=== PATIENT | male | born 1960 | race Caucasian/White ===

== ENCOUNTER 2020-11-13 08:35 | Outpatient (REF) | payer BC, SELFPAY | END 2020-11-13 08:36 | disposition home or self-care (01) | LOC: HO.LAB 08:35 | PROVIDERS: PCP Nurse Practitioner Family; Visit Provider Internal Medicine | DX: Z20.822 Contact with and (suspected) exposure to COVID-19 (principal) | CPT/HCPCS: 36415; C9803; U0003 ==

== ENCOUNTER 2021-08-27 08:09 | Outpatient (REF) | payer BC, SELFPAY ==
--- NOTE | ~2021-08-27 | CT_ITS ---
EXAMINATION: CT ANGIOGRAM CHEST CLINICAL INFORMATION: Follow up thoracic aortic aneurysm. COMPARISON: CTA chest 09/07/2014. TECHNIQUE: Multiple axial images were obtained through the chest after the administration of 50 mL of Omnipaque 350 intravenous contrast. Extensive vascular post-processing including two-dimensional and three-dimensional reformatted images were created and reviewed on an independent workstation. This CT examination was performed using dose optimization techniques as appropriate, variously including the following: *Automated exposure control. *Adjustment of mA and/or kV according to patient size (this includes techniques or standardized protocols for targeted exams where dose is matched to indication/reason for exam; i.e. extremities or head). *Use of iterative reconstruction technique. DLP: 210 mGy-cm VASCULAR FINDINGS: There is mild aneurysmal dilatation of the ascending aorta with a maximal dimension on today's study of 4.4 x 4.3 cm (5:14). At the time of the 09/07/2014 study, maximal diameter was 4.3 x 4.1 cm (prior 4:25). Maximal dimension of the aorta for a patient of 60 years of age would be 4.1 cm. No aortic dissection is seen. A tricuspid aortic valve is present. A two-vessel branching pattern of the arch is seen with a common origin to the innominate and left carotid. The proximal great vessels are patent. Although not carried out for evaluation of the pulmonary arteries or pulmonary veins, no significant abnormality is seen. Coronary artery calcifications are seen. Calcifications are present in the aortic leaflets. The small visualized portion of the abdominal aorta shows some mild calcific plaque without aneurysm, dissection or stenosis. The celiac and SMA are patent. There are 2 renal arteries seen on the right that are patent and a single left-sided renal artery that is patent. NONVASCULAR FINDINGS: LUNGS: The lungs are clear with no evidence of worrisome inflammation or nodules. Some scarring is present in the lingula. MEDIASTINUM: The mediastinum is normal. PLEURA: There is no pleural effusion. No pleural mass or thickening. AXILLA: No lymphadenopathy. UPPER ABDOMEN: Unremarkable. OSSEOUS STRUCTURES: Degenerative changes are present in the spine without bony destructive lesions. CT/CT angio chest aorta IMPRESSION: There is mild aneurysmal dilatation of the ascending thoracic aorta. Maximal dimension of the ascending aorta has increased by 1 mm from 4.3 cm in 2013 to 4.4 cm on today's study. Maximal dimension of the thoracic aorta for a patient of 61 years of age should be 4.1 cm. Normal aortic diameters (in millimeters). Ascending aorta: 31+0.16 x age. Descending aorta: 21+0.16 x age. Reference: [employer] Cardiovascular J 2006 March; 40 (3): 175-178
[2021-08-27 08:55] LABS: Alanine Aminotransferase 33 U/L (0-40); Albumin Level 4.5 g/dL (3.5-5.0); Alkaline Phosphatase 67 U/L (39-117); Anion Gap 15 (12-20); Aspartate Amino Transferase 27 U/L (5-37); Bilirubin Total 0.9 mg/dL (0.0-1.0); Blood Urea Nitrogen 10 mg/dL (9-16); Calcium 9.3 mg/dL (8.4-10.2); Carbon Dioxide 24 mmol/L (22-29); Chloride 107 mmol/L (96-108); Cholesterol 184 mg/dL; Estimated Glomerular Filt Rate > 60; Glucose Fasting 114 mg/dL (60-99); HDL Cholesterol 78 mg/dL; LDL Cholesterol Calculated 97 mg/dl; Potassium 4.8 mmol/L (3.3-5.1); Sodium 141 mmol/L (135-145); Total Protein 7.6 g/dL (6.5-8.0); Triglycerides 49 mg/dL
[2021-08-27 09:08] LABS: TSH reflex Free T4 0.93 uIU/mL (0.32-4.0)
[2021-08-27] MEDS: iohexoL 350 MG/ML 100 ML INFUS..BTL IV (10:30)
[2021-08-27 10:42] LABS: Appearance Urine CLEAR; Color Urine YELLOW; Glucose Urine UA NEG (NEG); Leukocyte Esterase Urine NEG (NEG); Nitrite Urine NEG (NEG); Specific Gravity - Urine 1.015 (1.005-1.025); Urine Blood NEG (NEG); Urine Ketones NEG (NEG); Urine Protein NEG (NEG-TRACE)
[2021-08-28 08:26] LABS: Lyme Abs Screen <0.90 index
== END 2021-08-27 08:10 | disposition home or self-care (01) ==
LOC: HO.CT 08:09
PROVIDERS: PCP Nurse Practitioner Family; Visit Provider Nurse Practitioner Family
DX: I71.2 Thoracic aortic aneurysm, without rupture (principal); I10 Essential (primary) hypertension; T14.8XXA Other injury of unspecified body region, initial encounter; W57.XXXA Bitten or stung by nonvenomous insect and other nonvenomous arthropods, initial encounter
CPT/HCPCS: 36415; 71275; 80053; 80061; 81003; 84443; 86617; 86618; Q9967

== ENCOUNTER 2021-12-21 06:07 | Outpatient (REF) | payer BC, SELFPAY ==
[2021-12-21 11:37] LABS: Appearance Urine CLEAR; Color Urine YELLOW; Glucose Urine UA NEG (NEG); Leukocyte Esterase Urine NEG (NEG); Nitrite Urine NEG (NEG); PH 6.5 (5.0-8.0); Urine Blood NEG (NEG); Urine Ketones NEG (NEG); Urine Protein NEG (NEG-TRACE)
[2021-12-21 11:56] LABS: Alanine Aminotransferase 70 U/L (0-40); Albumin Level 4.4 g/dL (3.5-5.0); Alkaline Phosphatase 61 U/L (39-117); Anion Gap 13 (12-20); Aspartate Amino Transferase 44 U/L (5-37); Bilirubin Total 1.2 mg/dL (0.0-1.0); Blood Urea Nitrogen 12 mg/dL (9-16); Calcium 9.9 mg/dL (8.4-10.2); Carbon Dioxide 31 mmol/L (22-29); Chloride 96 mmol/L (96-108); Cholesterol 187 mg/dL; Estimated Glomerular Filt Rate > 60; Glucose Fasting 112 mg/dL (60-99); HDL Cholesterol 84 mg/dL; LDL Cholesterol Calculated 95 mg/dl; Potassium 4.6 mmol/L (3.3-5.1); Sodium 135 mmol/L (135-145); Total Protein 7.5 g/dL (6.5-8.0); Triglycerides 44 mg/dL
== END 2021-12-21 06:08 | disposition home or self-care (01) ==
LOC: HO.HMGCLDS 06:07
PROVIDERS: Visit Provider Nurse Practitioner Family
DX: Z00.00 Encounter for general adult medical examination without abnormal findings (principal); Z12.5 Encounter for screening for malignant neoplasm of prostate
CPT/HCPCS: 36415; 80053; 80061; 81003; 84153; 84443

== ENCOUNTER 2022-04-30 09:31 | Outpatient (REF) | payer OTHER, SELFPAY ==
--- NOTE | ~2022-04-30 | US_ITS ---
EXAMINATION: US ABDOMEN COMPLETE CLINICAL INFORMATION: Abnormal levels of other serum enzymes. COMPARISON: None TECHNIQUE: Real-time imaging of the abdominal viscera. FINDINGS: PANCREAS: The pancreas is homogeneous in density and normal size. ABDOMINAL AORTA: The proximal, mid, and distal segments are normal in caliber. INFERIOR VENA CAVA: Visualized portions are normal. LIVER: The liver is normal in size. The liver contour is normal. The liver is diffusely echogenic. No focal hepatic lesion. There is no intrahepatic biliary duct dilatation seen. Hepatopedal flow seen in the portal vein. GALLBLADDER: Gallbladder wall thickness is 0.26 cm. The gallbladder is physiologically distended without evidence of stones, sludge, polyps, wall thickening or pericholecystic fluid. COMMON BILE DUCT: Normal in caliber measuring 0.3 cm in diameter. RIGHT KIDNEY: There is an anechoic exophytic cyst in the lower pole measuring 2.2 x 1.6 x 2.0 cm. No hydronephrosis or renal calculi. The kidney measures 11.0 cm in maximum dimension. LEFT KIDNEY: Normal. No hydronephrosis. No renal calculi or focal parenchymal lesions. The kidney measures 10.7 cm in maximum dimension. SPLEEN: Normal. The spleen measures 13.2 cm in maximum dimension. FREE FLUID: None. US/US abdomen complete IMPRESSION: Anechoic exophytic cyst lower pole right kidney measuring 2.2 x 1.6 x 2.0 cm. Hepatic steatosis without focal lesion. The rest of the abdominal ultrasound is unremarkable.
== END 2022-04-30 09:32 | disposition home or self-care (01) ==
LOC: HO.US 09:31
PROVIDERS: Visit Provider Nurse Practitioner Family
DX: R74.8 Abnormal levels of other serum enzymes (principal)
CPT/HCPCS: 76700

== ENCOUNTER → 2022-06-17 08:09 | Outpatient (REF) | payer OTHER, SELFPAY ==
--- NOTE | 2022-06-17 08:11 | CA_ITS ---
Transthoracic Echocardiogram Patient (Last, First, Middle): Mannie Pleitez B Gender: Male Date of : 1960 Age: 62 Procedure Date: 06/17/2022 Procedure Type: Transthoracic Echocardiogram Location: OP Height: 182.88 cm Weight: 95.26 kg BSA: 2.18 m2 Heart Rate: bpm BP: 130 / 70 mmHg Air Hole Driller: KAMERON Referring MD: Daniel Azevedo [facility] Customer Relations Coordinator: Joshua Lorenzo MD Symptoms: R01.1 - Cardiac murmur, unspecified Study Quality: Adequate ECG Rhythm: Sinus Conclusions: - 1. Normal LV systolic function with moderate LVH with LVEF of 55-60% with impaired relaxation filling pattern 2. Normal cardiac valvular Dopplers 3. Mildly dilated ascending aorta at 4.3 cm 4. Normal RV systolic pressure 5. No gross pericardial effusion Findings Left Ventricle Normal left ventricular size and systolic function. There is moderately increased left ventricular wall thickness. The visually estimated ejection fraction is between 55-60%. Spectral Doppler is indicative of an impaired relaxation filling pattern. E/E prime ratio is between 8 and 15 consistent with indeterminate filling pressures. Right Ventricle Normal right ventricular cavity size and systolic function. Atria The left atrium is normal in size. Interatrial shunt cannot be excluded. The right atrium is normal in size. Aortic Valve There is mild calcification of the aortic valve. There is no aortic valve stenosis. There is no aortic valve regurgitation. Mitral Valve There is mild anterior and posterior mitral leaflet thickening. There is mild mitral annular calcification. There is trace mitral valve regurgitation. There is no mitral valve stenosis. Pulmonic Valve The pulmonic valve was not well visualized. There is trace pulmonic valve regurgitation. Tricuspid Valve Likely normal tricuspid valve structure and function. There is trace tricuspid valve regurgitation. The right ventricular systolic pressure is normal. The right ventricular systolic pressure is 20 mmHg. Normal right atrial pressure. There is no evidence of pulmonary hypertension. Great Vessels The pulmonary artery was not well visualized. There is mild dilatation of the ascending aorta measuring 4.30 cm. Venous The inferior vena cava is normal in size and collapses greater than 50% with inspiration. Pericardium/Pleural There is no evidence of pericardial effusion. Prior Study Comparison no previous study in the last 5 years for comparison Measurements 2D Linear Measurements IVSd: 1.52 0.6-0.9/0.6-1.0 cm LVIDd: 4.00 3.9-5.3/4.2-5.9 cm LVIDd Index: 1.83 2.4-3.2/2.2-3.1 cm/m2 LVIDs: 2.63 2.0-3.6 cm LVPWd: 1.60 0.7-1.1 cm LA Diam: 3.10 2.7-3.8/3.0-4.0 cm LAIDs Index: 1.42 1.5-2.3 cm/m2 LV Mass: 308.82 67-162/88-224 g LV Mass Index: 141.66 43-95/49-115 g/m2 LVOT Diam: 2.00 3.0+(-)1.3 cm 2D Systolic Function EF 4C: 54.40 >55% EF 2C: 63.30 >55% EF BiP: 58.60 >55% Mitral Valve MV Pk E: 0.92 MV PK A: 0.75 MV Decel Time: 262.00 E/A: 1.20 E'Lateral: 8.70 E'Medial: 7.07 E/E' Med: 13.00 E/E' Lat: 10.50 PHT: 77.00 MVA PHT: 2.86 Decel [place]: 3.50 Aortic Valve AoV Pk Deondre: 1.87 AoV Mn Deondre: 1.25 AoV VTI: 0.39 AoV Pk Grad: 14.00 Aov Mn Grad: 7.00 VERONICA Cont.VTI: 1.57 LVOT LVOT Pk Deondre: 0.84 LVOT Mn Deondre: 0.56 LVOT VTI: 0.19 LVOT Pk Grad: 3.00 LVOT Mn Grad: 1.00 LVOT Diam: 2.00 LVOT Area: 3.14 Diastolic Function MV Pk E: 0.92 MV Pk A: 0.75 E/A: 1.20 E'Medial: 7.07 E/E' Med: 13.00 E' Laterial: 8.70 E/E' Lat: 10.50 Right Ventricle TAPSE (mm): 22.60 TVS' Deondre: 12.10 Tricuspid Valve TR Pk Deondre: 2.06 TR Pk Grad: 17.00 RA Press: 3.00 RVSP: 20.00 Great Vessels Aorta Sinus of Valsalva: 3.89 2.0-3.[address] [place]: 2.75 1.7-3.4 cm Ao Asc: 4.30 2.1-3.4 cm Ao Arch: 3.90 Updated in Other Vendor System with Status of Final Joshua Lorenzo MD electronically signed on 06/17/2022 11:47:42 AM with status of Final
== END ==
LOC: HO.CARD 08:09
PROVIDERS: Visit Provider Nurse Practitioner Family
DX: R01.1 Cardiac murmur, unspecified (principal)
CPT/HCPCS: 93306

== ENCOUNTER → 2022-08-16 08:49 | Outpatient (BNVA) | payer OTHER, SELFPAY | PROVIDERS: PCP Nurse Practitioner Family; Visit Provider Urology | DX: N28.1 Cyst of kidney, acquired (principal) | CPT/HCPCS: 51798 ==

== ENCOUNTER 2022-12-06 08:16 | Outpatient (REF) | payer OTHER, SELFPAY ==
[2022-12-06 11:25] LABS: Appearance Urine Clear; Color Urine Yellow; Glucose Urine UA Negative (Negative); Leukocyte Esterase Urine Negative (Negative); Nitrite Urine Negative (Negative); PH 7.5 (5.0-9.0); Urine Blood Negative (Negative); Urine Ketones Negative (Negative); Urine Protein Negative (Neg-Trace)
[2022-12-06 11:43] LABS: MANUAL DIFF FLAG NO
[2022-12-06 12:01] LABS: Basophils Percent Auto 0.6 % (0-2); Eosinophils Absolute Auto 0.3 X10*3/uL (0.0-0.4); Eosinophils Percent Auto 3.5 % (0-4); Hematocrit 41.8 % (42.0-52.0); Hemoglobin 14.1 g/dl (14.0-18.0); Imm Gran Abs Auto 0.02 X10*3/uL (0.00-0.03); Imm Gran Pct Auto 0.3 % (0.0-0.4); Lymphocytes Absolute Auto 0.8 X10*3/uL (1.2-4.9); Lymphocytes Percent Auto 10.9 % (20-40); Mean Corpuscular HGB Conc 33.7 g/dl (31.0-36.0); Mean Corpuscular Hemoglobin 31.1 pg (27.0-33.0); Mean Corpuscular Volume 92.3 fL (80.0-98.0); Mean Platelet Volume 8.7 fL (9.4-12.4); Monocytes Absolute Auto 0.8 X10*3/uL (0.1-1.2); Monocytes Percent Auto 11.6 % (2-11); Neutrophils Absolute Auto 5.2 x10*3/uL (2.0-8.3); Neutrophils Percent Auto 73.1 % (45-73); Platelet Count 220 X10*3/uL (160-400); Red Blood Count 4.53 X10*6/uL (4.60-5.80); Red Cell Distribution Width 12.2 % (11.0-16.0); White Blood Count 7.1 X10*3/uL (4.8-10.8)
[2022-12-06 12:42] LABS: Alanine Aminotransferase 64 U/L (0-40); Albumin Level 4.3 g/dL (3.5-5.0); Alkaline Phosphatase 79 U/L (39-117); Anion Gap 15 (12-20); Aspartate Amino Transferase 47 U/L (5-37); Bilirubin Total 1.1 mg/dL (0.0-1.0); Blood Urea Nitrogen 10 mg/dL (9-16); Calcium 9.5 mg/dL (8.4-10.2); Carbon Dioxide 25 mmol/L (22-29); Chloride 101 mmol/L (96-108); Estimated Glomerular Filt Rate > 60; Glucose Random 110 mg/dL (60-115); Potassium 4.8 mmol/L (3.3-5.1); Sodium 136 mmol/L (135-145); TSH reflex Free T4 1.65 uIU/mL (0.32-4.0); Total Protein 7.5 g/dL (6.5-8.0)
== END 2022-12-06 08:17 | disposition home or self-care (01) ==
LOC: HO.HMGCLDS 08:16
PROVIDERS: PCP Nurse Practitioner Family; Visit Provider Nurse Practitioner Family
DX: F10.10 Alcohol abuse, uncomplicated (principal); R74.8 Abnormal levels of other serum enzymes; I10 Essential (primary) hypertension; I71.20 Thoracic aortic aneurysm, without rupture, unspecified
CPT/HCPCS: 36415; 80053; 81003; 84443; 85025

== ENCOUNTER 2023-01-31 08:26 | Outpatient (REF) | payer OTHER, SELFPAY ==
[2023-02-06 23:32] LABS: PSA, Ultra Sensitive 1.26 ng/mL
== END 2023-01-31 08:27 | disposition home or self-care (01) ==
LOC: HO.HMGCLDS 08:26
PROVIDERS: Urology; PCP Nurse Practitioner Family; Visit Provider Nurse Practitioner Family
DX: Z12.5 Encounter for screening for malignant neoplasm of prostate (principal)
CPT/HCPCS: 36415; 84153

== ENCOUNTER 2023-02-05 08:04 | Outpatient (REF) | payer OTHER, SELFPAY ==
--- NOTE | ~2023-02-05 | CT_ITS ---
EXAMINATION: CTA OF THE CHEST WITHOUT AND WITH CONTRAST CLINICAL INFORMATION: Thoracic aortic aneurysm without rupture. COMPARISON: 08/27/2021. TECHNIQUE: CT angiography of the chest was performed without and with contrast. 70 mL Omnipaque 350 administered intravenously without complication. 3D POSTPROCESSING: Multiple 3-D angiographic images were processed from the initial data set by the lab animal technologist at the modality workstation under concurrent physician supervision. DOSE LOWERING TECHNIQUES: This CT examination was performed using dose optimization techniques as appropriate, variously including the following: - Automated exposure control - Adjustment of mA and/or kV according to patient size (this includes techniques or standardized protocols for targeted exams where dose is matched to indication/reason for exam; i.e. extremities or head) - Use of iterative construction technique DOSE-LENGTH PRODUCT: 169 mGycm FINDINGS: CORONARY ARTERIES: LAD and LCx calcium. ASCENDING AORTA: Motion artifact limits evaluation. The tubular segment measures 4.4 x 4.4 cm which is stable compared to the prior study. AORTIC ARCH: The aortic arch is normal in caliber. Two-vessel branching pattern. The great vessels are patent. DESCENDING AORTA: The descending aorta is normal in caliber with minimal atherosclerotic disease. INCLUDED UPPER ABDOMINAL AORTA: The upper abdominal aorta is normal in caliber. Initial visualization of the celiac trunk is unremarkable. PULMONARY ARTERIES: The exam was performed in the systemic arterial phase and not timed to evaluate the pulmonary arteries. NONVASCULAR: Arterial phase imaging limits evaluation of nonvascular structures. No mediastinal adenopathy. No pericardial effusion. Calcified granuloma in the right upper lobe. Mild atelectasis or scarring in the lingula. Small calcified pleural plaques bilaterally may indicate prior asbestos exposure. No and evidence of interstitial lung disease. The upper abdomen is unremarkable. Degenerative changes in the spine. CT/CT angio chest aorta IMPRESSION: Stable ascending aortic aneurysm measuring 4.4 cm. Fleischner guidelines were followed.
[2023-02-05] MEDS: iohexoL 350 MG/ML 100 ML INFUS..BTL IV (09:07)
[2023-02-05 13:27] LABS: Creatinine POC 0.8 mg/dL (0.5-1.4); GFR POC > 60
== END 2023-02-05 08:05 | disposition home or self-care (01) ==
LOC: HO.CT 08:04
PROVIDERS: Visit Provider Nurse Practitioner Family
DX: I71.20 Thoracic aortic aneurysm, without rupture, unspecified (principal)
CPT/HCPCS: 71275; 82565; Q9967

== ENCOUNTER 2023-06-16 09:18 | Outpatient (AMB) | payer OTHER, SELFPAY ==
[2023-06-16 09:25] VITALS: BP 148/80; PULSE 83; TEMP 35.9; O2SAT 98; BMI 29.0
--- NOTE | 2023-06-16 09:25 | MHC.OFFWIV ---
Intake Vital Signs 06/16/23 09:25 Height 6 ft Weight 214 lb BMI 29.0 BP 148/80 H Blood Pressure Location Lt brachial Position Sitting Pulse 83 Pulse Source Pulse Oximeter Temp 96.6 F L Temp Source Temporal Artery Scan Pulse Oximetry (%) 98 Oxygen Delivery Method Room Air Intake Visit Reasons: EP, Right uppper shoulder pain Intake Note: Pt is here c/o right upper shoulder pain. Pt states he feels like he pulled a muscle on 06/13/23. Pt states he caught his brother from falling when he felt a pain in his shoulder. Patient Tobacco Use Status: Never used Tobacco Allergies BEES Allergy (Intermediate, Uncoded 06/16/23 09:48) anaphylaxis Medication List - Last Reconciled 06/16/23 by Miguel Dsouza MD albuterol sulfate 90 mcg/actuation 2 inhalations inhalation Q4-6H PRN atenolol 100 mg PO DAILY losartan 100 mg PO DAILY 90 days sildenafil 100 mg PO DAILY PRN 30 days triamcinolone acetonide 0.1% appl topical Do you need a note to return to daycare/school/sports/work: No HPI EP, Right uppper shoulder pain HPI Details 63-year-old male presents to the office for a sick visit. Patient was helping his brother with a garden tool when he fell and sprained his shoulder. Patient is having pain in the right shoulder which is worse when he turns on the shoulder at night. 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 Full range of motion including flexion, extension, internal and external rotation. Assessment & Plan Assessment & Plan (1) Sprain of right shoulder: Code(s): S43.401A - Unspecified sprain of right shoulder joint, initial encounter Plan X-ray images were personally reviewed by me.Bone alignment is intact. Meloxicam and cyclobenzaprine called in. If symptoms not better to follow-up here. Orders: Orders XR shoulder RT min 2V Today S43.401A - Unspecified sprain of right shoulder joint, initial encounter Coding Level of Care Code Est Pt Level 4 (23699) Diagnoses Sprain of right shoulder S43.401A
== END 2023-06-16 10:33 | disposition home or self-care (01) ==
PROVIDERS: PCP Nurse Practitioner Family; Visit Provider Internal Medicine
DX: S43.401A Unspecified sprain of right shoulder joint, initial encounter (principal)
CPT/HCPCS: 99214

== ENCOUNTER 2023-06-16 09:41 | Outpatient (REF) | payer OTHER, SELFPAY ==
--- NOTE | ~2023-06-16 | XR_ITS ---
EXAMINATION: XR SHOULDER, RIGHT CLINICAL INFORMATION: Right shoulder sprain COMPARISON: None available. TECHNIQUE: AP external rotation, Grashey, scapular Y of the right shoulder. FINDINGS: There are changes of osteoarthritis of the right glenohumeral joint and acromioclavicular joint. The glenohumeral joint is narrowed with minimal marginal spurring inferiorly medially. There is irregularity of the right glenohumeral joint. There is no evidence of fractures soft tissues are unremarkable. XR/XR shoulder RT min 2V IMPRESSION: Changes of osteoarthritis in the right glenohumeral joint and acromioclavicular joint
== END 2023-06-16 09:42 | disposition home or self-care (01) ==
LOC: HO.HMGCX 09:41
PROVIDERS: PCP Nurse Practitioner Family; Visit Provider Internal Medicine
DX: S43.401A Unspecified sprain of right shoulder joint, initial encounter (principal)
CPT/HCPCS: 73030

== ENCOUNTER 2023-08-19 09:08 | Outpatient (AMB) | payer OTHER, SELFPAY ==
--- NOTE | 2023-08-19 09:20 | MHC.PC.OV ---
Vital Signs 08/19/23 09:32 Height 6 ft Weight 212 lb BMI 28.7 BP 140/98 H Blood Pressure Location Lt brachial Position Sitting Pulse 73 Pulse Source Pulse Oximeter Pulse Oximetry (%) 96 Oxygen Delivery Method Room Air Intake Visit Reasons: F/u HTN Intake Note: Pt is here today for his f/u HTN Allergies BEES Allergy (Intermediate, Uncoded 08/19/23 09:33) anaphylaxis Medication List - Last Reconciled 08/19/23 [facility] albuterol sulfate 90 mcg/actuation 2 inhalations inhalation Q4-6H PRN atenolol 100 mg PO DAILY cyclobenzaprine 10 mg PO BEDTIME losartan-hydrochlorothiazide 100-12.5 mg 1 tab PO DAILY meloxicam 15 mg PO DAILY sildenafil 100 mg PO DAILY PRN 30 days triamcinolone acetonide 0.1% appl topical Tobacco use date assessed: 08/19/23 Dental Screening Dental Screen Date: 08/19/23 Did you have a dental visit in the last 12 months?: No Was dental information given to patient?: Patient has dentist HPI F/u HTN HPI Details HTN: Blood pressure is managed with atenolol 100mg and losartan 100mg. BP is elevated today. Will add hydrochlorothiazide 12.5mg (switching to combo med). Will have pt monitor his BP at home and record readings. Denies chest pain, shortness of breath, headache, dizziness, and blurred vision. 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 Bon Nelson, Zari Bojorquez, Timmy Duarte and colleagues, with an educational cary from [employer]. Review of Systems Const Reports as per HPI Physical exam (Primary Care) Vital Signs: Last Vital Signs Pulse 73 08/19/23 09:32 BP 140/98 H 08/19/23 09:32 Pulse Ox 96 08/19/23 09:32 Oxygen Delivery Method Room Air 08/19/23 09:32 BMI result Body Mass Index 28.7 Tobacco/Smoking Status: Tobacco use Status Tobacco use date assessed 08/19/23 08/19/23 09:36 Patient Tobacco Use Status Never used Tobacco 08/19/23 09:20 e-Cigarette/Vaping Use Never Used 08/19/23 09:20 Thrive Assessment: Date of Thrive Assessment Date Thrive assessed 01/15/23 08/19/23 09:20 Const General: cooperative Orientation/consciousness: patient oriented x3 Resp Effort & Inspection: normal respiratory effort Auscultation: clear to auscultation bilaterally Cardio Rate: regular rate Rhythm: regular rhythm Heart sounds: S1 normal heart sound present and S2 normal heart sound present Neuro General: patient oriented x3 Extrem Right lower extremity: no edema Left lower extremity: no edema Psych Appearance: grossly normal Mental Status: mental status grossly normal Speech and movement: Normal speech and movement present Affect: normal affect Attitude: cooperative Thought process: Normal thought process present Thought content: Normal thought content present Insight: Good insight present (Psych) Judgement: Good judgement present (Psych) Assessment and Plan Assessment & Plan (1) HTN (hypertension): Code(s): I10 - Essential (primary) hypertension Plan: Starting hctz, labs ordered, pt will monitor BP at home Plan The patient agreed to the use of a anesthesiology medical doctor for this encounter. Scribed for ANALIA Fan by Марина Solares anesthesiology medical doctor, on 08/19/2023 at 09:45 EST. Orders: Orders TSH reflex Free T4 Today I10 - Essential (primary) hypertension UA CC w/rflx Micro + Cult Today I10 - Essential (primary) hypertension Lipid Panel Today I10 - Essential (primary) hypertension Complete Blood Count Auto Diff Today I10 - Essential (primary) hypertension Comprehensive [place]. Panel Fast Today I10 - Essential (primary) hypertension Medications: New losartan-hydrochlorothiazide 100-12.5 mg 1 tab PO DAILY 90 tabs 0RF Discontinued losartan Discontinued Reason: Duplicate 100 mg PO DAILY 90 days 90 tabs 1RF Coding Level of Care Code Est Pt Level 3 (65956) Diagnoses HTN (hypertension) I10
[2023-08-19 09:32] VITALS: BP 140/98; PULSE 73; O2SAT 96; BMI 28.7
== END 2023-08-19 15:41 | disposition home or self-care (01) ==
PROVIDERS: PCP Nurse Practitioner Family; Visit Provider Nurse Practitioner Family
DX: I10 Essential (primary) hypertension (principal)
CPT/HCPCS: 99213

== ENCOUNTER 2023-10-10 08:34 | Outpatient (AMB) | payer OTHER, SELFPAY ==
--- NOTE | 2023-10-10 08:41 | MHC.OFFWIV ---
Intake Vital Signs 10/10/23 08:42 Height 6 ft Weight 212 lb BMI 28.7 BP 134/80 Blood Pressure Location Rt brachial Position Sitting Pulse 94 Pulse Source Pulse Oximeter Temp 98.1 F Temp Source Oral Pulse Oximetry (%) 96 Oxygen Delivery Method Room Air Intake Visit Reasons: EST/cough (lobby masked) Patient Tobacco Use Status: Never used Tobacco Allergies bee pollen [bee stings] Allergy (Severe, Verified 10/10/23 08:44) Anaphylaxis Do you need a note to return to daycare/school/sports/work: No HPI EST/cough (lobby masked) HPI Details This is a 63 year old male patient who presents to the [facility] clinic with persistent cough with yellow sputum for about 1 week. He states he develops coughing spells, particularly at night, which cause him to nearly vomit. He does have an inhaler however he is nearly out of it. Denies any fever/chills. History of developing bronchitis following URIs. 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 Review of Systems Const All systems reviewed & are unremarkable except as noted in HPI and below Physical Exam Const General: no acute distress HEENT Head: Yes normal to inspection and Yes normocephalic Ears: hearing grossly normal bilaterally Face and sinus: Yes normal facial exam Mouth: Normal oral and palatal mucosa present Throat: Yes posterior oropharynx normal Neck Neck: Yes no lymphadenopathy Resp Effort & Inspection: normal respiratory effort and Actively coughing Quality: actively coughing Auscultation: wheezes (otherwise clear) expiratory wheezes and upper bilaterally Cardio Jugular venous distension: no JVD Palpation: normal PMI Rate: regular rate Rhythm: regular rhythm Skin General skin exam: no rashes or lesions noted Extrem General: Yes capillary refill normal and Yes no clubbing, cyanosis or edema Psych Mental Status: mental status grossly normal Speech and movement: Normal speech and movement present Assessment & Plan Assessment & Plan (1) Upper respiratory infection: Code(s): J06.9 - Acute upper respiratory infection, unspecified Qualifiers: URI type: unspecified URI Qualified Code(s): J06.9 - Acute upper respiratory infection, unspecified Plan: Azitrhomycin and a short course of prednisone prescribed for patient. Albuterol inhaler refilled. Reviewed indications, use, possible s/e of these medications. Also reviewed conservative treatment with rest, hydration, otc tylenol as needed. Advised patient to return to the clinic if he does not improve with treatment, or if symptoms worsen/new symptoms develop. He verbalizes understanding and agrees to plan. Medications: New azithromycin For 250 mg dose pack: take 500 mg today (day 1), then 250 mg for 4 days (days 2-5) PO 6 tabs 0RF J06.9 - Acute upper respiratory infection, unspecified prednisone 20 mg PO BID 3 days 6 tabs 0RF J06.9 - Acute upper respiratory infection, unspecified Refilled albuterol sulfate 90 mcg/actuation 2 inhalations inhalation Q4-6H PRN 1 ea 0RF shortness of breath or wheezing J20.9 - Acute bronchitis, unspecified Coding Level of Care Code Est Pt Level 3 (91944) Diagnoses Upper respiratory tract infection, unspecified type J06.9 URI type: unspecified URI
[2023-10-10 08:42] VITALS: BP 134/80; PULSE 94; TEMP 36.7; O2SAT 96; BMI 28.7
== END 2023-10-10 08:57 | disposition home or self-care (01) ==
PROVIDERS: PCP Nurse Practitioner Family; Visit Provider Nurse Practitioner Family
DX: J06.9 Acute upper respiratory infection, unspecified (principal)
CPT/HCPCS: 99213

== ENCOUNTER 2024-02-19 11:33 | Outpatient (REF) | payer OTHER, SELFPAY ==
[2024-02-19 13:09] LABS: MANUAL DIFF FLAG NO
[2024-02-19 13:12] LABS: Appearance Urine Clear; Color Urine Yellow; Glucose Urine UA Negative (Negative); Leukocyte Esterase Urine Negative (Negative); Nitrite Urine Negative (Negative); PH 7.5 (5.0-9.0); Urine Blood Negative (Negative); Urine Ketones Negative (Negative); Urine Protein Trace mg/dL (Neg-Trace)
[2024-02-19 13:21] LABS: Basophils Percent Auto 0.5 % (0-2); Eosinophils Absolute Auto 0.2 X10*3/uL (0.0-0.4); Eosinophils Percent Auto 2.3 % (0-4); Hematocrit 40.9 % (42.0-52.0); Hemoglobin 14.2 g/dl (14.0-18.0); Imm Gran Abs Auto 0.03 X10*3/uL (0.00-0.03); Imm Gran Pct Auto 0.4 % (0.0-0.4); Lymphocytes Absolute Auto 0.9 X10*3/uL (1.2-4.9); Lymphocytes Percent Auto 11.7 % (20-40); Mean Corpuscular HGB Conc 34.7 g/dl (31.0-36.0); Mean Corpuscular Hemoglobin 32.4 pg (27.0-33.0); Mean Corpuscular Volume 93.4 fL (80.0-98.0); Mean Platelet Volume 8.7 fL (9.4-12.4); Monocytes Percent Auto 13.3 % (2-11); Neutrophils Absolute Auto 5.4 x10*3/uL (2.0-8.3); Neutrophils Percent Auto 71.8 % (45-73); Platelet Count 239 X10*3/uL (160-400); Red Blood Count 4.38 X10*6/uL (4.60-5.80); Red Cell Distribution Width 12.9 % (11.0-16.0); White Blood Count 7.5 X10*3/uL (4.8-10.8)
[2024-02-19 14:05] LABS: Alanine Aminotransferase 61 U/L (0-40); Albumin Level 4.4 g/dL (3.5-5.0); Alkaline Phosphatase 85 U/L (39-117); Anion Gap 15 (12-20); Aspartate Amino Transferase 43 U/L (5-37); Bilirubin Total 1.3 mg/dL (0.0-1.0); Blood Urea Nitrogen 13 mg/dL (9-16); Calcium 9.9 mg/dL (8.4-10.2); Carbon Dioxide 26 mmol/L (22-29); Chloride 97 mmol/L (96-108); Cholesterol 187 mg/dL (<200); Estimated Glomerular Filt Rate > 60; Glucose Fasting 107 mg/dL (60-99); HDL Cholesterol 73 mg/dL (>40); LDL Cholesterol Calculated 107 mg/dL (<100); Potassium 4.3 mmol/L (3.3-5.1); Sodium 134 mmol/L (135-145); Total Protein 7.9 g/dL (6.5-8.0); Triglycerides 39 mg/dL (<150)
[2024-02-19 14:10] LABS: TSH reflex Free T4 1.38 uIU/mL (0.32-4.0)
== END 2024-02-19 11:34 | disposition home or self-care (01) ==
LOC: HO.HMGCLDS 11:33
PROVIDERS: PCP Nurse Practitioner Family; Visit Provider Nurse Practitioner Family
DX: I10 Essential (primary) hypertension (principal)
CPT/HCPCS: 36415; 80053; 80061; 81003; 84443; 85025

== ENCOUNTER 2024-02-23 07:45 | Outpatient (AMB) | payer OTHER, SELFPAY ==
[2024-02-23 07:50] VITALS: BP 124/78; PULSE 75; O2SAT 97; BMI 28.6
--- NOTE | 2024-02-23 07:50 | A.OFFPC_ITS ---
Vital Signs 02/23/24 07:50 Height 6 ft Weight 211 lb BMI 28.6 BP 124/78 Blood Pressure Location Rt brachial Position Sitting Pulse 75 Pulse Source Pulse Oximeter Pulse Oximetry (%) 97 Oxygen Delivery Method Room Air Intake Visit Reasons: Annual PE - see comments Intake Note: Pt is here today for PE. Allergies bee pollen [bee stings] Allergy (Severe, Verified 02/23/24 07:52) Anaphylaxis Medication List - Last Reconciled 02/23/24 by ANALIA Acevedo albuterol sulfate 90 mcg/actuation 2 inhalations inhalation Q4-6H PRN atenolol 100 mg PO DAILY losartan-hydrochlorothiazide 100-12.5 mg 1 tab PO DAILY Tobacco use date assessed: 02/23/24 Dental Screening Dental Screen Date: 02/23/24 Did you have a dental visit in the last 12 months?: Yes Did you have a dental problem in the last 6 months where you did not have access to dental care?: No Was dental information given to patient?: Patient has dentist HPI Annual PE - see comments HPI Details * Pt is here for a PE. Labs were already performed. Due for PSA, will order. Denies dribbling with urination, weak stream, and frequent nocturia. Pt's CBC was abnormal. Will order immunofixation and electrophoresis. Pt's liver enzymes were elevated. Pt does drink alcohol. Hx of fatty liver on US. Pt c/o intermittent chest pain with activity. He reports that the pain radiates to his upper back. He does report some shortness of breath. Will do an EKG in office. Will also order echo and nuclear stress test. Pt knows to go to the ER with any worsening symptoms. Pt was supposed to have a CT for a thoracic aortic aneurysm but he was unable to be reached. Pt was given the number to schedule this, orders were switched to stat for this testing, and pt will call [facility] today. 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 1. Little interest or pleasure in doing things: not at all 2. Feeling down, depressed, or hopeless: not at all 3. Trouble falling or staying asleep, or sleeping too much: not at all 4. Feeling tired or having little energy: not at all 5. Poor appetite or overeating: not at all 6. Feeling bad about yourself - or that you are a failure or have let yourself or your family down: not at all 7. Trouble concentrating on things, such as reading the newspaper or watching television: not at all 8. Moving or speaking so slowly that other people could have noticed. Or the opposite - being so fidgety or restless that you have been moving around a lot more than usual: not at all 9. Thoughts that you would be better off or of hurting yourself in some way: not at all Total score: 0 Depression Screening Interpretation: Negative Depression Screening Done: Yes 48464 - PHQ-9 Billing: Yes Source: Developed by Drs. Bon Nelson, Zari Bojorquez, Timmy Duarte and colleagues, with an educational cary from [employer]. Thrive Questionnaire Date Thrive assessed: 02/23/24 I am a: Patient What is your living situation today?: I have a steady place to live Within the past 12 months, did the food you bought not last and you didn't have the money to get more?: Never true Within the past 12 months, did you worry whether your food would run out before you got money to buy more?: Never true Do you have trouble paying for medicines?: No Do you have trouble getting transportation to medical appointments?: No Do you have trouble paying your heating and electricity bill?: No Do you have trouble taking care of your child, family member or friend?: No Do you have trouble with day-to-day activities such as bathing, preparing meals, shopping, managing finances, etc.?: No Are you currently unemployed and looking for a job?: No Are you interested in more education?: No Please select the resources that you would like help with: None Currently or been in a relationship where the following occur: no concerns reported THRIVE Score: 0 AUDIT C Alcohol Use Questionnaire (AUDIT-C) 1. How often do you have a drink containing alcohol?: 4 or more times a week 2. How many drinks containing alcohol do you have on a typical day when you are drinking?: 1 or 2 3. How often do you have six or more drinks on one occasion?: Never Total Score: 4 Score Reviewed/Action Taken: Yes JOSEPH-7 AMB Questionnaire JOSEPH-7 Date JOSEPH - 7 assessed: 02/23/24 Feeling nervous, anxious, or on edge: 0 = Not at all Not being able to stop or control worryin = Not at all Worrying too much about different things: 0 = Not at all Trouble relaxin = Not at all Being so restless that it is hard to sit still: 0 = Not at all Becoming easily annoyed or irritable: 0 = Not at all Feeling afraid as if something awful might happen: 0 = Not at all Total JOSEPH-7 score (0-4 normal; 5-9 mild; 10-14 moderate; 15-21 severe): 0 Source: Developed by Drs. Bon Nelson, Zari Bojorquez, Timmy Duarte and colleagues, with an educational cary from [employer]. JOSEPH-7 Assessment Billing JOSEPH-7 Assessment Tool: JOSEPH-7 Assessment 18576 Review of Systems Const Denies chills and Denies fever(s) Eyes Denies blurry vision ENT Denies vertigo, Denies dizziness and Denies sore throat Card Reports chest pain, Denies diaphoresis and Reports dyspnea Resp Denies cough, Reports dyspnea and Denies wheezing GI Denies abdominal pain, Denies melena, Denies hematochezia, Denies constipation, Denies diarrhea and Denies loose stools Denies hematuria Musc Denies numbness and Denies tingling Skin/Breast Denies lesions Neuro Denies vertigo, Denies dizziness, Denies numbness and Denies tingling Psych Denies anxiety, Denies depression, Denies homicidal ideation, Denies suicidal ideation and Denies other (substance abuse) Aller/Immun Denies wheezing Physical exam (Primary Care) Vital Signs: Last Vital Signs Pulse 75 02/23/24 07:50 BP 124/78 02/23/24 07:50 Pulse Ox 97 02/23/24 07:50 Oxygen Delivery Method Room Air 02/23/24 07:50 BMI result Body Mass Index 28.6 Tobacco/Smoking Status: Tobacco use Status Tobacco use date assessed 02/23/24 02/23/24 07:56 Patient Tobacco Use Status Never used Tobacco 02/23/24 07:56 e-Cigarette/Vaping Use Never Used 02/23/24 07:56 PHQ-9: PHQ-9 Score PHQ-9: Total score 0 02/23/24 07:56 Depression Screening Interpretation: Negative Thrive Assessment: Date of Thrive Assessment Date Thrive assessed 02/23/24 02/23/24 07:56 Currently or been in a relationship where the following occur: no concerns repor socorro Const General: cooperative Nutritional Appearance: well nourished Orientation/consciousness: patient oriented x3 HENMT Head: Yes normal to inspection, Yes normocephalic and Yes atraumatic Ears: TM's normal bilaterally Eyes General: appearance normal, both eyes and all related structures Alignment and Position: alignment normal and position normal Neck Neck: Yes normal visual inspection and Yes no lymphadenopathy Thyroid: Thyroid normal Resp Effort & Inspection: normal respiratory effort Auscultation: clear to auscultation bilaterally Cardio Rate: regular rate Rhythm: regular rhythm Heart sounds: S1 normal heart sound present, S2 normal heart sound present and Murmur heart sound present systolic GI Palpation (GI): Soft to palpation and nontender Auscultation: normal bowel sounds Male General Exam: Yes normal external exam Penis: normal penis Scrotum: scrotum normal, testes descended bilaterally and no inguinal hernias Testes: no testicular mass Skin Rashes: no rashes Neuro General: patient oriented x3, moves all extremities, no focal motor deficits and deep tendon reflexes 2+ bilaterally Romberg Test: Negative Psych Appearance: grossly normal Mental Status: mental status grossly normal Speech and movement: Normal speech and movement present Affect: normal affect Attitude: cooperative Thought process: Normal thought process present Thought content: Normal thought content present Insight: Good insight present (Psych) Judgement: Good judgement present (Psych) Assessment and Plan Assessment & Plan (1) Abnormal CBC: Code(s): R79.89 - Other specified abnormal findings of blood chemistry Plan: Labs ordered (2) Physical exam: Code(s): Z00.00 - Encounter for general adult medical examination without abnormal findings Plan: Labs already performed (3) Thoracic aortic aneurysm: Code(s): I71.2 - Thoracic aortic aneurysm, without rupture Plan: Pt given number to schedule CT, order switched to stat (4) Elevated liver enzymes: Code(s): R74.8 - Abnormal levels of other serum enzymes Plan: Educated pt on the importance of abstaining from alcohol (5) Chest pain: Code(s): R07.9 - Chest pain, unspecified Plan: EKG done in office, echo and stress test ordered stat , CTA ordered stat , pt to call them today as well (was unable to be reached previously) Plan The patient agreed to the use of a medical technologist chemistry for this encounter. Scribed for ANALIA Fan by Марина Solares medical technologist chemistry, on 02/23/2024 at 08:05 EST. Orders: Orders CA echo transthoracic complete Today R07.9 - Chest pain, unspecified AMB EKG-In Office Today R07.9 - Chest pain, unspecified Protein Electrophoresis, Serum Today R79.89 - Other specified abnormal findings of blood chemistry Immunofixation Pnl, Serum Today R79.89 - Other specified abnormal findings of blood chemistry Prostate Specific Antigen Scr Today Z12.5 - Encounter for screening for malignant neoplasm of prostate CA stress test Today R07.9 - Chest pain, unspecified NM cardiolite stress test Today R07.9 - Chest pain, unspecified Comprehensive Met. Panel Today R07.9 - Chest pain, unspecified, R79.89 - Other specified abnormal findings of blood chemistry Complete Blood Count Auto Diff Today R07.9 - Chest pain, unspecified, R79.89 - Other specified abnormal findings of blood chemistry Coding Level of Care Code Est Pt Prev Care 40-64y(32606) Diagnoses Abnormal CBC R79.89 Physical exam Z00.00 Thoracic aortic aneurysm I71.2 Elevated liver enzymes R74.8 Chest pain R07.9 Additional Codes JOSEPH-7 Assessment Billing - JOSEPH-7 Assessment Tool: JOSEPH-7 Assessment [id number] ([id number])
== END 2024-02-23 08:38 | disposition home or self-care (01) ==
PROVIDERS: Visit Provider Nurse Practitioner Family
DX: R79.89 Other specified abnormal findings of blood chemistry (principal); Z00.00 Encounter for general adult medical examination without abnormal findings; I71.20 Thoracic aortic aneurysm, without rupture, unspecified; R74.8 Abnormal levels of other serum enzymes; R07.9 Chest pain, unspecified
CPT/HCPCS: 99396

== ENCOUNTER → 2024-02-25 08:14 | Outpatient (REF) | payer OTHER, SELFPAY ==
--- NOTE | ~2024-02-25 | NM_ITS ---
EXERCISE MYOCARDIAL PERFUSION STUDY INDICATION: Chest pain, assess for coronary disease and ischemia TECHNIQUE: The patient was brought in for an exercise perfusion study on 02/25/2024. Patient performed exercise as per Gerson protocol and was injected 35 mCi of sestamibi once target heart rate was achieved. Images were obtained using the SPECT gamma camera interlaced with the gating device. Images were obtained in supine position. Resting perfusion study was performed on 03/02/2024. Patient was administered 35 mCi of sestamibi intravenously at rest. Images were then obtained in supine position. Images were processed with the software and compared side to side in short axis, horizontal long axis and vertical long axis views. Total DLP 59mGy-cm. FINDINGS: Raw images were reviewed. The stress perfusion study showed no significant perfusion of normality. Both uncorrected as well as CT attenuation corrected images were reviewed. The gated study shows normal LV systolic function with calculated LVEF of 69%. LV cavity is normal in size. The gated study shows normal wall thickening and contraction of segments. Resting study shows no significant perfusion abnormality. Gating at rest reveals normal wall motion with ejection fraction at 65%. The findings are consistent with no clear reversible or fixed perfusion abnormality. NM/NM cardiolite stress test IMPRESSION: 1. Myocardial perfusion imaging study shows normal myocardial perfusion. 2. Gated LVEF is 69% during stress and 65% during rest. 3. Transient ischemic dilatation not present. EKG component of the test reported separately.
--- NOTE | 2024-02-25 08:18 | CA_ITS ---
Acquisition Time: 2024-02-25 08:29:16 Total Exercise Time: 00:06:51 Test Indications: chest pain Medications: Protocol: ROMEO Max HR: 144 BPM 91% of Pred: 158 BPM Max BP: 160/078 mmHG Max Work Load: 7.6 METS Exercise stress test exercise 6 min 51 sec of Romeo protocol achieving 91% MPHR, without chest pains, with mild SOB, with isolated PACs, atrial tach, and isolated PVC, with normotensive response to exercise, with horizonal depressions in leads 2, 3, aVF, V4-V6. Nuclear images pending. Test reviewed with Dr. York. Referred By: Daniel Azevedo Overread By: Susi Auguste
== END ==
LOC: HO.CARD 08:14
PROVIDERS: PCP Nurse Practitioner Family; Visit Provider Nurse Practitioner Family
DX: R07.9 Chest pain, unspecified (principal)
CPT/HCPCS: 78452; 93017; A9500

== ENCOUNTER → 2024-02-25 08:18 | Outpatient (BNV) | payer OTHER, SELFPAY | PROVIDERS: PCP Nurse Practitioner Family; Visit Provider Nurse Practitioner | DX: R07.9 Chest pain, unspecified (principal) | CPT/HCPCS: 78452; 93016; 93018 ==

== ENCOUNTER → 2024-03-03 08:46 | Outpatient (REF) | payer OTHER, SELFPAY ==
--- NOTE | 2024-03-03 08:48 | CA_ITS ---
Transthoracic Echocardiogram Patient (Last, First, Middle): Mannie Pleitez B Gender: Male Date of : 1960 Age: 63 Procedure Date: 03/03/2024 Procedure Type: Transthoracic Echocardiogram Location: OP Height: 182.88 cm Weight: 98.88 kg BSA: 2.21 m2 Heart Rate: 74 bpm BP: 132 / 70 mmHg Supervisor Partial Denture Department: [facility] Referring MD: Daniel Azevedo [facility] [place] Therapist: Joshua Lorenzo MD Symptoms: R07.9 - Chest pain, unspecified Study Quality: Fair ECG Rhythm: Sinus Conclusions: - 1. Normal LV ejection fraction 55-60% with grade 1 diastolic dysfunction 2. Mild aortic stenosis noted 3. Xauq-tn-joodrylb enlargement of ascending aorta at 4.4 cm 4. Normal RV systolic pressure 5. No gross pericardial effusion Findings Procedure Information The quality of the study was technically difficult. The study quality is limited by patients body habitus. Left Ventricle Normal left ventricular size, thickness, and systolic function. The visually estimated ejection fraction is between 55-60%. Spectral Doppler is indicative of an impaired relaxation filling pattern. E/E prime ratio is <8, consistent with normal filling pressures. Evidence suggests grade I (mild) diastolic dysfunction. Right Ventricle Normal right ventricular cavity size and systolic function. Atria The left atrium is normal in size. There is no evidence of interatrial shunt. The right atrium was not well visualized. Aortic Valve There is mild calcification of the aortic valve. There is mild thickening of the aortic valve. There is mild aortic valve stenosis. The peak aortic velocity is 2.04 m/s with a calculated peak gradient of 17 mmHg. The mean gradient is 10 mmHg. The aortic valve area is 1.98 cm2. There is no aortic valve regurgitation. the leaflets are not well-visualized and unclear if this is a bicuspid valve Mitral Valve Normal mitral valve structure and function. There is trace mitral valve regurgitation. There is no mitral valve stenosis. Pulmonic Valve The pulmonic valve is likely normal. Tricuspid Valve Likely normal tricuspid valve structure and function. Tricuspid regurgitation envelope is inadequate for calculation of right ventricular systolic pressure. Normal right atrial pressure. Great Vessels The pulmonary artery was not well visualized. There is mild dilatation of the ascending aorta measuring 4.40 cm. There is no evidence of plaque in the aorta. Venous The inferior vena cava is normal in size and collapses greater than 50% with inspiration. Pericardium/Pleural There is no evidence of pericardial effusion. Prior Study Comparison Changes noted compared to prior study dated: 06/17/2022. Mild aortic stenosis is present Measurements 2D Linear Measurements IVSd: 1.03 0.6-0.9/0.6-1.0 cm LVIDd: 5.40 3.9-5.3/4.2-5.9 cm LVIDd Index: 2.44 2.4-3.2/2.2-3.1 cm/m2 LVIDs: 3.16 2.0-3.6 cm LVPWd: 1.09 0.7-1.1 cm LA Diam: 3.30 2.7-3.8/3.0-4.0 cm LAIDs Index: 1.49 1.5-2.3 cm/m2 LV Mass: 278.51 67-162/88-224 g LV Mass Index: 126.02 43-95/49-115 g/m2 LVOT Diam: 2.40 3.0+(-)1.3 cm 2D Systolic Function EF 4C: 60.40 >55% EF 2C: 53.10 >55% EF BiP: 57.80 >55% Mitral Valve MV Pk E: 0.71 MV PK A: 0.75 MV Decel Time: 172.00 E/A: 0.90 E'Lateral: 5.77 E'Medial: 6.64 E/E' Med: 10.70 E/E' Lat: 12.30 PHT: 50.00 MVA PHT: 4.40 Decel [place]: 4.13 Aortic Valve AoV Pk Deondre: 2.04 AoV Mn Deondre: 1.42 AoV VTI: 0.43 AoV Pk Grad: 17.00 Aov Mn Grad: 10.00 VERONICA Cont.VTI: 1.98 LVOT LVOT Pk Deondre: 0.86 LVOT Mn Deondre: 0.56 LVOT VTI: 0.19 LVOT Pk Grad: 3.00 LVOT Mn Grad: 2.00 LVOT Diam: 2.40 LVOT Area: 4.52 Diastolic Function MV Pk E: 0.71 MV Pk A: 0.75 E/A: 0.90 E'Medial: 6.64 E/E' Med: 10.70 E' Laterial: 5.77 E/E' Lat: 12.30 Right Ventricle TAPSE (mm): 30.00 TVS' Deondre: 14.60 Tricuspid Valve RA Press: 3.00 Great Vessels Aorta Sinus of Valsalva: 3.70 2.0-3.5 cm Ao Asc: 4.40 2.1-3.4 cm Ao Arch: 2.60 Ao Desc: 2.60 Pulmonary Veins Pulm Vein S/D 1.30 Pulmonary Valve PV Pk Deondre: 0.86 Peak PV Grad: 3.00 Updated in Other Vendor System with Status of Final Joshua Lorenzo MD electronically signed on 03/03/2024 2:16:11 PM with status of Final
== END ==
LOC: HO.CARD 08:46
PROVIDERS: PCP Nurse Practitioner Family; Visit Provider Nurse Practitioner Family
DX: R07.9 Chest pain, unspecified (principal)
CPT/HCPCS: 93306

== ENCOUNTER → 2024-03-03 08:48 | Outpatient (BNV) | payer OTHER, SELFPAY | PROVIDERS: PCP Nurse Practitioner Family; Visit Provider Internal Medicine Cardiovascular Disease | DX: I35.0 Nonrheumatic aortic (valve) stenosis (principal) | CPT/HCPCS: 93306 ==

== ENCOUNTER 2024-05-10 08:03 | Outpatient (AMB) | payer OTHER, SELFPAY ==
[2024-05-10 08:11] VITALS: BP 142/80; PULSE 78; TEMP 37; O2SAT 97; BMI 29.2
--- NOTE | 2024-05-10 08:11 | MHC.OFFWIV ---
Intake Vital Signs 05/10/24 08:11 Height 6 ft Weight 215 lb BMI 29.2 BP 142/80 H Blood Pressure Location Lt brachial Position Sitting Pulse 78 Pulse Source Pulse Oximeter Temp 98.6 F Temp Source Oral Pulse Oximetry (%) 97 Oxygen Delivery Method Room Air Intake Visit Reasons: EP SOB for few weeks Intake Note: pt is here for SOB with exertion for the last few weeks Patient Tobacco Use Status: Never used Tobacco Allergies bee pollen [bee stings] Allergy (Severe, Verified 05/10/24 08:11) Anaphylaxis Do you need a note to return to daycare/school/sports/work: No HPI HPI Comments History of Present Illness Details Patient is a 63-year-old male complaining of increasing shortness a breath over the last few weeks. He states he randomly will have coughing fits and every now and then will spit up something but he just can not stop with the coughing. 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 He denies any fevers, chest congestion, head congestion, sinus pain or ear pain. 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 Review of Systems Const All systems reviewed & are unremarkable except as noted in HPI and below Physical Exam Vital Signs: Last Vital Signs Temp 98.6 F 05/10/24 08:11 Pulse 78 05/10/24 08:11 BP 142/80 H 05/10/24 08:11 Pulse Ox 97 05/10/24 08:11 Oxygen Delivery Method Room Air 05/10/24 08:11 BMI result Body Mass Index 29.2 Const General: cooperative, healthy appearing, comfortable and no acute distress Orientation/consciousness: patient oriented x3 Limitations: no limitations HEENT Head: Yes normal to inspection Ears: hearing grossly normal bilaterally, external ears normal and TM's normal bilaterally General nose exam: Normal external nose present, Normal nares present and No nasal discharge present Face and sinus: Yes normal facial exam and Yes sinuses nontender Mouth: Normal oral and palatal mucosa present and moist mucous membranes Throat: Yes tonsils normal, Yes uvula midline and Yes posterior oropharynx abnormal (Erythema) Eyes General: appearance normal, both eyes and all related structures Neck Neck: Yes normal visual inspection Resp Effort & Inspection: normal respiratory effort, able to speak in complete sentences, no respiratory distress, not tachypneic, no tripod positioning and no use of accessory muscles Auscultation: clear to auscultation bilaterally Cardio Rate: regular rate Rhythm: regular rhythm Heart sounds: normal S1 and S2 Skin General skin exam: no rashes or lesions noted Neuro General: patient oriented x3 Extrem General: Yes normal to inspection and Yes no clubbing, cyanosis or edema Assessment & Plan Assessment & Plan (1) Atypical pneumonia: Code(s): J18.9 - Pneumonia, unspecified organism Plan: Send prescription to pharmacy, did recommend adding an allergy pill daily if that does not get rid of his cough completely. If no improvement, please follow-up your with your PCP for further testing. Plan See above Medications: New azithromycin For 250 mg dose pack: take 500 mg today (day 1), then 250 mg for 4 days (days 2-5) PO 6 tabs 0RF Coding Level of Care Code Est Pt Level 3 (91225) Diagnoses Atypical pneumonia J18.9
== END 2024-05-10 08:34 | disposition home or self-care (01) ==
PROVIDERS: PCP Nurse Practitioner Family; Visit Provider Physician Assistant
DX: J18.9 Pneumonia, unspecified organism (principal)
CPT/HCPCS: 99213

== ENCOUNTER 2024-05-26 08:35 | Outpatient (REF) | payer OTHER, SELFPAY ==
--- NOTE | ~2024-05-26 | XR_ITS ---
EXAMINATION: XR CHEST CLINICAL INFORMATION: Pneumonia COMPARISON: No recent chest radiographs available for comparison. TECHNIQUE: 2 views of the chest FINDINGS: The lungs are adequately expanded. Streaky opacities in the medial left lower lung/lingula. The right lung appears clear. No pleural effusions or pneumothorax. The cardiomediastinal silhouette is within normal limits. Degenerative changes of thoracic spine. No acute osseous abnormality. XR/XR chest 2V IMPRESSION: Streaky opacities in the medial left lower lung/lingula may represent atelectasis or infiltrate. Electronically signed by: Toni Light MD 06/10/2024 11:38 AM EDT
== END 2024-05-26 08:36 | disposition home or self-care (01) ==
LOC: HO.HMGCX 08:35
PROVIDERS: PCP Nurse Practitioner Family; Visit Provider Nurse Practitioner Family
DX: J18.9 Pneumonia, unspecified organism (principal)
CPT/HCPCS: 71046

== ENCOUNTER 2024-06-07 08:49 | Outpatient (AMB) | payer OTHER, SELFPAY ==
[2024-06-07 08:56] VITALS: BP 140/80; PULSE 77; BMI 28.2
--- NOTE | 2024-06-07 08:56 | A.OFFVIS_ITS ---
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 After talking to him Mannie denies any history of chest pain. He says that he has never had chest pain but had a chronic cough and eventually was given antibiotics and was treated for atypical pneumonia. He said continues to have intermittent cough productive of phlegm. 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 Patient's brother had valve surgery in [place] and had to have redo valve surgery in 7 years after that. He does not know any details. He denies any exertional symptoms of chest pain. Echocardiogram shows [id number] ascending aortic enlargement at 4.4 cm. There is calcification of aortic valve with mild aortic stenosis with valve area of 1.98 cm2 with possible bicuspid aortic valve this is unclear. He had a CTA of chest which showed ascending aortic aneurysm at 4.4 cm but also showed calcific disease in the LAD and circumflex consistent with underlying coronary artery disease. He had a stress test which was positive by EKG but negative by myocardial perfusion imaging suggestive of nonobstructive CAD. He denies any exertional chest pain. Does get exertional shortness of breath. He has never had a workup for COPD. Denies any lightheadedness, syncope. Denies any orthopnea, PND, leg edema. No prolonged palpitation irregular heartbeat. No claudication symptoms. 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 Review of Systems Const Denies chills, Denies fatigue, Denies fever(s), Denies frequent falls, Denies we akness, Denies weight gain and Denies weight loss ENT Denies dizziness Card Denies chest pain, Denies leg edema, Denies lightheadedness, Denies palpit ations, Denies dyspnea and Denies dyspnea on exertion Resp Denies cough, Denies dyspnea and Denies dyspnea on exertion GI Denies hematochezia Musc Denies abnormal gait, Denies muscle weakness, Denies numbness, Denies radiating pain into limb and Denies tingling Neuro Denies abnormal gait, Denies dizziness, Denies frequent falls, Denies numbness, Denies tingling and Denies weakness Endo Denies fatigue and Denies palpitations Physical Exam Vital Signs: Last Vital Signs Pulse 77 06/07/24 08:56 BP 140/80 H 06/07/24 08:56 BMI result Body Mass Index 28.2 Const General: cooperative, comfortable, no acute distress, alert and awake Nutritional Appearance: thin Orientation/consciousness: patient oriented x3 Limitations: no limitations HEENT Head: Yes normocephalic and Yes atraumatic Neck Neck: Yes trachea midline, Yes supple and Yes no JVD Resp Effort & Inspection: normal respiratory effort Auscultation: clear to auscultation bilaterally, no crackles and no wheezes Cardio Jugular venous distension: no JVD Palpation: normal PMI Rate: regular rate Rhythm: regular rhythm Heart sounds: S1 normal heart sound present, S2 normal heart sound present, no click, no gallops and Murmur heart sound present systolic early, decrescendo and crescendo Peripheral pulses: Peripheral pulses 2+ throughout GI Auscultation: normal bowel sounds Skin General skin exam: no rashes or lesions noted Neuro General: patient oriented x3 and no focal motor deficits Extrem General: Yes no clubbing, cyanosis or edema Psych Appearance: grossly normal Assessment & Plan Assessment & Plan (1) Ascending aorta dilatation: Code(s): I77.810 - Thoracic aortic ectasia Category: Medical Plan: Ascending aortic aneurysm at 4.4 cm. This is [id number] enlargement. Possible bicuspid valve and with family history of brother having valve surgery likely that he has bicuspid aortic valve. Advised to get more history from his brothers perspective. If he does have bicuspid aortic valve requiring repair, his target for repair would be at 5 cm. This was discussed with him. Management of ascending aortic aneurysm was discussed. Suggest aggressive blood pressure control which is currently well optimized. Continue current therapy advised to maintain blood pressure log at home intermittently. Target goal blood pressure less than 130/84. Advised sudden strenuous isometric exercise. Consider statin therapy. Will repeat echocardiogram annually, next echocardiogram February of 2025 and follow-up after that. Management of ascending aortic aneurysm was discussed. Symptoms associated with acute aortic syndrome were discussed advised to seek emergency care if he develops sudden symptoms. (2) Aortic stenosis: Code(s): I35.0 - Nonrheumatic aortic (valve) stenosis Category: Medical Plan: Aortic stenosis which is mild echocardiographic criteria. Discussed with him about the reason for the murmur. Advise low-dose aspirin therapy. Advise statin therapy. Follow-up echocardiogram as above. No interventions required per se for aortic stenosis. (3) CAD (coronary artery disease): Code(s): I25.10 - Atherosclerotic heart disease of [place] coronary artery without angina pectoris Category: Medical Plan: CAD based on coronary calcium score in the LAD and circumflex artery. Advise aspirin therapy as above. Strongly recommend statin therapy to target goal LDL less than 70 mg/dL. Advise atorvastatin 20 mg daily. Follow-up lipid panel in 3 months time. His recent myocardial perfusion imaging is within normal limits suggestive of nonobstructive disease. Advise to report any new exertional symptoms. Will follow up in the clinic in 9 months time, sooner p.r.n.. Thank you for allowing me to partake in his care Orders: Orders CA echo transthoracic complete 9 Months I77.810 - Thoracic aortic ectasia Medications: New aspirin (Ecotrin Low Strength) 81 mg PO DAILY 30 tabs 5RF atorvastatin 20 mg PO DAILY 30 tabs 5RF Coding Level of Care Code New Pt Level 4 (03379) Diagnoses Ascending aorta dilatation I77.810 Aortic stenosis I35.0 CAD (coronary artery disease) I25.10
== END 2024-06-07 09:29 | disposition home or self-care (01) ==
PROVIDERS: PCP Nurse Practitioner Family; Visit Provider Internal Medicine Cardiovascular Disease
DX: I77.810 Thoracic aortic ectasia (principal); I35.0 Nonrheumatic aortic (valve) stenosis; I25.10 Atherosclerotic heart disease of native coronary artery without angina pectoris
CPT/HCPCS: 99204

== ENCOUNTER → 2024-06-07 08:49 | Outpatient (BNVA) | payer OTHER, SELFPAY | PROVIDERS: PCP Nurse Practitioner Family; Visit Provider Internal Medicine Cardiovascular Disease ==

== ENCOUNTER 2024-06-15 08:56 | Outpatient (AMB) | payer OTHER, SELFPAY ==
--- NOTE | 2024-06-15 08:58 | MHC.OFFVIS ---
Vital Signs 06/15/24 09:00 Height 6 ft Weight 209 lb 6 oz BMI 28.4 BP 142/80 H Blood Pressure Location Rt brachial Position Sitting Pulse 74 Pulse Source Pulse Oximeter Pulse Oximetry (%) 96 Oxygen Delivery Method Room Air Intake Visit Reasons: Cough/Shortness of Breath Allergies bee pollen [bee stings] Allergy (Severe, Verified 06/15/24 09:02) Anaphylaxis HPI HPI Cough/Shortness of Breath: Details: Mannie is a pleasnt 64 year old male, never smoker, with underlying HTN, ascending aortic aneurysm, and mild aortic stenosis. He was referred by PCP for pulmonary evaluation. He reported ongoing dyspnea and productive cough seen at urgent care on 05/10 treated with a Z-Brenden with minimal improvement of symptoms. He was then treated with Augmentin on 05/28 and reports significant improvement in cough however continues with dyspnea on exertion. Denies any prior history of asthma. He reports working in [employer] and has had difficulties completing tasks due to dyspnea. He reports seasonal allergies, however mild. He reports mother, smoker, with COPD otherwise no pertinent family history. He is under the care of cardiology for ascending aortic aneurysm, measuring 4.4 cm, as well as mild aortic stenosis. 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 Review of Systems Const Denies chills, Denies excessive sweating, Denies fever(s), Denies headache(s) and Denies night sweats Eyes Denies dry eyes, Denies irritation and Denies itchy eyes ENT Reports Normal hearing present, Denies headache(s), Denies nasal congestion, Denies nasal discharge, Denies post nasal drip and Denies sore throat Card Denies chest pain, Denies chest pain at rest, Denies chest pain with activity, Denies claudication, Denies leg edema, Denies orthopnea and Denies paroxysmal nocturnal dyspnea Resp Denies chest congestion, Denies excessive phlegm production, Denies pain on inspiration, Denies pain with cough, Denies stridor and Denies wheezing Musc Denies myalgias Neuro Reports Normal hearing present and Denies headache(s) Endo Denies excessive sweating Kapil/Lymph Denies lymphadenopathy Aller/Immun Denies itchy eyes, Denies seasonal rhinorrhea and Denies wheezing Physical Exam Vital Signs: Last Vital Signs Pulse 74 06/15/24 09:00 BP 142/80 H 06/15/24 09:00 Pulse Ox 96 06/15/24 09:00 Oxygen Delivery Method Room Air 06/15/24 09:00 BMI result Body Mass Index 28.4 Const General: cooperative, healthy appearing, comfortable, no acute distress, well developed and alert Nutritional Appearance: obese Orientation/consciousness: patient oriented x3 Limitations: no limitations HEENT Head: Yes normal to inspection, Yes normocephalic and Yes atraumatic Ears: hearing grossly normal bilaterally and external ears normal Eyes General: appearance normal, both eyes and all related structures Eyelids: Yes eyelids normal Sclerae: sclerae normal EOM: EOMs intact bilaterally Neck Neck: Yes normal visual inspection and Yes no lymphadenopathy Lymphatic: no lymphadenopathy noted Chest Chest palpation & inspection: normal inspection of the chest Resp Effort & Inspection: normal respiratory effort, able to speak in complete sentences, no audible wheezes, no cough, no stridor, not tachypneic, no tripod positioning and no use of accessory muscles Auscultation: clear to auscultation bilaterally Cardio Jugular venous distension: no JVD Rate: regular rate Rhythm: regular rhythm Skin Other: warm, dry General skin exam: no rashes or lesions noted Neuro General: patient oriented x3 Cranial nerves: Yes Normal hearing present Cognition (Neuro): normal cognition Gait exam (Neuro): Normal gait present Extrem General: Yes normal to inspection, Yes capillary refill normal, Yes no clubbing, cyanosis or edema and Yes no pedal edema Psych Appearance: grossly normal and well kempt Speech and movement: Normal speech and movement present and Clear speech present Affect: normal affect Attitude: cooperative Thought process: Normal thought process present Thought content: Normal thought content present Insight: Good insight present (Psych) Judgement: Good judgement present (Psych) Results Reviewed Results Reviewed: [facility] [address] [place] [address] XRay Report Signed Patient: Mannie Pleitez MR#: [id number] : 1960 Acct:[id number] Age/Sex: 63 / M ADM Date: 05/26/24 Loc: .[facility] Attending Dr: Daniel HELMS Ordering Physician: Daniel Azevedo Date of Service: 05/26/24 Procedure(s): XR chest 2V Accession Number(s): [id number] cc: Daniel Azevedo~ EXAMINATION: XR CHEST CLINICAL INFORMATION: Pneumonia COMPARISON: No recent chest radiographs available for comparison. TECHNIQUE: 2 views of the chest FINDINGS: The lungs are adequately expanded. Streaky opacities in the medial left lower lung/lingula. The right lung appears clear. No pleural effusions or pneumothorax. The cardiomediastinal silhouette is within normal limits. Degenerative changes of thoracic spine. No acute osseous abnormality. XR/XR chest 2V IMPRESSION: Streaky opacities in the medial left lower lung/lingula may represent atelectasis or infiltrate. Electronically signed by: Toni Light MD 06/10/2024 11:38 AM EDT Dictated By: Toni Light Signed By: <Electronically signed by Toni Light in OV> 06/10/24 1138 DD/ 0839 TD/TT: 05/26/24 0845 Inorganic Chemistry Professor: Assessment & Plan Assessment & Plan (1) Cough: Code(s): R05.9 - Cough, unspecified Category: Medical (2) Dyspnea on exertion: Code(s): R06.09 - Other forms of dyspnea Category: Medical Plan Mannie presents for pulmonary evaluation for dyspnea on exertion and cough. He was treated with Augmentin on 06/10 with significant improvement in cough however dyspnea continues. Will send for PFT to evaluate for any obstructive defect contributing to symptoms. Prior chest x-ray revealed streaky opacities in the medial left lower lung/lingula may represent atelectasis or infiltrate. Will send for repeat chest x-ray to assess for resolution of atelectasis. Will consider chest CT in the future. All questions were answered and patient is in agreement of plan. Will follow-up to review results or sooner if needed. Orders: Orders XR chest 2V 4 Weeks R05.9 - Cough, unspecified PFT pulmonary function test Today R06.09 - Other forms of dyspnea Coding Level of Care Code New Pt Level 3 (35174) Diagnoses Cough R05.9 Dyspnea on exertion R06.09
[2024-06-15 09:00] VITALS: BP 142/80; PULSE 74; O2SAT 96; BMI 28.4
== END 2024-06-15 09:48 | disposition home or self-care (01) ==
PROVIDERS: PCP Nurse Practitioner Family; Referring Provider Nurse Practitioner Family; Visit Provider Nurse Practitioner Family
DX: R05.9 Cough, unspecified (principal); R06.09 Other forms of dyspnea
CPT/HCPCS: 99203

== ENCOUNTER → 2024-06-15 08:56 | Outpatient (BNVA) | payer OTHER, SELFPAY | PROVIDERS: PCP Nurse Practitioner Family; Referring Provider Nurse Practitioner Family; Visit Provider Nurse Practitioner Family ==

== ENCOUNTER 2024-06-24 08:08 | Outpatient (AMB) | payer OTHER, SELFPAY ==
[2024-06-24 08:11] VITALS: BP 138/80; PULSE 72; O2SAT 97; BMI 28.9
--- NOTE | 2024-06-24 08:11 | MHC.PC.OV ---
Vital Signs 06/24/24 08:11 Height 6 ft Weight 213 lb BMI 28.9 BP 138/80 Blood Pressure Location Rt brachial Position Sitting Pulse 72 Pulse Source Pulse Oximeter Pulse Oximetry (%) 97 Intake Visit Reasons: 4 month follow up Intake Note: pt is here for 4 month follow up Allergies bee pollen [bee stings] Allergy (Severe, Verified 06/24/24 08:27) Anaphylaxis Medication List - Last Reconciled 06/24/24 by ANALIA Acevedo albuterol sulfate 90 mcg/actuation 2 inhalations inhalation Q4-6H PRN aspirin (Ecotrin Low Strength) 81 mg PO DAILY atenolol 100 mg PO DAILY atorvastatin 20 mg PO DAILY losartan-hydrochlorothiazide 100-12.5 mg 1 tab PO DAILY montelukast 10 mg PO BEDTIME 30 days Tobacco use date assessed: 02/23/24 Dental Screening Dental Screen Date: 02/23/24 HPI 4 month follow up HPI Details Pt had a chronic cough. He had a recent chest XR which showed streaky opacities in the medial left lower lung/lingula may represent atelectasis or infiltrate. Pt is following up with pulmonology for this. PFT testing and repeat chest XR were ordered. Pt reports that his cough has improved and his breathing is better. Denies fever, chills, chest pain, and shortness of breath. Pt was also seen by cardiology recently, started on statin and ASA. 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 1. Little interest or pleasure in doing things: not at all 2. Feeling down, depressed, or hopeless: not at all 3. Trouble falling or staying asleep, or sleeping too much: not at all 4. Feeling tired or having little energy: not at all 5. Poor appetite or overeating: not at all 6. Feeling bad about yourself - or that you are a failure or have let yourself or your family down: not at all 7. Trouble concentrating on things, such as reading the newspaper or watching television: not at all 8. Moving or speaking so slowly that other people could have noticed. Or the opposite - being so fidgety or restless that you have been moving around a lot more than usual: not at all 9. Thoughts that you would be better off or of hurting yourself in some way: not at all Total score: 0 Depression Screening Interpretation: Negative Depression Screening Done: Yes 94222 - PHQ-9 Billing: Yes Source: Developed by Drs. Bon Nelson, Zari Bojorquez, Timmy Duarte and colleagues, with an educational cary from [employer]. Thrive Questionnaire Date Thrive assessed: 06/24/24 I am a: Patient What is your living situation today?: I have a steady place to live Within the past 12 months, did the food you bought not last and you didn't have the money to get more?: Never true Within the past 12 months, did you worry whether your food would run out before you got money to buy more?: Never true Do you have trouble paying for medicines?: No Do you have trouble getting transportation to medical appointments?: No Do you have trouble paying your heating and electricity bill?: No Do you have trouble taking care of your child, family member or friend?: No Do you have trouble with day-to-day activities such as bathing, preparing meals, shopping, managing finances, etc.?: No Are you currently unemployed and looking for a job?: No Are you interested in more education?: No Please select the resources that you would like help with: None Currently or been in a relationship where the following occur: No concerns reported THRIVE Score: 0 AUDIT C Alcohol Use Questionnaire (AUDIT-C) 1. How often do you have a drink containing alcohol?: 4 or more times a week 2. How many drinks containing alcohol do you have on a typical day when you are drinking?: 5 or 6 3. How often do you have six or more drinks on one occasion?: Monthly Total Score: 8 Score Reviewed/Action Taken: Yes JOSEPH-7 AMB Questionnaire JOSEPH-7 Date JOSEPH - 7 assessed: 06/24/24 Feeling nervous, anxious, or on edge: 0 = Not at all Not being able to stop or control worryin = Not at all Worrying too much about different things: 0 = Not at all Trouble relaxin = Not at all Being so restless that it is hard to sit still: 0 = Not at all Becoming easily annoyed or irritable: 0 = Not at all Feeling afraid as if something awful might happen: 0 = Not at all Total JOSEPH-7 score (0-4 normal; 5-9 mild; 10-14 moderate; 15-21 severe): 0 Source: Developed by Drs. Bon Nelson, Zari Bojorquez, Timmy Duarte and colleagues, with an educational cary from [employer]. JOSEPH-7 Assessment Billing JOSEPH-7 Assessment Tool: JOSEPH-7 Assessment 69397 Review of Systems Const Reports as per HPI Physical exam (Primary Care) Vital Signs: Last Vital Signs Pulse 72 06/24/24 08:11 BP 138/80 06/24/24 08:11 Pulse Ox 97 06/24/24 08:11 BMI result Body Mass Index 28.9 Tobacco/Smoking Status: Tobacco use Status Tobacco use date assessed 02/23/24 06/24/24 08:11 Patient Tobacco Use Status Never used Tobacco 06/24/24 08:11 e-Cigarette/Vaping Use Never Used 06/24/24 08:11 PHQ-9: PHQ-9 Score PHQ-9: Total score 0 06/24/24 08:20 Depression Screening Interpretation: Negative Thrive Assessment: Date of Thrive Assessment Date Thrive assessed 06/24/24 06/24/24 08:12 Currently or been in a relationship where the following occur: No concerns reported Const General: cooperative Orientation/consciousness: patient oriented x3 Resp Other: lungs fairly clear Effort & Inspection: normal respiratory effort Cardio Rate: regular rate Rhythm: regular rhythm Heart sounds: S1 normal heart sound present, S2 normal heart sound present and Murmur heart sound present systolic Neuro General: patient oriented x3 Psych Appearance: grossly normal Mental Status: mental status grossly normal Speech and movement: Normal speech and movement present Affect: normal affect Attitude: cooperative Thought process: Normal thought process present Thought content: Normal thought content present Insight: Good insight present (Psych) Judgement: Good judgement present (Psych) Assessment and Plan Assessment & Plan (1) Screening PSA (prostate specific antigen): Code(s): Z12.5 - Encounter for screening for malignant neoplasm of prostate (2) Cough: Code(s): R05.9 - Cough, unspecified Plan: cough is better, according to pt, following up with cardiology (3) Dyspnea on exertion: Code(s): R06.09 - Other forms of dyspnea Plan: cough better, seeing pulmonary Plan The patient agreed to the use of a biomedical field service engineer for this encounter. Scribed for ANALIA Fan by Марина Solares biomedical field service engineer, on 06/24/2024 at 08:20 EST. Orders: Orders Prostate Specific Antigen Scr Today Z12.5 - Encounter for screening for malignant neoplasm of prostate Coding Level of Care Code Est Pt Level 3 (89709) Diagnoses Screening PSA (prostate specific antigen) Z12.5 Cough R05.9 Dyspnea on exertion R06.09 Additional Codes JOSEPH-7 Assessment Billing - JOSEPH-7 Assessment Tool: JOSEPH-7 Assessment [id number] ([id number])
== END 2024-06-24 08:35 | disposition home or self-care (01) ==
PROVIDERS: PCP Nurse Practitioner Family; Visit Provider Nurse Practitioner Family
DX: R05.9 Cough, unspecified (principal); R06.09 Other forms of dyspnea; Z12.5 Encounter for screening for malignant neoplasm of prostate
CPT/HCPCS: 99213

== ENCOUNTER 2024-06-24 08:35 | Outpatient (REF) | payer OTHER, SELFPAY ==
[2024-06-24 11:03] LABS: Prostate Specific Antigen Scr 1.03 ng/mL (<0.05-4.0)
== END 2024-06-24 08:36 | disposition home or self-care (01) ==
LOC: HO.HMGCLDS 08:35
PROVIDERS: PCP Nurse Practitioner Family; Visit Provider Nurse Practitioner Family
DX: Z12.5 Encounter for screening for malignant neoplasm of prostate (principal)
CPT/HCPCS: 36415; 84153

== ENCOUNTER 2024-07-16 09:04 | Outpatient (REF) | payer OTHER, SELFPAY ==
--- NOTE | ~2024-07-16 | XR_ITS ---
EXAMINATION: XR CHEST CLINICAL INFORMATION: Cough COMPARISON: Chest x-ray on 05/26/2024 TECHNIQUE: 2 views of the chest were obtained. FINDINGS: HEART & VASCULARITY: There are normal cardiac size and pulmonary vascularity. LUNGS: Unchanged mild asymmetric medial left lower lobe bronchovascular streaky densities are seen. No pneumothorax is seen. BONES: Bony skeleton is intact. XR/XR chest 2V IMPRESSION: Unchanged mild asymmetric medial left lower lobe bronchovascular streaky densities are seen, compatible with persistent subsegmental atelectasis or peribronchial infiltrates due to bronchitis or pneumonia. Electronically signed by: Chantal Anguiano MD 07/19/2024 09:52 AM EDT
== END 2024-07-16 09:05 | disposition home or self-care (01) ==
LOC: HO.HMGCX 09:04
PROVIDERS: PCP Nurse Practitioner Family; Visit Provider Nurse Practitioner Family
DX: R05.9 Cough, unspecified (principal)
CPT/HCPCS: 71046

== ENCOUNTER 2024-07-20 09:05 | Outpatient (AMB) | payer OTHER, SELFPAY ==
[2024-07-20 09:13] VITALS: BP 150/86; PULSE 85; O2SAT 94; BMI 28.8
--- NOTE | 2024-07-20 09:13 | A.OFFVIS_ITS ---
Vital Signs 07/20/24 09:13 Height 6 ft Weight 212 lb 2 oz BMI 28.8 BP 150/86 H Blood Pressure Location Rt brachial Position Sitting Pulse 85 Pulse Source Pulse Oximeter Pulse Oximetry (%) 94 Oxygen Delivery Method Room Air Intake Visit Reasons: Cough/Shortness of Breath Allergies bee pollen [bee stings] Allergy (Severe, Verified 07/20/24 09:19) Anaphylaxis HPI HPI Cough/Shortness of Breath: Details: Mannie is a pleasant 64 year old male, never smoker, with underlying HTN, ascending aortic aneurysm, and mild aortic stenosis. Previously he was treated with Azithromycin then Augmentin for ongoing dyspnea and productive cough seen with near resolution of symptoms. Today he presents to review repeat CXR as prior revealed mild asymmetric medial left lower lobe bronchovascular streaky densities are seen, compatible with persistent subsegmental atelectasis or peribronchial infiltrates due to bronchitis or pneumonia. He continues to report intermittent productive cough.He currently denies dyspnea, wheezing, or chest tightness. Of note, cardiology recommended against albuterol due to AAA. 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 Review of Systems Const Denies chills, Denies excessive sweating, Denies fever(s), Denies headache(s) and Denies night sweats Eyes Denies dry eyes, Denies irritation and Denies itchy eyes ENT Reports Normal hearing present and Denies headache(s) Card Denies chest pain, Denies chest pain at rest, Denies chest pain with activity, Denies claudication, Denies leg edema, Denies dyspnea, Denies dyspnea on exertion, Denies orthopnea and Denies paroxysmal nocturnal dyspnea Resp Denies chest congestion, Denies cough, Denies excessive phlegm production, Denies pain on inspiration, Denies pain with cough, Denies dyspnea, Denies dyspnea on exertion, Denies stridor and Denies wheezing Musc Denies myalgias Neuro Reports Normal hearing present and Denies headache(s) Endo Denies excessive sweating Kapil/Lymph Denies lymphadenopathy Aller/Immun Denies itchy eyes, Denies seasonal rhinorrhea and Denies wheezing Physical Exam Vital Signs: Last Vital Signs Pulse 85 07/20/24 09:13 BP 150/86 H 07/20/24 09:13 Pulse Ox 94 07/20/24 09:13 Oxygen Delivery Method Room Air 07/20/24 09:13 BMI result Body Mass Index 28.8 Const General: cooperative, healthy appearing, comfortable, no acute distress, well developed and alert Nutritional Appearance: obese Orientation/consciousness: patient oriented x3 Limitations: no limitations HEENT Head: Yes normal to inspection, Yes normocephalic and Yes atraumatic Ears: hearing grossly normal bilaterally and external ears normal Eyes General: appearance normal, both eyes and all related structures Eyelids: Yes eyelids normal Sclerae: sclerae normal EOM: EOMs intact bilaterally Neck Neck: Yes normal visual inspection and Yes no lymphadenopathy Lymphatic: no lymphadenopathy noted Chest Chest palpation & inspection: normal inspection of the chest Resp Other: bibasilar inspiratory crackles Effort & Inspection: normal respiratory effort, able to speak in complete sentences, no audible wheezes, no cough, no stridor, not tachypneic, no tripod positioning and no use of accessory muscles Cardio Jugular venous distension: no JVD Rate: regular rate Rhythm: regular rhythm Skin Other: warm, dry General skin exam: no rashes or lesions noted Neuro General: patient oriented x3 Cranial nerves: Yes Normal hearing present Cognition (Neuro): normal cognition Gait exam (Neuro): Normal gait present Extrem General: Yes normal to inspection, Yes capillary refill normal, Yes no clubbing, cyanosis or edema and Yes no pedal edema Psych Appearance: grossly normal and well kempt Speech and movement: Normal speech and movement present and Clear speech present Affect: normal affect Attitude: cooperative Thought process: Normal thought process present Thought content: Normal thought content present Insight: Good insight present (Psych) Judgement: Good judgement present (Psych) Results Reviewed Results Reviewed: Ordering Physician: Oralia Lam NP Date of Service: 07/16/24 Procedure(s): XR chest 2V Accession Number(s): [id number] cc: Daniel Azevedo SENIOR JAVA PROGRAMMER ANALYST-; Oralia Lam BONDING EQUIPMENT OPERATOR~ EXAMINATION: XR CHEST CLINICAL INFORMATION: Cough COMPARISON: Chest x-ray on 05/26/2024 TECHNIQUE: 2 views of the chest were obtained. FINDINGS: HEART & VASCULARITY: There are normal cardiac size and pulmonary vascularity. LUNGS: Unchanged mild asymmetric medial left lower lobe bronchovascular streaky densities are seen. No pneumothorax is seen. BONES: Bony skeleton is intact. XR/XR chest 2V IMPRESSION: Unchanged mild asymmetric medial left lower lobe bronchovascular streaky densities are seen, compatible with persistent subsegmental atelectasis or peribronchial infiltrates due to bronchitis or pneumonia. Electronically signed by: Chantal Anguiano MD 07/19/2024 09:52 AM EDT RP Assessment & Plan Assessment & Plan (1) Cough: Code(s): R05.9 - Cough, unspecified Category: Medical (2) Dyspnea on exertion: Code(s): R06.09 - Other forms of dyspnea Category: Medical Plan Mannie reports respiratory symptoms are significantly improved however continues with intermittent productive cough. Will send for sputum culture as he has recently been treated with zpak and augmentin. On exam patient with inspiratory bibasilar crackles, which was not present on prior examinations. Will send for CXR. Discussed importance of obtaining chest CT given prior abnormal CXR. He was reluctant at first due to cost however agreeable. Will enter this. All questions were answered and patient is in agreement of plan. Will follow-up to review results or sooner if needed. Orders: Orders Sputum Cult + Gram stain 07/20/24 R05.9 - Cough, unspecified CT chest wo IV con Today R05.9 - Cough, unspecified Coding Level of Care Code Est Pt Level 4 (45658) Diagnoses Cough R05.9 Dyspnea on exertion R06.09
== END 2024-07-20 09:56 | disposition home or self-care (01) ==
PROVIDERS: PCP Nurse Practitioner Family; Visit Provider Nurse Practitioner Family
DX: R05.9 Cough, unspecified (principal); R06.09 Other forms of dyspnea
CPT/HCPCS: 99214

== ENCOUNTER → 2024-07-20 09:05 | Outpatient (BNVA) | payer OTHER, SELFPAY | PROVIDERS: PCP Nurse Practitioner Family; Visit Provider Nurse Practitioner Family | DX: R05.9 Cough, unspecified (principal) ==

== ENCOUNTER 2024-07-22 07:30 | Outpatient (REF) | payer OTHER, SELFPAY ==
--- NOTE | 2024-07-22 08:49 | PFT_ITS ---
Flows: FEV1: 67 % of predicted at 2.48 L FVC: 75 % of predicted at 3.61 L FEV1/FVC: 69 % Bronchodilator response: Patient declined bronchodilator testing Volumes: Total lung capacity: 68 % of predicted at 5.26 L Residual volume: 67 % of predicted at 1.65 L Slow vital capacity: 68 % of predicted at 3.61 L Expiratory reserve volume: 42 % of predicted at 0.61 L Diffusion capacity: Mildly decreased corrects to normal after adjustment for alveolar ventilation. Impression: Combined moderate obstructive and restrictive ventilatory defect. Patient declined bronchodilator testing. Decreased expiratory reserve volume suggests extrathoracic restriction likely secondary to abdominal obesity. Decreased diffusion capacity suggests emphysema. MTDD
[2024-07-22 11:20] VITALS: PULSE 81; RESP 16; O2SAT 96
== END 2024-07-22 07:31 | disposition home or self-care (01) ==
LOC: HO.RESP 07:30
PROVIDERS: PCP Nurse Practitioner Family; Visit Provider Nurse Practitioner Family
DX: R06.09 Other forms of dyspnea (principal)
CPT/HCPCS: 94010; 94640; 94727; 94729

== ENCOUNTER → 2024-07-22 08:49 | Outpatient (BNV) | payer OTHER, SELFPAY | PROVIDERS: PCP Nurse Practitioner Family; Visit Provider Internal Medicine Pulmonary Disease | DX: R06.09 Other forms of dyspnea (principal) | CPT/HCPCS: 94060; 94727; 94729 ==

== ENCOUNTER 2024-08-10 07:28 | Outpatient (REF) | payer OTHER, SELFPAY ==
--- NOTE | ~2024-08-10 | CT_ITS ---
EXAMINATION: CT CHEST WITHOUT CONTRAST CLINICAL INFORMATION: Cough. COMPARISON: Chest CTs dating between February 05, 2023 and September 07, 2014. TECHNIQUE: Multidetector volumetric CT imaging of the chest was done. Axial MIP volume rendering provided. Sagittal and coronal reformatted images were obtained. This CT examination was performed using dose optimization techniques as appropriate, variously including the following: *Automated exposure control *Adjustment of mA and/or kV according to patient size (this includes techniques or standardized protocols for targeted exams where dose is matched to indication/reason for exam; i.e. extremities or head) *Use of iterative reconstruction technique DLP: 253 mGy-cm FINDINGS: LUNGS: The lungs appear clear. No evidence of inflammation or nodules. MEDIASTINUM: Mild fusiform aneurysmal dilation of the ascending thoracic aorta measuring up to approximately 4.4 cm in diameter (image 37, series 3), not significant changed dating back to most from a prior study from September 07, 2014, by my measurements. CORONARY ARTERY CALCIFICATION: Moderate to severe. PLEURA: There is no pleural effusion. Small calcified right pleural plaques.. AXILLA: No lymphadenopathy by size criteria. UPPER ABDOMEN: Fatty infiltration of the liver. Approximately 1.5 cm diverticulum involving the second portion of duodenum, without evidence of associated inflammation. OSSEOUS STRUCTURES: Unremarkable. CT/CT chest wo IV con IMPRESSION: No acute finding. Electronically signed by: Haider Bautista MD 08/11/2024 03:57 PM EDT
== END 2024-08-10 07:29 | disposition home or self-care (01) ==
LOC: HO.CT 07:28
PROVIDERS: PCP Nurse Practitioner Family; Visit Provider Nurse Practitioner Family
DX: R05.9 Cough, unspecified (principal)
CPT/HCPCS: 71250

== ENCOUNTER 2024-08-13 10:43 | Outpatient (AMB) | payer OTHER, SELFPAY ==
--- NOTE | 2024-08-13 10:47 | AM.OFFWIN_ITS ---
Intake Vital Signs 08/13/24 10:48 Weight 227 lb BP 150/100 H Blood Pressure Location Lt brachial Position Sitting Pulse 83 Pulse Source Pulse Oximeter Pulse Oximetry (%) 94 Oxygen Delivery Method Room Air Intake Visit Reasons: EP-rt ear block Intake Note: Patient here for right ear pain/blocked which has been bothersome for about 5 days. Patient Tobacco Use Status: Never used Tobacco Allergies bee pollen [bee stings] Allergy (Severe, Verified 08/13/24 10:48) Anaphylaxis Do you need a note to return to daycare/school/sports/work: No HPI HPI Comments History of Present Illness Details This is a 64-year-old male presented to the walk-in clinic complaining of right ear blockage 5 days. He denies any right-sided ear pain. He denies any fever/chills. Patient does report some muffled/decreased hearing. 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 Review of Systems Const All systems reviewed & are unremarkable except as noted in HPI and below Reports no additional complaints Eyes Reports no additional complaints ENT Reports no additional complaints Card Reports no additional complaints Resp Reports no additional complaints GI Reports no additional complaints Reports no additional complaints Musc Reports no additional complaints Skin/Breast Reports system reviewed and no additional complaints, except as documented Neuro Reports no additional complaints Psych Reports no additional complaints Endo Reports no additional complaints Kapil/Lymph Reports no additional complaints Aller/Immun Reports no additional complaints Physical Exam Vital Signs: Last Vital Signs Pulse 83 08/13/24 10:48 BP 150/100 H 08/13/24 10:48 Pulse Ox 94 08/13/24 10:48 Oxygen Delivery Method Room Air 08/13/24 10:48 Const Other: Vital signs reviewed. Constitutional: Non-toxic appearing. No acute distress. Well-developed and well-nourished. HEENT: Normocephalic and atraumatic. There appears to be cerumen impaction of the right ear and his tympanic membrane is unable to be visualized. Skin: Warm and dry. No rashes or lesions noted. Cardio: Regular rate. Pulmonary: No respiratory distress. No accessory muscle usage. Musculoskeletal: Normal range of motion in joints throughout the body. No deformity or other signs of injury. Neuro: Alert and oriented x4. Cranial nerves 2-12 grossly intact. No focal deficits appreciated. Psych: Normal mood and affect. Assessment & Plan Assessment & Plan (1) Impacted cerumen of right ear: Code(s): H61.21 - Impacted cerumen, right ear Plan: This is a 64-year-old male who presented to the walk-in clinic complaining of right ear blockage with decreased/muffled hearing. On physical examination, he appears to have impacted cerumen of the right ear and his tympanic membrane is unable to be visualized. Patient underwent cerumen removal with improvement in his symptoms and improvement in the cerumen impaction; however, upon re- evaluation, there is still a significant amount of cerumen in his external aud itory canal. Recommended using [id number] ear wax removal drops over the weekend and returning to the clinic on Friday to re-attempt cerumen removal. Patient verbalizes understanding and he is in agreement with the plan. Coding Level of Care Code Est Pt Level 3 (29603) Diagnoses Impacted cerumen of right ear H61.21
[2024-08-13 10:48] VITALS: BP 150/100; PULSE 83; O2SAT 94
== END 2024-08-13 11:45 | disposition home or self-care (01) ==
PROVIDERS: PCP Nurse Practitioner Family; Visit Provider Physician Assistant Medical
DX: H61.21 Impacted cerumen, right ear (principal)

== ENCOUNTER → 2024-08-13 10:43 | Outpatient (BNVA) | payer OTHER, SELFPAY | PROVIDERS: PCP Nurse Practitioner Family; Visit Provider Physician Assistant Medical ==

== ENCOUNTER 2024-08-27 10:07 | Outpatient (AMB) | payer OTHER, SELFPAY ==
[2024-08-27 10:20] VITALS: BP 142/86; PULSE 76; O2SAT 97; BMI 29.3
--- NOTE | 2024-08-27 10:20 | MHC.OFFVIS ---
Vital Signs 08/27/24 10:20 Height 6 ft Weight 216 lb 6 oz BMI 29.3 BP 142/86 H Blood Pressure Location Rt brachial Position Sitting Pulse 76 Pulse Source Pulse Oximeter Pulse Oximetry (%) 97 Oxygen Delivery Method Room Air Intake Visit Reasons: Cough/Shortness of Breath Allergies bee pollen [bee stings] Allergy (Severe, Verified 08/27/24 10:22) Anaphylaxis HPI HPI Cough/Shortness of Breath: Details: Mannie is a pleasant 64 year old male, never smoker, with underlying HTN, ascending aortic aneurysm, and mild aortic stenosis. Previously he was treated with Azithromycin then Augmentin for ongoing dyspnea and productive cough seen with near resolution of symptoms. After treatment patient had persistent mild asymmetric medial left lower lobe and was sent for Chest CT and PFT. Today he presents to review results. He reports cough has resolved however continues with dyspnea. We had previously discussed trialing an inhaler however due to AAA cardiology recommended against albuterol. 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 Review of Systems Const Denies chills, Denies excessive sweating, Denies fever(s), Denies headache(s) and Denies night sweats Eyes Denies dry eyes, Denies irritation and Denies itchy eyes ENT Reports Normal hearing present and Denies headache(s) Card Denies chest pain, Denies chest pain at rest, Denies chest pain with activity, Denies claudication, Denies leg edema, Denies dyspnea, Denies orthopnea and Denies paroxysmal nocturnal dyspnea Resp Denies chest congestion, Denies cough, Denies excessive phlegm production, Denies pain on inspiration, Denies pain with cough, Denies dyspnea, Denies stridor and Denies wheezing Musc Denies myalgias Neuro Reports Normal hearing present and Denies headache(s) Endo Denies excessive sweating Kapil/Lymph Denies lymphadenopathy Aller/Immun Denies itchy eyes, Denies seasonal rhinorrhea and Denies wheezing Physical Exam Vital Signs: Last Vital Signs Pulse 76 08/27/24 10:20 BP 142/86 H 08/27/24 10:20 Pulse Ox 97 08/27/24 10:20 Oxygen Delivery Method Room Air 08/27/24 10:20 BMI result Body Mass Index 29.3 Const General: cooperative, healthy appearing, comfortable, no acute distress, well developed and alert Nutritional Appearance: obese Orientation/consciousness: patient oriented x3 Limitations: no limitations HEENT Head: Yes normal to inspection, Yes normocephalic and Yes atraumatic Ears: hearing grossly normal bilaterally and external ears normal Eyes General: appearance normal, both eyes and all related structures Eyelids: Yes eyelids normal Sclerae: sclerae normal EOM: EOMs intact bilaterally Neck Neck: Yes normal visual inspection and Yes no lymphadenopathy Lymphatic: no lymphadenopathy noted Chest Chest palpation & inspection: normal inspection of the chest Resp Effort & Inspection: normal respiratory effort, able to speak in complete sentences, no audible wheezes, no cough, no stridor, not tachypneic, no tripod positioning and no use of accessory muscles Auscultation: diminished lung sounds Cardio Jugular venous distension: no JVD Rate: regular rate Rhythm: regular rhythm Skin Other: warm, dry General skin exam: no rashes or lesions noted Neuro General: patient oriented x3 Cranial nerves: Yes Normal hearing present Cognition (Neuro): normal cognition Gait exam (Neuro): Normal gait present Extrem General: Yes normal to inspection, Yes capillary refill normal, Yes no clubbing, cyanosis or edema and Yes no pedal edema Psych Appearance: grossly normal and well kempt Speech and movement: Normal speech and movement present and Clear speech present Affect: normal affect Attitude: cooperative Thought process: Normal thought process present Thought content: Normal thought content present Insight: Good insight present (Psych) Judgement: Good judgement present (Psych) Results Reviewed Results Reviewed: [address] [address] [address] Scan Report Signed Patient: Mannie Pleitez MR#: [id number] : 1960 Acct:[id number] Age/Sex: 64 / M ADM Date: 08/10/24 Loc: HO.CT Attending Dr: Oralia Lam NP Ordering Physician: Oralia Lam NP Date of Service: 08/10/24 Procedure(s): CT chest wo IV con Accession Number(s): [id number] cc: MarianasanazDionicio [facility]-; Oralia Lam NP~ EXAMINATION: CT CHEST WITHOUT CONTRAST CLINICAL INFORMATION: Cough. COMPARISON: Chest CTs dating between February 05, 2023 and September 07, 2014. TECHNIQUE: Multidetector volumetric CT imaging of the chest was done. Axial MIP volume rendering provided. Sagittal and coronal reformatted images were obtained. This CT examination was performed using dose optimization techniques as appropriate, variously including the following: *Automated exposure control *Adjustment of mA and/or kV according to patient size (this includes techniques or standardized protocols for targeted exams where dose is matched to indication/reason for exam; i.e. extremities or head) *Use of iterative reconstruction technique DLP: 253 mGy-cm FINDINGS: LUNGS: The lungs appear clear. No evidence of inflammation or nodules. MEDIASTINUM: Mild fusiform aneurysmal dilation of the ascending thoracic aorta measuring up to approximately 4.4 cm in diameter (image 37, series 3), not significant changed dating back to most from a prior study from September 07, 2014, by my measurements. CORONARY ARTERY CALCIFICATION: Moderate to severe. PLEURA: There is no pleural effusion. Small calcified right pleural plaques.. AXILLA: No lymphadenopathy by size criteria. UPPER ABDOMEN: Fatty infiltration of the liver. Approximately 1.5 cm diverticulum involving the second portion of duodenum, without evidence of associated inflammation. OSSEOUS STRUCTURES: Unremarkable. CT/CT chest wo IV con IMPRESSION: No acute finding. Electronically signed by: Haider Bautista MD 08/11/2024 03:57 PM EDT Dictated By: Haider Bautista Signed By: <Electronically signed by Haider Bautista in OV> Assessment & Plan Assessment & Plan (1) Cough: Code(s): R05.9 - Cough, unspecified Category: Medical (2) Dyspnea on exertion: Code(s): R06.09 - Other forms of dyspnea Category: Medical Plan Mannie reports respiratory symptoms are significantly improved since the last visit, with resolved cough however continues with dyspnea. Reviewed PFT which revealed combined moderate obstructive and restrictive ventilatory defect. Patient declined bronchodilator testing. Decreased expiratory reserve volume suggests extrathoracic restriction likely secondary to abdominal obesity. Decreased diffusion capacity suggests emphysema however chest CT did not reveal this. CT chest unremarkable for ILD or emphysema. We discussed initiating an ICS however he would like to discuss with cardiology. Will reach out to PCP to see if CTA is still required as chest CT revealed stable AAA. Patient also notes persistent daytime fatigue, discussed sending for home sleep study but he would like to defer at this time. All questions were answered and patient is in agreement of plan. Will follow-up in 6-8 weeks or sooner if needed. Coding Level of Care Code Est Pt Level 4 (23174) Diagnoses Cough R05.9 Dyspnea on exertion R06.09
== END 2024-08-27 10:58 | disposition home or self-care (01) ==
PROVIDERS: PCP Nurse Practitioner Family; Visit Provider Nurse Practitioner Family
DX: R05.9 Cough, unspecified (principal); R06.09 Other forms of dyspnea
CPT/HCPCS: 99214

== ENCOUNTER → 2024-08-27 10:07 | Outpatient (BNVA) | payer OTHER, SELFPAY | PROVIDERS: PCP Nurse Practitioner Family; Visit Provider Nurse Practitioner Family ==

== ENCOUNTER 2024-08-30 06:52 | Outpatient (REF) | payer OTHER, SELFPAY ==
[2024-08-30 10:11] LABS: MANUAL DIFF FLAG NO
[2024-08-30 10:21] LABS: Basophils Percent Auto 0.4 % (0-2); Eosinophils Absolute Auto 0.1 X10*3/uL (0.0-0.4); Eosinophils Percent Auto 1.9 % (0-4); Hematocrit 40.3 % (42.0-52.0); Hemoglobin 14.4 g/dl (14.0-18.0); Imm Gran Abs Auto 0.02 X10*3/uL (0.00-0.03); Imm Gran Pct Auto 0.3 % (0.0-0.4); Lymphocytes Absolute Auto 0.5 X10*3/uL (1.2-4.9); Lymphocytes Percent Auto 6.4 % (20-40); Mean Corpuscular HGB Conc 35.7 g/dl (31.0-36.0); Mean Corpuscular Hemoglobin 32.4 pg (27.0-33.0); Mean Corpuscular Volume 90.8 fL (80.0-98.0); Mean Platelet Volume 8.5 fL (9.4-12.4); Monocytes Absolute Auto 0.8 X10*3/uL (0.1-1.2); Monocytes Percent Auto 11.4 % (2-11); Neutrophils Absolute Auto 5.7 x10*3/uL (2.0-8.3); Neutrophils Percent Auto 79.6 % (45-73); Platelet Count 195 X10*3/uL (160-400); Red Blood Count 4.44 X10*6/uL (4.60-5.80); White Blood Count 7.2 X10*3/uL (4.8-10.8)
[2024-08-30 10:46] LABS: Alanine Aminotransferase 54 U/L (0-40); Albumin Level 4.4 g/dL (3.5-5.0); Alkaline Phosphatase 91 U/L (39-117); Anion Gap 13 (12-20); Aspartate Amino Transferase 46 U/L (5-37); Bilirubin Total 1.1 mg/dL (0.0-1.0); Blood Urea Nitrogen 11 mg/dL (9-16); Calcium 9.6 mg/dL (8.4-10.2); Carbon Dioxide 25 mmol/L (22-29); Chloride 97 mmol/L (96-108); Cholesterol 201 mg/dL (<200); Estimated Glomerular Filt Rate > 60; Glucose Random 109 mg/dL (60-115); HDL Cholesterol 84 mg/dL (>40); LDL Cholesterol Calculated 105 mg/dL (<100); Potassium 4.6 mmol/L (3.3-5.1); Sodium 130 mmol/L (135-145); Total Protein 7.6 g/dL (6.5-8.0); Triglycerides 62 mg/dL (<150)
[2024-08-30 10:57] LABS: Prostate Specific Antigen Scr 0.95 ng/mL (<0.05-4.0)
[2024-08-31 21:58] LABS: IgA 315 mg/dL (70-320); IgG 1310 mg/dL (600-1540); IgM 85 mg/dL (50-300)
[2024-09-01 14:44] LABS: Prot Elec - Albumin 4.5 g/dL (3.8-4.8); Prot Elec - Alpha1 0.3 g/dL (0.2-0.3); Prot Elec - Alpha2 0.6 g/dL (0.5-0.9); Prot Elec - Beta 1 0.5 g/dL (0.4-0.6); Prot Elec - Beta 2 0.3 g/dL (0.2-0.5); Prot Elec - Gamma 1.3 g/dL (0.8-1.7); Prot Elec - Total Protein 7.4 g/dL (6.1-8.1)
== END 2024-08-30 06:53 | disposition home or self-care (01) ==
LOC: HO.HMGCLDS 06:52
PROVIDERS: PCP Nurse Practitioner Family; Referring Provider Internal Medicine Cardiovascular Disease; Visit Provider Nurse Practitioner Family
DX: R79.89 Other specified abnormal findings of blood chemistry (principal); Z12.5 Encounter for screening for malignant neoplasm of prostate; R07.9 Chest pain, unspecified; I25.10 Atherosclerotic heart disease of native coronary artery without angina pectoris
CPT/HCPCS: 36415; 80053; 80061; 82784; 84153; 84165; 85025; 86334

== ENCOUNTER 2024-10-15 09:17 | Outpatient (AMB) | payer OTHER, SELFPAY ==
--- OUTSIDE RECORDS SUMMARY | 2024-10-15 09:21 | XMS_ITS ---
Author Organization [facility] Address [address] [place] [address] Care Team Providers Care Outplacement Consultant Name Role Phone ADELA BORJAS Primary Care Provider Matt Maria Jr, Daniel Aguirre [phone] REASON FOR VISIT cancel colonoscopy Encounters Encounter Location Date Provider Diagnosis [facility] [address] [place] [address] 09/01/2023 Daniel Maria Jr PLAN OF TREATMENT Next Appt Details Provider Name:Daniel quevedo Jr, 01/31/2025 09:00:00 AM, [address], [address], [place], [address],
--- OUTSIDE RECORDS SUMMARY | 2024-10-15 09:21 | XMS_ITS ---
Author Organization [facility] Address [address] [place] [address] Care Team Providers Care Montessori Program Director Name Role Phone ADELA BORJAS Primary Care Provider Matt Maria Jr, Daniel Aguirre REASON FOR VISIT Patient presents today for a colon screening Encounters Encounter Location Date Provider Diagnosis [facility] [address] [place] [id number] 08/18/2023 Daniel Maria Jr PLAN OF TREATMENT Next Appt Details Provider Name:Daniel quevedo Jr, 01/31/2025 09:00:00 AM, [address] [place] [address], [address], [place], [address],
--- OUTSIDE RECORDS SUMMARY | 2024-10-15 09:21 | XMS_ITS ---
Author Organization [facility] Address [address] [place] [address] Care Team Providers Care Package Sealer Machine Name Role Phone ADELA BORJAS Primary Care Provider Daniel Gottlieb Jr [phone] REASON FOR VISIT screening Encounters Encounter Location Date Provider Diagnosis [facility] [address] [place], [place] [id number] 09/02/2023 Daniel Maria Jr PLAN OF TREATMENT Next Appt Details Provider Name:Daniel quevedo Jr, 01/31/2025 09:00:00 AM, [address], [address], [place], [address],
--- OUTSIDE RECORDS SUMMARY | 2024-10-15 09:22 | XMS_ITS | Patient Health Record ---
Author Organization [facility] Address [address] [place] [address] Care Team Providers Care Center Customer Service Associate Name Role Phone ADELA BORJAS Primary Care Provider Daniel Gottlieb Jr ALLERGIES No Known Allergies REASON FOR REFERRAL No Information MEDICATIONS Medication SIG (Take, Route, Frequency, Duration) Notes Start Date End Date Status Atenolol 50 MG TAKE 1 TABLET ORALLY DAILY Oral for 90 Active MiraLax (colon prep) 17 GM/SCOOP mixed with Gatorade or Crystal Light Orally begin at 5:00 p.m. the day before the procedure for 1 day 07/09/2023 Active Losartan Potassium 100 MG TAKE 1 TABLET BY MOUTH DAILY Oral for 90 Active IMMUNIZATIONS Vaccine Route Administration Date Status Comme nts Influenza Unknown 07/09/2023 Refused SOCIAL HISTORY Tobacco Use: Social History Observation Description Date Details (start date - stop date) Never Smoker NA - NA Sex Assigned At : Social History Observation Description Sex Assigned At Unknown Tobacco Use/Smoking Question Answer Notes Patient is a nonsmoker Alcohol Screen Question Answer Notes Did you have a drink contain ing alcohol in the past year? Yes How often did you have a dri nk containing alcohol in the past year? 4 or more times a week (4 points) How many drinks did you have on a typical day when you were drinking in the past year? 7 to 9 drinks (3 points) How often did you have 6 or more drinks on one occasion in the past year? Daily or almost daily (4 points) Points 11 Interpretation Positive PROBLEMS Problem Type ICD Code Onset Dates Problem Status W/U Status Risk SNOMED Code Notes Problem Colon cancer screening (Z12.11) Active confirmed 868407697 Problem Encounter for other preprocedural examination (Z01.818) Active confirmed 878599652 PLAN OF TREATMENT Future Test Test Name Order Date COLONOSCOPY 07/09/2023 Next Appt Details Provider Name:Daniel Dinah quevedo Jr, 01/31/2025 09:00:00 AM, [address], [address], [place], [address], Insurance Providers Payer Name Payer Address Payer Phone Subscriber Number Group Number Insured Name Patient Relationship to Insured Coverage Start Date Coverage End Date [facility] [address] [place] [phone] [id number] FITO ROSA Self - patient is the insured MEDICAL (GENERAL) HISTORY Medical History History ICD Code Hypertension Fatty liver Thoracic aortic aneurysm, 4.4 cm 02/09 Left ventricular hypertrophy, ejection f raction 55-60% on echo 06/10 Surgical History Surgery Date(Month/Year) Left inguinal hernia repair 2012
--- NOTE | 2024-10-15 09:23 | A.OFFVIS_ITS ---
Vital Signs 10/15/24 09:24 Height 6 ft Weight 216 lb 2 oz BMI 29.3 BP 130/68 Blood Pressure Location Rt brachial Position Sitting Pulse 75 Pulse Source Pulse Oximeter Pulse Oximetry (%) 97 Oxygen Delivery Method Room Air Intake Visit Reasons: Cough/Shortness of Breath Allergies bee pollen [bee stings] Allergy (Severe, Verified 10/15/24 09:26) Anaphylaxis HPI HPI Cough/Shortness of Breath: Details: Mannie is a pleasant 64 year old male, never smoker, with underlying asthma COPD overlap, HTN, ascending aortic aneurysm, and mild aortic stenosis. At the last visit he continued to report dyspnea on exertion, and was started on Arnuity. Unfortunately, he was unable to obtain as insurance reportedly required a PA and office was not notified. He is interested in trialing another inhaler. He denies cough, wheezing or chest tightness. He does note weather changes have triggered respiratory symptoms. He denies any visits to urgent care or hospitalizations since the last visit. 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 Review of Systems Const Denies chills, Denies excessive sweating, Denies fever(s), Denies headache(s) and Denies night sweats Eyes Denies dry eyes, Denies irritation and Denies itchy eyes ENT Reports Normal hearing present and Denies headache(s) Card Denies chest pain, Denies chest pain at rest, Denies chest pain with activity, Denies claudication, Denies leg edema, Denies dyspnea, Denies orthopnea and Denies paroxysmal nocturnal dyspnea Resp Denies chest congestion, Denies cough, Denies excessive phlegm production, Denies pain on inspiration, Denies pain with cough, Denies dyspnea, Denies stridor and Denies wheezing Musc Denies myalgias Neuro Reports Normal hearing present and Denies headache(s) Endo Denies excessive sweating Kapil/Lymph Denies lymphadenopathy Aller/Immun Denies itchy eyes, Denies seasonal rhinorrhea and Denies wheezing Physical Exam Vital Signs: Last Vital Signs Pulse 75 10/15/24 09:24 BP 130/68 10/15/24 09:24 Pulse Ox 97 10/15/24 09:24 Oxygen Delivery Method Room Air 10/15/24 09:24 BMI result Body Mass Index 29.3 Const General: cooperative, healthy appearing, comfortable, no acute distress, well developed and alert Nutritional Appearance: obese Orientation/consciousness: patient oriented x3 Limitations: no limitations HEENT Head: Yes normal to inspection, Yes normocephalic and Yes atraumatic Ears: hearing grossly normal bilaterally and external ears normal Eyes General: appearance normal, both eyes and all related structures Eyelids: Yes eyelids normal Sclerae: sclerae normal EOM: EOMs intact bilaterally Neck Neck: Yes normal visual inspection and Yes no lymphadenopathy Lymphatic: no lymphadenopathy noted Chest Chest palpation & inspection: normal inspection of the chest Resp Effort & Inspection: normal respiratory effort, able to speak in complete sentences, no audible wheezes, no cough, no stridor, not tachypneic, no tripod positioning and no use of accessory muscles Auscultation: diminished lung sounds Cardio Jugular venous distension: no JVD Rate: regular rate Rhythm: regular rhythm Skin Other: warm, dry General skin exam: no rashes or lesions noted Neuro General: patient oriented x3 Cranial nerves: Yes Normal hearing present Cognition (Neuro): normal cognition Gait exam (Neuro): Normal gait present Extrem General: Yes normal to inspection, Yes capillary refill normal, Yes no clubbing, cyanosis or edema and Yes no pedal edema Psych Appearance: grossly normal and well kempt Speech and movement: Normal speech and movement present and Clear speech present Affect: normal affect Attitude: cooperative Thought process: Normal thought process present Thought content: Normal thought content present Insight: Good insight present (Psych) Judgement: Good judgement present (Psych) Assessment & Plan Assessment & Plan (1) Asthma-COPD overlap syndrome: Code(s): J44.89 - Other specified chronic obstructive pulmonary disease Category: Medical (2) Dyspnea on exertion: Code(s): R06.09 - Other forms of dyspnea Category: Medical Plan Arnuity not covered by insurance, will trial Flovent. Advised patient to call if unable to obtain. All questions were answered and patient is in agreement of plan. Will follow-up in 6-8 weeks or sooner if needed. Medications: New fluticasone propionate 110 mcg/actuation administer with spacer 2 puffs inhalation BID 12 grams 3RF Coding Level of Care Code Est Pt Level 3 (49309) Diagnoses 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 Dyspnea on exertion R06.09
[2024-10-15 09:24] VITALS: BP 130/68; PULSE 75; O2SAT 97; BMI 29.3
== END 2024-10-15 09:38 | disposition home or self-care (01) ==
PROVIDERS: PCP Nurse Practitioner Family; Visit Provider Nurse Practitioner Family
DX: J44.89 Other specified chronic obstructive pulmonary disease (principal); R06.09 Other forms of dyspnea
CPT/HCPCS: 99213

== ENCOUNTER → 2024-11-02 | Outpatient (BNV) | payer OTHER, SELFPAY | PROVIDERS: Emergency Provider Emergency Medicine; PCP Nurse Practitioner Family; Visit Provider Internal Medicine | DX: I49.1 Atrial premature depolarization (principal) | CPT/HCPCS: 93010 ==

== ENCOUNTER 2024-11-11 07:52 | Outpatient (AMB) | payer OTHER, SELFPAY ==
[2024-11-11 08:09] VITALS: BP 138/82; PULSE 78; RESP 16; TEMP 37.1; O2SAT 97; BMI 29.7
--- NOTE | 2024-11-11 08:09 | A.OFFPC_ITS ---
Vital Signs 11/11/24 08:09 Height 6 ft Weight 219 lb BMI 29.7 BP 138/82 Blood Pressure Location Lt brachial Position Sitting Respiration 16 Pulse 78 Pulse Source Pulse Oximeter Temp 98.8 F Temp Source Oral Pulse Oximetry (%) 97 Oxygen Delivery Method Room Air Intake Visit Reasons: 4 month follow up Intake Note: pt s here for 4 mon f/up [place] Farmer Required: No Accompanied by: Self / Same As Patient Allergies bee pollen [bee stings] Allergy (Severe, Verified 11/11/24 09:05) Anaphylaxis Medication List - Last Reconciled 11/11/24 by JULIUS Acevedo- aspirin (Ecotrin Low Strength) 81 mg PO DAILY atenolol 100 mg PO DAILY atorvastatin 40 mg PO BEDTIME losartan-hydrochlorothiazide 100-12.5 mg 1 tab PO DAILY montelukast 10 mg PO BEDTIME Tobacco use date assessed: 11/11/24 Dental Screening Dental Screen Date: 11/11/24 Did you have a dental visit in the last 12 months?: Yes Did you have a dental problem in the last 6 months where you did not have access to dental care?: No Was dental information given to patient?: Patient has dentist HPI 4 month follow up HPI Details Chief Complaint Follow-up for high blood pressure management. History of Present Illness The patient is a 64-year-old male presenting with follow-up for essential hypertension. He reports being stable with no current monitoring of his blood pressure at home. There have been no recent episodes of chest pain, shortness of breath, headache, dizziness, or blurred vision. The patient has a history of aortic stenosis and maintains regular cardiology and pulmonary follow-ups. He denies any acute symptoms but has been managing chronic hypertension over time. The management of his condition has focused on routine monitoring and adjustments in lifestyle as necessary. Social History - Reports consuming up to 7 beers daily on average. Health Maintenance - Encouraged reduction in alcohol consum ption to improve blood pressure management and overall health. Review of Systems - Cardiovascular: Denies chest pain or o ther cardiovascular symptoms. - Respiratory: Denies shortness of breat h. - Neurological: Denies headache, dizzine ss, or blurred vision. Physical Exam General: Cooperative, healthy appearing, comfortable, no acute distress and well developed, obese Orientation: Patient oriented x3 Limitations: No limitations Head: Normal to inspection Ears: Hearing grossly normal bilaterally Nose: Normal external nose present Face and sinus: Normal facial exam Eyes: Appearance normal, both eyes and all related structures Neck: Normal visual inspection and Yes full ROM Respiratory: Fairly clear, able to speak in complete sentences. Clear to auscultation bilaterally Cardiovascular: Regular rate and rhythm. Normal S1 and S2, systolic murmur noted GI: Normal to inspection. Soft to palpation and nontender Skin: No rashes or lesions noted Neuro: Patient oriented x3 Extremities: Normal to inspection, no edema noted Results Plan - Discussed the importance of monitoring blood pressure at home to better manage hypertension. - Strongly advised reducing alcohol cons umption to improve blood pressure control. - Continue regular follow-ups with cardi ology to manage aortic stenosis effectively. - Continued encouragement in weight anel gement strategies. Patient was informed and verbally consented to the use of an ambient scribe for clinic note documentation during this visit. Discussion Notes I discussed with the patient that his essential hypertension seems stable, and emphasized the significance of self-monitoring his blood pressure to detect any fluctuations. The relationship between alcohol intake and its impact on blood pressure was thoroughly reviewed, and I advised him to significantly reduce his intake for better health outcomes. We also covered the necessity of regular cardiology appointments to monitor his aortic stenosis and overall cardiac health. I reiterated the potential health risks associated with his current lifestyle and advised on weight management to alleviate strain on his cardiovascular system. 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 1. Little interest or pleasure in doing things: not at all 2. Feeling down, depressed, or hopeless: not at all 3. Trouble falling or staying asleep, or sleeping too much: not at all 4. Feeling tired or having little energy: not at all 5. Poor appetite or overeating: not at all 6. Feeling bad about yourself - or that you are a failure or have let yourself or your family down: not at all 7. Trouble concentrating on things, such as reading the newspaper or watching television: not at all 8. Moving or speaking so slowly that other people could have noticed. Or the opposite - being so fidgety or restless that you have been moving around a lot more than usual: not at all 9. Thoughts that you would be better off or of hurting yourself in some way: not at all Total score: 0 Depression Screening Interpretation: Negative Depression Screening Done: Yes 81621 - PHQ-9 Billing: Yes Source: Developed by Drs. Bon Nelson, Zari Bojorquez, Timmy Duarte and colleagues, with an educational cary from [employer]. Thrive Questionnaire Date Thrive assessed: 11/11/24 I am a: Patient What is your living situation today?: I have a steady place to live Within the past 12 months, did the food you bought not last and you didn't have the money to get more?: Never true Within the past 12 months, did you worry whether your food would run out before you got money to buy more?: Never true Do you have trouble paying for medicines?: No Do you have trouble getting transportation to medical appointments?: No Do you have trouble paying your heating and electricity bill?: No Do you have trouble taking care of your child, family member or friend?: No Do you have trouble with day-to-day activities such as bathing, preparing meals, shopping, managing finances, etc.?: No Are you currently unemployed and looking for a job?: No Are you interested in more education?: No Please select the resources that you would like help with: None Currently or been in a relationship where the following occur: No concerns reported THRIVE Score: 0 AUDIT C Alcohol Use Questionnaire (AUDIT-C) 1. How often do you have a drink containing alcohol?: 4 or more times a week 2. How many drinks containing alcohol do you have on a typical day when you are drinking?: 7 to 9 3. How often do you have six or more drinks on one occasion?: Daily or almost daily Total Score: 11 Score Reviewed/Action Taken: Yes JOSEPH-7 AMB Questionnaire JOSEPH-7 Date JOSEPH - 7 assessed: 11/11/24 Feeling nervous, anxious, or on edge: 0 = Not at all Not being able to stop or control worryin = Not at all Worrying too much about different things: 0 = Not at all Trouble relaxin = Not at all Being so restless that it is hard to sit still: 0 = Not at all Becoming easily annoyed or irritable: 0 = Not at all Feeling afraid as if something awful might happen: 0 = Not at all Total JOSEPH-7 score (0-4 normal; 5-9 mild; 10-14 moderate; 15-21 severe): 0 Source: Developed by Drs. Bon Nelson, Zari Bojorquez, Timmy Duarte and colleagues, with an educational cary from [employer]. JOSEPH-7 Assessment Billing JOSEPH-7 Assessment Tool: JOSEPH-7 Assessment 62852 Physical exam (Primary Care) Vital Signs: Last Vital Signs Temp 98.8 F 11/11/24 08:09 Pulse 78 11/11/24 08:09 Resp 16 11/11/24 08:09 BP 138/82 11/11/24 08:09 Pulse Ox 97 11/11/24 08:09 Oxygen Delivery Method Room Air 11/11/24 08:09 BMI result Body Mass Index 29.7 Tobacco/Smoking Status: Tobacco use Status Tobacco use date assessed 11/11/24 11/11/24 08:09 Patient Tobacco Use Status Never used Tobacco 11/11/24 08:09 e-Cigarette/Vaping Use Never Used 11/11/24 08:09 PHQ-9: PHQ-9 Score PHQ-9: Total score 0 11/11/24 08:11 Depression Screening Interpretation: Negative Thrive Assessment: Date of Thrive Assessment Date Thrive assessed 11/11/24 11/11/24 08:11 Currently or been in a relationship where the following occur: No concerns reported Coding Level of Care Code Est Pt Level 3 (13037) Diagnoses 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 HTN (hypertension) I10 ETOH abuse F10.10 Additional Codes JOSEPH-7 Assessment Billing - JOSEPH-7 Assessment Tool: JOSEPH-7 Assessment 98610 ([id number]) PHQ-9 - 54618 - PHQ-9 Billing: Yes ([id number]) Assessment & Plan Assessment & Plan (1) Asthma-COPD overlap syndrome: Code(s): J44.89 - Other specified chronic obstructive pulmonary disease Category: Medical (2) HTN (hypertension): Code(s): I10 - Essential (primary) hypertension Category: Medical (3) ETOH abuse: Code(s): F10.10 - Alcohol abuse, uncomplicated Category: Social Hx Plan . Orders: Orders Comprehensive Met. Panel Today F10.10 - Alcohol abuse, uncomplicated, I10 - Essential (primary) hypertension, J44.89 - Other specified chronic obstructive pulmonary disease Complete Blood Count Auto Diff Today F10.10 - Alcohol abuse, uncomplicated, I10 - Essential (primary) hypertension, J44.89 - Other specified chronic obstructive pulmonary disease TSH reflex Free T4 Today F10.10 - Alcohol abuse, uncomplicated, I10 - Essential (primary) hypertension, J44.89 - Other specified chronic obstructive pulmonary disease UA CC w/rflx Micro + Cult Today F10.10 - Alcohol abuse, uncomplicated, I10 - Essential (primary) hypertension, J44.89 - Other specified chronic obstructive pulmonary disease
== END 2024-11-11 09:50 | disposition home or self-care (01) ==
PROVIDERS: PCP Nurse Practitioner Family; Visit Provider Nurse Practitioner Family
DX: J44.89 Other specified chronic obstructive pulmonary disease (principal); I10 Essential (primary) hypertension; F10.10 Alcohol abuse, uncomplicated

== ENCOUNTER → 2024-11-11 07:52 | Outpatient (BNVA) | payer OTHER, SELFPAY | PROVIDERS: PCP Nurse Practitioner Family; Visit Provider Nurse Practitioner Family | DX: J44.89 Other specified chronic obstructive pulmonary disease (principal); I10 Essential (primary) hypertension; F10.10 Alcohol abuse, uncomplicated | CPT/HCPCS: 96127 ==

== ENCOUNTER 2024-11-22 03:13 | Inpatient (IN) | payer OTHER, SELFPAY ==
[2024-11-22] VITALS (38 sets, daily range): BP systolic 91–218; BP diastolic 50–100; PULSE 76–123; RESP 11–32; TEMP 34.6–37.7; O2SAT 62–100; BMI 32.3
--- NOTE | ~2024-11-22 | CT_ITS ---
CLINICAL HISTORY: Fall, unresponsive, rule out trauma CT chest without contrast Comparison: CT/PA/SR - CT CHEST WO IV CON - 08/10/24 08:09 EDT Findings: Mild motion artifact present. Normal heart,size. No significant pericardial effusion. Coronary artery calcifications and/or coronary artery stents are visualized. No thoracic aorta aneurysm. The main pulmonary artery appears dilated up to 3.6 cm in diameter, suggesting pulmonary arterial hypertension. Mild dependent opacities are identified within the right lung with minimal to mild dependent left lower lobe opacities. No pneumothorax or pleural effusion. Calcified pleural plaques are visualized on the right. Endotracheal tube in place above the wojciech. Enteric tube partially visualized coursing below the diaphragm. No acute fractures. Multilevel degenerative endplate changes are present at the thoracic spine. Impression: 1. No acute traumatic injury of the chest identified. 2. Mild dependent right lung opacities present with minimal to mild dependent left lower lobe opacities, possibly consistent with bilateral infectious/inflammatory infiltrates. Aspiration is not excluded given the dependent location of these findings. 3. Dilation of the main pulmonary artery up to 3.6 cm in diameter, suggesting pulmonary arterial hypertension. This document has been electronically signed by: Amrik Gaona MD on 11/22/2024 05:12:33
--- NOTE | ~2024-11-22 | CT_ITS ---
CLINICAL HISTORY: Fall, unresponsive, rule out fracture, but CT head without contrast Comparison: None Findings: No intracranial mass, midline shift, hydrocephalus, or acute hemorrhage. Moderate mucosal thickening identified within the ethmoid air cells with small volume fluid at the bilateral maxillary sinuses. Minimal mucosal thickening present at the right sphenoid sinus. The bilateral mastoid air cells appear clear. No acute skull fracture. Probable mild right posterior parietal scalp swelling versus hematoma. Impression: 1. No acute intracranial abnormality. No acute intracranial hemorrhage. This document has been electronically signed by: Amrik Gaona MD on 11/22/2024 05:00:51
--- NOTE | ~2024-11-22 | CT_ITS ---
CLINICAL HISTORY: Fall, unresponsive, rule out fracture CT cervical spine without contrast Comparison: None Findings: Dense calcifications are identified at the bilateral common carotid artery bifurcations. Endotracheal and enteric tubes are partially visualized. There is straightening of the normal cervical lordosis. Minimal grade 1 retrolisthesis of C5 on C6 present. Moderate to severe degenerative endplate changes are present at C5-C6 and C6-C7. No acute fractures or dislocations. No significant degenerative endplate changes at the cervical spine. Impression: 1. Straightening of the normal cervical lordosis. This finding is nonspecific and may be positional and/or related to muscle spasm. No acute fracture or dislocation injury identified at the cervical spine. This document has been electronically signed by: Amrik Gaona MD on 11/22/2024 04:56:20
--- NOTE | ~2024-11-22 | CT_ITS ---
CLINICAL HISTORY: Fall, unresponsive, rule out trauma CT abdomen and pelvis without contrast Comparison: None Findings: The liver appears normal in size and contour. There is mildly decreased hepatic attenuation. The gallbladder and solid organs are within normal limits. No renal stones. No bowel obstruction, pneumoperitoneum, or pneumatosis. Enteric tube in place with the distal tip of the level of the proximal duodenum. Scattered colonic diverticulosis present. No CT evidence for acute diverticulitis. A Oliveira catheter is in place within the bladder lumen and the bladder is collapsed, limiting its evaluation. Scattered calcifications are present within the prostate gland. Normal appendix. No acute fracture or dislocation injury identified. Multilevel degenerative disc disease/vacuum disc phenomenon present at the lumbar spine. IMPRESSION: 1. No acute traumatic injury of the abdomen or pelvis identified. 2. Mild fatty infiltration of the liver. 3. Scattered colonic diverticulosis. No CT evidence for acute diverticulitis. This document has been electronically signed by: Amrik Gaona MD on 11/22/2024 05:06:06
--- NOTE | 2024-11-22 03:22 | ECG_ITS ---
Test Reason : UNRESPONSIVE Blood Pressure : */* mmHG Vent. Rate : 120 BPM Atrial Rate : 120 BPM P-R Int : 138 ms QRS Dur : 80 ms QT Int : 340 ms P-R-T Axes : 105 160 113 degrees QTcB Int : 480 ms Suspect limb lead reversal, interpretation assumes no reversal Sinus tachycardia Right axis deviation Pulmonary disease pattern Junctional ST depression, probably normal Abnormal ECG No previous ECGs available Referred By: Miguel Angel Perez Electronically Signed By:
[2024-11-22 03:29] LABS: Venous Blood Gas Refer to POC result
[2024-11-22] MEDS: Ketamine HCl/NS 50 MG/5 ML SYRINGE 100 MG IVPUSH (03:30)
[2024-11-22] MEDS: Rocuronium Bromide 50 MG/5 ML VIAL 60 MG IVPUSH (03:30)
[2024-11-22 03:31] LABS: MANUAL DIFF FLAG NO
[2024-11-22 03:33] LABS: Basophils Percent Auto 0.3 % (0-2); Eosinophils Absolute Auto 0.2 X10*3/uL (0.0-0.4); Eosinophils Percent Auto 1.9 % (0-4); Hematocrit 37.1 % (42.0-52.0); Imm Gran Abs Auto 0.07 X10*3/uL (0.00-0.03); Imm Gran Pct Auto 0.6 % (0.0-0.4); Lymphocytes Absolute Auto 0.3 X10*3/uL (1.2-4.9); Lymphocytes Percent Auto 2.1 % (20-40); Mean Corpuscular Volume 83.6 fL (80.0-98.0); Mean Platelet Volume 8.3 fL (9.4-12.4); Monocytes Absolute Auto 0.8 X10*3/uL (0.1-1.2); Monocytes Percent Auto 6.7 % (2-11); Neutrophils Absolute Auto 10.5 x10*3/uL (2.0-8.3); Neutrophils Percent Auto 88.4 % (45-73); Platelet Count 123 X10*3/uL (160-400); Red Blood Count 4.44 X10*6/uL (4.60-5.80); Red Cell Distribution Width 11.7 % (11.0-16.0); SCAN SMEAR FLAG 1; White Blood Count 11.8 X10*3/uL (4.8-10.8)
[2024-11-22 03:34] LABS: VBG HCO3 23 mmol/L (22-26); VBG pCO2 50 mmHg; VBG pH 7.27 (7.32-7.43); VBG pO2 33 mmHg
[2024-11-22] MEDS: Rocuronium Bromide 50 MG/5 ML VIAL 40 MG IVPUSH (03:35)
[2024-11-22 03:36] LABS: INTERNATIONAL NORM RATIO 1.1 (0.9-1.1); Prothrombin Time 12.9 SEC (10.9-12.4)
[2024-11-22] MEDS: propofoL 1,000 MG/100 ML VIAL 18.38 MG IVCONT (03:36)
[2024-11-22] MEDS: 0.9 % Sodium Chloride 1,000 ML 999 ML IV (03:37)
[2024-11-22 03:38] LABS: Partial Thromboplastin Time 29.4 SEC (26.0-36.8)
[2024-11-22 03:45] LABS: Appearance Urine Cloudy; Color Urine Yellow; Glucose Urine UA 100 mg/dL (Negative); Leukocyte Esterase Urine Negative (Negative); Nitrite Urine Negative (Negative); Specific Gravity - Urine 1.025 (1.005-1.025); UMIC TRIGGER UACC YES; Urine Blood Moderate (2+) (Negative); Urine Ketones 15 mg/dL (Negative); Urine Protein 100 (2+) mg/dL (Neg-Trace)
--- NOTE | 2024-11-22 03:48 | PC.NURSE ---
Pt arrived to ED O2 noted to be 63% on RA, during attempt to obtain CT. Pt brought back to room per Skyla Perez. RT at bedside manually ventilating. Plan to intubate. 0030: 20G IV to L AC. Intubated by provider Skyla Perez with 100 mg of Ketamine, 60 mg Rocuronium. Size 8, 25 at the lip. 0032: OG tube placed by provider 0035: 40 mg of Rocuronium given IV. 0036: Prop started @ 30mcg/kg/min
[2024-11-22 03:52] LABS: B Type Natriuretic Peptide 492 pg/mL (<100)
[2024-11-22 03:53] LABS: Hemoglobin 12.5 g/dl (14.0-18.0); Mean Corpuscular HGB Conc 33.7 g/dl (31.0-36.0); Mean Corpuscular Hemoglobin 28.2 pg (27.0-33.0)
[2024-11-22 03:54] LABS: Bacteria Urine None Seen (None Seen); Granular Casts Urine Present; Hyaline Casts Urine >20 /LPF (0-2); Other Crystals Urine Present; RBC Urine 0-2 /HPF (0-2); WBC Urine 0-5 /HPF (0-5)
[2024-11-22 03:55] LABS: Troponin-I High Sensitivity 5.1 ng/L (<3.5-35.0)
[2024-11-22 03:56] LABS: Amphetamine Screen Urine Not Detected (Not Detect); Barbiturates, Urine Not Detected (Not Detect); Benzodiazepines Screen Urine Not Detected (Not Detect); Buprenorphine Scr Not Detected (Not Detect); Cannabinoid Screen Urine Not Detected (Not Detect); Cocaine Screen Urine Not Detected (Not Detect); Fentanyl, urine Not Detected (Not Detect); Methadone Screen, Urine Not Detected (Not Detect); Opiate Screen Urine Not Detected (Not Detect); Oxycodone Screen Urine Not Detected (Not Detect); Phencyclidine Screen Urine Not Detected (Not Detect)
[2024-11-22 03:58] LABS: Alanine Aminotransferase 118 U/L (0-40); Albumin Level 4.4 g/dL (3.5-5.0); Alkaline Phosphatase 91 U/L (39-117); Anion Gap 21 (12-20); Aspartate Amino Transferase 155 U/L (5-37); Bilirubin Total 1.8 mg/dL (0.0-1.0); Blood Urea Nitrogen 12 mg/dL (9-16); Carbon Dioxide 19 mmol/L (22-29); Chloride 73 mmol/L (96-108); Creatinine Clr Calc Pharmacy 139.2; Estimated Glomerular Filt Rate > 60; Ethanol 12 mg/dL; Glucose Random 95 mg/dL (60-115); Lipase 13 U/L (8-78); Potassium 4.1 mmol/L (3.3-5.1); Sodium 109 mmol/L (135-145); Total Protein 7.8 g/dL (6.5-8.0)
--- NOTE | 2024-11-22 04:14 | ED.AMS ---
HPI - Altered Mental Status General Stated Complaint: Fall, LOC, GI Bleed?, Stroke? unknwn downtime Time Seen by Provider: 11/22/24 03:20 Source: family (Brother, Abran) and other (Jenae Shahid) Mode of arrival: EMS Limitations: no limitations History of Present Illness ED Provider: Dr. Miguel Angel Perez HPI narrative: 64-year-old male with a history of aortic stenosis, alcohol use disorder, hypertension, thoracic aortic aneurysm, coronary artery disease, hypertension, who presents emergency department for evaluation of altered mental status. According to the patient's elisaBerhanea, the patient was sick with a flu-like illness over the past 3 days. The patient had a nonproductive cough, shaking chills, fatigue. Patient usually drinks 20 beers per day but due to his illness he was not able to drink as much as usual. This morning, his fiancee found him lying on his back in the kitchen and the patient was unresponsive. Paramedics report that the patient had coffee-ground emesis on his face and was minimally responding to painful stimuli. When the patient arrived in the emergency department, he was unresponsive to painful stimuli, his face was covered with dark emesis. Initially patient was sent directly to CT scan however his O2 saturation was 60-70% so he was brought into a resuscitation room. The patient was given RSI with ketamine and rocuronium. He was then intubated and placed on a propofol drip. The patient did take 1 dose of amoxicillin left over from a previous prescription for pneumonia and according to his fiancee he developed a rash. Related Data Previous Rx's ?Medication ?Instructions ?Recorded atenolol 100 mg tablet 100 mg PO DAILY #60 tabs 03/05/24 aspirin 81 mg tablet,delayed 81 mg PO DAILY #30 tabs 06/07/24 release (Ecotrin Low Strength) montelukast 10 mg tablet 10 mg PO BEDTIME #90 tabs 07/16/24 losartan 100 1 tab PO DAILY #90 tabs 09/03/24 mg-hydrochlorothiazide 12.5 mg tablet atorvastatin 40 mg tablet 40 mg PO BEDTIME #90 tabs 09/07/24 Allergies Allergy/AdvReac Type Severity Reaction Status Date / Time bee pollen [bee stings] Allergy Severe Anaphylaxis Verified 11/22/24 04:31 Review of Systems Review of Systems: Yes unobtainable due to endotracheal tube [facility] Past Medical History [facility] Narrative: Social history: He lives with his fiancee. He does smoke cigarettes. He drinks 20 beers per day. 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 Physical Exam ED Vital Signs: BMI result Body Mass Index 32.3 Initial vital signs: BP 113/70, respiratory rate 12, O2 saturation 62% on room air Exam: General: Unresponsive to verbal or painful stimuli, cool, cyanotic mild skin, dark dried emesis on his face Head: Normocephalic, atraumatic EENT: Pupils 4 mm and reactive, Lids normal, sclera normal, conjunctiva normal Neck: Supple, no adenopathy Lung: breath sounds symmetric, no wheezing, rales or rhonchi Chest: symmetric movement, nontender Heart: regular rate and rhythm, normal S1, S2 no murmurs or rubs Abdomen: Appears distended, diminished bowel sounds Extremities: No obvious deformities Skin: Diffuse erythematous rash which blanches with pressure Medications Administered Generic Name Dose Route Start Last Admin Trade Name Freq PRN Reason Stop Dose Admin Sodium Chloride 1,000 mls @ 999 mls/hr 11/22/24 03:22 11/22/24 03:37 Ns IV 11/22/24 04:22 999 mls/hr .Q1H1M STA Administration Medical Decision Making Medical Decision Making [facility] Narrative: 64-year-old male with a history of aortic stenosis, alcohol use disorder, hypertension, thoracic aortic aneurysm, coronary artery disease, hypertension, who presents emergency department for evaluation of altered mental status. Patient had a flu-like illness for several days which included subjective fever, chills, cough with decreased appetite. Patient does drink 20 beers per day and according to his fiancee he was not able to drink as much as usual due to his illness. The patient's fiancee found the patient lying flat on his back in the kitchen and he was unresponsive. On presentation to the emergency department the patient was cool, cyanotic, unresponsive to voice or painful stimuli with an O2 saturation of 62% on room air. 05:13 Differential diagnosis: ?Includes but is not limited to alcohol withdrawal seizure, aspiration pneumonitis, upper GI bleed, electrolyte abnormalities, anemia, alcohol intoxication, drug intoxication Course: 05:13 My interpretation patient's laboratory evaluation as follows: WBC was elevated 11,800. Mild anemia with an H&H of 12 and 37 this is compared to an H&H from 08/30/2024 of 14 and 40.3. Low sodium 107. Low chloride 73. Low bicarb 19. BUN and creatinine were normal 12 and 0.65. AST and ALT were elevated 155 and 118-most likely secondary to alcohol use disorder. Bilirubin was also elevated at 1.8 secondary to alcohol use disorder. VBG revealed a low pH of 7.27 with an elevated CO2 of 50-this is most likely metabolic acidemia. CK was elevated 1007. BNP elevated 428. Ethanol level was low at 12 considering the patient drinks 20 beers per day. Urine drug screen was negative. This patient has a low sodium of 109 and can not get a fluid bolus and the sodium needs to be replaced slowly at 50 cc/hour. The patient was not hypotensive. At this time I am concerned that the patient may have had either an alcohol withdrawal seizure or a seizure secondary to his hyponatremia causing him to be unresponsive. My preliminary reading of the CT of the chest is concerning for right lower lobe infiltrate. I did discuss the patient's presentation with the covering engine lathe set up operator tool, Dr. Canchola. I am concerned that the patient may have a penicillin allergy since he has a rash that is consistent with a drug rash and he has been taking amoxicillin. Therefore the patient's aspiration pneumonia will be treated with cefepime 2 g IV and vancomycin 2 g IV. The patient will be admitted to the ICU for further management. Admission/Observation Consideration of admission/observation: Escalation of care including admission/observation considered (Yes) Consult Healthcare Provider Management of the patient was discussed with: Vascular Manager Car Wash Attendant Automatic, Dr. Canchola Lab Data MDM Lab Attestation statement: I reviewed the patient's lab results. 11/22/24 03:20 11/22/24 03:20 Labs: Lab Results 11/22/24 11/22/24 11/22/24 Range/Units 03:20 03:27 03:36 WBC 11.8 H (4.8-10.8) X10*3/uL RBC 4.44 L (4.60-5.80) X10*6/uL Hgb 12.5 L (14.0-18.0) g/dl Hct 37.1 L (42.0-52.0) % MCV 83.6 (80.0-98.0) fL MCH 28.2 (27.0-33.0) pg MCHC 33.7 (31.0-36.0) g/dl RDW 11.7 (11.0-16.0) % Plt Count 123 L D (160-400) X10*3/uL MPV 8.3 L (9.4-12.4) fL Immature Gran % (Auto) 0.6 H (0.0-0.4) % Neut % (Auto) 88.4 H (45-73) % Lymph % (Auto) 2.1 L (20-40) % Snyder % (Auto) 6.7 (2-11) % Eos % (Auto) 1.9 (0-4) % Baso % (Auto) 0.3 (0-2) % Lymph # (Auto) 0.3 L (1.2-4.9) X10*3/uL Snyder # (Auto) 0.8 (0.1-1.2) X10*3/uL Eos # (Auto) 0.2 (0.0-0.4) X10*3/uL Baso # (Auto) 0.0 (0.0-0.2) X10*3/uL Abs Immat Gran (auto) 0.07 H (0.00-0.03) X10*3/uL Absolute Neuts (auto) 10.5 H (2.0-8.3) x10*3/uL Absolute Nucleated RBC 0.000 (0.0-0.012) X10*3/uL Nucleated RBC % (auto) 0.0 (0.0-0.2) /100WBC PT 12.9 H (10.9-12.4) SEC INR 1.1 (0.9-1.1) APTT 29.4 (26.0-36.8) SEC VBG pH 7.27 L (7.32-7.43) VBG pCO2 50 mmHg VBG pO2 33 mmHg VBG HCO3 23 (22-26) mmol/L VBG O2 Saturation 38.0 % VBG Base Excess -4.0 mmol/L Sodium 109 L* (135-145) mmol/L Potassium 4.1 (3.3-5.1) mmol/L Chloride 73 L D (96-108) mmol/L Carbon Dioxide 19 L (22-29) mmol/L Anion Gap 21 H (12-20) BUN 12 (9-16) mg/dL Creatinine 0.65 (0.5-1.4) mg/dL Estim Creat Clear Calc 139.2 Estimated GFR > 60 Random Glucose 95 (60-115) mg/dL Calcium 8.0 L D (8.4-10.2) mg/dL Total Bilirubin 1.8 H (0.0-1.0) mg/dL AST 155 H (5-37) U/L ALT 118 H (0-40) U/L Alkaline Phosphatase 91 (39-117) U/L Total Creatine Kinase 1007 H (38-174) U/L Troponin I High Sens 5.1 (<3.5-35.0) ng/L B-Natriuretic Peptide 492 H (<100) pg/mL Total Protein 7.8 (6.5-8.0) g/dL Albumin 4.4 (3.5-5.0) g/dL Lipase 13 (8-78) U/L Urine Color Yellow Urine Appearance Cloudy Urine pH 5.0 (5.0-9.0) Ur Specific [place] 1.025 (1.005-1.025) Urine Protein 100 (2+) H (Neg-Trace) mg/dL Urine Glucose (UA) 100 H (Negative) mg/dL Urine Ketones 15 (Negative) mg/dL Urine Blood Moderate (2+) H (Negative) Urine Nitrite Negative (Negative) Ur Leukocyte Esterase Negative (Negative) Urine RBC 0-2 (0-2) /HPF Urine WBC 0-5 (0-5) /HPF Ur Squamous Epith Cells 6-10 (0-2) /HPF Other Crystals Present Urine Bacteria None Seen (None Seen) Hyaline Casts >20 (0-2) /LPF Granular Casts Present Urine Opiates Screen Not Detected (Not Detect) Ur Buprenorphine Scrn Not Detected (Not Detect) ng/mL Ur Oxycodone Screen Not Detected (Not Detect) ng/mL Urine Methadone Screen Not Detected (Not Detect) ng/mL Urine Fentanyl Screen Not Detected (Not Detect) Ur Barbiturates Screen Not Detected (Not Detect) Ur Phencyclidine Scrn Not Detected (Not Detect) Ur Amphetamines Screen Not Detected (Not Detect) U Benzodiazepines Scrn Not Detected (Not Detect) Urine Cocaine Screen Not Detected (Not Detect) U Marijuana (THC) Screen Not Detected (Not Detect) Ethyl Alcohol 12 mg/dL Independent Interpretation I performed an independent interpretation of an: EKG and CT Scan Interpretation: My interpretation patient's 12 EKG done at 03:40 hours is as follows: Sinus tachycardia with a rate of 119, normal DE interval, QRS duration, prolonged QTC interval of 486 milliseconds, no ST segment elevation, no ST segment depression, no significant T-wave abnormalities, no PACs, no PVCs. My interpretation of the patient's CT scan of the head is as follows: No acute fracture or bleed My interpretation patient's CT chest is as follows: Right lower lobe infiltrate Radiology Impression Discussion of test interpretation with radiology: I have reviewed the radiologist's reading. Radiologist Impression: CT head without contrast Comparison: None Findings: No intracranial mass, midline shift, hydrocephalus, or acute hemorrhage. Moderate mucosal thickening identified within the ethmoid air cells with small volume fluid at the bilateral maxillary sinuses. Minimal mucosal thickening present at the right sphenoid sinus. The bilateral mastoid air cells appear clear. No acute skull fracture. Probable mild right posterior parietal scalp swelling versus hematoma. Impression: 1. No acute intracranial abnormality. No acute intracranial hemorrhage. This document has been electronically signed by: Amrik Gaona MD on 11/22/2024 05:00:51 CT cervical spine without contrast Comparison: None Findings: Dense calcifications are identified at the bilateral common carotid artery bifurcations. Endotracheal and enteric tubes are partially visualized. There is straightening of the normal cervical lordosis. Minimal grade 1 retrolisthesis of C5 on C6 present. Moderate to severe degenerative endplate changes are present at C5-C6 and C6-C7. No acute fractures or dislocations. No significant degenerative endplate changes at the cervical spine. Impression: 1. Straightening of the normal cervical lordosis. This finding is nonspecific and may be positional and/or related to muscle spasm. No acute fracture or dislocation injury identified at the cervical spine. This document has been electronically signed by: Amrik Gaona MD on 11/22/2024 04:56:20 CT chest without contrast Comparison: CT/DE/SR - CT CHEST WO IV CON - 08/10/24 08:09 EDT Findings: Mild motion artifact present. Normal heart,size. No significant pericardial effusion. Coronary artery calcifications and/or coronary artery stents are visualized. No thoracic aorta aneurysm. The main pulmonary artery appears dilated up to 3.6 cm in diameter, suggesting pulmonary arterial hypertension. Mild dependent opacities are identified within the right lung with minimal to mild dependent left lower lobe opacities. No pneumothorax or pleural effusion. Calcified pleural plaques are visualized on the right. Endotracheal tube in place above the wojciech. Enteric tube partially visualized coursing below the diaphragm. No acute fractures. Multilevel degenerative endplate changes are present at the thoracic spine. Impression: 1. No acute traumatic injury of the chest identified. 2. Mild dependent right lung opacities present with minimal to mild dependent left lower lobe opacities, possibly consistent with bilateral infectious/inflammatory infiltrates. Aspiration is not excluded given the dependent location of these findings. 3. Dilation of the main pulmonary artery up to 3.6 cm in diameter, suggesting pulmonary arterial hypertension. This document has been electronically signed by: Amrik Gaona MD on 11/22/2024 05:12:33 CT abdomen and pelvis without contrast Comparison: None Findings: The liver appears normal in size and contour. There is mildly decreased hepatic attenuation. The gallbladder and solid organs are within normal limits. No renal stones. No bowel obstruction, pneumoperitoneum, or pneumatosis. Enteric tube in place with the distal tip of the level of the proximal duodenum. Scattered colonic diverticulosis present. No CT evidence for acute diverticulitis. A Oliveira catheter is in place within the bladder lumen and the bladder is collapsed, limiting its evaluation. Scattered calcifications are present within the prostate gland. Normal appendix. No acute fracture or dislocation injury identified. Multilevel degenerative disc disease/vacuum disc phenomenon present at the lumbar spine. IMPRESSION: 1. No acute traumatic injury of the abdomen or pelvis identified. 2. Mild fatty infiltration of the liver. 3. Scattered colonic diverticulosis. No CT evidence for acute diverticulitis. This document has been electronically signed by: Amrik Gaona MD on 11/22/2024 05:06:06 Independent Historian Clinical information obtained from an independent historian. History obtained from or confirmed by: Other (Fiancee and brother) Procedures Intubation Intubation Type:: Endotracheal Tube Insertion Intubation Date:: 11/22/24 Time out performed: No sedative: Ketamine Mg Given: 100 paralytic: Rocuronium Mg Given: 60 Assist Device Used: fiber optic device ET Tube Size: 8 ET Tube Uncuffed: No Tube Secured Depth (cm): 26 Tube Secured Location: lips Tube Placement Confirmation: visualized tube passing through cords, equal breath sounds bilaterally and confirmation by capnometry Patient Tolerated Procedure: well Intubation Complications: none Critical Care Time Critical Care Time Critical Care Time: Yes Total Critical Care Time: 80 Attestation: Critical Care: The patient was critically ill with a high probability of imminent or life threatening deterioration. I spent greater than 30 minutes of discontinuous time evaluating the patient,delivering critical care at the bedside, discussing and evaluating pertinent data with consultants. Critical care time does not include time spent performing separately billable procedures or teaching. Total time spent performing critical care was 80 minutes. Discharge Plan Discharge Clinical Impression: Altered mental status, Acute hyponatremia, Aspiration pneumonia Patient Disposition: Admitted As Inpatient Prescriptions: No Action atenolol 100 mg tablet 100 mg PO DAILY Qty: 60 5RF montelukast 10 mg tablet 10 mg PO BEDTIME Qty: 90 1RF losartan-hydrochlorothiazide 100-12.5 mg tablet 1 tab PO DAILY Qty: 90 1RF atorvastatin 40 mg tablet 40 mg PO BEDTIME Qty: 90 3RF aspirin [Ecotrin Low Strength] 81 mg tablet,delayed release (DR/EC) 81 mg PO DAILY Qty: 30 5RF Print Language: Chinese
[2024-11-22] MEDS: cefEPime HCl/D5W 2 GM/50 ML PIGGYBACK IV (05:11)
[2024-11-22] MEDS: vancomycin/NS 2,000 MG/500 ML PLAST..BAG 250 MG IV (05:11)
[2024-11-22 05:14] LABS: Venous Blood Gas Refer to POC result
[2024-11-22 05:19] LABS: VBG Base Excess -1.8 mmol/L; VBG HCO3 26 mmol/L (22-26); VBG pCO2 56 mmHg; VBG pH 7.27 (7.32-7.43); VBG pO2 48 mmHg
[2024-11-22 05:31] LABS: Osmolality, Serum 237 mosm/kg (281-305)
[2024-11-22 05:34] LABS: GASOB Int Neg Ctl Valid YES; GASOB Int Pos Ctl Valid YES; GASOB Lot 20632 10; Occult Blood Gastric POSITIVE (NEG)
--- NOTE | 2024-11-22 05:39 | PC.NURSE ---
Family at bedside updated on plan of care. Jenae reports pt drinks approximately 20 cans of beer per day. ETOH level on arrival 12. ?if pt had a withdrawal seizure. Pt also recently started on antibiotics for PNA and may be having an allergic reaction as there are red, raised, wheals through out the skin, primary on upper extremities, torso, and groin area. ICU provider at bedside, Akil, verbal order to titrate propofol to 50mcg as pt was moving upper extremities. Soft restraints applied to upper extremities . 16fr temp sensing chavis placed with 250cc of clear yellow urine. Pt continues to be intubated on ventilator, 18/5 and 50% o2. VSS. Dark brown coffee content from g-tube sent to the lab.
[2024-11-22 05:49] LABS: Osmolality Urine 673 mosm/kg (373-1093)
[2024-11-22] MEDS: levETIRAcetam in NaCl (iso-os) 1,000 MG/100 ML PIGGYBACK 400 MG IV ×2 (05:53→17:15)
[2024-11-22 05:57] LABS: Influenza A PCR POSITIVE (Negative); Influenza B PCR NEGATIVE (Negative); Resp Syncy Virus RNA Qual PCR NEGATIVE (Negative); SARS COV2 PCR INHOUSE NEGATIVE (Negative)
--- NOTE | 2024-11-22 06:04 | PM.CCHP ---
History of Present Illness Date of Service: 11/22/24 Attending physician on admission: Shilpa Canchola Chief Complaint: AMS ?The patient is a? 64-year-old male with a past medical history of? alcohol abuse, COPD asthma overlap syndrome, hypertension, ? coronary artery disease, thoracic aortic aneurysm and aortic stenosis who presented to the emergency department via EMS with altered mental status.? According to the patient's fianceeJenae, the patient was sick with a flu-like illness over the past 3 days.? The patient had a nonproductive cough, shaking chills, fatigue. The patient did take 1 dose of amoxicillin left over from a previous prescription for pneumonia and according to his fiancee he developed a rash.? She also reports patient usually drinks 20 beers per day but due to his illness he was not able to drink as much as usual.? Overnight,? patient?s elisa found him laying on his back,? unresponsive.? Paramedics reported he patient had coffee-ground emesis on his face and was minimally responding to painful stimuli.?? ?On arrival to the emergency department, he was unresponsive to painful stimuli, his face was covered with dark emesis.? Initially patient was sent directly to CT scan however his O2 saturation was 60-70%, ? and required emergent intubation.? ?Laboratory data was significant for? WBC 11.8, serum sodium 109, chloride 73, serum bicarb 19, anion gap 21, calcium 8, total bilirubin 1.8, AST 155, ALT 118, CK 1007, BNP 492, ?Venous gas post intubation:? 7.27/50/33/23 ?IMAGING: ?Chest CT: ? consistent with were low aspiration ?Head CT:? no acute findings ?Abdominal CT:? no acute findings ?ED course:? ?Patient received? 1 L bolus of normal saline, and started on vancomycin and cefepime due to possible amoxicillin allergy. Review of Systems Review of Systems: Yes unobtainable due to endotracheal tube PMFSH Past Medical History Medical History Aortic stenosis Alcohol dependence HTN (hypertension) Thoracic aortic aneurysm Surgical History Surgical History Hx of left inguinal hernia repair Social History Social History Household Members: Unknown / Unable to assess Housing: Unknown / Unable to assess Patient Tobacco Use Status: Tobacco use Unknown e-Cigarette/Vaping Use: Never Used Second Hand Smoke Exposure: No Use of substances other than those prescribed or required for medical reasons: Unable to respond Spiritual Healthcare Practices: unable to assess Sikh Healthcare Practices: unable to assess Cultural Healthcare Practices: unable to assess Advance Directives: No Advance Directives Information Provided: No Advance Directives on File: No Do you have a plan to hurt others: No Plan Nutrition Risks: No Nutritional Risk service: No Current occupational status: employed 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 Meds Allergies Allergy/AdvReac Type Severity Reaction Status Date / Time bee pollen [bee stings] Allergy Severe Anaphylaxis Verified 11/22/24 04:31 Active Medications: Current Medications Enoxaparin Sodium (Enoxaparin Sodium 40 Mg/0.4 Ml Syringe) 40 mg SUBCUT DAILY BRANDO Propofol (Diprivan) 1,000 mg in 100 mls @ 0 mls/hr IVCONT .Q0M BRANDO; Protocol Last Titration: 11/22/24 05:13 Dose: 50 mcg/kg/min, 30.63 mls/hr Vancomycin HCl (Vancomycin/Ns) 2,000 mg in 500 mls @ 250 mls/hr IV ONCE ONE Stop: 11/22/24 06:57 Last Admin: 11/22/24 05:11 Dose: 250 mls/hr Sodium Chloride (Ns) 1,000 mls @ 50 mls/hr IVCONT .Q20H BRANDO Calcium Gluconate (Calcium Gluconate) 1 gm in 50 mls @ 50 mls/hr IV ONCE ONE Stop: 11/22/24 06:38 Pharmacy Consult (Consult Rx Vancomycin Dosing) 1 each MISCELLANE DAILY PRN PRN Reason: Consult order Physical Exam Vital Signs: Vital Signs: Last Vital Signs Pulse 121 H 11/22/24 04:24 BP 113/70 11/22/24 04:24 Pulse Ox 62 L 11/22/24 04:24 O2 Del Method Room Air 11/22/24 04:24 FiO2 100 11/22/24 04:11 BMI result Body Mass Index 32.3 ?General:? Patient intubated ?HEENT:? Head is normocephalic, atraumatic, pupils equal round reactive to light accommodation bilaterally.? Buccal mucosa is moist, Neck is supple ?Cardiac: Sinus tach,? Clear S1-S2, no murmurs rubs or gallops. ?Pulmonary: Rhonchorous at bases, no wheezes ?Abdomen:? ?Abdomen distended, semi firm, hypotensive bowel sounds. About 500 mL of output from OG tube. ?Musculoskeletal:? Moving all 4 extremities randomly. Gait not assessed at this point. ?Neurologic:? cranial nerves 2-12 are grossly intact.? No focal deficits noted.Motor strength as above.?? ?Skin:? Rash throughout the body more pronounced in extremities. Vascular:? 2+ pulses upper and lower extremities distally.? Results Labs 11/22/24 06:06 11/22/24 06:06 Labs: Laboratory Results - last 24 hr 11/22/24 11/22/24 11/22/24 03:20 03:27 03:36 MCV 83.6 MCH 28.2 MCHC 33.7 RDW 11.7 Plt Count 123 L D MPV 8.3 L Immature Gran % (Auto) 0.6 H Neut % (Auto) 88.4 H Lymph % (Auto) 2.1 L Johnson % (Auto) 6.7 Eos % (Auto) 1.9 Baso % (Auto) 0.3 Lymph # (Auto) 0.3 L Johnson # (Auto) 0.8 Eos # (Auto) 0.2 Baso # (Auto) 0.0 Abs Immat Gran (auto) 0.07 H Absolute Neuts (auto) 10.5 H Absolute Nucleated RBC 0.000 Nucleated RBC % (auto) 0.0 PT 12.9 H INR 1.1 APTT 29.4 VBG pH 7.27 L VBG pCO2 50 VBG pO2 33 VBG HCO3 23 VBG O2 Saturation 38.0 VBG Base Excess -4.0 Anion Gap 21 H Estim Creat Clear Calc 139.2 Estimated GFR > 60 Random Glucose 95 Osmolality Lactic Acid Calcium 8.0 L D Total Bilirubin 1.8 H AST 155 H ALT 118 H Alkaline Phosphatase 91 Total Creatine Kinase 1007 H Troponin I High Sens 5.1 B-Natriuretic Peptide 492 H Total Protein 7.8 Albumin 4.4 Lipase 13 Urine Color Yellow Urine Appearance Cloudy Urine pH 5.0 Ur Specific [place] 1.025 Urine Protein 100 (2+) H Urine Glucose (UA) 100 H Urine Ketones 15 Urine Blood Moderate (2+) H Urine Nitrite Negative Ur Leukocyte Esterase Negative Urine RBC 0-2 Urine WBC 0-5 Ur Squamous Epith Cells 6-10 Other Crystals Present Urine Bacteria None Seen Hyaline Casts >20 Granular Casts Present Urine Osmolality Gastric Occult Blood Urine Opiates Screen Not Detected Ur Buprenorphine Scrn Not Detected Ur Oxycodone Screen Not Detected Urine Methadone Screen Not Detected Urine Fentanyl Screen Not Detected Ur Barbiturates Screen Not Detected Ur Phencyclidine Scrn Not Detected Ur Amphetamines Screen Not Detected U Benzodiazepines Scrn Not Detected Urine Cocaine Screen Not Detected U Marijuana (THC) Screen Not Detected Ethyl Alcohol 12 Influenza Type A (PCR) Influenza Type B (PCR) RSV RNA Qual (PCR) SARS-CoV-2 RNA (RT-PCR) Blood Type Antibody Screen 11/22/24 11/22/24 11/22/24 04:26 05:09 05:10 MCV MCH MCHC RDW Plt Count MPV Immature Gran % (Auto) Neut % (Auto) Lymph % (Auto) Johnson % (Auto) Eos % (Auto) Baso % (Auto) Lymph # (Auto) Johnson # (Auto) Eos # (Auto) Baso # (Auto) Abs Immat Gran (auto) Absolute Neuts (auto) Absolute Nucleated RBC Nucleated RBC % (auto) PT INR APTT VBG pH VBG pCO2 VBG pO2 VBG HCO3 VBG O2 Saturation VBG Base Excess Anion Gap Estim Creat Clear Calc Estimated GFR Random Glucose Osmolality 237 L Lactic Acid Cancelled Calcium Total Bilirubin AST ALT Alkaline Phosphatase Total Creatine Kinase Troponin I High Sens B-Natriuretic Peptide Total Protein Albumin Lipase Urine Color Urine Appearance Urine pH Ur Specific [place] Urine Protein Urine Glucose (UA) Urine Ketones Urine Blood Urine Nitrite Ur Leukocyte Esterase Urine RBC Urine WBC Ur Squamous Epith Cells Other Crystals Urine Bacteria Hyaline Casts Granular Casts Urine Osmolality Gastric Occult Blood Urine Opiates Screen Ur Buprenorphine Scrn Ur Oxycodone Screen Urine Methadone Screen Urine Fentanyl Screen Ur Barbiturates Screen Ur Phencyclidine Scrn Ur Amphetamines Screen U Benzodiazepines Scrn Urine Cocaine Screen U Marijuana (THC) Screen Ethyl Alcohol Influenza Type A (PCR) POSITIVE A Influenza Type B (PCR) NEGATIVE RSV RNA Qual (PCR) NEGATIVE SARS-CoV-2 RNA (RT-PCR) NEGATIVE Blood Type Cancelled O Positive Antibody Screen Cancelled NEGATIVE 11/22/24 11/22/24 05:12 05:28 MCV MCH MCHC RDW Plt Count MPV Immature Gran % (Auto) Neut % (Auto) Lymph % (Auto) Johnson % (Auto) Eos % (Auto) Baso % (Auto) Lymph # (Auto) Johnson # (Auto) Eos # (Auto) Baso # (Auto) Abs Immat Gran (auto) Absolute Neuts (auto) Absolute Nucleated RBC Nucleated RBC % (auto) PT INR APTT VBG pH 7.27 L VBG pCO2 56 VBG pO2 48 VBG HCO3 26 VBG O2 Saturation 71.0 VBG Base Excess -1.8 Anion Gap Estim Creat Clear Calc Estimated GFR Random Glucose Osmolality Lactic Acid Calcium Total Bilirubin AST ALT Alkaline Phosphatase Total Creatine Kinase Troponin I High Sens B-Natriuretic Peptide Total Protein Albumin Lipase Urine Color Urine Appearance Urine pH Ur Specific [place] Urine Protein Urine Glucose (UA) Urine Ketones Urine Blood Urine Nitrite Ur Leukocyte Esterase Urine RBC Urine WBC Ur Squamous Epith Cells Other Crystals Urine Bacteria Hyaline Casts Granular Casts Urine Osmolality 673 Gastric Occult Blood POSITIVE Urine Opiates Screen Ur Buprenorphine Scrn Ur Oxycodone Screen Urine Methadone Screen Urine Fentanyl Screen Ur Barbiturates Screen Ur Phencyclidine Scrn Ur Amphetamines Screen U Benzodiazepines Scrn Urine Cocaine Screen U Marijuana (THC) Screen Ethyl Alcohol Influenza Type A (PCR) Influenza Type B (PCR) RSV RNA Qual (PCR) SARS-CoV-2 RNA (RT-PCR) Blood Type Antibody Screen Assessment and Plan (1) Acute hypoxic respiratory failure: Status: Acute (2) Seizure: Status: Acute (3) Aspiration pneumonia: Status: Acute (4) Acute hyponatremia: Status: Acute (5) Altered mental status: Status: Acute (6) GI bleed: Status: Acute (7) Transaminitis: Status: Acute (8) Aspiration into airway: Status: Acute Plan ?64-year-old male with a past medical history of? alcohol abuse, COPD asthma overlap syndrome, hypertension, ? coronary artery disease, thoracic aortic aneurysm and aortic stenosis ? Admitted to ICU for acute hypoxic respiratory failure Plan: Neuro:? ?Seizures:? patient does not have history of seizures,? but from presentation, ck elevated, this is likely the cause of acute decompensation.? Patient has multiple reasons to have seizures,? as he has decreased significantly the amount of alcohol he consumes daily? and as well has low serum sodium to 109. ? We will give? dose of Keppra.? We will initiate seizure precautions.? Frequent neuro checks Cardiac:?? ?No acute issues Pulmonary:?? Acute hypoxic respiratory failure- patient recently dealing with viral illness,? positive for? influenza A,? requiring intubation due to? aspiration event likely from seizure. CT scan consistent with aspiration event.? Being covered with cefepime and vancomycin. Will tamiflu. Continue antibiotics.? Wean off of? ventilatory support as tolerated Renal:? ?Acute hyponatremia:? likely from alcohol abuse, urine studies pending.? Received 1 L bolus of normal saline in the emergency department,? we will avoid? further fluid resuscitation. Frequent neuro checks. Serial serum sodium Endo:? No acute issues.?? GI:?? ?GIB:? when patient was found by EMS, ? he has a significant amount of coffee-ground emesis obstructive airway,? when patient was intubated about 500 mL of dark color? fluid from OG tube was drained,? which was positive for gastric occult blood.? No significant drop in the hemoglobin. Will initiate Protonix.? GI consult if patient becomes more unstable.? ?Transaminitis:? from alcohol abuse. Cont to trend Heme/Onc:? No acute issues. ID: ? aspiration into airway:? ? chest CT consistent with aspiration event to right lower lobe.? Due to possible allergy to amoxicillin being treated with cefepime,? also received empiric dose of vancomycin. Will continue.? Blood cultures pending.? No evidence of severe septic sepsis lactic 1.7.?? Psych:? No acute issues. Miscellaneous:? No acute issues. Prophylaxis: Lovenox CODE: ? FULL CODE?
[2024-11-22 06:30] LABS: Lactic Acid 1.7 mmol/L (0.5-2.0)
[2024-11-22 06:45] LABS: Basophils Percent Auto 0.3 % (0-2); Hematocrit 33.8 % (42.0-52.0); Imm Gran Abs Auto 0.05 X10*3/uL (0.00-0.03); Imm Gran Pct Auto 0.5 % (0.0-0.4); Lymphocytes Absolute Auto 0.2 X10*3/uL (1.2-4.9); Lymphocytes Percent Auto 1.5 % (20-40); Mean Corpuscular Volume 84.1 fL (80.0-98.0); Mean Platelet Volume 8.4 fL (9.4-12.4); Monocytes Absolute Auto 0.7 X10*3/uL (0.1-1.2); Monocytes Percent Auto 7.2 % (2-11); Neutrophils Absolute Auto 9.2 x10*3/uL (2.0-8.3); Neutrophils Percent Auto 90.5 % (45-73); Platelet Count 107 X10*3/uL (160-400); Red Blood Count 4.02 X10*6/uL (4.60-5.80); Red Cell Distribution Width 11.6 % (11.0-16.0); White Blood Count 10.1 X10*3/uL (4.8-10.8)
[2024-11-22 06:47] LABS: Hemoglobin 11.3 g/dl (14.0-18.0); Mean Corpuscular HGB Conc 33.4 g/dl (31.0-36.0); Mean Corpuscular Hemoglobin 28.1 pg (27.0-33.0)
--- NOTE | 2024-11-22 06:50 | PC.NURSE ---
Family at bedside took pts belongings home.
[2024-11-22] MEDS: 0.9 % Sodium Chloride 1,000 ML 50 ML IVCONT (06:52)
[2024-11-22] MEDS: propofoL 1,000 MG/100 ML VIAL 30.63 MG IVCONT ×5 (07:11→18:46)
[2024-11-22] MEDS: Pantoprazole Sodium 40 MG/10 ML VIAL IVPUSH ×2 (07:12→15:45)
[2024-11-22] MEDS: Calcium Gluconate/NaCl,Iso-Osm 1 GM/50 ML PLAST..BAG IV (07:12)
[2024-11-22 07:16] LABS: Albumin Level 3.7 g/dL (3.5-5.0); Anion Gap 16 (12-20); Blood Urea Nitrogen 13 mg/dL (9-16); Calcium 7.6 mg/dL (8.4-10.2); Carbon Dioxide 22 mmol/L (22-29); Chloride 75 mmol/L (96-108); Creatinine Clr Calc Pharmacy 145.9; Estimated Glomerular Filt Rate > 60; Glucose Random 95 mg/dL (60-115); Magnesium 1.8 mg/dL (1.6-2.6); Phosphorus 3.7 mg/dL (2.7-4.5); Potassium 3.9 mmol/L (3.3-5.1); Sodium 109 mmol/L (135-145)
--- NOTE | 2024-11-22 07:28 | PHA.PROG ---
Admission Date/Time: November 22, 2024 05:28 Indication: RESPIRATORY Weight in k.1 kg Serum Creatinine - Last 168 Hours 11/22/24 11/22/24 03:20 06:06 Creatinine 0.65 0.62 Estimated CrCl and GFR - Last 168 Hours 11/22/24 11/22/24 03:20 06:06 Estim Creat Clear Calc 139.2 145.9 Estimated GFR > 60 > 60 Vancomycin Loading Dose: 2000 Current Vancomycin Dosing Regimen: 1500 q12H Vancomycin Monitoring using AUC goal of 400 - 600 range with trough as surrogate marker: 552 Date and Time for next Vancomycin Level to be drawn: 11/23 @1500 Pharmacist Comments on Vancomycin Plan: Vancomycin dosing will take advantage of [employer] as a clinical decision support tool that uses Bayesian modeling to calculate individual patient's pharmacokinetic parameters and forecast the patient's drug concentration time course with the target goal AUC 24 range of 400 - 600 mg/L/hr.
[2024-11-22] MEDS: Enoxaparin Sodium 40 MG/0.4 ML SYRINGE SUBCUT (08:40)
[2024-11-22] MEDS: Chlorhexidine Gluc Oral Rinse 15 ML MOUTHWASH BUCCAL ×3 (08:40→20:58)
[2024-11-22 09:07] LABS: Anion Gap 19 (12-20); Blood Urea Nitrogen 11 mg/dL (9-16); Calcium 7.8 mg/dL (8.4-10.2); Carbon Dioxide 17 mmol/L (22-29); Chloride 78 mmol/L (96-108); Creatinine Clr Calc Pharmacy 158.8; Estimated Glomerular Filt Rate > 60; Glucose Random 82 mg/dL (60-115); Phosphorus 3.6 mg/dL (2.7-4.5); Potassium 4.2 mmol/L (3.3-5.1); Sodium 109 mmol/L (135-145)
[2024-11-22 09:14] LABS: Adenovirus PCR Not Detected (Not Detect.); Bordetella parapertussis PCR Not Detected (Not Detect.); Bordetella pertussis PCR Not Detected (Not Detect.); Chlamydia pneumoniae PCR Not Detected (Not Detect.); Coronavirus 229E PCR Not Detected (Not Detect.); Coronavirus HKU1 PCR Not Detected (Not Detect.); Coronavirus NL63 PCR Not Detected (Not Detect.); Coronavirus OC43 PCR Not Detected (Not Detect.); Human metapneumovirus PCR Not Detected (Not Detect.); Influenza B PCR Not Detected (Not Detect.); Mycoplasma pneumoniae PCR Not Detected (Not Detect.); Parainfluenza 1 PCR Not Detected (Not Detect.); Parainfluenza 2 PCR Not Detected (Not Detect.); Parainfluenza 3 PCR Not Detected (Not Detect.); Parainfluenza 4 PCR Not Detected (Not Detect.); RSV PCR Not Detected (Not Detect.); Rhino/Enterovirus PCR Not Detected (Not Detect.)
[2024-11-22 09:39] LABS: SARS-CoV-2 PCR Not Detected (Not Detect.)
[2024-11-22 09:40] LABS: Influenza A PCR Detected (Not Detect.)
--- NOTE | 2024-11-22 09:57 | PHA.MEDREC ---
Pharmacy Consult ? Medication Reconciliation Pharmacy has completed the medication reconciliation. Spoke to Jenae who knew medications
--- NOTE | 2024-11-22 10:07 | MHC.CLN ---
PT IS INTUBATED AND SEDATED DISCUSSED AT ROUNDS WITH MD CURRENTLY NPO IF TF NEEDED; RECOMMEND PROMOTE AT MAX GOAL RATE 50ML/HR TO PROVIDE 1200KCALS (2008KCALS WITH SEDATION; 23KCALS/KG), 75G PROTEIN, 1007ML FREE WATER FROM FORMULA MONITOR TOLERANCE AND LYTES SEE ALSO FULL CLINICAL NUTRITION ASSESSMENT
[2024-11-22 13:59] LABS: Anion Gap 13 (12-20); Blood Urea Nitrogen 12 mg/dL (9-16); Calcium 7.5 mg/dL (8.4-10.2); Carbon Dioxide 24 mmol/L (22-29); Chloride 77 mmol/L (96-108); Creatinine Clr Calc Pharmacy 158.8; Estimated Glomerular Filt Rate > 60; Glucose Random 92 mg/dL (60-115); Potassium 4.1 mmol/L (3.3-5.1); Sodium 110 mmol/L (135-145)
--- NOTE | 2024-11-22 14:00 | MHC.CM.PN ---
Pt intubated in ICU and unable to participate in CM assessment: Information obtained from EMR and pt's fiancee: pt independent w/care needs: no services or DME. Pt expected to recovery - placement unlikely. CM to follow for any home services needed: Fiancee to transport. HCP to be addressed once pt is participatory in conversation. CM to follow
[2024-11-22 18:29] LABS: Anion Gap 12 (12-20); Blood Urea Nitrogen 12 mg/dL (9-16); Calcium 7.6 mg/dL (8.4-10.2); Carbon Dioxide 25 mmol/L (22-29); Chloride 77 mmol/L (96-108); Creatinine Clr Calc Pharmacy 153.4; Estimated Glomerular Filt Rate > 60; Glucose Random 101 mg/dL (60-115); Potassium 3.8 mmol/L (3.3-5.1); Sodium 110 mmol/L (135-145)
[2024-11-22] MEDS: Sodium Chloride 3 % 100 ML 50 ML IV (19:54)
[2024-11-22] MEDS: propofoL 1,000 MG/100 ML VIAL 24.5 MG IVCONT (21:56)
[2024-11-22 22:37] LABS: Anion Gap 11 (12-20); Blood Urea Nitrogen 14 mg/dL (9-16); Calcium 7.4 mg/dL (8.4-10.2); Carbon Dioxide 24 mmol/L (22-29); Chloride 79 mmol/L (96-108); Estimated Glomerular Filt Rate > 60; Glucose Random 124 mg/dL (60-115); Potassium 3.9 mmol/L (3.3-5.1); Sodium 110 mmol/L (135-145)
[2024-11-22 22:56] LABS: Albumin Level 3.6 g/dL (3.5-5.0)
[2024-11-22] MEDS: Sodium Chloride 3 % 100 ML IV (23:25)
[2024-11-23] VITALS (29 sets, daily range): BP systolic 91–158; BP diastolic 52–88; PULSE 21–116; RESP 15–31; TEMP 34.8–38.3; O2SAT 91–100; BMI 31.6
[2024-11-23 00:19] LABS: Albumin Level 3.3 g/dL (3.5-5.0)
[2024-11-23] MEDS: propofoL 1,000 MG/100 ML VIAL 30.63 MG IVCONT ×3 (00:55→06:13)
[2024-11-23] MEDS: Calcium Gluconate/NaCl,Iso-Osm 1 GM/50 ML PLAST..BAG IV (01:19)
[2024-11-23 05:04] LABS: VBG Base Excess 7.4 mmol/L; VBG HCO3 28 mmol/L (22-26); VBG pCO2 29 mmHg; VBG pH 7.59 (7.32-7.43); VBG pO2 60 mmHg
[2024-11-23] MEDS: Pantoprazole Sodium 40 MG/10 ML VIAL IVPUSH (05:18)
[2024-11-23] MEDS: levETIRAcetam in NaCl (iso-os) 1,000 MG/100 ML PIGGYBACK 400 MG IV (05:18)
[2024-11-23 05:21] LABS: Venous Blood Gas Refer to POC result
[2024-11-23 05:35] LABS: Basophils Percent Auto 0.3 % (0-2); Eosinophils Percent Auto 0.2 % (0-4); Hematocrit 31.5 % (42.0-52.0); Imm Gran Abs Auto 0.03 X10*3/uL (0.00-0.03); Imm Gran Pct Auto 0.5 % (0.0-0.4); Lymphocytes Absolute Auto 0.3 X10*3/uL (1.2-4.9); Lymphocytes Percent Auto 4.1 % (20-40); Mean Corpuscular Volume 84.2 fL (80.0-98.0); Mean Platelet Volume 9.2 fL (9.4-12.4); Monocytes Absolute Auto 0.6 X10*3/uL (0.1-1.2); Monocytes Percent Auto 9.1 % (2-11); Neutrophils Absolute Auto 5.4 x10*3/uL (2.0-8.3); Neutrophils Percent Auto 85.8 % (45-73); Platelet Count 107 X10*3/uL (160-400); Red Blood Count 3.74 X10*6/uL (4.60-5.80); Red Cell Distribution Width 11.8 % (11.0-16.0); SCAN SMEAR FLAG 1; White Blood Count 6.3 X10*3/uL (4.8-10.8)
[2024-11-23 05:38] LABS: Hemoglobin 10.6 g/dl (14.0-18.0); MANUAL DIFF FLAG NO; Mean Corpuscular HGB Conc 33.6 g/dl (31.0-36.0); Mean Corpuscular Hemoglobin 28.3 pg (27.0-33.0)
[2024-11-23 05:57] LABS: Alanine Aminotransferase 67 U/L (0-40); Albumin Level 3.1 g/dL (3.5-5.0); Alkaline Phosphatase 59 U/L (39-117); Anion Gap 14 (12-20); Aspartate Amino Transferase 92 U/L (5-37); Bilirubin Total 1.3 mg/dL (0.0-1.0); Blood Urea Nitrogen 13 mg/dL (9-16); Calcium 7.9 mg/dL (8.4-10.2); Carbon Dioxide 23 mmol/L (22-29); Chloride 80 mmol/L (96-108); Creatinine Clr Calc Pharmacy 137.7; Estimated Glomerular Filt Rate > 60; Glucose Random 125 mg/dL (60-115); Magnesium 2.1 mg/dL (1.6-2.6); Phosphorus 2.3 mg/dL (2.7-4.5); Potassium 4.1 mmol/L (3.3-5.1); Sodium 113 mmol/L (135-145); Total Protein 6.3 g/dL (6.5-8.0)
[2024-11-23] MEDS: 0.9 % Sodium Chloride Flush 3 ML SYRINGE IVFLUSH ×2 (07:38→16:00)
[2024-11-23] MEDS: Chlorhexidine Gluc Oral Rinse 15 ML MOUTHWASH BUCCAL (08:00)
[2024-11-23] MEDS: Enoxaparin Sodium 40 MG/0.4 ML SYRINGE SUBCUT (08:00)
[2024-11-23] MEDS: Sodium Chloride Tab 1 GM TABLET 2 GM PO (08:15)
--- NOTE | 2024-11-23 09:43 | MHC.CLN ---
F/U PT REMAINS INTUBATED AND SEDATED DISCUSSED AT ROUNDS WITH PT RECEIVING PROMOTE AT MAX GOAL RATE 60ML/HR PROVIDES 1440KCALS (2248KCALS WITH SEDATION; 26KCALS/KG), 90G PROTEIN (1.05G/KG), 1208ML FREE WATER FROM FORMULA MONITOR TOLERANCE AND LYTES
--- NOTE | 2024-11-23 10:22 | PM.CCPN ---
Subjective Subjective Date of Service: 11/23/24 Interval History: 64-year-old gentleman with underlying alcohol abuse, asthma, CAD, mild aortic stenosis admitted on 11/22/2024 with encephalopathy and hypoxia after patient was found unresponsive by his significant other. On ER evaluation patient profoundly hypoxic requiring emergent intubation. Further laboratory workup significant for influenza a and sodium level of 109. Patient admitted to the intensive care unit and started on hypertonic saline with slow improvement of his sodium to 113 this a.m. This a.m. patient doing well on pressor support trial and extubated uneventfully. No events overnight. Critical Care Time (minutes): 60 Physical Exam Vital Signs: Vital Signs: Last Vital Signs Temp 99.7 F 11/23/24 10:00 Pulse 98 11/23/24 10:00 Resp 18 11/23/24 10:00 BP 131/79 11/23/24 10:00 Pulse Ox 93 11/23/24 10:00 O2 Del Method Mechanical Ventil ation 11/23/24 09:00 FiO2 25 11/23/24 09:26 BMI result Body Mass Index 31.6 Const: General: no acute distress, alert and awake Eyes: Sclerae: sclerae normal EOM: EOMs intact bilaterally Neck: Neck: Yes no lymphadenopathy, Yes trachea midline and Yes supple Resp: Effort & Inspection: normal respiratory effort and no respiratory distress Auscultation: clear to auscultation bilaterally Cardio: Rate: regular rate Rhythm: regular rhythm Heart sounds: no gallops, no murmurs and no rubs GI: Palpation (GI): Soft to palpation and Other GI palpation findings present ( Nontender) Auscultation: normal bowel sounds Extrem: General: Yes no pedal edema, No clubbing and No cyanosis Objective Data Labs 11/23/24 04:54 11/23/24 04:54 Labs: Laboratory Results - last 24 hr 11/22/24 11/22/24 11/22/24 08:28 13:29 17:59 WBC RBC Hgb Hct MCV MCH MCHC RDW Plt Count MPV Immature Gran % (Auto) Neut % (Auto) Lymph % (Auto) [place] % (Auto) Eos % (Auto) Baso % (Auto) Lymph # (Auto) [place] # (Auto) Eos # (Auto) Baso # (Auto) Abs Immat Gran (auto) Absolute Neuts (auto) Absolute Nucleated RBC Nucleated RBC % (auto) VBG pH VBG pCO2 VBG pO2 VBG HCO3 VBG O2 Saturation VBG Base Excess Sodium 110 L* 110 L* Potassium 4.1 3.8 Chloride 77 L 77 L Carbon Dioxide 24 25 Anion Gap 13 12 BUN 12 12 Creatinine 0.57 0.59 Estim Creat Clear Calc 158.8 153.4 Estimated GFR > 60 > 60 Random Glucose 92 101 Calcium 7.5 L 7.6 L Phosphorus Magnesium Total Bilirubin AST ALT Alkaline Phosphatase Total Protein Albumin 3.6 11/22/24 11/23/24 11/23/24 22:11 04:53 04:54 WBC 6.3 RBC 3.74 L Hgb 10.6 L Hct 31.5 L MCV 84.2 MCH 28.3 MCHC 33.6 RDW 11.8 Plt Count 107 L MPV 9.2 L Immature Gran % (Auto) 0.5 H Neut % (Auto) 85.8 H Lymph % (Auto) 4.1 L [place] % (Auto) 9.1 Eos % (Auto) 0.2 Baso % (Auto) 0.3 Lymph # (Auto) 0.3 L [place] # (Auto) 0.6 Eos # (Auto) 0.0 Baso # (Auto) 0.0 Abs Immat Gran (auto) 0.03 Absolute Neuts (auto) 5.4 Absolute Nucleated RBC 0.000 Nucleated RBC % (auto) 0.0 VBG pH 7.59 H VBG pCO2 29 VBG pO2 60 VBG HCO3 28 H VBG O2 Saturation 94.0 VBG Base Excess 7.4 Sodium 110 L* 113 L* Potassium 3.9 4.1 Chloride 79 L 80 L Carbon Dioxide 24 23 Anion Gap 11 L 14 BUN 14 13 Creatinine 0.58 0.65 Estim Creat Clear Calc 156.0 137.7 Estimated GFR > 60 > 60 Random Glucose 124 H 125 H Calcium 7.4 L 7.9 L D Phosphorus 2.3 L Magnesium 2.1 Total Bilirubin 1.3 H AST 92 H ALT 67 H Alkaline Phosphatase 59 Total Protein 6.3 L Albumin 3.3 L 3.1 L Microbiology Microbiology Results: Microbiology 11/22/24 05:06 Blood - Venous Blood Culture - Preliminary No growth after 24 hours. 11/22/24 05:06 Blood - Venous Blood Culture - Preliminary No growth after 24 hours. Progress Note: A&P Assessment and plan (1) ETOH abuse: Status: Acute (2) Elevated liver enzymes: Status: Acute (3) Aortic stenosis: Status: Acute (4) Influenza: Status: Acute (5) Asthma-COPD overlap syndrome: Status: Acute (6) Acute hypoxic respiratory failure: Status: Acute (7) Acute hyponatremia: Status: Acute Plan Assessment: 64-year-old gentleman admitted with encephalopathy and acute hypoxic respiratory failure on a background of alcohol abuse and influenza a, initially requiring ventilatory support, now extubated. Plan: Neuro: Acute encephalopathy, likely secondary to hyponatremia, resolved. Cardiac: No acute issues. Underlying history of aortic stenosis. Pulmonary: Acute hypoxic respiratory failure secondary to influenza pneumonia with possible aspiration component, initially requiring ventilatory support, now extubated uneventfully this a.m.. Continue to titrate off supplemental oxygen as tolerated. Renal: Acute to subacute hyponatremia likely secondary to poor solute intake. Improving. Continue sodium tabs. Continue to monitor electrolyte levels. Endo: No acute issues. GI: No acute issues. ID: No acute issues Heme/Onc: No acute issues. Psych: No acute issues. Miscellaneous: No acute issues. Prophylaxis: Lovenox Diet: NPO Critical care time spent: 60 minutes Quality Stroke Does the patient have a stroke diagnosis?: No VTE Prior VTE?: No VTE Risk Level:: Medical - moderate - high VTE Device Contraindication: N/A - Device Ordered VTE Drug Contraindication: N/A - Med Ordered
--- NOTE | 2024-11-23 11:38 | P.CDIM_ITS ---
PROVIDER RESPONSE TEXT: To clarify, the appropriate diagnosis supported by the clinical indicators: Metabolic QUERY TEXT: PHYSICIAN'S DOCUMENTATION REQUEST Date of Query: 11/23/2024 11:27 AM EST Patient Name: Mannie Pleitez Admit Date: 11/22/2024 Dear Satinder Maynard MD, A review of the medical record indicates additional documentation may be needed. Please review below and update the documentation accordingly. Clinical Indicators: ICU progress note dated 11/23 - Acute encephalopathy, likely secondary to hyponatremia, resolved. Continue to monitor electrolyte levels. Alcohol abuse, altered mental status. Based on the above, please further specify, in the Progress Notes, the known or suspected type of the documented encephalopathy: Metabolic Toxic Toxic metabolic Other specific to the noted encephalopathy Other (explain) Clinically unable to determine (explain) Thank you, Tisha Hawkins, CCS, CDIS Use of terms such as suspected, likely, concern for, or probable (associated with a specific diagnosi s that is being evaluated, monitored, or treated as if it exists) are acceptable and can be coded in the inpatient se tting, when documented at the time of discharge. Please use your independent medical judgment in providing your response. THIS QUERY IS PART OF THE PERMANENT MEDICAL RECORD
--- NOTE | 2024-11-23 12:25 | MHC.CM.PN ---
Pt vented: will continue care in ICU: Na+ remains critically low: 3% NS infused: now on Na+ tabs: CM to follow for finalization of d/c needs: was independent w/ADL's at baseline
[2024-11-23 13:07] LABS: Blood Urea Nitrogen 11 mg/dL (9-16); Calcium 8.2 mg/dL (8.4-10.2); Creatinine Clr Calc Pharmacy 139.8; Estimated Glomerular Filt Rate > 60; Glucose Random 111 mg/dL (60-115)
[2024-11-23 13:18] LABS: Anion Gap 14 (12-20); Carbon Dioxide 24 mmol/L (22-29); Chloride 85 mmol/L (96-108); Potassium 3.7 mmol/L (3.3-5.1); Sodium 119 mmol/L (135-145)
[2024-11-23 19:34] LABS: Anion Gap 17 (12-20); Blood Urea Nitrogen 9 mg/dL (9-16); Calcium 7.9 mg/dL (8.4-10.2); Carbon Dioxide 26 mmol/L (22-29); Chloride 87 mmol/L (96-108); Creatinine Clr Calc Pharmacy 139.8; Estimated Glomerular Filt Rate > 60; Glucose Random 104 mg/dL (60-115); Potassium 3.7 mmol/L (3.3-5.1); Sodium 126 mmol/L (135-145)
[2024-11-23] MEDS: Dextrose 5 % 1,000 ML 250 ML IVCONT (20:23)
[2024-11-24] VITALS (20 sets, daily range): BP systolic 131–191; BP diastolic 73–111; PULSE 82–115; RESP 10–30; TEMP 36.7–38.2; O2SAT 91–98; BMI 30.7
[2024-11-24] MEDS: 0.9 % Sodium Chloride Flush 3 ML SYRINGE IVFLUSH ×4 (00:14→20:42)
[2024-11-24] MEDS: Dextrose 5 % 1,000 ML 250 ML IVCONT (00:15)
[2024-11-24] MEDS: Albuterol/Iprat 2.5/0.5MG 3 ML AMPUL.NEB INHALE (00:17)
[2024-11-24 02:04] LABS: Anion Gap 12 (12-20); Blood Urea Nitrogen 8 mg/dL (9-16); Carbon Dioxide 27 mmol/L (22-29); Chloride 85 mmol/L (96-108); Creatinine Clr Calc Pharmacy 146.7; Estimated Glomerular Filt Rate > 60; Glucose Random 150 mg/dL (60-115); Potassium 3.2 mmol/L (3.3-5.1); Sodium 121 mmol/L (135-145)
[2024-11-24] MEDS: Potassium Chloride/H20 10 MEQ/100 ML PIGGYBACK 100 MEQ IV ×4 (03:08→06:26)
[2024-11-24 05:32] LABS: MANUAL DIFF FLAG NO
[2024-11-24 05:35] LABS: Basophils Percent Auto 0.5 % (0-2); Hematocrit 32.3 % (42.0-52.0); Hemoglobin 12.1 g/dl (14.0-18.0); Imm Gran Abs Auto 0.02 X10*3/uL (0.00-0.03); Imm Gran Pct Auto 0.5 % (0.0-0.4); Lymphocytes Absolute Auto 0.1 X10*3/uL (1.2-4.9); Lymphocytes Percent Auto 3.7 % (20-40); Mean Corpuscular HGB Conc 37.5 g/dl (31.0-36.0); Mean Corpuscular Hemoglobin 32.4 pg (27.0-33.0); Mean Corpuscular Volume 86.6 fL (80.0-98.0); Monocytes Absolute Auto 0.6 X10*3/uL (0.1-1.2); Neutrophils Absolute Auto 3.1 x10*3/uL (2.0-8.3); Neutrophils Percent Auto 80.3 % (45-73); Platelet Count 106 X10*3/uL (160-400); Red Blood Count 3.73 X10*6/uL (4.60-5.80); Red Cell Distribution Width 11.9 % (11.0-16.0); White Blood Count 3.8 X10*3/uL (4.8-10.8)
[2024-11-24 06:01] LABS: Albumin Level 3.4 g/dL (3.5-5.0); Anion Gap 12 (12-20); Blood Urea Nitrogen 7 mg/dL (9-16); Calcium 8.1 mg/dL (8.4-10.2); Carbon Dioxide 26 mmol/L (22-29); Chloride 86 mmol/L (96-108); Creatinine Clr Calc Pharmacy 149.2; Estimated Glomerular Filt Rate > 60; Glucose Random 107 mg/dL (60-115); Magnesium 2.1 mg/dL (1.6-2.6); Phosphorus 2.4 mg/dL (2.7-4.5); Potassium 3.8 mmol/L (3.3-5.1); Sodium 120 mmol/L (135-145)
[2024-11-24] MEDS: Losartan Potassium 50 MG TABLET 100 MG PO (08:31)
[2024-11-24] MEDS: Enoxaparin Sodium 40 MG/0.4 ML SYRINGE SUBCUT (08:32)
--- NOTE | 2024-11-24 09:44 | MHC.CLN ---
F/U PT EXTUBATED YESTERDAY DIET ADVANCED TO REGULAR NA SLOWLY IMPROVING MONITOR PO INTAKE RD TO FOLLOW WEEKLY
[2024-11-24] MEDS: atenoloL 100 MG TABLET PO (09:50)
[2024-11-24] MEDS: Sodium Chloride Tab 1 GM TABLET 2 GM PO (09:50)
--- NOTE | 2024-11-24 10:19 | P.PNCC_ITS ---
Subjective Subjective Date of Service: 11/24/24 Interval History: 64-year-old gentleman with underlying alcohol abuse, asthma, CAD, mild aortic stenosis admitted on 11/22/2024 with encephalopathy and hypoxia after patient was found unresponsive by his significant other. On ER evaluation patient profoundly hypoxic requiring emergent intubation. Further laboratory workup significant for influenza a and sodium level of 109. Patient admitted to the intensive care unit and started on hypertonic saline initially with slow improvement in his sodium level, though, with resolution of encephalopathy. However, after the 1st 36 hours with development of over-correction requiring D5 and DDAVP, now stabilized. No events overnight. Critical Care Time (minutes): 0 Physical Exam 2 Vital Signs: Vital Signs: Last Vital Signs Temp 99.3 F 11/24/24 08:00 Pulse 111 H 11/24/24 09:00 Resp 20 11/24/24 09:00 BP 184/82 H 11/24/24 09:00 Pulse Ox 93 11/24/24 09:00 O2 Del Method Room Air 11/24/24 09:00 O2 Flow Rate 7 11/24/24 07:00 FiO2 28 11/24/24 07:00 BMI result Body Mass Index 31.6 Const: General: no acute distress, alert and awake Eyes: Sclerae: sclerae normal EOM: EOMs intact bilaterally Neck: Neck: Yes no lymphadenopathy, Yes trachea midline and Yes supple Resp: Effort & Inspection: normal respiratory effort and no respiratory distress Auscultation: clear to auscultation bilaterally Cardio: Rate: tachycardic Rhythm: regular rhythm Heart sounds: no gallops, no murmurs and no rubs GI: Palpation (GI): Soft to palpation and Other GI palpation findings present ( Nontender) Auscultation: normal bowel sounds Extrem: General: Yes no pedal edema, No clubbing and No cyanosis Objective Data Labs 11/24/24 05:14 11/24/24 05:14 Labs: Laboratory Results - last 24 hr 11/23/24 11/23/24 11/24/24 12:09 19:02 01:41 WBC RBC Hgb Hct MCV MCH MCHC RDW Plt Count MPV Immature Gran % (Auto) Neut % (Auto) Lymph % (Auto) [place] % (Auto) Eos % (Auto) Baso % (Auto) Lymph # (Auto) [place] # (Auto) Eos # (Auto) Baso # (Auto) Abs Immat Gran (auto) Absolute Neuts (auto) Absolute Nucleated RBC Nucleated RBC % (auto) Sodium 119 L* 126 L 121 L Potassium 3.7 3.7 3.2 L Chloride 85 L 87 L 85 L Carbon Dioxide 24 26 27 Anion Gap 14 17 12 BUN 11 9 8 L Creatinine 0.64 0.64 0.61 Estim Creat Clear Calc 139.8 139.8 146.7 Estimated GFR > 60 > 60 > 60 Random Glucose 111 104 150 H Calcium 8.2 L 7.9 L 8.0 L Phosphorus Magnesium Albumin 11/24/24 05:14 WBC 3.8 L RBC 3.73 L Hgb 12.1 L Hct 32.3 L MCV 86.6 MCH 32.4 MCHC 37.5 H RDW 11.9 Plt Count 106 L MPV 9.0 L Immature Gran % (Auto) 0.5 H Neut % (Auto) 80.3 H Lymph % (Auto) 3.7 L [place] % (Auto) 15.0 H Eos % (Auto) 0.0 Baso % (Auto) 0.5 Lymph # (Auto) 0.1 L [place] # (Auto) 0.6 Eos # (Auto) 0.0 Baso # (Auto) 0.0 Abs Immat Gran (auto) 0.02 Absolute Neuts (auto) 3.1 Absolute Nucleated RBC 0.000 Nucleated RBC % (auto) 0.0 Sodium 120 L* Potassium 3.8 Chloride 86 L Carbon Dioxide 26 Anion Gap 12 BUN 7 L Creatinine 0.60 Estim Creat Clear Calc 149.2 Estimated GFR > 60 Random Glucose 107 Calcium 8.1 L Phosphorus 2.4 L Magnesium 2.1 Albumin 3.4 L Microbiology Microbiology Results: Microbiology 11/23/24 10:10 Sputum - Suctioned Gram Stain - Final 11/23/24 10:10 Sputum - Suctioned Sputum Culture - Preliminary Culture in progress. 11/22/24 05:06 Blood - Venous Blood Culture - Preliminary No growth after 48 hours. 11/22/24 05:06 Blood - Venous Blood Culture - Preliminary No growth after 48 hours. Progress Note: A&P Assessment and plan (1) Asthma-COPD overlap syndrome: Status: Acute (2) Influenza: Status: Acute (3) Altered mental status: Status: Acute (4) CAD (coronary artery disease): Status: Acute (5) ETOH abuse: Status: Acute Plan Assessment: 64-year-old gentleman admitted with encephalopathy and acute hypoxic respiratory failure on a background of alcohol abuse and influenza a, initially requiring ventilatory support, now extubated. Plan: Neuro: Acute encephalopathy, likely secondary to hyponatremia, resolved. Cardiac: No acute issues. Underlying history of aortic stenosis. Pulmonary: Acute hypoxic respiratory failure secondary to influenza pneumonia with possible aspiration component, initially requiring ventilatory support, Extubated 11/23/2024. Continue to titrate off supplemental oxygen as tolerated. Renal: Acute to subacute hyponatremia likely secondary to poor solute intake. Improving. Continue to monitor electrolyte levels. Endo: No acute issues. GI: No acute issues. ID: No acute issues Heme/Onc: No acute issues. Psych: No acute issues. Miscellaneous: No acute issues. Prophylaxis: Lovenox Diet: regular Quality Stroke Does the patient have a stroke diagnosis?: No VTE Prior VTE?: No VTE Risk Level:: Medical - moderate - high VTE Device Contraindication: N/A - Device Ordered VTE Drug Contraindication: N/A - Med Ordered
[2024-11-24 12:35] LABS: Anion Gap 11 (12-20); Blood Urea Nitrogen 7 mg/dL (9-16); Carbon Dioxide 26 mmol/L (22-29); Chloride 88 mmol/L (96-108); Creatinine Clr Calc Pharmacy 154.3; Estimated Glomerular Filt Rate > 60; Glucose Random 113 mg/dL (60-115); Potassium 3.7 mmol/L (3.3-5.1); Sodium 121 mmol/L (135-145)
[2024-11-24] MEDS: Sodium Chloride Tab 1 GM TABLET PO ×2 (14:54→20:42)
[2024-11-24] MEDS: hydrALAZINE HCl 20 MG/ML VIAL 10 MG IVPUSH (14:54)
--- NOTE | 2024-11-24 15:46 | MHC.CM.PN ---
Pt extubated and making clinical gains. Sodium normalizing: if 12pm repeat is normal, pt will transfer to the medical floor. Pt from home w/partner: expected to return without services. CM to follow
[2024-11-24 19:45] LABS: Anion Gap 12 (12-20); Blood Urea Nitrogen 10 mg/dL (9-16); Calcium 7.6 mg/dL (8.4-10.2); Carbon Dioxide 26 mmol/L (22-29); Chloride 89 mmol/L (96-108); Creatinine Clr Calc Pharmacy 147.2; Estimated Glomerular Filt Rate > 60; Glucose Random 106 mg/dL (60-115); Potassium 3.6 mmol/L (3.3-5.1); Sodium 123 mmol/L (135-145)
[2024-11-24] MEDS: Atorvastatin Calcium 40 MG TABLET PO (20:42)
[2024-11-25] VITALS (8 sets, daily range): BP systolic 137–178; BP diastolic 80–94; PULSE 84–96; RESP 16–20; TEMP 36.8–37.3; O2SAT 92–98; BMI 30.6
[2024-11-25] MEDS: atenoloL 100 MG TABLET PO (08:06)
[2024-11-25] MEDS: Losartan Potassium 50 MG TABLET 100 MG PO (08:07)
[2024-11-25] MEDS: 0.9 % Sodium Chloride Flush 3 ML SYRINGE IVFLUSH ×3 (08:07→20:09)
[2024-11-25] MEDS: Sodium Chloride Tab 1 GM TABLET PO ×3 (08:07→20:09)
[2024-11-25] MEDS: Oseltamivir Phosphate 75 MG CAPSULE PO ×2 (08:07→20:09)
[2024-11-25] MEDS: Enoxaparin Sodium 40 MG/0.4 ML SYRINGE SUBCUT (08:08)
[2024-11-25 09:28] LABS: MANUAL DIFF FLAG NO
[2024-11-25 09:32] LABS: Basophils Percent Auto 0.4 % (0-2); Hematocrit 36.2 % (42.0-52.0); Hemoglobin 13.2 g/dl (14.0-18.0); Imm Gran Abs Auto 0.01 X10*3/uL (0.00-0.03); Imm Gran Pct Auto 0.4 % (0.0-0.4); Lymphocytes Absolute Auto 0.3 X10*3/uL (1.2-4.9); Lymphocytes Percent Auto 9.6 % (20-40); Mean Corpuscular HGB Conc 36.5 g/dl (31.0-36.0); Mean Corpuscular Hemoglobin 32.1 pg (27.0-33.0); Mean Corpuscular Volume 88.1 fL (80.0-98.0); Mean Platelet Volume 8.4 fL (9.4-12.4); Monocytes Absolute Auto 0.5 X10*3/uL (0.1-1.2); Monocytes Percent Auto 19.2 % (2-11); Neutrophils Absolute Auto 1.8 x10*3/uL (2.0-8.3); Neutrophils Percent Auto 70.4 % (45-73); Platelet Count 114 X10*3/uL (160-400); Red Blood Count 4.11 X10*6/uL (4.60-5.80); Red Cell Distribution Width 11.9 % (11.0-16.0); White Blood Count 2.6 X10*3/uL (4.8-10.8)
[2024-11-25 09:47] LABS: Albumin Level 3.7 g/dL (3.5-5.0); Anion Gap 13 (12-20); Blood Urea Nitrogen 13 mg/dL (9-16); Calcium 8.2 mg/dL (8.4-10.2); Carbon Dioxide 24 mmol/L (22-29); Chloride 91 mmol/L (96-108); Estimated Glomerular Filt Rate > 60; Glucose Random 113 mg/dL (60-115); Magnesium 2.4 mg/dL (1.6-2.6); Phosphorus 3.3 mg/dL (2.7-4.5); Potassium 3.5 mmol/L (3.3-5.1); Sodium 124 mmol/L (135-145)
--- NOTE | 2024-11-25 11:51 | P.PNIM_ITS ---
Subjective Subjective Date of Service: 11/25/24 Interval History: very weak short of breath, wheezing Review of Systems Review of Systems: Yes all other systems are reviewed and are negative Physical Exam 2 Vital Signs: Vital Signs: Last Vital Signs Temp 98.5 F 11/25/24 07:22 Pulse 96 11/25/24 09:13 Resp 20 11/25/24 07:22 BP 178/94 H 11/25/24 07:22 Pulse Ox 95 11/25/24 09:13 O2 Del Method Nasal Cannula 11/25/24 07:22 O2 Flow Rate 2 11/25/24 07:22 FiO2 28 11/24/24 07:00 BMI result Body Mass Index 30.6 Gen: in no acute distress HEENT: sclera anicteric, moist mucus membranes Neck: supple Lungs: wheezing Heart: regular, tachycardic, no murmurs Abd: protruberant, non-tender Ext: no edema Skin: warm/well-perfused Neuro: alert and oriented x3, no focal findings Psych: appropriate affect Objective Data Active Medications Atenolol (Atenolol 100 Mg Tablet) 100 mg PO DAILY [facility]; Protocol Last Admin: 11/25/24 08:06 Dose: 100 mg Documented By: JUANITA Atorvastatin Calcium (Atorvastatin Calcium 40 Mg Tablet) 40 mg PO BEDTIME [facility] Last Admin: 11/24/24 20:42 Dose: 40 mg Documented By: JAMILA Enoxaparin Sodium (Enoxaparin Sodium 40 Mg/0.4 Ml Syringe) 40 mg SUBCUT DAILY [facility] Last Admin: 11/25/24 08:08 Dose: 40 mg Documented By: JUANITA Folic Acid (Folic Acid 1 Mg Tablet) 1 mg PO DAILY [facility] Thiamine HCl 100 mg/ Sodium (Chloride) 101 mls @ 202 mls/hr IV DAILY [facility] Losartan Potassium (Losartan Potassium 50 Mg Tablet) 100 mg PO DAILY [facility] Last Admin: 11/25/24 08:07 Dose: 100 mg Documented By: JUANITA Multivitamins/Vitamin C (Multivitamin Tablet) 1 tab PO DAILY [facility] Oseltamivir Phosphate (Oseltamivir Phosphate 75 Mg Capsule) 75 mg PO Q12H [facility] Stop: 11/29/24 20:01 Last Admin: 11/25/24 08:07 Dose: 75 mg Documented By: JUANITA Pharmacy Consult (Consult Rx Etoh Phenob Po Only) 1 each MISCELLANE ONCE PRN; Protocol PRN Reason: Consult order Phenobarbital (Phenobarbital 15 Mg Tablet) 45 mg PO BID [facility] Stop: 11/27/24 09:01 Phenobarbital (Phenobarbital 30 Mg Tablet) 30 mg PO BID [facility] Stop: 11/29/24 09:01 Phenobarbital (Phenobarbital 30 Mg Tablet) 30 mg PO BEDTIME [facility] Stop: 11/30/24 21:01 Phenobarbital Sodium (Phenobarbital Sodium 130 Mg/Ml Vial Im Q3hx2) 175 mg IM Q3H [facility] Stop: 11/25/24 17:31 Prednisone (Prednisone 20 Mg Tablet) 40 mg PO DAILY [facility] Sodium Chloride (0.9 % Sodium Chloride Flush 3 Ml Syringe) 3 ml IVFLUSH QSHIFT [facility] Last Admin: 11/25/24 08:07 Dose: 3 ml Documented By: JUANITA Sodium Chloride (Sodium Chloride Tab 1 Gm Tablet) 1 gm PO TID [facility] Last Admin: 11/25/24 08:07 Dose: 1 gm Documented By: JUANITA Labs 11/25/24 09:24 11/25/24 09:24 Labs: Laboratory Results - last 24 hr 11/24/24 11/24/24 11/25/24 12:13 19:15 09:24 MCV 88.1 MCH 32.1 MCHC 36.5 H RDW 11.9 Plt Count 114 L MPV 8.4 L Immature Gran % (Auto) 0.4 Neut % (Auto) 70.4 Lymph % (Auto) 9.6 L [place] % (Auto) 19.2 H Eos % (Auto) 0.0 Baso % (Auto) 0.4 Lymph # (Auto) 0.3 L [place] # (Auto) 0.5 Eos # (Auto) 0.0 Baso # (Auto) 0.0 Abs Immat Gran (auto) 0.01 Absolute Neuts (auto) 1.8 L Absolute Nucleated RBC 0.000 Nucleated RBC % (auto) 0.0 Hold Purple Top SEE NOTE Anion Gap 11 L 12 13 Estim Creat Clear Calc 154.3 147.2 147.0 Estimated GFR > 60 > 60 > 60 Random Glucose 113 106 113 Calcium 8.0 L 7.6 L 8.2 L D Phosphorus 3.3 Magnesium 2.4 Albumin 3.7 Microbiology Microbiology Results: Microbiology 11/23/24 10:10 Gram Stain - Final Sputum - Suctioned Sputum Culture - Preliminary Culture in progress. 11/22/24 05:06 Blood Culture - Preliminary Blood - Venous No growth after 48 hours. 11/22/24 05:06 Blood Culture - Preliminary Blood - Venous No growth after 48 hours. Assessment and Plan (1) Hyponatremia: Status: Acute Plan d4 for 64yo M with AUD [20-25 beers/d], asthma, CAD, mild aortic stenosis admitted 11/22/24 with encephalopathy and hypoxia after found unresponsive by his fiancee. Emergently intubated, found to have influenza A and Na of 109. Admitted to ICU and started on 3% NaCl but then required D5 + dDAVP due to rapid over-correction. Extubated 11/23/24. Stepped down to medical-surgical unit 11/24/24. acute hypoxic respiratory failure due to influenza PNA with asthma exacerbation - extubated and now on nasal cannula - oseltamivir 11/25-11/30 - prednisone 11/25- acute metabolic encephalopathy - resolved, was due to hypoNa severe hypoNa due to beer potomania - giving PO NaCl, also fluid-restrict; recheck BMP in AM AUD - thiamine, folate, multivitamin, Addiction Medicine - phenobarbital taper to prevent withdrawal HTN - atenolol, losartan CAD - atorvastatin, ASA VTE ppx - enoxaparin dispo - will need STR In my clinical judgment, the patient requires continued inpatient hospitalization for the following reasons: hypoNa, hypoxia Total time managing care of this patient today: 55 minutes. Quality Stroke Does the patient have a stroke diagnosis?: No VTE Prior VTE?: No VTE Risk Level:: Medical - moderate - high VTE Device Contraindication: N/A - Device Ordered VTE Drug Contraindication: N/A - Med Ordered
[2024-11-25] MEDS: predniSONE 20 MG TABLET 40 MG PO (11:54)
[2024-11-25] MEDS: Thiamine HCL 100 MG in 0.9 % Sodium Chloride 100 ML 202 MG IV (11:54)
[2024-11-25] MEDS: Multivitamin TABLET 1 TAB PO (11:54)
[2024-11-25] MEDS: PHENobarbitaL sodium 130 MG/ML IM ONCE 233 MG IM (11:54)
[2024-11-25] MEDS: Folic Acid 1 MG TABLET PO (11:54)
--- NOTE | 2024-11-25 13:39 | HO.ADDICT_ITS ---
History of Present Illness Date of Service: 11/25/2024 Chief Complaint: Respiratory arrest Reason for Consult: AUD Sources of Information: patient interviewed and chart reviewed HPI Narrative: Patient is a 64 year old male medically admitted after being found unresponsive at home covered in emesis In ED became hypoxic requiring emergent intubation. ICU admission for 2 days now transferred to med/surg During admission found to be Flu A+, with sodium of 109. Concern that patient may have experienced seizure at home due to report from elisa that patient usually consumes apprx 20 beers daily, but due to recentl illness had not been drinking as much. Patient seen in room 384. He awake, and alert, but quite ill appearing and weak. Also, very SOB when speaking He appeared comfortable overall, no tremor, diaphoresis, or restlessness noted. He reports that he has not had any alcohol in weeks, passed out a home and woke up here Denies any history of alcohol withdrawal or treatment Labs reviewed, LFTs and bili elevated, sodium 124 today UDS - PCP notes reviewed, shows that decrease in alcohol intake was being addressed during visits, most recently in October Review of Systems Constitutional: Reports as per HPI Diagnostics Vital Signs (24Hr): Vital Signs - 24 hr 11/24/24 14:00 11/24/24 14:54 11/24/24 17:06 Temperature 98.1 F Pulse Rate 86 82 Respiratory Rate 25 H 24 H Blood Pressure 171/88 H 190/111 H 191/98 H Pulse Oximetry 92 93 Oxygen Delivery Method Room Air Room Air Oxygen Flow Rate 11/24/24 19:18 11/24/24 23:39 11/25/24 04:00 Temperature 98.5 F 98.4 F 99.0 F Pulse Rate 88 91 90 Respiratory Rate 24 H 18 18 Blood Pressure 164/90 H 167/98 H 168/89 H Pulse Oximetry 92 94 93 Oxygen Delivery Method Room Air Nasal Cannula Room Air Oxygen Flow Rate 2 11/25/24 07:22 11/25/24 09:13 11/25/24 12:00 Temperature 98.5 F 99.2 F Pulse Rate 96 96 84 Respiratory Rate 20 20 Blood Pressure 178/94 H 177/93 H Pulse Oximetry 95 95 98 Oxygen Delivery Method Nasal Cannula Nasal Cannula Oxygen Flow Rate 2 2 BMI result Body Mass Index 30.6 Labs 11/25/24 09:24 11/25/24 09:24 Labs: Laboratory Results - last 48 hr 11/23/24 11/24/24 11/24/24 19:02 01:41 05:14 WBC 3.8 L RBC 3.73 L Hgb 12.1 L Hct 32.3 L MCV 86.6 MCH 32.4 MCHC 37.5 H RDW 11.9 Plt Count 106 L MPV 9.0 L Immature Gran % (Auto) 0.5 H Neut % (Auto) 80.3 H Lymph % (Auto) 3.7 L [place] % (Auto) 15.0 H Eos % (Auto) 0.0 Baso % (Auto) 0.5 Lymph # (Auto) 0.1 L [place] # (Auto) 0.6 Eos # (Auto) 0.0 Baso # (Auto) 0.0 Abs Immat Gran (auto) 0.02 Absolute Neuts (auto) 3.1 Absolute Nucleated RBC 0.000 Nucleated RBC % (auto) 0.0 Hold Purple Top Sodium 126 L 121 L 120 L* Potassium 3.7 3.2 L 3.8 Chloride 87 L 85 L 86 L Carbon Dioxide 26 27 26 Anion Gap 17 12 12 BUN 9 8 L 7 L Creatinine 0.64 0.61 0.60 Estim Creat Clear Calc 139.8 146.7 149.2 Estimated GFR > 60 > 60 > 60 Random Glucose 104 150 H 107 Calcium 7.9 L 8.0 L 8.1 L Phosphorus 2.4 L Magnesium 2.1 Albumin 3.4 L 11/24/24 11/24/24 11/25/24 12:13 19:15 09:24 WBC 2.6 L RBC 4.11 L Hgb 13.2 L Hct 36.2 L MCV 88.1 MCH 32.1 MCHC 36.5 H RDW 11.9 Plt Count 114 L MPV 8.4 L Immature Gran % (Auto) 0.4 Neut % (Auto) 70.4 Lymph % (Auto) 9.6 L [place] % (Auto) 19.2 H Eos % (Auto) 0.0 Baso % (Auto) 0.4 Lymph # (Auto) 0.3 L [place] # (Auto) 0.5 Eos # (Auto) 0.0 Baso # (Auto) 0.0 Abs Immat Gran (auto) 0.01 Absolute Neuts (auto) 1.8 L Absolute Nucleated RBC 0.000 Nucleated RBC % (auto) 0.0 Hold Purple Top SEE NOTE Sodium 121 L 123 L 124 L Potassium 3.7 3.6 3.5 Chloride 88 L 89 L 91 L Carbon Dioxide 26 26 24 Anion Gap 11 L 12 13 BUN 7 L 10 13 Creatinine 0.58 0.60 0.60 Estim Creat Clear Calc 154.3 147.2 147.0 Estimated GFR > 60 > 60 > 60 Random Glucose 113 106 113 Calcium 8.0 L 7.6 L 8.2 L D Phosphorus 3.3 Magnesium 2.4 Albumin 3.7 Mental Status Exam Mental Status Exam Patient Appearance: Appropriate Level of Consciousness: Awake and Lethargic Patient Behavior: Appropriate Affect Description: Blunted Speech Pattern: Long Pauses Judgement: Fair Medications Medications Current Medications Atenolol (Atenolol 100 Mg Tablet) 100 mg PO DAILY [facility]; Protocol Last Admin: 11/25/24 08:06 Dose: 100 mg Atorvastatin Calcium (Atorvastatin Calcium 40 Mg Tablet) 40 mg PO BEDTIME COUNT [facility] Last Admin: 11/24/24 20:42 Dose: 40 mg Enoxaparin Sodium (Enoxaparin Sodium 40 Mg/0.4 Ml Syringe) 40 mg SUBCUT DAILY [facility] Last Admin: 11/25/24 08:08 Dose: 40 mg Folic Acid (Folic Acid 1 Mg Tablet) 1 mg PO DAILY [facility] Last Admin: 11/25/24 11:54 Dose: 1 mg Thiamine HCl 100 mg/ Sodium (Chloride) 101 mls @ 202 mls/hr IV DAILY COUNT [facility] Last Infusion: 11/25/24 13:01 Dose: Infused Losartan Potassium (Losartan Potassium 50 Mg Tablet) 100 mg PO DAILY COUNT [facility] Last Admin: 11/25/24 08:07 Dose: 100 mg Multivitamins/Vitamin C (Multivitamin Tablet) 1 tab PO DAILY [facility] Last Admin: 11/25/24 11:54 Dose: 1 tab Oseltamivir Phosphate (Oseltamivir Phosphate 75 Mg Capsule) 75 mg PO Q12H COUNT [facility] Stop: 11/29/24 20:01 Last Admin: 11/25/24 08:07 Dose: 75 mg Pharmacy Consult (Consult Rx Etoh Phenob Po Only) 1 each MISCELLANE ONCE PRN; Protocol PRN Reason: Consult order Phenobarbital (Phenobarbital 15 Mg Tablet) 45 mg PO BID [facility] Stop: 11/27/24 09:01 Phenobarbital (Phenobarbital 30 Mg Tablet) 30 mg PO BID COUNT [facility] Stop: 11/29/24 09:01 Phenobarbital (Phenobarbital 30 Mg Tablet) 30 mg PO BEDTIME COUNT [facility] Stop: 11/30/24 21:01 Phenobarbital Sodium (Phenobarbital Sodium 130 Mg/Ml Vial Im Q3hx2) 175 mg IM Q3H COUNT [facility]CLUD[facility] Stop: 11/25/24 17:31 Prednisone (Prednisone 20 Mg Tablet) 40 mg PO DAILY COUNT [facility] Last Admin: 11/25/24 11:54 Dose: 40 mg Sodium Chloride (0.9 % Sodium Chloride Flush 3 Ml Syringe) 3 ml IVFLUSH QSHIFT COUNT [facility]CLUD[facility] Last Admin: 11/25/24 08:07 Dose: 3 ml Sodium Chloride (Sodium Chloride Tab 1 Gm Tablet) 1 gm PO TID COUNT [facility] Last Admin: 11/25/24 08:07 Dose: 1 gm Allergies Allergies Allergy/AdvReac Type Severity Reaction Status Date / Time bee pollen [bee stings] Allergy Severe Anaphylaxis Verified 11/22/24 04:31 Assessment & Plan Assessment & Plan (1) Alcohol use disorder, severe, dependence: Status: Acute Code(s): F10.20 - Alcohol dependence, uncomplicated Assessment and Plan: * patient with SOB while speaking, remainder of interview will be deferred until patient is able to participate * no concern for acute alcohol withdrawal sx at time of interview * phenobarbital taper, thiamine and folic acid orders in place * test desk trouble locator to follow up and further discuss AUD and treatment options if interested Total time managing care of this patient today __20__ minutes. [facility] Past Medical History Medical History Aortic stenosis Alcohol dependence HTN (hypertension) Thoracic aortic aneurysm Surgical History Surgical History Hx of left inguinal hernia repair Social History Social History Household Members: Unknown / Unable to assess Housing: Unknown / Unable to assess Patient Tobacco Use Status: Tobacco use Unknown e-Cigarette/Vaping Use: Never Used Second Hand Smoke Exposure: No Use of substances other than those prescribed or required for medical reasons: Unable to respond Currently Displaying Signs/Symptoms of Drug Intoxication Withdrawal: No Spiritual Healthcare Practices: unable to assess Gnosticist Healthcare Practices: unable to assess Cultural Healthcare Practices: unable to assess Advance Directives: No Advance Directives Information Provided: No Advance Directives on File: No Do you have a plan to hurt others: No Plan Nutrition Risks: No Nutritional Risk service: No Current occupational status: employed 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
--- NOTE | 2024-11-25 14:51 | MHC.CM.PN ---
Addendum entered by Brielle Howell RN 11/25/24 14:55: No HCP on file. Patient declines to complete at this time. Is aware he will need HCP for STR. Original Note: PT recommending STR. CM discussed w/ patient who would like time to discuss w/ family specifically his brother. Agreeable to STR referrals. No facility preferences. May decide to go home w/ services, no agency preferences. Referrals sent to STRs and VNAs via [facility]. Per MD rounds patient will likely stay 2-3 days. CM will continue to follow.
[2024-11-25] MEDS: PHENobarbitaL sodium 130 MG/ML VIAL IM Q3Hx2 175 MG IM ×2 (14:52→17:25)
[2024-11-25] MEDS: PHENobarbitaL 15 MG TABLET 45 MG PO (20:09)
[2024-11-25] MEDS: Atorvastatin Calcium 40 MG TABLET PO (20:09)
[2024-11-25] MEDS: Albuterol/Iprat 2.5/0.5MG 3 ML AMPUL.NEB INHALE (20:52)
[2024-11-26] VITALS (9 sets, daily range): BP systolic 120–166; BP diastolic 66–88; PULSE 77–90; RESP 16–20; TEMP 36.1–37.2; O2SAT 87–97; BMI 31.0
[2024-11-26 06:12] LABS: Anion Gap 12 (12-20); Blood Urea Nitrogen 16 mg/dL (9-16); Calcium 8.2 mg/dL (8.4-10.2); Carbon Dioxide 29 mmol/L (22-29); Chloride 89 mmol/L (96-108); Creatinine Clr Calc Pharmacy 127.8; Estimated Glomerular Filt Rate > 60; Glucose Random 110 mg/dL (60-115); Potassium 3.3 mmol/L (3.3-5.1); Sodium 127 mmol/L (135-145)
[2024-11-26] MEDS: Thiamine HCL 100 MG in 0.9 % Sodium Chloride 100 ML 202 MG IV (08:13)
[2024-11-26] MEDS: Losartan Potassium 50 MG TABLET 100 MG PO (08:14)
[2024-11-26] MEDS: Multivitamin TABLET 1 TAB PO (08:14)
[2024-11-26] MEDS: atenoloL 100 MG TABLET PO (08:14)
[2024-11-26] MEDS: Oseltamivir Phosphate 75 MG CAPSULE PO ×2 (08:15→20:11)
[2024-11-26] MEDS: Folic Acid 1 MG TABLET PO (08:15)
[2024-11-26] MEDS: 0.9 % Sodium Chloride Flush 3 ML SYRINGE IVFLUSH ×2 (08:15→23:32)
[2024-11-26] MEDS: Enoxaparin Sodium 40 MG/0.4 ML SYRINGE SUBCUT (08:15)
[2024-11-26] MEDS: Sodium Chloride Tab 1 GM TABLET PO ×3 (08:15→20:11)
[2024-11-26] MEDS: PHENobarbitaL 15 MG TABLET 45 MG PO ×2 (08:15→20:12)
[2024-11-26] MEDS: predniSONE 20 MG TABLET 40 MG PO (08:15)
--- NOTE | 2024-11-26 10:47 | HO.PM.IMPN ---
Subjective Subjective Date of Service: 11/26/24 Interval History: feels better; weaned off O2; less short of breath not eating much at all Review of Systems Review of Systems: Yes all other systems are reviewed and are negative Physical Exam Vital Signs: Vital Signs: Last Vital Signs Temp 98.3 F 11/26/24 07:40 Pulse 90 11/26/24 09:03 Resp 18 11/26/24 07:40 BP 156/80 H 11/26/24 09:03 Pulse Ox 95 11/26/24 09:03 O2 Del Method Nasal Cannula 11/26/24 07:40 O2 Flow Rate 2 11/26/24 07:40 FiO2 28 11/24/24 07:00 BMI result Body Mass Index 31.0 Gen: in no acute distress HEENT: sclera anicteric, moist mucus membranes Neck: supple Lungs: clear to auscultation bilaterally Heart: regular rate and rhythm, no murmurs Abd: protuberant, nontender Ext: no edema Skin: warm/well-perfused Neuro: alert and oriented x3, no focal findings Psych: appropriate affect Objective Data Active Medications Albuterol Sulfate (Albuterol Sulfate (0.083%) 2.5 Mg/3 Ml Vial.Neb) 2.5 mg INHALE Q2H PRN PRN Reason: Shortness of Breath/Wheezing Albuterol/Ipratropium (Albuterol/Iprat 2.5/0.5mg 3 Ml Ampul.Neb) 3 ml INHALE RQ4H WHILE AWAKE [facility] Last Admin: 11/26/24 08:17 Dose: Not Given Documented By: BIENVENIDO Non-Admin Reason: Patient Refused Atenolol (Atenolol 100 Mg Tablet) 100 mg PO DAILY [facility]; Protocol Last Admin: 11/26/24 08:14 Dose: 100 mg Documented By: JUANITA Atorvastatin Calcium (Atorvastatin Calcium 40 Mg Tablet) 40 mg PO BEDTIME [facility] Last Admin: 11/25/24 20:09 Dose: 40 mg Documented By: JAMILA Enoxaparin Sodium (Enoxaparin Sodium 40 Mg/0.4 Ml Syringe) 40 mg SUBCUT DAILY [facility] Last Admin: 11/26/24 08:15 Dose: 40 mg Documented By: JUANITA Folic Acid (Folic Acid 1 Mg Tablet) 1 mg PO DAILY [facility] Last Admin: 11/26/24 08:15 Dose: 1 mg Documented By: JUANITA Thiamine HCl 100 mg/ Sodium (Chloride) 101 mls @ 202 mls/hr IV DAILY [facility] Last Infusion: 11/26/24 09:02 Dose: Infused Documented By: JUANITA Losartan Potassium (Losartan Potassium 50 Mg Tablet) 100 mg PO DAILY [facility] Last Admin: 11/26/24 08:14 Dose: 100 mg Documented By: JUANITA Multivitamins/Vitamin C (Multivitamin Tablet) 1 tab PO DAILY [facility] Last Admin: 11/26/24 08:14 Dose: 1 tab Documented By: JUANITA Oseltamivir Phosphate (Oseltamivir Phosphate 75 Mg Capsule) 75 mg PO Q12H [facility] Stop: 11/29/24 20:01 Last Admin: 11/26/24 08:15 Dose: 75 mg Documented By: JUANITA Pharmacy Consult (Consult Rx Etoh Phenob Po Only) 1 each MISCELLANE ONCE PRN; Protocol PRN Reason: Consult order Phenobarbital (Phenobarbital 15 Mg Tablet) 45 mg PO BID [facility] Stop: 11/27/24 09:01 Last Admin: 11/26/24 08:15 Dose: 45 mg Documented By: JUANITA Phenobarbital (Phenobarbital 30 Mg Tablet) 30 mg PO BID [facility] Stop: 11/29/24 09:01 Phenobarbital (Phenobarbital 30 Mg Tablet) 30 mg PO BEDTIME [facility] Stop: 11/30/24 21:01 Prednisone (Prednisone 20 Mg Tablet) 40 mg PO DAILY [facility] Last Admin: 11/26/24 08:15 Dose: 40 mg Documented By: JUANITA Sodium Chloride (0.9 % Sodium Chloride Flush 3 Ml Syringe) 3 ml IVFLUSH QSHIFT [facility] Last Admin: 11/26/24 08:15 Dose: 3 ml Documented By: JUANITA Sodium Chloride (Sodium Chloride Tab 1 Gm Tablet) 1 gm PO TID [facility] Last Admin: 11/26/24 08:15 Dose: 1 gm Documented By: JUANITA Labs 11/25/24 09:24 11/26/24 05:34 Labs: Laboratory Results - last 24 hr 11/26/24 05:34 Anion Gap 12 Estim Creat Clear Calc 127.8 Estimated GFR > 60 Random Glucose 110 Calcium 8.2 L Microbiology Microbiology Results: Microbiology 11/23/24 10:10 Gram Stain - Final Sputum - Suctioned Sputum Culture - Final Assessment and Plan (1) Hyponatremia: Status: Acute Plan d5 for 64yo M with AUD [20-25 beers/d], asthma, CAD, mild aortic stenosis admitted 11/22/24 with encephalopathy and hypoxia after found unresponsive by his fiancee. Emergently intubated, found to have influenza A and Na of 109. Admitted to ICU and started on 3% NaCl but then required D5 + dDAVP due to rapid over-correction. Extubated 11/23/24. Stepped down to medical-surgical unit 11/24/24. acute hypoxic respiratory failure due to influenza PNA with asthma exacerbation - extubated, weaned off O2 - oseltamivir 11/25-11/30 - prednisone 11/25-11/30, nebs acute metabolic encephalopathy - resolved, was due to hypoNa severe hypoNa due to beer potomania - giving PO NaCl, also fluid-restrict; improving; recheck BMP in AM AUD - thiamine, folate, multivitamin, Addiction Medicine - started phenobarbital taper to prevent withdrawal 11/25- HTN - atenolol, losartan CAD - atorvastatin, ASA VTE ppx - enoxaparin dispo - will need STR In my clinical judgment, the patient requires continued inpatient hospitalization for the following reasons: hypoNa Total time managing care of this patient today: 40 minutes. Quality Stroke Does the patient have a stroke diagnosis?: No VTE Prior VTE?: No VTE Risk Level:: Medical - moderate - high VTE Device Contraindication: N/A - Device Ordered VTE Drug Contraindication: N/A - Med Ordered
[2024-11-26] MEDS: Sennosides/Docusate Sodium TABLET 2 TAB PO ×2 (14:58→20:11)
[2024-11-26] MEDS: polyethylene glycoL 3350 17 GM POWD.PACK PO (14:59)
[2024-11-26] MEDS: Atorvastatin Calcium 40 MG TABLET PO (20:11)
[2024-11-26] MEDS: Albuterol/Iprat 2.5/0.5MG 3 ML AMPUL.NEB INHALE (20:34)
[2024-11-27] VITALS (9 sets, daily range): BP systolic 109–145; BP diastolic 68–80; PULSE 78–88; RESP 12–20; TEMP 36.1–36.3; O2SAT 93–97; BMI 29.6
[2024-11-27 07:40] LABS: Hematocrit 37.5 % (42.0-52.0); Mean Corpuscular HGB Conc 34.7 g/dl (31.0-36.0); Mean Corpuscular Hemoglobin 31.9 pg (27.0-33.0); Mean Corpuscular Volume 92.1 fL (80.0-98.0); Mean Platelet Volume 8.8 fL (9.4-12.4); Platelet Count 141 X10*3/uL (160-400); Red Blood Count 4.07 X10*6/uL (4.60-5.80); Red Cell Distribution Width 12.4 % (11.0-16.0); White Blood Count 5.9 X10*3/uL (4.8-10.8)
[2024-11-27 08:06] LABS: Anion Gap 13 (12-20); Blood Urea Nitrogen 22 mg/dL (9-16); Calcium 8.2 mg/dL (8.4-10.2); Carbon Dioxide 29 mmol/L (22-29); Chloride 95 mmol/L (96-108); Creatinine Clr Calc Pharmacy 131.5; Estimated Glomerular Filt Rate > 60; Glucose Random 102 mg/dL (60-115); Potassium 3.3 mmol/L (3.3-5.1); Sodium 134 mmol/L (135-145)
[2024-11-27] MEDS: Albuterol/Iprat 2.5/0.5MG 3 ML AMPUL.NEB INHALE ×3 (08:21→21:11)
[2024-11-27] MEDS: atenoloL 100 MG TABLET PO (09:01)
[2024-11-27] MEDS: PHENobarbitaL 15 MG TABLET 45 MG PO (09:01)
[2024-11-27] MEDS: Folic Acid 1 MG TABLET PO (09:01)
[2024-11-27] MEDS: Multivitamin TABLET 1 TAB PO (09:02)
[2024-11-27] MEDS: predniSONE 20 MG TABLET 40 MG PO (09:02)
[2024-11-27] MEDS: Sennosides/Docusate Sodium TABLET 2 TAB PO (09:02)
[2024-11-27] MEDS: Thiamine HCL 100 MG in 0.9 % Sodium Chloride 100 ML 202 MG IV (09:02)
[2024-11-27] MEDS: Sodium Chloride Tab 1 GM TABLET PO (09:02)
[2024-11-27] MEDS: Oseltamivir Phosphate 75 MG CAPSULE PO ×2 (09:02→21:09)
[2024-11-27] MEDS: Losartan Potassium 50 MG TABLET 100 MG PO (09:02)
[2024-11-27] MEDS: Enoxaparin Sodium 40 MG/0.4 ML SYRINGE SUBCUT (09:03)
[2024-11-27] MEDS: 0.9 % Sodium Chloride Flush 3 ML SYRINGE IVFLUSH ×2 (09:04→21:06)
--- NOTE | 2024-11-27 11:54 | HO.PM.IMPN ---
Subjective Subjective Date of Service: 11/27/24 Interval History: no tremor dyspnea improved though back on O2 weak Na improved Review of Systems Review of Systems: Yes all other systems are reviewed and are negative Physical Exam Vital Signs: Vital Signs: Last Vital Signs Temp 96.9 F 11/27/24 08:09 Pulse 85 11/27/24 11:50 Resp 15 11/27/24 11:50 BP 145/80 H 11/27/24 08:09 Pulse Ox 96 11/27/24 08:09 O2 Del Method Nasal Cannula 11/27/24 08:09 O2 Flow Rate 2 11/27/24 08:09 FiO2 28 11/24/24 07:00 BMI result Body Mass Index 29.6 Gen: in no acute distress HEENT: sclera anicteric, moist mucus membranes Neck: supple Lungs: clear to auscultation bilaterally Heart: regular rate and rhythm, no murmurs Abd: protuberant, nontender Ext: no edema Skin: warm/well-perfused Neuro: alert and oriented x3, no focal findings Psych: appropriate affect Objective Data Active Medications Albuterol Sulfate (Albuterol Sulfate (0.083%) 2.5 Mg/3 Ml Vial.Neb) 2.5 mg INHALE Q2H PRN PRN Reason: Shortness of Breath/Wheezing Albuterol/Ipratropium (Albuterol/Iprat 2.5/0.5mg 3 Ml Ampul.Neb) 3 ml INHALE RQ4H WHILE AWAKE ON LICENSE OF [facility] Last Admin: 11/27/24 11:48 Dose: 3 ml Documented By: SADAF Atenolol (Atenolol 100 Mg Tablet) 100 mg PO DAILY [facility]; Protocol Last Admin: 11/27/24 09:01 Dose: 100 mg Documented By: JAYRO Atorvastatin Calcium (Atorvastatin Calcium 40 Mg Tablet) 40 mg PO BEDTIME [facility] OF [facility] Last Admin: 11/26/24 20:11 Dose: 40 mg Documented By: CHIDI Enoxaparin Sodium (Enoxaparin Sodium 40 Mg/0.4 Ml Syringe) 40 mg SUBCUT DAILY [facility] Last Admin: 11/27/24 09:03 Dose: 40 mg Documented By: JAYRO Folic Acid (Folic Acid 1 Mg Tablet) 1 mg PO DAILY [facility] Last Admin: 11/27/24 09:01 Dose: 1 mg Documented By: JAYRO Losartan Potassium (Losartan Potassium 50 Mg Tablet) 100 mg PO DAILY [facility] Last Admin: 11/27/24 09:02 Dose: 100 mg Documented By: JAYRO Multivitamins/Vitamin C (Multivitamin Tablet) 1 tab PO DAILY [facility] Last Admin: 11/27/24 09:02 Dose: 1 tab Documented By: JAYRO Oseltamivir Phosphate (Oseltamivir Phosphate 75 Mg Capsule) 75 mg PO Q12H [facility] Stop: 11/29/24 20:01 Last Admin: 11/27/24 09:02 Dose: 75 mg Documented By: JAYRO Pharmacy Consult (Consult Rx Etoh Phenob Po Only) 1 each MISCELLANE ONCE PRN; Protocol PRN Reason: Consult order Phenobarbital (Phenobarbital 30 Mg Tablet) 30 mg PO BID [facility] Stop: 11/29/24 09:01 Phenobarbital (Phenobarbital 30 Mg Tablet) 30 mg PO BEDTIME [facility] Stop: 11/30/24 21:01 Polyethylene Glycol (Polyethylene Glycol 3350 17 Gm Powd.Pack) 17 gm PO DAILY [facility] Last Admin: 11/27/24 09:04 Dose: Not Given Documented By: JAYRO Non-Admin Reason: Patient Refused Prednisone (Prednisone 20 Mg Tablet) 40 mg PO DAILY [facility] Last Admin: 11/27/24 09:02 Dose: 40 mg Documented By: JAYRO Senna/Docusate Sodium (Sennosides/Docusate Sodium Tablet) 2 tab PO BID [facility] Last Admin: 11/27/24 09:02 Dose: 2 tab Documented By: JAYRO Sodium Chloride (0.9 % Sodium Chloride Flush 3 Ml Syringe) 3 ml IVFLUSH QSHIFT ON [facility] Last Admin: 11/27/24 09:04 Dose: 3 ml Documented By: JAYRO Thiamine HCl (Thiamine Hcl 100 Mg Tablet) 100 mg PO DAILY [facility] Labs 11/27/24 06:19 11/27/24 06:19 Labs: Laboratory Results - last 24 hr 11/27/24 06:19 MCV 92.1 MCH 31.9 MCHC 34.7 RDW 12.4 Plt Count 141 L MPV 8.8 L Absolute Nucleated RBC 0.000 Nucleated RBC % (auto) 0.0 Anion Gap 13 Estim Creat Clear Calc 131.5 Estimated GFR > 60 Random Glucose 102 Calcium 8.2 L Total Creatine Kinase 136 Microbiology Microbiology Results: Microbiology 11/22/24 05:06 Blood Culture - Final Blood - Venous No growth after 5 days. 11/22/24 05:06 Blood Culture - Final Blood - Venous No growth after 5 days. Assessment and Plan (1) Hyponatremia: Status: Acute Plan d6 for 64yo M with AUD [20-25 beers/d], asthma, CAD, mild aortic stenosis admitted 11/22/24 with encephalopathy and hypoxia after found unresponsive by his fiancee. Emergently intubated, found to have influenza A and Na of 109. Admitted to ICU and started on 3% NaCl but then required D5 + dDAVP due to rapid over-correction. Extubated 11/23/24. Stepped down to medical-surgical unit 11/24/24. acute hypoxic respiratory failure due to influenza PNA with asthma exacerbation - extubated, wean off O2 as tolerated - oseltamivir 11/25-11/30 - prednisone 11/25-11/30, nebs acute metabolic encephalopathy - resolved, was due to hypoNa severe hypoNa due to beer potomania - resolved; d/c NaCl + fluid restriction; recheck BMP in AM AUD - thiamine, folate, multivitamin, Addiction Medicine - started phenobarbital taper to prevent withdrawal 11/25- HTN - atenolol, losartan CAD - atorvastatin, ASA VTE ppx - enoxaparin dispo - will need STR In my clinical judgment, the patient requires continued inpatient hospitalization for the following reasons: placement Total time managing care of this patient today: 40 minutes. Quality Stroke Does the patient have a stroke diagnosis?: No VTE Prior VTE?: No VTE Risk Level:: Medical - moderate - high VTE Device Contraindication: N/A - Device Ordered VTE Drug Contraindication: N/A - Med Ordered
[2024-11-27] MEDS: Atorvastatin Calcium 40 MG TABLET PO (21:06)
[2024-11-27] MEDS: PHENobarbitaL 30 MG TABLET PO (21:06)
[2024-11-28] VITALS (8 sets, daily range): BP systolic 96–151; BP diastolic 64–87; PULSE 74–88; RESP 12–20; TEMP 36.4–37; O2SAT 88–96; BMI 29.5
[2024-11-28 07:01] LABS: Hematocrit 36.8 % (42.0-52.0); Mean Corpuscular HGB Conc 35.3 g/dl (31.0-36.0); Mean Corpuscular Hemoglobin 32.3 pg (27.0-33.0); Mean Corpuscular Volume 91.5 fL (80.0-98.0); Mean Platelet Volume 8.8 fL (9.4-12.4); Platelet Count 172 X10*3/uL (160-400); Red Blood Count 4.02 X10*6/uL (4.60-5.80); Red Cell Distribution Width 12.3 % (11.0-16.0); White Blood Count 5.6 X10*3/uL (4.8-10.8)
[2024-11-28 07:18] LABS: Anion Gap 11 (12-20); Blood Urea Nitrogen 21 mg/dL (9-16); Calcium 8.1 mg/dL (8.4-10.2); Carbon Dioxide 31 mmol/L (22-29); Chloride 94 mmol/L (96-108); Creatinine Clr Calc Pharmacy 135.4; Estimated Glomerular Filt Rate > 60; Glucose Random 120 mg/dL (60-115); Potassium 3.1 mmol/L (3.3-5.1); Sodium 133 mmol/L (135-145)
[2024-11-28 08:41] LABS: Magnesium 2.3 mg/dL (1.6-2.6)
[2024-11-28] MEDS: Thiamine HCL 100 MG TABLET PO (09:33)
[2024-11-28] MEDS: Multivitamin TABLET 1 TAB PO (09:33)
[2024-11-28] MEDS: Oseltamivir Phosphate 75 MG CAPSULE PO ×2 (09:33→21:07)
[2024-11-28] MEDS: Losartan Potassium 50 MG TABLET 100 MG PO (09:34)
[2024-11-28] MEDS: predniSONE 20 MG TABLET 40 MG PO (09:34)
[2024-11-28] MEDS: PHENobarbitaL 30 MG TABLET PO ×2 (09:34→21:04)
[2024-11-28] MEDS: atenoloL 100 MG TABLET PO (09:34)
[2024-11-28] MEDS: Folic Acid 1 MG TABLET PO (09:34)
[2024-11-28] MEDS: 0.9 % Sodium Chloride Flush 3 ML SYRINGE IVFLUSH ×3 (09:35→23:15)
[2024-11-28] MEDS: Potassium Chloride ER 20 MEQ TAB.ER.PRT 40 MEQ PO (09:35)
[2024-11-28] MEDS: Enoxaparin Sodium 40 MG/0.4 ML SYRINGE SUBCUT (09:41)
[2024-11-28] MEDS: 0.9 % Sodium Chloride 1,000 ML 100 ML IVCONT (09:41)
--- NOTE | 2024-11-28 14:24 | P.PNIM_ITS ---
Subjective Subjective Date of Service: 11/28/24 Interval History: no tremor minimal cough weak poor appetite Review of Systems Review of Systems: Yes all other systems are reviewed and are negative Physical Exam 2 Vital Signs: Vital Signs: Last Vital Signs Temp 98.6 F 11/28/24 12:10 Pulse 74 11/28/24 12:10 Resp 18 11/28/24 12:10 BP 96/64 11/28/24 12:10 Pulse Ox 96 11/28/24 12:10 O2 Del Method Nasal Cannula 11/28/24 12:10 O2 Flow Rate 2 11/28/24 12:10 FiO2 28 11/24/24 07:00 BMI result Body Mass Index 29.5 Gen: in no acute distress HEENT: sclera anicteric, moist mucus membranes Neck: supple Lungs: clear to auscultation bilaterally Heart: regular rate and rhythm, no murmurs Abd: protuberant, nontender Ext: no edema Skin: warm/well-perfused Neuro: alert and oriented x3, no focal findings Psych: appropriate affect Objective Data Active Medications Albuterol Sulfate (Albuterol Sulfate (0.083%) 2.5 Mg/3 Ml Vial.Neb) 2.5 mg INHALE Q2H PRN PRN Reason: Shortness of Breath/Wheezing Albuterol/Ipratropium (Albuterol/Iprat 2.5/0.5mg 3 Ml Ampul.Neb) 3 ml INHALE RQ4H WHILE AWAKE [facility] Last Admin: 11/28/24 12:00 Dose: Not Given Documented By: BIENVENIDO Non-Admin Reason: Patient Refused Atenolol (Atenolol 100 Mg Tablet) 100 mg PO DAILY [facility]; Protocol Last Admin: 11/28/24 09:34 Dose: 100 mg Documented By: JUAN Atorvastatin Calcium (Atorvastatin Calcium 40 Mg Tablet) 40 mg PO BEDTIME [facility] Last Admin: 11/27/24 21:06 Dose: 40 mg Documented By: YUNIEL Enoxaparin Sodium (Enoxaparin Sodium 40 Mg/0.4 Ml Syringe) 40 mg SUBCUT DAILY [facility] Last Admin: 11/28/24 09:41 Dose: 40 mg Documented By: JUAN Folic Acid (Folic Acid 1 Mg Tablet) 1 mg PO DAILY [facility] Last Admin: 11/28/24 09:34 Dose: 1 mg Documented By: JUAN Sodium Chloride (Ns) 1,000 mls @ 100 mls/hr IVCONT .Q10H [facility] Stop: 11/28/24 18:29 Last Admin: 11/28/24 09:41 Dose: 100 mls/hr Documented By: JUAN Losartan Potassium (Losartan Potassium 50 Mg Tablet) 100 mg PO DAILY [facility] Last Admin: 11/28/24 09:34 Dose: 100 mg Documented By: JUAN Multivitamins/Vitamin C (Multivitamin Tablet) 1 tab PO DAILY [facility] Last Admin: 11/28/24 09:33 Dose: 1 tab Documented By: JUAN Oseltamivir Phosphate (Oseltamivir Phosphate 75 Mg Capsule) 75 mg PO Q12H [facility] Stop: 11/29/24 20:01 Last Admin: 11/28/24 09:33 Dose: 75 mg Documented By: JUAN Pharmacy Consult (Consult Rx Etoh Phenob Po Only) 1 each MISCELLANE ONCE PRN; Protocol PRN Reason: Consult order Phenobarbital (Phenobarbital 30 Mg Tablet) 30 mg PO BID [facility] Stop: 11/29/24 09:01 Last Admin: 11/28/24 09:34 Dose: 30 mg Documented By: JUAN Phenobarbital (Phenobarbital 30 Mg Tablet) 30 mg PO BEDTIME [facility] Stop: 11/30/24 21:01 Polyethylene Glycol (Polyethylene Glycol 3350 17 Gm Powd.Pack) 17 gm PO DAILY [facility] Last Admin: 11/28/24 09:48 Dose: Not Given Documented By: JUAN Non-Admin Reason: diarrhea Prednisone (Prednisone 20 Mg Tablet) 40 mg PO DAILY [facility] Last Admin: 11/28/24 09:34 Dose: 40 mg Documented By: JUAN Senna/Docusate Sodium (Sennosides/Docusate Sodium Tablet) 2 tab PO BID [facility] Last Admin: 11/28/24 09:48 Dose: Not Given Documented By: JUAN Non-Admin Reason: diarrhea Sodium Chloride (0.9 % Sodium Chloride Flush 3 Ml Syringe) 3 ml IVFLUSH QSHIFT [facility] Last Admin: 11/28/24 09:35 Dose: 3 ml Documented By: JUAN Thiamine HCl (Thiamine Hcl 100 Mg Tablet) 100 mg PO DAILY [facility] Last Admin: 11/28/24 09:33 Dose: 100 mg Documented By: JUAN Labs 11/28/24 05:48 11/28/24 05:48 Labs: Laboratory Results - last 24 hr 11/28/24 05:48 MCV 91.5 MCH 32.3 MCHC 35.3 RDW 12.3 Plt Count 172 MPV 8.8 L Absolute Nucleated RBC 0.000 Nucleated RBC % (auto) 0.0 Anion Gap 11 L Estim Creat Clear Calc 135.4 Estimated GFR > 60 Random Glucose 120 H Calcium 8.1 L Magnesium 2.3 Assessment and Plan (1) Hyponatremia: Status: Acute Plan d7 for 64yo M with AUD [20-25 beers/d], asthma, CAD, mild aortic stenosis admitted 11/22/24 with encephalopathy and hypoxia after found unresponsive by his fiancee. Emergently intubated, found to have influenza A and Na of 109. Admitted to ICU and started on 3% NaCl but then required D5 + dDAVP due to rapid over-correction. Extubated 11/23/24. Stepped down to medical-surgical unit 11/24/24. acute hypoxic respiratory failure due to influenza PNA with asthma exacerbation - extubated, wean off O2 as tolerated - oseltamivir 11/25-11/30 - prednisone 11/25-11/30, nebs acute metabolic encephalopathy - resolved, was due to hypoNa severe hypoNa due to beer potomania - resolved; d/c'ed PO NaCl and d/c'ed fluid restriction hypoK - replete PO; recheck level in AM contraction alkalosis - will give 1L NS and recheck BMP in AM AUD - thiamine, folate, multivitamin, Addiction Medicine - started phenobarbital taper to prevent withdrawal 11/25- HTN - atenolol, losartan CAD - atorvastatin, ASA VTE ppx - enoxaparin dispo - will need STR In my clinical judgment, the patient requires continued inpatient hospitalization for the following reasons: placement Total time managing care of this patient today: 35 minutes. Quality Stroke Does the patient have a stroke diagnosis?: No VTE Prior VTE?: No VTE Risk Level:: Medical - moderate - high VTE Device Contraindication: N/A - Device Ordered VTE Drug Contraindication: N/A - Med Ordered
--- NOTE | 2024-11-28 14:26 | PM.DS ---
DS: Providers Provider Date of Service: 11/28/24 <Alba Lilly MD - Last Filed: 12/02/24 16:33> 11/29/24 <Comfort Walden MD - Last Filed: 11/29/24 16:54> Date of admission: 11/22/24 05:28 <Alba Lilly MD - Last Filed: 12/02/24 16:33> Date of discharge: 11/28/24 <Alba Lilly MD - Last Filed: 12/02/24 16:33> 11/29/24 <Comfort Walden MD - Last Filed: 11/29/24 16:54> Primary care physician: Caterina Ga MD <Alba Lilly MD - Last Filed: 12/02/24 16:33> Consults: 11/25/24 07:37 Addiction Medicine Routine Consulting Provider: Addiction Covering Reason for consultation: AUD <Alba Lilly MD - Last Filed: 12/02/24 16:33> DS: Diagnosis Discharge Diagnosis (1) Hyponatremia: Status: Acute <Alba Lilly MD - Last Filed: 12/02/24 16:33> (2) Alcohol use disorder, severe, dependence: Status: Acute <Alba Lilly MD - Last Filed: 12/02/24 16:33> (3) Alcohol withdrawal: Status: Acute <Alba Lilly MD - Last Filed: 12/02/24 16:33> (4) Influenza A: Status: Acute <Alba Lilly MD - Last Filed: 12/02/24 16:33> (5) Mild intermittent asthma with (acute) exacerbation: Status: Acute <Alba Lilly MD - Last Filed: 12/02/24 16:33> (6) Acute metabolic encephalopathy: Status: Acute <Alba Lilly MD - Last Filed: 12/02/24 16:33> (7) Acute hypoxic respiratory failure: Status: Acute <Alba Lilly MD - Last Filed: 12/02/24 16:33> DS: Summary Hospital Course Hospital Course: From the history and physical by the admitting partnership development manager, Akil Mueller NP, 11/22/24: The patient is a? 64-year-old male with a past medical history of? alcohol abuse, COPD asthma overlap syndrome, hypertension, ? coronary artery disease, thoracic aortic aneurysm and aortic stenosis who presented to the emergency department via EMS with altered mental status.? According to the patient's fianceeJenae, the patient was sick with a flu-like illness over the past 3 days.? The patient had a nonproductive cough, shaking chills, fatigue. The patient did take 1 dose of amoxicillin left over from a previous prescription for pneumonia and according to his fiancee he developed a rash.? She also reports patient usually drinks 20 beers per day but due to his illness he was not able to drink as much as usual.? Overnight,? patient?s lizbethe found him laying on his back,? unresponsive.? Paramedics reported he patient had coffee-ground emesis on his face and was minimally responding to painful stimuli.?? ?On arrival to the emergency department, he was unresponsive to painful stimuli, his face was covered with dark emesis.? Initially patient was sent directly to CT scan however his O2 saturation was 60-70%, ? and required emergent intubation.? ?Laboratory data was significant for? WBC 11.8, serum sodium 109, chloride 73, serum bicarb 19, anion gap 21, calcium 8, total bilirubin 1.8, AST 155, ALT 118, CK 1007, BNP 492, ?Venous gas post intubation:? 7.27/50/33/23 ?IMAGING: ?Chest CT: ? consistent with were low aspiration ?Head CT:? no acute findings ?Abdominal CT:? no acute findings ?ED course:? ?Patient received? 1 L bolus of normal saline, and started on vancomycin and cefepime due to possible amoxicillin allergy. 64yo M with AUD [20-25 beers/d], asthma, CAD, mild aortic stenosis admitted 11/22/24 with encephalopathy and hypoxia after found unresponsive by his fiancee, possibly from a seizure though not witnessed. He was emergently intubated and sent to the ICU. He was found to have influenza A and Na of 109. He was started on 3% NaCl but then required D5 + dDAVP due to rapid over-correction. He was extubated 11/23/24. He was stepped down to medical-surgical unit 11/24/24. Hospital course by problem: acute hypoxic respiratory failure due to influenza PNA with asthma exacerbation - extubated to nasal cannula; wean off O2 as tolerated - treated with oseltamivir 11/25-11/29, last dose scheduled for tonight, continue updraft treatment and gradually wean off, no further steroids upon discharge. acute metabolic encephalopathy - resolved, was due to hyponatremia severe hypoNa due to beer potomania - resolved after repletion IV +PO; d/c'ed NaCl + fluid restriction, hydrochlorothiazide discontinued due to side effect of hyponatremia AUD - treated with thiamine, folate, multivitamin; Addiction Medicine consulted - started phenobarbital taper to prevent withdrawal 11/25-strongly recommend to abstain from alcohol, take Prilosec x4 weeks for possible gastritis and coffee-ground emesis Coronary artery disease/mild aortic stenosis continue home medications follow blood pressure closely continue atenolol , aspirin losartan and Lipitor. He was discharged to short-term rehabilitation. <Alba Lilly MD - Last Filed: 12/02/24 16:33> Time Attestation Discharge Coordination Time (in mins): 40 <Comfort Walden MD - Last Filed: 11/29/24 16:54> Quality: Safe Use of Opioids Does Pt have an Active Cancer Diagnosis on the Problem List?: No <Comfort Walden MD - Last Filed: 11/29/24 16:54> Quality: Stroke Does the patient have a stroke diagnosis?: No <Comfort Walden MD - Last Filed: 11/29/24 16:54> Physical Exam Vital Signs: Vital Signs: Last Vital Signs Temp 98.6 F 11/28/24 12:10 Pulse 74 11/28/24 12:10 Resp 18 11/28/24 12:10 BP 96/64 11/28/24 12:10 Pulse Ox 96 11/28/24 12:10 O2 Del Method Nasal Cannula 11/28/24 12:10 O2 Flow Rate 2 11/28/24 12:10 FiO2 28 11/24/24 07:00 BMI result Body Mass Index 29.5 <Alba Lilly MD - Last Filed: 12/02/24 16:33> Const: Other: Gen: Awake alert, in no acute distress HEENT: sclera anicteric, moist mucus membranes Neck: supple Lungs: clear to auscultation bilaterally Heart: regular rate and rhythm, no murmurs Abd: protuberant, non tender, bowel sounds audible Ext: no edema Skin: warm/well-perfused Neuro: alert and oriented x3, no focal findings Psych: appropriate affect <Comfort Walden MD - Last Filed: 11/29/24 16:54> DS: Data Data Completed and Pending Labs on day of discharge: Laboratory Results - last 24 hr 11/28/24 05:48 WBC 5.6 RBC 4.02 L Hgb 13.0 L Hct 36.8 L MCV 91.5 MCH 32.3 MCHC 35.3 RDW 12.3 Plt Count 172 MPV 8.8 L Absolute Nucleated RBC 0.000 Nucleated RBC % (auto) 0.0 Sodium 133 L Potassium 3.1 L Chloride 94 L Carbon Dioxide 31 H Anion Gap 11 L BUN 21 H Creatinine 0.64 Estim Creat Clear Calc 135.4 Estimated GFR > 60 Random Glucose 120 H Calcium 8.1 L Magnesium 2.3 <Alba Lilly MD - Last Filed: 12/02/24 16:33> Discharge Plan Discharge Anticipated Discharge Date/Time: 11/29/24 16:46 <Alba Lilly MD - Last Filed: 12/02/24 16:33> Patient Disposition: Xfer SNF <Alba Lilly MD - Last Filed: 12/02/24 16:33> Discharge Diagnosis: Acute hypoxic respiratory failure due to influenza A Acute metabolic encephalopathy Severe hyponatremia due to beer potomania Contraction alkalosis Alcohol use disorder. <Alba Lilly MD - Last Filed: 12/02/24 16:33> Acute hypoxic respiratory failure due to influenza A Acute metabolic encephalopathy Severe hyponatremia due to beer potomania Contraction alkalosis Alcohol use disorder. <Comfort Walden MD - Last Filed: 11/29/24 16:54> Referrals: Caterina Ga MD [Primary Care Provider] - 1 Week <Alba Lilly MD - Last Filed: 12/02/24 16:33> Discharge Medications: New losartan 50 mg Tablet 100 mg PO DAILY Qty: 30 0RF folic acid 1 mg Tablet 1 mg PO DAILY Qty: 30 0RF thiamine mononitrate (vit B1) 100 mg Tablet 100 mg PO DAILY Qty: 30 0RF omeprazole 20 mg capsule,delayed release(DR/EC) 20 mg PO DAILY Qty: 30 0RF ipratropium-albuterol 0.5 mg-3 mg(2.5 mg base)/3 mL Solution For Nebulization 3 ml inhalation RQ4H WHILE AWAKE Qty: 90 0RF polyethylene glycol 3350 17 gram Powder In Packet 17 g PO DAILY Qty: 30 0RF albuterol sulfate 2.5 mg /3 mL (0.083 %) Solution For Nebulization 2.5 mg inhalation Q2H PRN (Reason: Shortness Of Breath/Wheezing) Qty: 90 0RF sennosides-docusate sodium [Senna Plus] 8.6-50 mg Tablet 2 tab PO BID Qty: 120 0RF oseltamivir [Tamiflu] 75 mg Capsule 75 mg PO Q12H Qty: 1 0RF Continued atenolol 100 mg tablet 100 mg PO DAILY Qty: 60 5RF atorvastatin 40 mg tablet 40 mg PO BEDTIME Qty: 90 3RF Discontinued losartan-hydrochlorothiazide 100-12.5 mg tablet 1 tab PO DAILY Qty: 90 1RF No Action aspirin 81 mg tablet,delayed release (DR/EC) 81 mg PO DAILY Qty: 90 3RF montelukast 10 mg tablet 10 mg PO BEDTIME Qty: 90 1RF <Alba Lilly MD - Last Filed: 12/02/24 16:33> Discharge Orders: Discharge Order (Routine); Ordered 11/29/24 Ordered By: Comfort Walden <Alba Lilly MD - Last Filed: 12/02/24 16:33> Diet: Advance to usual diet <Alba Lilly MD - Last Filed: 12/02/24 16:33> Advance to usual diet <Comfort Walden MD - Last Filed: 11/29/24 16:54> Activity on Discharge: As tolerated <Alba Lilly MD - Last Filed: 12/02/24 16:33> As tolerated <Comfort Walden MD - Last Filed: 11/29/24 16:54> Stand Alone Forms: Patient Portal Discharge page <Alba Lilly MD - Last Filed: 12/02/24 16:33> Print Language: Turkish <Alba Lilly MD - Last Filed: 12/02/24 16:33> Care Plan Goals: Physical therapy for generalized weakness Take Tamiflu for 1 more dose tonight Gradually wean DuoNeb from q.4 hours while awake to q.6 hours and then as needed Wean oxygen as tolerated Follow blood pressure closely <Alba Lilly MD - Last Filed: 12/02/24 16:33> Health Concerns: Strongly recommend to abstain from alcohol <Alba Lilly MD - Last Filed: 12/02/24 16:33> Plan of Treatment: Outpatient follow-up with primary care physician call for appointment <Alba Lilly MD - Last Filed: 12/02/24 16:33> Assessment: As above <Abla Lilly MD - Last Filed: 12/02/24 16:33> Patient Instructions: Influenza (DC), Alcohol Withdrawal (DC), Encephalopathy (DC) <Alba Lilly MD - Last Filed: 12/02/24 16:33> Discharge Date/Time: 11/29/24 19:10 <Alba Lilly MD - Last Filed: 12/02/24 16:33>
[2024-11-28] MEDS: Albuterol/Iprat 2.5/0.5MG 3 ML AMPUL.NEB INHALE (16:05)
[2024-11-28] MEDS: Sennosides/Docusate Sodium TABLET 2 TAB PO (21:03)
[2024-11-28] MEDS: Atorvastatin Calcium 40 MG TABLET PO (21:04)
[2024-11-29 03:24] VITALS: BP 188/97; PULSE 82; RESP 19; TEMP 36.3; O2SAT 95
[2024-11-29 04:41] VITALS: BP 140/74; PULSE 83; RESP 18
[2024-11-29 06:06] LABS: Anion Gap 10 (12-20); Blood Urea Nitrogen 19 mg/dL (9-16); Calcium 8.2 mg/dL (8.4-10.2); Carbon Dioxide 30 mmol/L (22-29); Chloride 100 mmol/L (96-108); Creatinine Clr Calc Pharmacy 129.4; Estimated Glomerular Filt Rate > 60; Glucose Random 103 mg/dL (60-115); Potassium 3.4 mmol/L (3.3-5.1); Sodium 137 mmol/L (135-145)
[2024-11-29 07:56] VITALS: BP 136/83; PULSE 88; RESP 18; TEMP 37; O2SAT 95
[2024-11-29] MEDS: polyethylene glycoL 3350 17 GM POWD.PACK PO (08:26)
[2024-11-29] MEDS: Thiamine HCL 100 MG TABLET PO (08:27)
[2024-11-29] MEDS: Sennosides/Docusate Sodium TABLET 2 TAB PO (08:27)
[2024-11-29] MEDS: atenoloL 100 MG TABLET PO (08:27)
[2024-11-29] MEDS: Enoxaparin Sodium 40 MG/0.4 ML SYRINGE SUBCUT (08:27)
[2024-11-29] MEDS: PHENobarbitaL 30 MG TABLET PO (08:27)
[2024-11-29] MEDS: predniSONE 20 MG TABLET 40 MG PO (08:27)
[2024-11-29] MEDS: Multivitamin TABLET 1 TAB PO (08:27)
[2024-11-29] MEDS: Losartan Potassium 50 MG TABLET 100 MG PO (08:27)
[2024-11-29] MEDS: Folic Acid 1 MG TABLET PO (08:27)
[2024-11-29] MEDS: 0.9 % Sodium Chloride Flush 3 ML SYRINGE IVFLUSH (08:30)
[2024-11-29] MEDS: Albuterol/Iprat 2.5/0.5MG 3 ML AMPUL.NEB INHALE (08:39)
[2024-11-29 08:40] VITALS: PULSE 89; RESP 18; O2SAT 98
[2024-11-29] MEDS: Oseltamivir Phosphate 75 MG CAPSULE PO (10:19)
--- NOTE | 2024-11-29 10:55 | MHC.RECOVRN ---
Met with pt to check in and provide support. Pt reports he is feeling better and plans to go to [facility] for 1 day. 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 In regard to recovery resources and supports, pt denies questions or concerns. Discussed with CM.
[2024-11-29 12:01] VITALS: BP 155/84; PULSE 79; RESP 18; TEMP 36.4; O2SAT 93
--- NOTE | 2024-11-29 14:31 | MHC.CM.PN ---
EMR REVIEWED AND PER MD ROUNDS, PT WILL BE MEDICALLY CLEARED FOR DC TO [facility] ONCE INSURANCE AUTH IS OBTAINED BY [address] [place] [address]. CM AWAITS AUTH FOR ADMISSION. PT/ IN AGREEMENT WITH PLAN.
[2024-11-29 15:25] VITALS: BP 150/85; PULSE 90; RESP 12; TEMP 36.7; O2SAT 92
--- NOTE | 2024-11-29 16:21 | MHC.CM.PN ---
DP: PT HAS BEEN APPROVED BY [facility] TO DC TO [address] [facility]. BLS TRANSPORT BOOKED FOR 5:30 PM [facility]IA [facility]NA[facility] TO TRANSPORT. RUN# [id number]. RN/ AWARE. PT WILL NOTIFY .
--- NOTE | 2024-12-01 04:13 | PC.NURSE ---
Late entry: Unable to correct RASS score entered for Propofol administration on 11/22/2024 at 0513 by this proposal manager writer. RASS score entered incorrectly as -5. Rass score should reflect -4 as pt was arousable to physical touch by moving upper extremities.
== END 2024-11-29 19:10 | disposition skilled nursing facility (03) | DRG 113 ==
LOC: HO.ED 05:27 → HO.EDOVER 05:33 → HO.ICU 05:52 → HO.S3 11-24 14:01
PROVIDERS: Family Medicine; Internal Medicine Critical Care Medicine; Internal Medicine Pulmonary Disease; Nurse Practitioner Family; Admitting Provider Registered Nurse Community Health; Emergency Provider Emergency Medicine Emergency Medical Services; PCP Internal Medicine; Visit Provider Hospitalist
DX: J10.01 Influenza due to other identified influenza virus with the same other identified influenza virus pneumonia (principal); J96.01 Acute respiratory failure with hypoxia; G93.41 Metabolic encephalopathy; E87.1 Hypo-osmolality and hyponatremia; E87.3 Alkalosis; K29.71 Gastritis, unspecified, with bleeding; R56.9 Unspecified convulsions; J45.21 Mild intermittent asthma with (acute) exacerbation; J69.0 Pneumonitis due to inhalation of food and vomit; E87.6 Hypokalemia; I10 Essential (primary) hypertension; F10.20 Alcohol dependence, uncomplicated; I35.0 Nonrheumatic aortic (valve) stenosis; I25.10 Atherosclerotic heart disease of native coronary artery without angina pectoris; Z79.899 Other long term (current) drug therapy
CPT/HCPCS: 0241U; 36415; 70450; 71250; 72125; 74176; 80048; 80053; 80307; 81001; 82040; 82271; 82550; 82803; 83605; 83690; 83735; 83880; 83930; 83935; 84100; 84443; 84484; 85025; 85027; 85610; 85730; 86850; 86900; 86901; 87040; 87070; 87205; 87633; 93005; 94002; 94003; 94640; 97116; 97162; 97530; 99285; C1758; J0360; J0613; J0692; J1650; J1953; J2470; J2560; J2597; J2704; J3370; J3411; J3480; J7131; S9485

== ENCOUNTER → 2024-11-22 03:20 | Outpatient (BNV) | payer OTHER, SELFPAY | PROVIDERS: Emergency Provider Emergency Medicine Emergency Medical Services; Visit Provider Radiology Diagnostic Radiology | DX: R40.20 Unspecified coma (principal); S09.90XA Unspecified injury of head, initial encounter | CPT/HCPCS: 70450; 71250; 72125; 74176 ==

== ENCOUNTER → 2024-11-22 05:28 | Outpatient (BNV) | CPT/HCPCS: 99221 ==

== ENCOUNTER → 2024-11-22 05:28 | Outpatient (BNV) | payer OTHER, SELFPAY | PROVIDERS: Admitting Provider Registered Nurse Community Health; Emergency Provider Emergency Medicine Emergency Medical Services; PCP Internal Medicine; Visit Provider Family Medicine | DX: G93.40 Encephalopathy, unspecified (principal); J96.01 Acute respiratory failure with hypoxia; E87.1 Hypo-osmolality and hyponatremia; I10 Essential (primary) hypertension | CPT/HCPCS: 99232; 99233 ==

== ENCOUNTER → 2024-12-03 08:00 | Outpatient (BNV) | payer OTHER, SELFPAY | PROVIDERS: Emergency Provider Emergency Medicine; PCP Nurse Practitioner Family; Visit Provider Internal Medicine | DX: I49.1 Atrial premature depolarization (principal); Z95.0 Presence of cardiac pacemaker | CPT/HCPCS: 93010 ==

== ENCOUNTER 2024-12-03 15:50 | Outpatient (AMB) | payer OTHER, SELFPAY ==
--- OUTSIDE RECORDS SUMMARY | 2024-12-03 15:51 | XMS_ITS ---
Author Organization [facility] Address [address] [place] [address] Care Team Providers Care Facilities Technician Name Role Phone ADELA BORJAS Primary Care Provider Matt Maria Jr, Daniel Aguirre REASON FOR VISIT Patient presents today for a colon screening Encounters Encounter Location Date Provider Diagnosis [facility] [address] [place] [id number] 08/18/2023 Daniel Maria Jr PLAN OF TREATMENT Next Appt Details Provider Name:Daniel quevedo Jr, 01/31/2025 09:00:00 AM, [address] [place] [address], [address], [place], [address],
--- OUTSIDE RECORDS SUMMARY | 2024-12-03 15:51 | XMS_ITS ---
Author Organization [facility] Address [address] [place] [address] Care Team Providers Care Culled Fruit Packer Name Role Phone ADELA BORJAS Primary Care Provider Matt Maria Jr, Daniel Aguirre [phone] REASON FOR VISIT cancel colonoscopy Encounters Encounter Location Date Provider Diagnosis [facility] [address] [place] [address] 09/01/2023 Daniel Maria Jr PLAN OF TREATMENT Next Appt Details Provider Name:Daniel quevedo Jr, 01/31/2025 09:00:00 AM, [address], [address], [place], [address],
--- OUTSIDE RECORDS SUMMARY | 2024-12-03 15:51 | XMS_ITS | Patient Health Record ---
Author Organization [facility] Address [address] [place] [address] Care Team Providers Care Contact Center Agent Name Role Phone ADELA BORJAS Primary Care Provider Daniel Gottlieb Jr [phone] ALLERGIES No Known Allergies REASON FOR REFERRAL [...] Problem Colon cancer screening (Z12.11) Active confirmed [id number] Problem Encounter for other preprocedural examination (Z01.818) Active confirmed [id number] PLAN OF TREATMENT Future Test Test Name Order Date COLONOSCOPY 07/09/2023 Next Appt Details Provider Name:Daniel Dinah quevedo Jr, 01/31/2025 09:00:00 AM, [address], [address], [place], [address], Insurance Providers Payer Name Payer Address Payer Phone Subscriber Number Group Number Insured Name Patient Relationship to Insured Coverage Start Date Coverage End Date [facility] [address] [place] [phone] [id number] FITO ROSA Self - patient is the insured MEDICAL (GENERAL) HISTORY Medical History History ICD Code Hypertension Fatty liver Thoracic aortic aneurysm, 4.4 cm 02/09 Left ventricular hypertrophy, ejection f raction 55-60% on echo 06/10 Surgical History Surgery Date(Month/Year) Left inguinal hernia repair 2012
--- OUTSIDE RECORDS SUMMARY | 2024-12-03 15:52 | XMS_ITS ---
Author Organization [facility] Address [address] [place] [address] Care Team Providers Care High School Director Name Role Phone ADELA BORJAS Primary Care Provider Daniel Gottlieb Jr REASON FOR VISIT screening Encounters Encounter Location Date Provider Diagnosis [facility] [address] [place] [phone] 09/02/2023 Daniel Maria Jr PLAN OF TREATMENT Next Appt Details Provider Name:Daniel quevedo Jr, 01/31/2025 09:00:00 AM, [address], [address], [place], [address],
--- NOTE | 2024-12-03 15:56 | MHC.OFFWIV ---
Intake Vital Signs 12/03/24 16:03 BP 124/82 Blood Pressure Location Lt brachial Position Sitting Pulse 83 Pulse Source Pulse Oximeter Pulse Oximetry (%) 86 L Oxygen Delivery Method Room Air Intake Visit Reasons: EP O2/breathing issues (traiged) Patient Tobacco Use Status: Tobacco use Unknown Allergies bee pollen [bee stings] Allergy (Severe, Verified 11/22/24 04:31) Anaphylaxis HPI HPI Comments History of Present Illness Details History - The patient is a 64-year-old male past medical history of? alcohol abuse, COPD asthma overlap syndrome, hypertension, ? coronary artery disease, thoracic aortic aneurysm and aortic stenosis presenting with shortness of breath and hypoxemia on home device. - He was recently (11/22) hospitalized in the ICU with Flu for respiratory support, including intubation and mechanical ventilation. - Discharged against medical advice from rehabilitation center on 11/29/24. - Current complaint involves significant hypoxemia with an oxygen saturation dropping to low 80% at home, though difficult to obtain. - A dry cough persists, with no associated productive cough, chest pain, dizziness, or syncope. - The patient?s past medical history includes influenza infection complicated by aspiration pneumonia and hyponatremia, as well as a seizure and altered mental status. - He has been advised by his [employer], Dr Lorenzo, against using medications containing albuterol Physical Exam General: Cooperative, healthy appearing, comfortable and no acute distress Orientation/consciousness: Patient oriented x3 Limitations: No limitations Head: Normal to inspection Ears: Hearing grossly normal bilaterally, external ears normal Nose: Normal external nose present, Normal nares present and No nasal discharge present Face and sinus: Normal facial exam Eyes: Appearance normal, both eyes and all related structures Neck: Normal visual inspection Respiratory: Clear but dim to auscultation bilaterally. Normal respiratory effort, able to speak in complete sentences, Actively coughing, no respiratory distress, not tachypneic, no tripod positioning and no use of accessory muscles Cardiovascular: Regular rate and rhythm. Normal S1 and S2. 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 Called 911 for transport to ED. Called [facility] with expect. The patient requires immediate reevaluation at the emergency department due to his ongoing respiratory distress and significant hypoxemia. Given his oxygen saturation is at a dangerous low, possible imaging tests like a CT scan are necessary to rule out pneumonia or any new pulmonary issues. Avoidance of albuterol is critical due to contraindications; alternative therapies need to be considered for his pulmonary care. Patient was informed and verbally consented to the use of an ambient scribe for clinic note documentation during this visit Coding Level of Care Code Est Pt Level 5 (72677) Diagnoses COPD with hypoxia J44.9
[2024-12-03 16:03] VITALS: BP 124/82; PULSE 83; O2SAT 86
== END 2024-12-03 16:09 | disposition home or self-care (01) ==
PROVIDERS: PCP Nurse Practitioner Family; Visit Provider Physician Assistant
DX: J44.9 Chronic obstructive pulmonary disease, unspecified (principal)

== ENCOUNTER 2024-12-03 16:30 | Emergency (ER) | payer OTHER, SELFPAY ==
--- NOTE | 2024-11-02 | ECG_ITS ---
Test Reason : RODRISA Blood Pressure : */* mmHG Vent. Rate : 78 BPM Atrial Rate : * BPM P-R Int : * ms QRS Dur : 78 ms QT Int : 394 ms P-R-T Axes : * 1 102 degrees QTcB Int : 449 ms Artifact in tracing Normal sinus rhythm Premature atrial complexes Nonspecific ST and T wave abnormality Abnormal ECG When compared with ECG of 22-Nov-2024 03:40, Premature atrial complexes noted Vent. rate has decreased by 41 bpm Referred By: Liset Vaughn Electronically Signed By: RAMÓN JUSTICE
--- NOTE | ~2024-12-03 | XR_ITS ---
CLINICAL HISTORY: sob 1 view chest x-ray Comparison: CR/SR - XR CHEST 2V - 07/16/24 09:22 EDT Findings: Ovoid calcified nodule in the mid right lung consistent with calcified granuloma. No effusion or pneumothorax. No focal infiltrate. Moderate cardiomegaly. No acute fracture. IMPRESSION: 1. No acute findings. This document has been electronically signed by: Elliott Carnes MD on 12/03/2024 18:21:59
[2024-12-03 16:41] VITALS: BP 115/76; BP 148/90; PULSE 74; PULSE 87; RESP 16; TEMP 36.4; O2SAT 96; BMI 29.8
[2024-12-03 16:52] LABS: MANUAL DIFF FLAG NO
[2024-12-03 16:53] LABS: Basophils Percent Auto 0.3 % (0-2); Eosinophils Absolute Auto 0.1 X10*3/uL (0.0-0.4); Eosinophils Percent Auto 1.3 % (0-4); Hemoglobin 12.5 g/dl (14.0-18.0); Imm Gran Abs Auto 0.03 X10*3/uL (0.00-0.03); Imm Gran Pct Auto 0.4 % (0.0-0.4); Lymphocytes Absolute Auto 1.2 X10*3/uL (1.2-4.9); Lymphocytes Percent Auto 15.7 % (20-40); Mean Corpuscular HGB Conc 35.7 g/dl (31.0-36.0); Mean Corpuscular Hemoglobin 31.9 pg (27.0-33.0); Mean Corpuscular Volume 89.3 fL (80.0-98.0); Mean Platelet Volume 8.7 fL (9.4-12.4); Monocytes Percent Auto 13.2 % (2-11); Neutrophils Absolute Auto 5.2 x10*3/uL (2.0-8.3); Neutrophils Percent Auto 69.1 % (45-73); Platelet Count 376 X10*3/uL (160-400); Red Blood Count 3.92 X10*6/uL (4.60-5.80); Red Cell Distribution Width 12.3 % (11.0-16.0); White Blood Count 7.5 X10*3/uL (4.8-10.8)
[2024-12-03 17:15] LABS: Ethanol < 10 mg/dL
[2024-12-03 17:33] LABS: Influenza A PCR POSITIVE (Negative); Influenza B PCR NEGATIVE (Negative); Resp Syncy Virus RNA Qual PCR NEGATIVE (Negative); SARS COV2 PCR INHOUSE NEGATIVE (Negative)
--- NOTE | 2024-12-03 17:38 | ED_ITS ---
HPI - General Adult General Chief complaint: Dyspnea Stated complaint: HAS WEEZES AND RHONCHI PER EMS Source: patient Limitations: no limitations History of Present Illness ED Provider: Giovana Oliveira PA-C HPI narrative: 64-year-old male with a history of alcohol abuse, COPD asthma overlap syndrome, hypertension, ? coronary artery disease, thoracic aortic aneurysm and aortic stenosis, with a recent ICU admission for COPD exacerbation and hyponatremia, just discharged on November 28, presents with concern for hypoxia. Patient states he has VNA services to the home, they checked his oxygen and told him it was 88%. Patient was told to come into the emergency department for assessment. The patient denies chest pain, shortness of breath, new cough or cold symptoms, fever. Related Data Previous Rx's ?Medication ?Instructions ?Recorded atenolol 100 mg tablet 100 mg PO DAILY #60 tabs 03/05/24 atorvastatin 40 mg tablet 40 mg PO BEDTIME #90 tabs 09/07/24 albuterol sulfate 2.5 mg/3 mL 2.5 mg (3 mL) inhalation Q2H PRN 11/29/24 (0.083 %) solution for nebulization Shortness Of Breath/Wheezing #90 mL folic acid 1 mg tablet 1 mg PO DAILY #30 tabs 11/29/24 ipratropium 0.5 mg-albuterol 3 mg 3 ml inhalation RQ4H WHILE AWAKE 11/29/24 (2.5 mg base)/3 mL nebulization #90 mL soln losartan 50 mg tablet 100 mg (2 x 50 mg) PO DAILY #30 11/29/24 tabs omeprazole 20 mg capsule,delayed 20 mg PO DAILY #30 caps 11/29/24 release oseltamivir 75 mg capsule (Tamiflu) 75 mg PO Q12H #1 cap 11/29/24 polyethylene glycol 3350 17 gram 17 g PO DAILY #30 ea 11/29/24 oral powder packet sennosides 8.6 mg-docusate sodium 2 tab PO BID #120 tabs 11/29/24 50 mg tablet (Senna Plus) thiamine mononitrate (vit B1) 100 100 mg PO DAILY #30 tabs 11/29/24 mg tablet aspirin 81 mg tablet,delayed 81 mg PO DAILY #90 tabs 12/01/24 release montelukast 10 mg tablet 10 mg PO BEDTIME #90 tabs 12/02/24 Allergies Allergy/AdvReac Type Severity Reaction Status Date / Time bee pollen [bee stings] Allergy Severe Anaphylaxis Verified 12/03/24 16:45 Review of Systems 2 Review of Systems: Yes all other systems are reviewed and are negative Constitutional: Constitutional: Denies fatigue and Denies fever(s) Cardiovascular: Cardiovascular: Denies chest pain and Denies dyspnea Respiratory: Respiratory: Denies chest congestion, Denies cough, Denies dyspnea and Denies wheezing Gastrointestinal: Gastrointestinal: Denies abdominal pain, Denies diarrhea, Denies nausea and Denies vomiting Endocrine: Endocrine: Denies fatigue Allergic/Immunologic: Allergic/Immunologic: Denies wheezing PMFSH Past Medical History Attestation statement: The following information was validated with the patient. 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 Physical Exam ED Vital Signs: Vital Signs - 24 hr 12/03/24 16:41 12/03/24 18:00 Temperature 97.5 F 97.8 F Pulse Rate 87 65 Respiratory Rate 16 18 Blood Pressure 115/76 102/57 L Pulse Oximetry 96 95 Oxygen Delivery Method Room Air Room Air BMI result Body Mass Index 29.8 Const Other: Alert Orientation/consciousness: patient oriented x3 Resp Other: Nonlabored respirations, faint basilar crackles, no wheezing Cardio Other: Normal peripheral perfusion Skin Other: Warm dry no rash Neuro General: patient oriented x3, gait normal, no focal motor deficits and CN's II- XI intact bilaterally Psych Other: Cooperative Medications Administered Discontinued Medications Generic Name Dose Route Start Last Admin Trade Name Dionne PRN Reason Stop Dose Admin Potassium Chloride 40 meq 12/03/24 17:39 12/03/24 17:43 Potassium Chloride Packet 20 Meq Packet PO 12/03/24 17:40 40 meq ONCE ONE Administration Medical Decision Making Medical Decision Making [facility] Narrative: 64-year-old male with a history of alcohol abuse, COPD asthma overlap syndrome, hypertension, ? coronary artery disease, thoracic aortic aneurysm and aortic stenosis, with a recent ICU admission for COPD exacerbation and hyponatremia, just discharged on November 28, presents with concern for hypoxia. Patient states he has VNA services to the home, they checked his oxygen and told him it was 88%. Patient was told to come into the emergency department for assessment. The patient denies chest pain, shortness of breath, new cough or cold symptoms, fever. Problem: Alcohol abuse, COPD/asthma overlap, vascular disease History: Per patient I have considered the following differential diagnoses: Asthma/COPD exacerbation, viral syndrome, pneumonia, bronchitis Plan: It appears the patient had inaccurate vitals taken in his home. He is 96% on room air here in the ER. He is asymptomatic, with an overall unremarkable exam. We will err on the side of caution and screen basic labs, viral panel, chest x-ray and EKG. I have independently reviewed the following tests: Labs: No leukocytosis, not anemic, potassium subtly low at 2.9, we will give 40 mEq of oral potassium, no additional electrolyte abnormality, Flu A positive, this is old EKG: A flutter, nonspecific T-wave abnormalities noted, rate of 78, QTC 449, Chest x-ray:Findings: Ovoid calcified nodule in the mid right lung consistent with calcified granuloma. No effusion or pneumothorax. No focal infiltrate. Moderate cardiomegaly. No acute fracture. IMPRESSION: 1. No acute findings. This document has been electronically signed by: Elliott Carnes MD on 12/03/2024 18:21:59 Lab Data 12/03/24 16:48 12/03/24 16:48 Labs: Lab Results 12/03/24 12/03/24 Range/Units 16:48 16:49 WBC 7.5 (4.8-10.8) X10*3/uL RBC 3.92 L (4.60-5.80) X10*6/uL Hgb 12.5 L (14.0-18.0) g/dl Hct 35.0 L (42.0-52.0) % MCV 89.3 (80.0-98.0) fL MCH 31.9 (27.0-33.0) pg MCHC 35.7 (31.0-36.0) g/dl RDW 12.3 (11.0-16.0) % Plt Count 376 D (160-400) X10*3/uL MPV 8.7 L (9.4-12.4) fL Immature Gran % (Auto) 0.4 (0.0-0.4) % Neut % (Auto) 69.1 (45-73) % Lymph % (Auto) 15.7 L (20-40) % Josephine % (Auto) 13.2 H (2-11) % Eos % (Auto) 1.3 (0-4) % Baso % (Auto) 0.3 (0-2) % Lymph # (Auto) 1.2 (1.2-4.9) X10*3/uL Josephine # (Auto) 1.0 (0.1-1.2) X10*3/uL Eos # (Auto) 0.1 (0.0-0.4) X10*3/uL Baso # (Auto) 0.0 (0.0-0.2) X10*3/uL Abs Immat Gran (auto) 0.03 (0.00-0.03) X10*3/uL Absolute Neuts (auto) 5.2 (2.0-8.3) x10*3/uL Absolute Nucleated RBC 0.000 (0.0-0.012) X10*3/uL Nucleated RBC % (auto) 0.0 (0.0-0.2) /100WBC Sodium 136 (135-145) mmol/L Potassium 2.9 L* (3.3-5.1) mmol/L Chloride 97 (96-108) mmol/L Carbon Dioxide 30 H (22-29) mmol/L Anion Gap 12 (12-20) BUN 18 H (9-16) mg/dL Creatinine 1.02 (0.5-1.4) mg/dL Estim Creat Clear Calc 90.6 Estimated GFR > 60 Random Glucose 100 (60-115) mg/dL Calcium 9.0 D (8.4-10.2) mg/dL Magnesium 2.2 (1.6-2.6) mg/dL Ethyl Alcohol < 10 mg/dL Influenza Type A (PCR) POSITIVE A (Negative) Influenza Type B (PCR) NEGATIVE (Negative) RSV RNA Qual (PCR) NEGATIVE (Negative) SARS-CoV-2 RNA (RT-PCR) NEGATIVE (Negative) Discharge Plan Discharge Clinical Impression: Acute hypokalemia Patient Disposition: Home, Self-Care Instructions: Hypokalemia (ED), Potassium Content of Foods List (ED) Additional Instructions: Overall all of your labs were normal, you were noted to have low potassium. See home care instructions. I have provided you with a list of foods to consume to make sure you maintain appropriate potassium levels. The chest x-ray is clear, you were still testing positive for influenza A. Follow up with your primary care provider next week. Prescriptions: No Action atenolol 100 mg tablet 100 mg PO DAILY Qty: 60 5RF atorvastatin 40 mg tablet 40 mg PO BEDTIME Qty: 90 3RF aspirin 81 mg tablet,delayed release (DR/EC) 81 mg PO DAILY Qty: 90 3RF montelukast 10 mg tablet 10 mg PO BEDTIME Qty: 90 1RF losartan 50 mg Tablet 100 mg PO DAILY Qty: 30 0RF folic acid 1 mg Tablet 1 mg PO DAILY Qty: 30 0RF thiamine mononitrate (vit B1) 100 mg Tablet 100 mg PO DAILY Qty: 30 0RF omeprazole 20 mg capsule,delayed release(DR/EC) 20 mg PO DAILY Qty: 30 0RF ipratropium-albuterol 0.5 mg-3 mg(2.5 mg base)/3 mL Solution For Nebulization 3 ml inhalation RQ4H WHILE AWAKE Qty: 90 0RF polyethylene glycol 3350 17 gram Powder In Packet 17 g PO DAILY Qty: 30 0RF albuterol sulfate 2.5 mg /3 mL (0.083 %) Solution For Nebulization 2.5 mg inhalation Q2H PRN (Reason: Shortness Of Breath/Wheezing) Qty: 90 0RF sennosides-docusate sodium [Senna Plus] 8.6-50 mg Tablet 2 tab PO BID Qty: 120 0RF oseltamivir [Tamiflu] 75 mg Capsule 75 mg PO Q12H Qty: 1 0RF Print Language: Upper Sorbian
[2024-12-03 17:39] LABS: Anion Gap 12 (12-20); Blood Urea Nitrogen 18 mg/dL (9-16); Carbon Dioxide 30 mmol/L (22-29); Chloride 97 mmol/L (96-108); Creatinine Clr Calc Pharmacy 90.6; Estimated Glomerular Filt Rate > 60; Glucose Random 100 mg/dL (60-115); Magnesium 2.2 mg/dL (1.6-2.6); Potassium 2.9 mmol/L (3.3-5.1); Sodium 136 mmol/L (135-145)
[2024-12-03] MEDS: Potassium Chloride Packet 20 MEQ PACKET 40 MEQ PO (17:43)
[2024-12-03 18:00] VITALS: BP 102/57; PULSE 65; RESP 18; TEMP 36.6; O2SAT 95
[2024-12-03 18:54] VITALS: PULSE 70; RESP 18; TEMP 36.8; O2SAT 96
[2024-12-03 18:55] VITALS: BP 102/57; PULSE 70; RESP 18; TEMP 36.8; O2SAT 96
== END 2024-12-03 18:56 | disposition home or self-care (01) ==
PROVIDERS: Physician Assistant Medical; Emergency Provider Emergency Medicine; PCP Nurse Practitioner Family
DX: E87.6 Hypokalemia (principal); J44.9 Chronic obstructive pulmonary disease, unspecified; R06.02 Shortness of breath; R94.31 Abnormal electrocardiogram [ECG] [EKG]; I10 Essential (primary) hypertension; I25.10 Atherosclerotic heart disease of native coronary artery without angina pectoris; Z51.81 Encounter for therapeutic drug level monitoring; Z03.818 Encounter for observation for suspected exposure to other biological agents ruled out
CPT/HCPCS: 0241U; 36415; 71045; 80048; 80307; 83735; 85025; 93005; 99283; 99284

== ENCOUNTER → 2024-12-03 16:37 | Outpatient (BNV) | payer OTHER, SELFPAY | PROVIDERS: Emergency Provider Emergency Medicine; PCP Nurse Practitioner Family; Visit Provider Radiology Diagnostic Radiology | DX: R06.02 Shortness of breath (principal) | CPT/HCPCS: 71045 ==

== ENCOUNTER 2024-12-07 09:13 | Outpatient (REF) | payer OTHER, SELFPAY ==
--- OUTSIDE RECORDS SUMMARY | 2024-12-07 09:52 | XMS_ITS | Patient Health Record ---
Author Organization [facility] Address [address] [place] [address] Care Team Providers Care Staff Research Associate Name Role Phone ADELA BORJAS Primary Care Provider Daniel Gottileb Jr [phone] ALLERGIES No Known Allergies REASON FOR REFERRAL [...] Problem Colon cancer screening (Z12.11) Active confirmed 132062577 Problem Encounter for other preprocedural examination (Z01.818) Active confirmed [id number] PLAN OF TREATMENT Future Test Test Name Order Date COLONOSCOPY 07/09/2023 Next Appt Details Provider Name:Daniel Dinah quevedo Jr, 01/31/2025 09:00:00 AM, [address], [address], [place], [address], Insurance Providers Payer Name Payer Address Payer Phone Subscriber Number Group Number Insured Name Patient Relationship to Insured Coverage Start Date Coverage End Date [employer] [address] [place] [phone] [id number] FITO ROSA Self - patient is the insured MEDICAL (GENERAL) HISTORY Medical History History ICD Code Hypertension Fatty liver Thoracic aortic aneurysm, 4.4 cm 02/09 Left ventricular hypertrophy, ejection f raction 55-60% on echo 06/10 Surgical History Surgery Date(Month/Year) Left inguinal hernia repair 2012
--- OUTSIDE RECORDS SUMMARY | 2024-12-07 09:52 | XMS_ITS ---
Author Organization [facility] Address [address] [place] [address] Care Team Providers Care Music Agent Name Role Phone ADELA BORJAS Primary Care Provider Matt Maria Jr, Daniel Aguirre REASON FOR VISIT cancel colonoscopy Encounters Encounter Location Date Provider Diagnosis [facility] [address] [place] [address] 09/01/2023 Daniel Maria Jr PLAN OF TREATMENT Next Appt Details Provider Name:Daniel quevedo Jr, 01/31/2025 09:00:00 AM, [address], [address], [place], [address],
--- OUTSIDE RECORDS SUMMARY | 2024-12-07 09:52 | XMS_ITS ---
Author Organization [facility] Address [address] [place] [address] Care Team Providers Care Subscription Clerk Name Role Phone ADELA BORJAS Primary Care Provider Matt Maria Jr, Daniel Aguirre REASON FOR VISIT Patient presents today for a colon screening Encounters Encounter Location Date Provider Diagnosis [facility] [address] [place] [phone] 08/18/2023 Daniel Maria Jr PLAN OF TREATMENT Next Appt Details Provider Name:Daniel quevedo Jr, 01/31/2025 09:00:00 AM, [address] [place] [address], [address], [place], [address],
--- OUTSIDE RECORDS SUMMARY | 2024-12-07 09:53 | XMS_ITS ---
Author Organization [facility] Address [address] [place] [address] Care Team Providers Care Wood Pattern Maker Name Role Phone ADELA BORJAS Primary Care Provider Daniel Gottlieb Jr REASON FOR VISIT screening Encounters Encounter Location Date Provider Diagnosis [facility] [address] [place], [place] [phone] 09/02/2023 Daniel Maria Jr PLAN OF TREATMENT Next Appt Details Provider Name:Daniel quevedo Jr, 01/31/2025 09:00:00 AM, [address], [address], [place], [address],
[2024-12-07 09:54] LABS: MANUAL DIFF FLAG NO
[2024-12-07 09:58] LABS: Basophils Percent Auto 0.7 % (0-2); Eosinophils Absolute Auto 0.1 X10*3/uL (0.0-0.4); Hematocrit 33.8 % (42.0-52.0); Hemoglobin 11.7 g/dl (14.0-18.0); Imm Gran Abs Auto 0.01 X10*3/uL (0.00-0.03); Imm Gran Pct Auto 0.2 % (0.0-0.4); Lymphocytes Absolute Auto 0.9 X10*3/uL (1.2-4.9); Mean Corpuscular HGB Conc 34.6 g/dl (31.0-36.0); Mean Corpuscular Hemoglobin 31.9 pg (27.0-33.0); Mean Corpuscular Volume 92.1 fL (80.0-98.0); Mean Platelet Volume 8.9 fL (9.4-12.4); Monocytes Absolute Auto 1.1 X10*3/uL (0.1-1.2); Monocytes Percent Auto 18.3 % (2-11); Neutrophils Absolute Auto 3.9 x10*3/uL (2.0-8.3); Neutrophils Percent Auto 64.8 % (45-73); Platelet Count 343 X10*3/uL (160-400); Red Blood Count 3.67 X10*6/uL (4.60-5.80); Red Cell Distribution Width 12.4 % (11.0-16.0)
[2024-12-07 10:52] LABS: Alanine Aminotransferase 56 U/L (0-40); Albumin Level 3.9 g/dL (3.5-5.0); Alkaline Phosphatase 91 U/L (39-117); Anion Gap 14 (12-20); Aspartate Amino Transferase 57 U/L (5-37); Bilirubin Total 1.5 mg/dL (0.0-1.0); Blood Urea Nitrogen 8 mg/dL (9-16); Calcium 9.1 mg/dL (8.4-10.2); Carbon Dioxide 26 mmol/L (22-29); Chloride 96 mmol/L (96-108); Estimated Glomerular Filt Rate > 60; Glucose Random 89 mg/dL (60-115); Potassium 3.1 mmol/L (3.3-5.1); Sodium 133 mmol/L (135-145); Total Protein 7.4 g/dL (6.5-8.0)
[2024-12-07 10:56] LABS: TSH reflex Free T4 1.14 uIU/mL (0.32-4.0)
== END 2024-12-07 09:14 | disposition home or self-care (01) ==
LOC: HO.HMGCLDS 09:13
PROVIDERS: PCP Nurse Practitioner Family; Visit Provider Nurse Practitioner Family
DX: J44.89 Other specified chronic obstructive pulmonary disease (principal); F10.10 Alcohol abuse, uncomplicated; I10 Essential (primary) hypertension
CPT/HCPCS: 36415; 80053; 84443; 85025

== ENCOUNTER 2024-12-09 07:10 | Outpatient (REF) | payer OTHER, SELFPAY ==
--- OUTSIDE RECORDS SUMMARY | 2024-12-09 07:12 | XMS_ITS ---
Author Organization [facility] Address [address] [place] [address] Care Team Providers Care Social Media Marketing Manager Name Role Phone ADELA BORJAS Primary Care Provider Matt Maria Jr, Daniel Aguirre REASON FOR VISIT Patient presents today for a colon screening Encounters Encounter Location Date Provider Diagnosis [facility] [address] [place] [address] 08/18/2023 Daniel Maria Jr PLAN OF TREATMENT Next Appt Details Provider Name:Daniel quevedo Jr, 01/31/2025 09:00:00 AM, [address] [place] [address], [address], [place], [address],
--- OUTSIDE RECORDS SUMMARY | 2024-12-09 07:12 | XMS_ITS | Patient Health Record ---
Author Organization [facility] Address [address] [place] [address] Care Team Providers Care Bag Printer Name Role Phone ADELA BORJAS Primary Care [...] Problem Colon cancer screening (Z12.11) Active confirmed [id number] Problem Encounter for other preprocedural examination (Z01.818) Active confirmed [id number] PLAN OF TREATMENT Future Test Test Name Order Date COLONOSCOPY 07/09/2023 Next Appt Details Provider Name:Daniel Dinah quevedo Jr, 01/31/2025 09:00:00 AM, [address], [address], [place], [address], Insurance Providers Payer Name Payer Address Payer Phone Subscriber Number Group Number Insured Name Patient Relationship to Insured Coverage Start Date Coverage End Date [facility] [address] [place] [phone] [id number] FITO ROSA Self - patient is the insured MEDICAL (GENERAL) HISTORY Medical History History ICD Code Hypertension Fatty liver Thoracic aortic aneurysm, 4.4 cm 02/09 Left ventricular hypertrophy, ejection f raction 55-60% on echo 06/10 Surgical History Surgery Date(Month/Year) Left inguinal hernia repair 2012
--- OUTSIDE RECORDS SUMMARY | 2024-12-09 07:12 | XMS_ITS ---
Author Organization [facility] Address [address] [place] [address] Care Team Providers Care Stock Supervisor Name Role Phone ADELA BORJAS Primary Care Provider Matt Maria Jr, Daniel Aguirre REASON FOR VISIT cancel colonoscopy Encounters Encounter Location Date Provider Diagnosis [facility] [address] [place] [address] 09/01/2023 Daniel Maria Jr PLAN OF TREATMENT Next Appt Details Provider Name:Daniel quevedo Jr, 01/31/2025 09:00:00 AM, [address], [address], [place], [address],
--- OUTSIDE RECORDS SUMMARY | 2024-12-09 07:13 | XMS_ITS ---
Author Organization [facility] Address [address] [place] [address] Care Team Providers Care Packing Machine Pilot Can Router Name Role Phone ADELA BORJAS Primary Care Provider Daniel Gottlieb Jr [phone] REASON FOR VISIT screening Encounters Encounter Location Date Provider Diagnosis [facility] Outpatient [address] [place], [place] [phone] 09/02/2023 Daniel Maria Jr PLAN OF TREATMENT Next Appt Details Provider Name:Daniel quevedo Jr, 01/31/2025 09:00:00 AM, [address], [address], [place], [address],
[2024-12-09 10:05] LABS: MANUAL DIFF FLAG NO
[2024-12-09 10:17] LABS: Appearance Urine Clear; Color Urine Dark Yellow; Glucose Urine UA Negative (Negative); Leukocyte Esterase Urine Negative (Negative); Nitrite Urine Negative (Negative); Urine Blood Negative (Negative); Urine Ketones Negative (Negative); Urine Protein Negative (Neg-Trace)
[2024-12-09 10:17] LABS: Basophils Percent Auto 0.8 % (0-2); Eosinophils Absolute Auto 0.1 X10*3/uL (0.0-0.4); Eosinophils Percent Auto 1.8 % (0-4); Hematocrit 32.3 % (42.0-52.0); Hemoglobin 11.1 g/dl (14.0-18.0); Imm Gran Abs Auto 0.01 X10*3/uL (0.00-0.03); Imm Gran Pct Auto 0.2 % (0.0-0.4); Lymphocytes Absolute Auto 0.9 X10*3/uL (1.2-4.9); Lymphocytes Percent Auto 17.4 % (20-40); Mean Corpuscular HGB Conc 34.4 g/dl (31.0-36.0); Mean Corpuscular Hemoglobin 31.9 pg (27.0-33.0); Mean Corpuscular Volume 92.8 fL (80.0-98.0); Mean Platelet Volume 9.3 fL (9.4-12.4); Monocytes Absolute Auto 0.8 X10*3/uL (0.1-1.2); Monocytes Percent Auto 16.6 % (2-11); Neutrophils Absolute Auto 3.1 x10*3/uL (2.0-8.3); Neutrophils Percent Auto 63.2 % (45-73); Platelet Count 294 X10*3/uL (160-400); Red Blood Count 3.48 X10*6/uL (4.60-5.80); Red Cell Distribution Width 12.5 % (11.0-16.0); White Blood Count 4.9 X10*3/uL (4.8-10.8)
[2024-12-09 10:24] LABS: Alanine Aminotransferase 41 U/L (0-40); Albumin Level 3.5 g/dL (3.5-5.0); Alkaline Phosphatase 86 U/L (39-117); Anion Gap 13 (12-20); Aspartate Amino Transferase 44 U/L (5-37); Bilirubin Total 1.2 mg/dL (0.0-1.0); Blood Urea Nitrogen 6 mg/dL (9-16); Calcium 8.6 mg/dL (8.4-10.2); Carbon Dioxide 27 mmol/L (22-29); Chloride 98 mmol/L (96-108); Estimated Glomerular Filt Rate > 60; Glucose Random 106 mg/dL (60-115); Iron 51 mcg/dL (45-160); Magnesium 1.6 mg/dL (1.6-2.6); Percent Iron Saturation 26 % (15-50); Potassium 3.5 mmol/L (3.3-5.1); Sodium 134 mmol/L (135-145); Total Iron Binding Capacity 194 mcg/dL (228-428); Total Protein 6.7 g/dL (6.5-8.0); Unsaturated Iron Binding 143 ug/dL
[2024-12-09 10:55] LABS: Folate 9.5 ng/mL (> or = 4.0); Vitamin B12 515 pg/mL (200-900)
== END 2024-12-09 07:11 | disposition home or self-care (01) ==
LOC: HO.HMGCLDS 07:10
PROVIDERS: PCP Nurse Practitioner Family; Visit Provider Nurse Practitioner Family
DX: I10 Essential (primary) hypertension (principal); F10.10 Alcohol abuse, uncomplicated; J44.89 Other specified chronic obstructive pulmonary disease; E87.6 Hypokalemia; E87.1 Hypo-osmolality and hyponatremia
CPT/HCPCS: 36415; 80053; 81003; 82607; 82746; 83540; 83735; 85025

== ENCOUNTER 2024-12-09 12:34 | Outpatient (AMB) | payer OTHER, SELFPAY ==
--- NOTE | 2024-12-09 12:52 | A.OFFPC_ITS ---
Vital Signs 12/09/24 12:54 12/09/24 13:59 12/09/24 14:27 Height 6 ft Weight 208 lb BMI 28.2 BP 180/90 H 144/84 H 144/80 H Blood Pressure Location Rt brachial Lt brachial Rt brachial Position Sitting Sitting Sitting Pulse 91 91 Pulse Source Pulse Oximeter Pulse Oximeter Temp 98.7 F Temp Source Oral Pulse Oximetry (%) 93 97 Oxygen Delivery Method Room Air Room Air Intake Visit Reasons: HDF Allergies bee pollen [bee stings] Allergy (Severe, Verified 12/03/24 16:45) Anaphylaxis Tobacco use date assessed: 11/11/24 Dental Screening Dental Screen Date: 11/11/24 HPI HDF HPI Details Chief Complaint Follow-up after hospitalization for altered mental status and influenza A infection. History of Present Illness The patient is a 64-year-old male presenting with a history of altered mental status following acute illness with influenza A. He was seen initially in the emergency department on November 22, 2024, with symptoms that included a nonproductive cough, shaking chills, and fatigue persisting for three days. His fianc? found him unresponsive, prompting emergency services to be called. Upon ER arrival, he appeared unresponsive to painful stimuli with coffee-ground emesis suggestive of potential gastrointestinal bleeding. Vital assessment showed significant hypoxemia with oxygen saturation between 60% and 70%, necessitating intubation. ? seizure due to hyponatremia vs etoh The patient's medical history is significant for aortic stenosis, thoracic aor tic aneurysm, coronary artery disease, pulmonary hypertension, alcohol use disorder, and essential hypertension. Laboratory findings indicated leukocytosis, mild anemia, severe hyponatremia (sodium level 107), metabolic acidemia, and elevated CPK and BNP levels. He had elevated liver enzymes, likely alcohol-related, and low ethanol level, indicating reduced alcohol intake during acute illness. He was suspected of having aspiration pneumonia, treated with intravenous antibiotics, and tested positive for influenza A. The patient underwent a CT scan, which revealed pulmonary artery dilation. Post-intubation, his condition was managed in the ICU after which, improvement allowed for extubation on November 23, 2024. Sodium levels showed a rising trend, improving from 107 to 134. Treatments included antiviral medication and management of severe hyponatremia attributed to beer potomania, discontinuation of hydrochlorothiazide, and supplementation with thiamine, folate, and multivitamins. In the step-down unit, his condition improved progressively, with a notable resolution of acute metabolic encephalopathy linked to severe hyponatremia. He remains under addiction medicine consultation with ongoing phenobarbital tapering to preempt alcohol withdrawal. Latest laboratory work indicates stable hemoglobin at 11.1, further normalizing sodium levels, decreasing liver enzyme trends, and bilirubin at 1.2. He reports nocturnal chills, but no gastrointestinal symptoms, while currently experiencing increased stress and anxiety related to occupational pressures. Cough present, i was told it is from the tube that was in my throat, and it will go away . Social History - Alcohol use disorder, previously consu diomedes up to 20 beers per day. - Occupation-related stress reported, in dicating recent high work demands. - Denied recent alcohol consumption over the past 15 days. Health Maintenance - Substance abuse counseling and interve ntion ongoing. - Monitoring of liver function tests in light of hepatic involvement in alcohol use disorder. - Control and cessation of alcohol intak e in relation to previous health complications. Review of Systems - Constitutional: Reports fatigue; denie s fever. - Respiratory: Denies current cough. - Gastrointestinal: Denies nausea and vo miting. - Neurological: Reports feeling stressed and anxious. - Musculoskeletal: Denies recent tremors . - Cardiac: Denies chest pain. Physical Exam General: Cooperative, healthy appearing, comfortable, no acute distress and well developed, cough (especially with speaking) Orientation: Patient oriented x3 Limitations: No limitations Head: Normal to inspection Ears: Hearing grossly normal bilaterally Nose: Normal external nose present Face and sinus: Normal facial exam Eyes: Appearance normal, both eyes and all related structures Neck: Normal visual inspection and Yes full ROM Respiratory: Faint crackles bilaterally at the bases, right greater than the left Cardiovascular: Faint systolic murmur noted. Regular rate and rhythm. Normal S1 and S2 GI: Normal to inspection. Soft to palpation and nontender Skin: No rashes or lesions noted Neuro: Patient oriented x3 Extremities: Normal to inspection Results - Labs: Leukocytosis at 11,800, mild ane basilio, low sodium at 107, elevated CPK at 1007, elevated BNP at 428. Ethanol level recorded at 12. - Tests and Diagnostics: CT scan reveali ng 3.6 cm dilation of the pulmonary artery; confirmed influenza A infection. Plan - Continue observation for signs of with drawal under addiction medicine guidance. - Adjust hypertension management with at enolol, aspirin, losartan, and Lipitor to address coronary artery disease and hypertension. - Monitor electrolyte levels, specifical ly sodium, to ensure continued normalization. - Administer thiamine, folate, and multi vitamins to address nutritional deficiencies related to chronic alcohol use. - Follow-up with respiratory therapy for potential residual effects of pneumonia. - Arrange for chest X-ray to evaluate pe rsistent respiratory symptoms with crackles noted on examination. -cont to abstain from ETOH. -cont to monitor BP at home Discussion Notes We discussed the patient's condition post-hospitalization for altered mental status exacerbated by influenza A and aspiration pneumonia. Treatment strategies were reviewed, emphasizing the necessity of continued abstinence from alcohol. The patient was informed of the candidacy for ongoing addiction medicine support and phenobarbital tapering for withdrawal. I reiterated the importance of adherence to prescribed medications for hypertension and coronary artery disease and counseled regarding lifestyle adjustments to manage stress and maintain health. It is crucial that the sodium levels are reassessed periodically to prevent recurrence of hyponatremia. Patient Instructions - Avoid alcohol consumption and adhere s trictly to addiction medicine guidance. - Continue taking prescribed medications , including atenolol, aspirin, losartan, and Lipitor. - Return for follow-up appointments to [facility] blood pressure, liver function, and sodium levels. - Seek medical attention if respiratory symptoms worsen or if altered mental status reoccurs. - Engage in stress-reduction techniques and maintain healthy lifestyle practices. - Incorporate hydration with sugar-free beverages and balanced nutrition to support recovery. 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 Questionnaire Thrive Questionnaire Date Thrive assessed: 11/11/24 I am a: Patient What is your living situation today?: I have a steady place to live Within the past 12 months, did the food you bought not last and you didn't have the money to get more?: Never true Within the past 12 months, did you worry whether your food would run out before you got money to buy more?: Never true Do you have trouble paying for medicines?: No Do you have trouble getting transportation to medical appointments?: No Do you have trouble paying your heating and electricity bill?: No Do you have trouble taking care of your child, family member or friend?: No Do you have trouble with day-to-day activities such as bathing, preparing meals, shopping, managing finances, etc.?: No Are you currently unemployed and looking for a job?: No Are you interested in more education?: No Please select the resources that you would like help with: None Currently or been in a relationship where the following occur: No concerns reported THRIVE Score: 0 JOSEPH-7 AMB Questionnaire JOSEPH-7 Date JOSEPH - 7 assessed: 11/11/24 Source: Developed by Drs. Bon Nelson, Zari Bojorquez, Timmy Duarte and colleagues, with an educational cary from [employer]. Physical exam (Primary Care) Vital Signs: Last Vital Signs Temp 98.7 F 12/09/24 12:54 Pulse 91 12/09/24 13:59 BP 144/80 H 12/09/24 14:27 Pulse Ox 97 12/09/24 13:59 Oxygen Delivery Method Room Air 12/09/24 13:59 BMI result Body Mass Index 28.2 Tobacco/Smoking Status: Tobacco use Status Tobacco use date assessed 11/11/24 12/09/24 12:57 Patient Tobacco Use Status Tobacco use Unknown 12/09/24 12:57 e-Cigarette/Vaping Use Never Used 12/09/24 12:57 Thrive Assessment: Date of Thrive Assessment Date Thrive assessed 11/11/24 12/09/24 12:57 Currently or been in a relationship where the following occur: No concerns reported Coding Level of Care Code Est Pt Level 4 (90973) Diagnoses COPD with hypoxia J44.9 ETOH abuse F10.10 Alcohol dependence F10.20 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 Altered mental status R41.82 Acute hyponatremia E87.1 Aspiration pneumonia J69.0 Acute hypoxic respiratory failure J96.01 Seizure R56.9 Influenza A J10.1 Cough R05.9 Assessment & Plan Assessment & Plan (1) COPD with hypoxia: Code(s): J44.9 - Chronic obstructive pulmonary disease, unspecified Category: Medical (2) ETOH abuse: Code(s): F10.10 - Alcohol abuse, uncomplicated Category: Social Hx (3) Alcohol dependence: Code(s): F10.20 - Alcohol dependence, uncomplicated Category: Medical (4) Asthma-COPD overlap syndrome: Code(s): J44.89 - Other specified chronic obstructive pulmonary disease Category: Medical (5) Altered mental status: Code(s): R41.82 - Altered mental status, unspecified Category: Medical (6) Acute hyponatremia: Code(s): E87.1 - Hypo-osmolality and hyponatremia Category: Medical (7) Aspiration pneumonia: Code(s): J69.0 - Pneumonitis due to inhalation of food and vomit Category: Medical (8) Acute hypoxic respiratory failure: Code(s): J96.01 - Acute respiratory failure with hypoxia Category: Medical (9) Seizure: Code(s): R56.9 - Unspecified convulsions Category: Medical (10) Influenza A: Code(s): J10.1 - Influenza due to other identified influenza virus with other respiratory manifestations Category: Medical (11) Cough: Code(s): R05.9 - Cough, unspecified Category: Medical Plan . Orders: Orders Complete Blood Count Auto Diff Today E87.1 - Hypo-osmolality and hyponatremia, F10.10 - Alcohol abuse, uncomplicated, F10.20 - Alcohol dependence, uncomplicated, J10.1 - Influenza due to other identified influenza virus with other respiratory manifestations, J44.89 - Other specified chronic obstructive pulmonary disease, J44.9 - Chronic obstructive pulmonary disease, unspecified, J69.0 - Pneumonitis due to inhalation of food and vomit, J96.01 - Acute respiratory failure with hypoxia, R41.82 - Altered mental status, unspecified, R56.9 - Unspecified convulsions Magnesium Today E87.1 - Hypo-osmolality and hyponatremia, F10.10 - Alcohol abuse, uncomplicated, F10.20 - Alcohol dependence, uncomplicated, J10.1 - Influenza due to other identified influenza virus with other respiratory manifestations, J44.89 - Other specified chronic obstructive pulmonary disease, J44.9 - Chronic obstructive pulmonary disease, unspecified, J69.0 - Pneumonitis due to inhalation of food and vomit, J96.01 - Acute respiratory failure with hypoxia, R41.82 - Altered mental status, unspecified, R56.9 - Unspecified convulsions XR chest 2V Today J44.9 - Chronic obstructive pulmonary disease, unspecified Comprehensive Met. Panel Today E87.1 - Hypo-osmolality and hyponatremia, F10.10 - Alcohol abuse, uncomplicated, F10.20 - Alcohol dependence, uncomplicated, J10.1 - Influenza due to other identified influenza virus with other respiratory manifestations, J44.89 - Other specified chronic obstructive pulmonary disease, J44.9 - Chronic obstructive pulmonary disease, unspecified, J69.0 - Pneumonitis due to inhalation of food and vomit, J96.01 - Acute respiratory failure with hypoxia, R41.82 - Altered mental status, unspecified, R56.9 - Unspecified convulsions
[2024-12-09 12:54] VITALS: BP 180/90; PULSE 91; TEMP 37.1; O2SAT 93; BMI 28.2
[2024-12-09 13:59] VITALS: BP 144/84; PULSE 91; O2SAT 97
[2024-12-09 14:27] VITALS: BP 144/80
== END 2024-12-09 15:10 | disposition home or self-care (01) ==
PROVIDERS: PCP Nurse Practitioner Family; Visit Provider Nurse Practitioner Family
DX: J44.9 Chronic obstructive pulmonary disease, unspecified (principal); F10.10 Alcohol abuse, uncomplicated; F10.20 Alcohol dependence, uncomplicated; J44.89 Other specified chronic obstructive pulmonary disease; R41.82 Altered mental status, unspecified; E87.1 Hypo-osmolality and hyponatremia; J69.0 Pneumonitis due to inhalation of food and vomit; J96.01 Acute respiratory failure with hypoxia; R56.9 Unspecified convulsions; J10.1 Influenza due to other identified influenza virus with other respiratory manifestations; R05.9 Cough, unspecified

== ENCOUNTER 2024-12-10 08:18 | Outpatient (REF) | payer OTHER, SELFPAY ==
--- NOTE | ~2024-12-10 | XR_ITS ---
CLINICAL HISTORY: J44.9 - Chronic obstructive pulmonary disease, unspecified 2 view chest x-ray Comparison: None Findings: Moderate patchy airspace opacity at the left lung base. Normal size heart. No acute fracture. IMPRESSION: Left lung base pneumonia. Continued plain film follow-up is recommended to ensure resolution, and to exclude underlying neoplasm. This document has been electronically signed by: Eda Hicks MD on 12/10/2024 13:23:02
--- OUTSIDE RECORDS SUMMARY | 2024-12-10 08:27 | XMS_ITS ---
Author Organization [facility] Address [address] [place] [address] Care Team Providers Care Progress Developer Name Role Phone ADELA BORJAS Primary Care Provider Matt Maria Jr, Daniel Aguirre [phone] REASON FOR VISIT cancel colonoscopy Encounters Encounter Location Date Provider Diagnosis [facility] [address] [place] [address] 09/01/2023 Daniel Maria Jr PLAN OF TREATMENT Next Appt Details Provider Name:Daniel quevedo Jr, 01/31/2025 09:00:00 AM, [address], [address], [place], [address],
--- OUTSIDE RECORDS SUMMARY | 2024-12-10 08:27 | XMS_ITS ---
Author Organization [facility] Address [address] [place] [address] Care Team Providers Care Transcription Coordinator Name Role Phone ADELA BORJAS Primary Care Provider Matt Maria Jr, Daniel Aguirre REASON FOR VISIT Patient presents today for a colon screening Encounters Encounter Location Date Provider Diagnosis [facility] [address] [place] [id number] 08/18/2023 Daniel Maria Jr PLAN OF TREATMENT Next Appt Details Provider Name:Daniel quevedo Jr, 01/31/2025 09:00:00 AM, [address] [place] [address], [address], [place], [address],
--- OUTSIDE RECORDS SUMMARY | 2024-12-10 08:27 | XMS_ITS | Patient Health Record ---
Author Organization [facility] Address [address] [place] [address] Care Team Providers Care Sweater Operator Name Role Phone ADELA BORJAS Primary Care Provider Daniel Gottlieb Jr [phone] ALLERGIES No Known Allergies REASON FOR REFERRAL [...] Problem Colon cancer screening (Z12.11) Active confirmed [id number] Problem Encounter for other preprocedural examination (Z01.818) Active confirmed [id number] PLAN OF TREATMENT Future Test Test Name Order Date COLONOSCOPY 07/09/2023 Next Appt Details Provider Name:Daniel Dinah quevedo Jr, 01/31/2025 09:00:00 AM, [address], [address], [place], [address], Insurance Providers Payer Name Payer Address Payer Phone Subscriber Number Group Number Insured Name Patient Relationship to Insured Coverage Start Date Coverage End Date [facility] [address] [place] [phone] [id number] FITO ROSA Self - patient is the insured MEDICAL (GENERAL) HISTORY Medical History History ICD Code Hypertension Fatty liver Thoracic aortic aneurysm, 4.4 cm 02/09 Left ventricular hypertrophy, ejection f raction 55-60% on echo 06/10 Surgical History Surgery Date(Month/Year) Left inguinal hernia repair 2012
--- OUTSIDE RECORDS SUMMARY | 2024-12-10 08:28 | XMS_ITS ---
Author Organization [facility] Address [address] [place] [address] Care Team Providers Care Automation Control Technician Name Role Phone ADELA BORJAS Primary Care Provider Daniel Gottlieb Jr REASON FOR VISIT screening Encounters Encounter Location Date Provider Diagnosis [facility] [place] [facility] [address] [place], [place] [phone] 09/02/2023 Daniel Maria Jr PLAN OF TREATMENT Next Appt Details Provider Name:Daniel quevedo Jr, 01/31/2025 09:00:00 AM, [address], [address], [place], [address],
== END 2024-12-10 08:19 | disposition home or self-care (01) ==
LOC: HO.HMGCX 08:18
PROVIDERS: PCP Nurse Practitioner Family; Visit Provider Nurse Practitioner Family
DX: J44.9 Chronic obstructive pulmonary disease, unspecified (principal)
CPT/HCPCS: 71046

== ENCOUNTER → 2024-12-10 08:38 | Outpatient (BNV) | payer OTHER, SELFPAY | PROVIDERS: PCP Nurse Practitioner Family; Visit Provider Radiology Diagnostic Radiology | DX: J44.9 Chronic obstructive pulmonary disease, unspecified (principal) | CPT/HCPCS: 71046 ==

== ENCOUNTER 2024-12-14 09:10 | Outpatient (AMB) | payer OTHER, SELFPAY ==
--- NOTE | 2024-12-14 09:22 | A.OFFVIS_ITS ---
Vital Signs 12/14/24 09:23 Height 6 ft Weight 203 lb BMI 27.5 Pulse 110 H Pulse Source Pulse Oximeter Pulse Oximetry (%) 98 Oxygen Delivery Method Room Air Intake Visit Reasons: acute resp. failure with hypoxia([facility]) Rn Circulating Required: No Injection Moulding Machine Operator: Injection Moulding Machine Operator offered & declined Accompanied by: Self / Same As Patient Allergies bee pollen [bee stings] Allergy (Severe, Verified 12/14/24 09:28) Anaphylaxis Penicillins Allergy (Verified 12/14/24 09:28) hives Medication List - Last Reconciled 12/14/24 by Reva Brown, ESTHER albuterol sulfate 2.5 mg (3 mL) inhalation Q2H PRN amoxicillin-pot clavulanate 875-125 mg 1 tab PO BID 10 days aspirin 81 mg PO DAILY atenolol 100 mg PO DAILY atorvastatin 40 mg PO BEDTIME codeine-guaifenesin 10-100 mg/5 mL 5 mL PO Q6H PRN doxycycline hyclate 100 mg PO BID 10 days doxycycline hyclate 100 mg PO BID folic acid 1 mg PO DAILY ipratropium-albuterol 0.5 mg-3 mg(2.5 mg base)/3 mL 3 mL inhalation RQ4H WHILE AWAKE losartan 100 mg (2 x 50 mg) PO DAILY montelukast 10 mg PO BEDTIME omeprazole 20 mg PO DAILY oseltamivir (Tamiflu) 75 mg PO Q12H polyethylene glycol 3350 17 grams PO DAILY sennosides-docusate sodium 8.6-50 mg (Senna Plus) 2 tabs PO BID thiamine mononitrate (vit B1) 100 mg PO DAILY tizanidine 4 mg PO Q12H PRN 10 days HPI HPI acute resp. failure with hypoxia([facility]): Details: Mannie is a pleasant 64 year old male, never smoker, with underlying asthma COPD overlap, HTN, ascending aortic aneurysm, and mild aortic stenosis. At the last visit he continued to report dyspnea on exertion, initially placed on Arnuity however not covered by insurance. A prescription for Flovent was sent, patient was unaware of this. He did state that cardiology wanted him to avoid any NICOLE components due to AAA however Dr. Lorenzo stated that this information was not given by his office. Since the last visit, he was admitted to [facility] 11/22-11/29 with encephalopathy and acute respiratory failure secondary to influenza A and asthma exacerbation, found unresponsive by his significant other. On ER evaluation patient profoundly hypoxic requiring emergent intubation. Further laboratory workup revealed Influenza A and sodium level of 109. Patient was admitted to ICU and started on hypertonic saline initially with slow improvement in his sodium level and resolution of encephalopathy. He was extubated on 11/23 and treated with prednisone as well as Tamiflu. Shortly after discharge patient reported progressively worsening cough, CXR 12/03 negative for any acute findings, CXR 12/10 revealed LLL PNA, PCP placed on Doxycycline x 10 days. He continues to report dyspnea on exertion and persistent cough, doxycycline started this morning. He denies fevers, chills. 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 Review of Systems Const Denies chills, Denies excessive sweating, Denies fever(s), Denies headache(s) and Denies night sweats Eyes Denies dry eyes, Denies irritation and Denies itchy eyes ENT Reports Normal hearing present and Denies headache(s) Card Denies chest pain, Denies chest pain at rest, Denies chest pain with activity, Denies claudication, Denies leg edema, Denies orthopnea and Denies paroxysmal nocturnal dyspnea Resp Denies excessive phlegm production, Denies pain on inspiration, Denies pain with cough and Denies stridor Musc Denies myalgias Neuro Reports Normal hearing present and Denies headache(s) Endo Denies excessive sweating Kapil/Lymph Denies lymphadenopathy Aller/Immun Denies itchy eyes and Denies seasonal rhinorrhea Physical Exam Vital Signs: Last Vital Signs Pulse 110 H 12/14/24 09:23 Pulse Ox 98 12/14/24 09:23 Oxygen Delivery Method Room Air 12/14/24 09:23 BMI result Body Mass Index 27.5 Const General: cooperative, healthy appearing, comfortable, no acute distress, well developed and alert Nutritional Appearance: obese Orientation/consciousness: patient oriented x3 Limitations: no limitations HEENT Head: Yes normal to inspection, Yes normocephalic and Yes atraumatic Ears: hearing grossly normal bilaterally and external ears normal Eyes General: appearance normal, both eyes and all related structures Eyelids: Yes eyelids normal Sclerae: sclerae normal EOM: EOMs intact bilaterally Neck Neck: Yes normal visual inspection and Yes no lymphadenopathy Lymphatic: no lymphadenopathy noted Chest Chest palpation & inspection: normal inspection of the chest Resp Other: dry cough throughout visit Effort & Inspection: normal respiratory effort, able to speak in complete sentences, no audible wheezes, Actively coughing, no stridor, not tachypneic, no tripod positioning and no use of accessory muscles Auscultation: crackles (faint inspiratory right > left) and diminished lung sounds Cardio Jugular venous distension: no JVD Rate: regular rate Rhythm: regular rhythm Skin Other: warm, dry General skin exam: no rashes or lesions noted Neuro General: patient oriented x3 Cranial nerves: Yes Normal hearing present Cognition (Neuro): normal cognition Gait exam (Neuro): Normal gait present Extrem General: Yes normal to inspection, Yes capillary refill normal, Yes no clubbing, cyanosis or edema and Yes no pedal edema Psych Appearance: grossly normal and well kempt Speech and movement: Normal speech and movement present and Clear speech present Affect: normal affect Attitude: cooperative Thought process: Normal thought process present Thought content: Normal thought content present Insight: Good insight present (Psych) Judgement: Good judgement present (Psych) Assessment & Plan Assessment & Plan (1) Asthma-COPD overlap syndrome: Code(s): J44.89 - Other specified chronic obstructive pulmonary disease Category: Medical (2) Dyspnea on exertion: Code(s): R06.09 - Other forms of dyspnea Category: Medical (3) Pneumonia: Code(s): J18.9 - Pneumonia, unspecified organism Category: Medical Plan Mannie presents with bronchitic symptoms, recent CXR revealed PNA and PCP placed on doxycycline. He is aware to call if symptoms worsen otherwise will obtain CXR in 6 weeks to assess resolution of PNA. Flovent not covered by insurance, will trial Qvar. Advised patient to call if unable to obtain. All questions were answered and patient is in agreement of plan. Will follow-up in 6-8 weeks or sooner if needed. Orders: Orders XR chest 2V 6 Weeks J18.9 - Pneumonia, unspecified organism Medications: New fluticasone propionate 110 mcg/actuation administer with spacer 2 puffs inhalation BID 12 grams 3RF Discontinued amoxicillin-pot clavulanate 875-125 mg Discontinued Reason: Doctor's Order 1 tab PO BID 10 days 20 tabs 0RF Coding Level of Care Code Est Pt Level 4 (24269) Complex EM visit Add On G2211 Diagnoses 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 Dyspnea on exertion R06.09 Pneumonia J18.9
[2024-12-14 09:23] VITALS: PULSE 110; O2SAT 98; BMI 27.5
--- OUTSIDE RECORDS SUMMARY | 2024-12-14 10:00 | XMS_ITS ---
Author Organization [facility] Address [address] [place] [address] Care Team Providers Care Disc Ruler Operator Name Role Phone ADELA BORJAS Primary Care Provider Matt Maria Jr, Daniel Aguirre [phone] REASON FOR VISIT Patient presents today for a colon screening Encounters Encounter Location Date Provider Diagnosis [facility] [address] [place] [address] 08/18/2023 Daniel Maria Jr PLAN OF TREATMENT Next Appt Details Provider Name:Daniel quevedo Jr, 01/31/2025 09:00:00 AM, [address] [place] [address], [address], [place], [address],
--- OUTSIDE RECORDS SUMMARY | 2024-12-14 10:01 | XMS_ITS | Patient Health Record ---
Author Organization [facility] Address [address] [place] [address] Care Team Providers Care Patient Accounting Representative Name Role Phone ADELA BORJAS Primary Care [...] Problem Colon cancer screening (Z12.11) Active confirmed 241363205 Problem Encounter for other preprocedural examination (Z01.818) Active confirmed [id number] PLAN OF TREATMENT Future Test Test Name Order Date COLONOSCOPY 07/09/2023 Next Appt Details Provider Name:Daniel Dinah quevedo Jr, 01/31/2025 09:00:00 AM, [address], [address], [place], [address], Insurance Providers Payer Name Payer Address Payer Phone Subscriber Number Group Number Insured Name Patient Relationship to Insured Coverage Start Date Coverage End Date [facility] [address] [place] [phone] [id number] FITO ROSA Self - patient is the insured MEDICAL (GENERAL) HISTORY Medical History History ICD Code Hypertension Fatty liver Thoracic aortic aneurysm, 4.4 cm 02/09 Left ventricular hypertrophy, ejection f raction 55-60% on echo 06/10 Surgical History Surgery Date(Month/Year) Left inguinal hernia repair 2012
--- OUTSIDE RECORDS SUMMARY | 2024-12-14 10:01 | XMS_ITS ---
Author Organization [facility] Address [address] [place] [address] Care Team Providers Care Director Of Corporate Sales Name Role Phone ADELA BORJAS Primary Care Provider Matt Maria Jr, Daniel Aguirre REASON FOR VISIT cancel colonoscopy Encounters Encounter Location Date Provider Diagnosis [facility] [address] [place] [address] 09/01/2023 Daniel Maria Jr PLAN OF TREATMENT Next Appt Details Provider Name:Daniel quevedo Jr, 01/31/2025 09:00:00 AM, [address], [address], [place], [address],
--- OUTSIDE RECORDS SUMMARY | 2024-12-14 10:01 | XMS_ITS ---
Author Organization [facility] Address [address] [place] [address] Care Team Providers Care Gauge And Weigh Machine Operator Name Role Phone ADELA BORJAS Primary Care Provider Daniel Gottlieb Jr [phone] REASON FOR VISIT screening Encounters Encounter Location Date Provider Diagnosis [facility] [place] [address] [place], [place] [phone] 09/02/2023 Daniel Maria Jr PLAN OF TREATMENT Next Appt Details Provider Name:Daniel quevedo Jr, 01/31/2025 09:00:00 AM, [address], [address], [place], [address],
== END 2024-12-14 10:19 | disposition home or self-care (01) ==
PROVIDERS: PCP Nurse Practitioner Family; Visit Provider Nurse Practitioner Family
DX: J44.89 Other specified chronic obstructive pulmonary disease (principal); R06.09 Other forms of dyspnea; J18.9 Pneumonia, unspecified organism
CPT/HCPCS: 99214

== ENCOUNTER 2024-12-17 07:03 | Outpatient (REF) | payer OTHER, SELFPAY ==
--- OUTSIDE RECORDS SUMMARY | 2024-12-17 07:05 | XMS_ITS ---
Author Organization [facility] Address [address] [place] [address] Care Team Providers Care Electrical Wiring Lineman Name Role Phone ADELA BORJAS Primary Care Provider Matt Maria Jr, Daniel Aguirre [phone] REASON FOR VISIT Patient presents today for a colon screening Encounters Encounter Location Date Provider Diagnosis [facility] [address] [place] [phone] 08/18/2023 Daniel Maria Jr PLAN OF TREATMENT Next Appt Details Provider Name:Daniel quevedo Jr, 01/31/2025 09:00:00 AM, [address] [place] [address], [address], [place], [address],
--- OUTSIDE RECORDS SUMMARY | 2024-12-17 07:06 | XMS_ITS | Patient Health Record ---
Author Organization [facility] Address [address] [place] [address] Care Team Providers Care Lathe Hand Name Role Phone ADELA BORJAS Primary Care [...] Problem Colon cancer screening (Z12.11) Active confirmed 896073965 Problem Encounter for other preprocedural examination (Z01.818) Active confirmed [id number] PLAN OF TREATMENT Future Test Test Name Order Date COLONOSCOPY 07/09/2023 Next Appt Details Provider Name:Daniel Dinah quevedo Jr, 01/31/2025 09:00:00 AM, [address], [address], [place], [address], Insurance Providers Payer Name Payer Address Payer Phone Subscriber Number Group Number Insured Name Patient Relationship to Insured Coverage Start Date Coverage End Date [facility] [address] [place] [phone] [id number] FITO ROSA Self - patient is the insured MEDICAL (GENERAL) HISTORY Medical History History ICD Code Hypertension Fatty liver Thoracic aortic aneurysm, 4.4 cm 02/09 Left ventricular hypertrophy, ejection f raction 55-60% on echo 06/10 Surgical History Surgery Date(Month/Year) Left inguinal hernia repair 2012
--- OUTSIDE RECORDS SUMMARY | 2024-12-17 07:06 | XMS_ITS ---
Author Organization [facility] Address [address] [place] [address] Care Team Providers Care Staff Reporter Name Role Phone ADELA BORJAS Primary Care Provider Matt Maria Jr, Daniel Aguirre REASON FOR VISIT cancel colonoscopy Encounters Encounter Location Date Provider Diagnosis [facility] [address] [place] [address] 09/01/2023 Daniel Maria Jr PLAN OF TREATMENT Next Appt Details Provider Name:Daniel quevedo Jr, 01/31/2025 09:00:00 AM, [address], [address], [place], [address],
--- OUTSIDE RECORDS SUMMARY | 2024-12-17 07:06 | XMS_ITS ---
Author Organization [facility] Address [address] [place] [address] Care Team Providers Care Retail Sales Consultant Name Role Phone ADELA BORJAS Primary Care Provider Daniel Gottlieb Jr REASON FOR VISIT screening Encounters Encounter Location Date Provider Diagnosis [facility] Out[facility] [address] [place], [place] [phone] 09/02/2023 Daniel Maria Jr PLAN OF TREATMENT Next Appt Details Provider Name:Daniel quevedo Jr, 01/31/2025 09:00:00 AM, [address], [address], [place], [address],
[2024-12-17 10:16] LABS: MANUAL DIFF FLAG NO
[2024-12-17 10:21] LABS: Basophils Percent Auto 0.4 % (0-2); Eosinophils Absolute Auto 0.2 X10*3/uL (0.0-0.4); Eosinophils Percent Auto 3.4 % (0-4); Hematocrit 32.7 % (42.0-52.0); Hemoglobin 11.2 g/dl (14.0-18.0); Imm Gran Abs Auto 0.02 X10*3/uL (0.00-0.03); Imm Gran Pct Auto 0.4 % (0.0-0.4); Lymphocytes Absolute Auto 0.9 X10*3/uL (1.2-4.9); Lymphocytes Percent Auto 20.1 % (20-40); Mean Corpuscular HGB Conc 34.3 g/dl (31.0-36.0); Mean Corpuscular Volume 93.4 fL (80.0-98.0); Mean Platelet Volume 8.7 fL (9.4-12.4); Monocytes Absolute Auto 0.6 X10*3/uL (0.1-1.2); Monocytes Percent Auto 13.3 % (2-11); Neutrophils Absolute Auto 2.9 x10*3/uL (2.0-8.3); Neutrophils Percent Auto 62.4 % (45-73); Platelet Count 213 X10*3/uL (160-400); Red Cell Distribution Width 12.4 % (11.0-16.0); White Blood Count 4.7 X10*3/uL (4.8-10.8)
[2024-12-17 10:45] LABS: Alanine Aminotransferase 19 U/L (0-40); Albumin Level 3.3 g/dL (3.5-5.0); Alkaline Phosphatase 80 U/L (39-117); Anion Gap 10 (12-20); Aspartate Amino Transferase 29 U/L (5-37); Bilirubin Total 0.9 mg/dL (0.0-1.0); Blood Urea Nitrogen 6 mg/dL (9-16); Calcium 8.7 mg/dL (8.4-10.2); Carbon Dioxide 25 mmol/L (22-29); Chloride 104 mmol/L (96-108); Estimated Glomerular Filt Rate > 60; Glucose Random 90 mg/dL (60-115); Magnesium 1.6 mg/dL (1.6-2.6); Potassium 3.5 mmol/L (3.3-5.1); Sodium 135 mmol/L (135-145); Total Protein 6.6 g/dL (6.5-8.0)
== END 2024-12-17 07:04 | disposition home or self-care (01) ==
LOC: HO.HMGCLDS 07:03
PROVIDERS: PCP Nurse Practitioner Family; Visit Provider Nurse Practitioner Family
DX: J44.9 Chronic obstructive pulmonary disease, unspecified (principal); J44.89 Other specified chronic obstructive pulmonary disease; J69.0 Pneumonitis due to inhalation of food and vomit; J96.01 Acute respiratory failure with hypoxia; J10.1 Influenza due to other identified influenza virus with other respiratory manifestations; F10.20 Alcohol dependence, uncomplicated; R41.82 Altered mental status, unspecified; E87.1 Hypo-osmolality and hyponatremia; R56.9 Unspecified convulsions
CPT/HCPCS: 36415; 80053; 83735; 85025

== ENCOUNTER 2024-12-22 11:45 | Outpatient (REF) | payer OTHER, SELFPAY ==
--- NOTE | ~2024-12-22 | XR_ITS ---
EXAMINATION: XR CHEST CLINICAL INFORMATION: R05.9 - Cough, unspecified COMPARISON: December 10, 2024. TECHNIQUE: 2 views of the chest were obtained. FINDINGS: Pulmonary reticular pattern indistinct margins in the left perihilar region. No pneumothorax. No pleural effusion. Heart size is normal. Multilevel thoracic spondylosis, mild. XR/XR chest 2V IMPRESSION: Consider chronic interstitial lung disease with superimposed acute small airway inflammatory disease. Electronically signed by: Catrachito Phoenix MD 12/22/2024 02:35 PM EST
== END 2024-12-22 11:46 | disposition home or self-care (01) ==
LOC: HO.HMGCX 11:45
PROVIDERS: PCP Nurse Practitioner Family; Visit Provider Physician Assistant
DX: R22.43 Localized swelling, mass and lump, lower limb, bilateral (principal); R05.9 Cough, unspecified
CPT/HCPCS: 71046

== ENCOUNTER 2024-12-22 11:45 | Outpatient (AMB) | payer OTHER, SELFPAY ==
[2024-12-22 11:52] VITALS: BP 150/90; PULSE 112; TEMP 36.4; O2SAT 98; BMI 27.5
--- NOTE | 2024-12-22 11:52 | MHC.OFFWIV ---
Intake Vital Signs 12/22/24 11:52 Height 6 ft Weight 203 lb BMI 27.5 BP 150/90 H Blood Pressure Location Lt brachial Position Sitting Pulse 112 H Pulse Source Pulse Oximeter Temp 97.5 F Temp Source Oral Pulse Oximetry (%) 98 Oxygen Delivery Method Room Air Intake Visit Reasons: EP bilat leg swelling/pain Patient Tobacco Use Status: Never used Tobacco Allergies bee pollen [bee stings] Allergy (Severe, Verified 12/22/24 11:57) Anaphylaxis Penicillins Allergy (Verified 12/22/24 11:57) hives cefuroxime Allergy (Intermediate, Uncoded 12/21/24 08:15) Swelling Do you need a note to return to daycare/school/sports/work: No HPI HPI Comments History of Present Illness Details History of Present Illness - The patient is a 64-year-old male presenting with persistent edema of the lower extremities and follow-up on pneumonia. - Previously collapsed at home on 11/22 and required ICU care for hyponatremia with influenza infection, leading to intubation and mechanical ventilation. - Hypokalemia was noted during ER evaluation on 12/03, after discharge, managed with oral potassium supplementation. - Post discharge, treated by PCP for possible bacterial pneumonia with initial hypothesis of viral infection, with sorting grapple operator involvement for long-term management. cefuroxime treatment ceased due to allergic reaction culminating in severe leg edema. - C/o ongoing leg edema Physical Exam General: Cooperative, healthy appearing, comfortable, no acute distress and well developed Orientation: Patient oriented x3 Limitations: No limitations Head: Normal to inspection Ears: Hearing grossly normal bilaterally Nose: Normal external nose present Face and sinus: Normal facial exam Eyes: Appearance normal, both eyes and all related structures Neck: Normal visual inspection and Yes full ROM Respiratory: Normal respiratory effort and able to speak in complete sentences. Clear to auscultation bilaterally Cardiovascular: Regular rate and rhythm. Normal S1 and S2. Skin: No rashes or lesions noted Neuro: Patient oriented x3 Extremities: bilateral 1+ pitting edema in lower extremities COUNTS INCLUDE 234 BEDS AT THE [facility] Medical History Aortic stenosis Alcohol dependence HTN (hypertension) Thoracic aortic aneurysm Surgical History Hx of left inguinal hernia repair Social History (Updated 12/14/24 @ 09:32 by Reva Brown LPN) Household Members: Unknown / Unable to assess Housing: Unknown / Unable to assess Alcohol intake: current Patient Tobacco Use Status: Never used Tobacco e-Cigarette/Vaping Use: Never Used Second Hand Smoke Exposure: No Advance Directives Date on File: 11/30/24 service: No Current occupational status: employed 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 Review of Systems Const All systems reviewed & are unremarkable except as noted in HPI and below Physical Exam Vital Signs: Last Vital Signs Temp 97.5 F 12/22/24 11:52 Pulse 112 H 12/22/24 11:52 BP 150/90 H 12/22/24 11:52 Pulse Ox 98 12/22/24 11:52 Oxygen Delivery Method Room Air 12/22/24 11:52 BMI result Body Mass Index 27.5 Assessment & Plan Assessment & Plan (1) Localized swelling of both lower legs: Code(s): R22.43 - Localized swelling, mass and lump, lower limb, bilateral Plan: The treatment plan involves performing a chest x-ray to corroborate the resolution of pneumonia as per last CXR recommendation and identify any alternative factors related to edema and tachycardia. Spoke with pt's PCP, Daniel Steven NP, he asked we start a diuretic regimen using hydrochlorothiazide has been recommended to control fluid overload and lower blood pressure, with instructions to monitor for resulting electrolyte disturbances. The patient is instructed to undergo laboratory tests seven days post-diuretic initiation for electrolyte assessment. They have been counseled on hydration, electrolyte balance, and recognizing significant symptom changes that warrant further medical evaluation. This plan is tailored to address identified physical findings and incorporates ongoing management needs for potential lingering respiratory and cardiovascular concerns following prior illness. Patient was informed and verbally consented to the use of an ambient scribe for clinic note documentation during this visit. Orders: Orders XR chest 2V Today R05.9 - Cough, unspecified Medications: New hydrochlorothiazide 12.5 mg PO QAM 30 tabs 0RF Coding Level of Care Code Est Pt Level 4 (79066) Diagnoses Localized swelling of both lower legs R22.43
--- OUTSIDE RECORDS SUMMARY | 2024-12-22 14:13 | XMS_ITS ---
Author Organization [facility] Address [address] [place] [address] Care Team Providers Care Securities Lending Trader Name Role Phone ADELA BORJAS Primary Care Provider Daniel Gottlieb Jr REASON FOR VISIT Patient presents today for a colon screening Encounters Encounter Location Date Provider Diagnosis [facility] [address] [place] [address] 08/18/2023 Daniel Maria Jr Plan Of Treatment Next Appt Details Provider Name:Daniel quevedo Jr, 01/31/2025 09:00:00 AM, [address], [address], [place], [address], Progress Notes * FITO ROSA BDOB:1960 (64 yo M)Acc No.[id number]:08/18/2023 Progress Notes Patient:?FITO ROSA Provider:?Daniel Maria MD :1960???Age:63 Y???Sex:Male Edin e:08/18/2023 Address:[address] [place] [address] [id number] Pcp:ADELA BORJAS Subjective: * Chief Complaints: * ???1. Patient presents today for a colon screening. * Medical History:? Objective: * Vitals:? Assessment: Plan: * Treatment: * * The named appointment provid er may or may not be the originator of this progress note, and it is not deemed complete until electronically signed by the appointment provider. Sign off status: Pending * Provider:?Daniel Maria MD Date:?1 Generated for Christal tran/Keith/Charlotte on:?12/22/2024 02:12 PM EST
--- OUTSIDE RECORDS SUMMARY | 2024-12-22 14:13 | XMS_ITS | Patient Health Record ---
Author Organization [facility] Address [address] [place] [address] Care Team Providers Care District Gauger Name Role Phone ADELA BORJAS Primary Care Provider Daniel Gottlieb Jr [phone] Allergies No Known Allergies Reason For Referral No Information Medications Medication SIG (Take, Route, Frequency, Duration) Notes [...] BY MOUTH DAILY Oral for 90 Active Immunizations Vaccine Route Administration Date Status Comme nts Influenza Unknown 07/09/2023 Refused Social History Tobacco Use: Social History Observation Description Date Details (start date - stop date) Never Smoker NA - NA Tobacco Use/Smoking Question Answer Notes Patient is [...] daily (4 points) Points 11 Interpretation Positive Problems Problem Type SNOMED Code ICD Code Onset Dates Problem Status W/U Status Risk Notes Problem 166246374 Colon cancer screening (Z12.11) Active confirmed Problem 485053711 Encounter for other preprocedural examination (Z01.818) Active confirmed Plan Of Treatment Future Test Test Name Order Date COLONOSCOPY 07/09/2023 Next Appt Details Provider Name:Daniel Dinah quevedo Jr, 01/31/2025 09:00:00 AM, [address], [address], [place], [address], Insurance Providers Payer Name Payer Address Payer Phone Subscriber Number Group Number Insured Name Patient Relationship to Insured Coverage Start Date Coverage End Date [facility] [address] [place] [place] [place] [phone] [id number] FITO ROSA Self - patient is the insured Medical (General) History Medical History History ICD Code Hypertension Fatty liver Thoracic aortic aneurysm, 4.4 cm 02/09 Left ventricular hypertrophy, ejection f raction 55-60% on echo 06/10 Surgical History Surgery Date(Month/Year) Left inguinal hernia repair 2012
--- OUTSIDE RECORDS SUMMARY | 2024-12-22 14:13 | XMS_ITS ---
Author Organization [facility] Address [address] [place] [address] Care Team Providers Care System Configuration Specialist Name Role Phone ADELA BORJAS Primary Care Provider Daniel Gottlieb Jr REASON FOR VISIT screening Encounters Encounter Location Date Provider Diagnosis [facility] Out[facility] [address] [place], [place] [phone] 09/02/2023 Daniel Maria Jr Plan Of Treatment Next Appt Details Provider Name:Daniel quevedo Jr, 01/31/2025 09:00:00 AM, [address], [address], [place], [address], Progress Notes * FITO ROSA BDOB:1960 (64 yo M)Acc No.[id number]:09/02/2023 COLON WITH MAC Patient:?FITO ROSA Provider:?Daniel Maria MD :1960???Age:63 Y???Sex:Male Edin e:09/02/2023 Address:[address] [place] [address] [id number] Pcp:ADELA BORJAS Subjective: * Chief Complaints: * ???1. Screening. * Medical History:? Objective: * Vitals:? Assessment: Plan: * Treatment: * * The named appointment provid er may or may not be the originator of this progress note, and it is not deemed complete until electronically signed by the appointment provider. Sign off status: Pending * Provider:?Daniel Maria MD Date:?11/02/2022 Generated for Christal tran/Keith/Charlotte on:?12/22/2024 02:13 PM EST
--- OUTSIDE RECORDS SUMMARY | 2024-12-22 14:13 | XMS_ITS ---
Author Organization [facility] Address [address] [place] [address] Care Team Providers Care Clam Picker Name Role Phone ADELA BORJAS Primary Care Provider Matt Maria Jr, Daniel Aguirre REASON FOR VISIT cancel colonoscopy Encounters Encounter Location Date Provider Diagnosis [facility] [address] [place] [address] 09/01/2023 Daniel Maria Jr Plan Of Treatment Next Appt Details Provider Name:Daniel quevedo Jr, 01/31/2025 09:00:00 AM, [address], [address], [place], [address], Progress Notes * FITO ROSA BDOB:1960 (63 yo M)Acc No.[id number]:09/01/2023 Patient:?FITO ROSA :1960???Age:63 Y???Sex:Male Address:[address] , [place] [address] * true * Date:? Generated for Rogelioi chelsea/Keith/eTransmitting on:?12/22/2024 02:13 PM EST
== END 2024-12-22 12:47 | disposition home or self-care (01) ==
PROVIDERS: PCP Nurse Practitioner Family; Visit Provider Physician Assistant
DX: R22.43 Localized swelling, mass and lump, lower limb, bilateral (principal)

== ENCOUNTER → 2024-12-22 12:28 | Outpatient (BNV) | payer OTHER, SELFPAY | PROVIDERS: PCP Nurse Practitioner Family; Visit Provider Radiology Diagnostic Radiology | DX: R05.9 Cough, unspecified (principal) | CPT/HCPCS: 71046 ==

== ENCOUNTER 2024-12-28 07:42 | Outpatient (AMB) | payer OTHER, SELFPAY ==
--- OUTSIDE RECORDS SUMMARY | 2024-12-28 07:46 | XMS_ITS ---
Author Organization [facility] Address [address] [place] [address] Care Team Providers Care Frame Aligner Name Role Phone ADELA BORJAS Primary Care Provider Matt Maria Jr, Daniel Aguirre [phone] REASON FOR VISIT cancel colonoscopy Encounters Encounter Location Date Provider Diagnosis [facility] [address] [place] [address] 09/01/2023 Daniel Maria Jr Plan Of Treatment Next Appt Details Provider Name:Daniel quevedo Jr, 01/31/2025 09:00:00 AM, [address], [address], [place], [address], Progress Notes * FITO ROSA BDOB:1960 (63 yo M)Acc No.[id number]:09/01/2023 Patient:?FITO ROSA :1960???Age:63 Y???Sex:Male Address:[address] , [place] [address] * true * Date:? Generated for Printi chelsea/Keith/eTransmitting on:?12/28/2024 07:46 AM EDT
--- OUTSIDE RECORDS SUMMARY | 2024-12-28 07:46 | XMS_ITS ---
Author Organization [facility] Address [address] [facility] [address] [place] [address] Care Team Providers Care Golf Club Weighter Name Role Phone ADELA BORJAS Primary Care Provider Daniel Gottlieb Jr [phone] REASON FOR VISIT Patient presents today for a colon screening Encounters Encounter Location Date Provider Diagnosis [facility] [address] [facility] [address] [place] [address] 08/18/2023 Daniel Maria Jr Plan Of Treatment Next Appt Details Provider Name:Daniel quevedo Jr, 01/31/2025 09:00:00 AM, [address] [facility], [address], [place], [address], Progress Notes * FITO ROSA BDOB:1960 (64 yo M)Acc No.[id number]:08/18/2023 Progress Notes Patient:?FITO ROSA Provider:?Daniel Maria MD :1960???Age:63 Y???Sex:Male Edin e:08/18/2023 Address:[address] [place] [address] [id number] Pcp:ADELA BORJAS Subjective: * Chief Complaints: * [...] Maria MD Date:?1 Generated for Christal tran/Keith/Charlotte on:?12/28/2024 07:46 AM EDT
--- OUTSIDE RECORDS SUMMARY | 2024-12-28 07:46 | XMS_ITS | Patient Health Record ---
Author Organization [facility] Address [address] [place] [address] Care Team Providers Care Manager Agriculture Name Role Phone ADELA BORJAS Primary Care Provider Daniel Gottlieb Jr Allergies No Known Allergies Reason For Referral [...] Problem Status W/U Status Risk Notes Problem 147288293 Colon cancer screening (Z12.11) Active confirmed Problem [id number] Encounter for other preprocedural examination (Z01.818) Active confirmed Plan Of Treatment Future Test Test Name Order Date COLONOSCOPY 07/09/2023 Next Appt Details Provider Name:Daniel Dinah quevedo Jr, 01/31/2025 09:00:00 AM, [address] [facility], [address], [place], [address], Insurance Providers Payer Name Payer Address Payer Phone Subscriber Number Group Number Insured Name Patient Relationship to Insured Coverage Start Date Coverage End Date [facility] [address] [place] [phone] [id number] FITO ROSA Self - patient is the insured Medical (General) History Medical History History ICD Code Hypertension Fatty liver Thoracic aortic aneurysm, 4.4 cm 02/09 Left ventricular hypertrophy, ejection f raction 55-60% on echo 06/10 Surgical History Surgery Date(Month/Year) Left inguinal hernia repair 2012
--- OUTSIDE RECORDS SUMMARY | 2024-12-28 07:47 | XMS_ITS ---
Author Organization [facility] Address [address] [facility] [address] [place] [address] Care Team Providers Care Household Assistant Name Role Phone ADELA BORJAS Primary Care Provider Daniel Gottlieb Jr REASON FOR VISIT screening Encounters Encounter Location Date Provider Diagnosis [facility] [address] [address] [place], [place] [id number] 09/02/2023 Daniel Maria Jr Plan Of Treatment Next Appt Details Provider Name:Daniel quevedo Jr, 01/31/2025 09:00:00 AM, [address] [facility], [address], [place], [address], Progress Notes * FITO RSOA BDOB:1960 (64 yo M)Acc No.[id number]:09/02/2023 COLON WITH MAC Patient:?FITO ROSA Provider:?Daniel Maria MD :1960???Age:63 Y???Sex:Male Edin e:09/02/2023 Address:[address] [place] [address] [id number] Pcp:ADELA BORJAS Subjective: * Chief Complaints: * ???1. Screening. * Medical History:? Objective: * Vitals:? Assessment: Plan: * Treatment: * * The named appointment provid er may or may not be the originator of this progress note, and it is not deemed complete until electronically signed by the appointment provider. Sign off status: Pending * Provider:?Daniel Maria MD Date:?11/02/2022 Generated for Christal tran/Keith/Johnitting on:?12/28/2024 07:46 AM PAIGET
[2024-12-28 07:48] VITALS: BP 90/52; PULSE 88; RESP 17; TEMP 36.6; O2SAT 99; BMI 26.6
--- NOTE | 2024-12-28 07:48 | A.OFFPC_ITS ---
Vital Signs 12/28/24 07:48 12/28/24 08:50 Height 6 ft Weight 196 lb BMI 26.6 BP 90/52 L 100/66 Blood Pressure Location Rt brachial Lt brachial Position Sitting Sitting Respiration 17 Pulse 88 Pulse Source Pulse Oximeter Temp 97.8 F Temp Source Oral Pulse Oximetry (%) 99 Oxygen Delivery Method Room Air Intake Visit Reasons: swelling in feet still/ok by Sly Intake Note: Pt is here today c/o bilateral feet swelling, no improvement Allergies bee pollen [bee stings] Allergy (Severe, Verified 12/28/24 08:29) Anaphylaxis Penicillins Allergy (Verified 12/28/24 08:29) hives cefuroxime Allergy (Intermediate, Uncoded 12/28/24 08:29) Swelling Medication List - Last Reconciled 12/28/24 by JULIOCESAR AcevedoP- aspirin 81 mg PO DAILY atenolol 100 mg PO DAILY atorvastatin 40 mg PO BEDTIME beclomethasone dipropionate 80 mcg/actuation (Qvar RediHaler) 1 inh inhalation Q12H codeine-guaifenesin 10-100 mg/5 mL 5 mL PO Q6H PRN epinephrine (EpiPen 2-Brenden) 0.3 mg (0.3 mL) IM Q10M PRN fluticasone propionate 110 mcg/actuation 2 puffs inhalation BID folic acid 1 mg PO DAILY furosemide 20 mg PO DAILY 7 days losartan 100 mg (2 x 50 mg) PO DAILY montelukast 10 mg PO BEDTIME omeprazole 20 mg PO DAILY polyethylene glycol 3350 17 grams PO DAILY sennosides-docusate sodium 8.6-50 mg (Senna Plus) 2 tabs PO BID thiamine mononitrate (vit B1) 100 mg PO DAILY tizanidine 4 mg PO Q12H PRN 10 days Tobacco use date assessed: 12/28/24 Dental Screening Dental Screen Date: 11/11/24 HPI swelling in feet still/ok by Sly HPI Details Chief Complaint The patient presents with complaints of significant bilateral lower extremity swelling. History of Present Illness The patient is a 64-year-old male presenting with persistent lower extremity edema (especially at the end of the day). He experienced a significant medical event involving acute hyponatremia, encephalopathy, and alcohol-related complications necessitating hospitalization, during which he was diagnosed and treated for Influenza A and subsequent bacterial pneumonia. Following extubation, he was found to have mild diastolic dysfunction and aortic stenosis. His usual COPD and asthma management are in place, though recent pneumonia may have exacerbated respiratory symptoms. Upon follow-up, the edema previously noted is persistent, likely aggravated by occupation-related prolonged standing. Medications including hydrochlorothiazide were initiated to control the swelling, but symptoms persist. Dietary habits high in sodium have been identified, prompting recommendations for dietary modification. He has abstained from alcohol, which is likely a positive factor in his recovery. Lab results have indicated normalization of previously abnormal sodium and potassium levels, with only a mild anemia persisting. Social History - The patient abstains from alcohol pres ently. - Employed in an occupation requiring pr olonged standing. - Consumes a diet high in processed meat s and sodium. Health Maintenance - Discussion regarding dietary sodium re duction and alternatives. - Current vaccinations and screenings we re not discussed in detail. Review of Systems - General: Reports intermittent chills. - Cardiovascular: Denies chest pain. - Respiratory: Denies shortness of breat h. Physical Exam General: Cooperative, healthy appearing, comfortable, no acute distress and well developed Orientation: Patient oriented x3 Limitations: No limitations Head: Normal to inspection Ears: Hearing grossly normal bilaterally Nose: Normal external nose present Face and sinus: Normal facial exam Eyes: Appearance normal, both eyes and all related structures Neck: Normal visual inspection and Yes full ROM Respiratory: Normal respiratory effort and able to speak in complete sentences. Clear to auscultation bilaterally Cardiovascular: Regular rate and rhythm. Normal S1 and S2 GI: Normal to inspection. Soft to palpation and nontender Skin: cracking left heel Neuro: Patient oriented x3 Extremities: Significant swelling by the end of the day in all extremities with some tenderness. Weak pedal pulses on the right side and absent on the left foot. Good capillary refill, though slightly delayed, closer to three seconds. trace edema to BLE Results - Labs: Recent labs show mild anemia. - Labs: Sodium and potassium levels have normalized. - Tests: Echocardiogram from February shows m ild diastolic dysfunction and aortic stenosis, repeat in near future, follow up with cardiology - Planned: Arterial and venous ultrasoun d for the bilateral extremities. Plan For managing the patient's bilateral lower extremity edema/weak PP, arterial and venous ultrasound testing will help assess potential vascular explanations for edema. With known past issues of hyponatremia and electrolyte disturbances now normalized, dietary modification focusing on sodium reduction is advised. The patient will continue his current medication, monitoring response to the diuretic. Although the mild anemia remains, it appears clinically stable without immediate symptomatic consequence. Continuous evaluation of the efficacy of these interventions is critical to ensure satisfactory symptom control. Follow up with cardiology, recommend labs at the end of this week, including BNP. BP is lower. Really emphasized importance of intake of fluids. will decrease atenolol to 50mg from 100mg and add the furosemide for now. Pt further reported weakness to BLE, i explained he was in the hospital for 11 days total, will still take time. Pt reported abstaining for etoh altogether. Discussion Notes I reviewed with the patient the ongoing management for his lower extremity edema, highlighting the importance of ultrasound evaluation to explore vascular causes of symptoms/findings. We discussed modifying his diet to include lower sodium alternatives to assist with fluid management (add more protein and less sodium based products). I emphasized the discontinuation of hydrochlorothiazide and outlined the potential for adjustments based on imaging and follow-up. Strategies to alleviate swelling, including leg elevation and footwear options, were recommended. We plan to re-evaluate based on ultrasound findings and effectiveness of dietary changes in the upcoming consultations. Finally, the potential need for further cardiac evaluation depending on the progression of symptoms was discussed. NOTE: after further eval, pt was dizzy. BP is low, referring to ER for at least fluids and eval. REPORT CALLED Patient Instructions -stop hctz, switching to furosemide (for a short duration) - Reduce intake of high-sodium foods, salmon ch as processed meats, eat lean protein. - Elevate legs when possible to reduce s welling. - Report any new symptoms, such as incre asing swelling, pain, or shortness of breath. - Follow up for scheduled ultrasounds an d laboratory tests. - Schedule a follow-up appointment to re view test results and treatment efficacy. 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 Questionnaire Thrive Questionnaire Date Thrive assessed: 11/11/24 I am a: Patient What is your living situation today?: I have a steady place to live Within the past 12 months, did the food you bought not last and you didn't have the money to get more?: Never true Within the past 12 months, did you worry whether your food would run out before you got money to buy more?: Never true Do you have trouble paying for medicines?: No Do you have trouble getting transportation to medical appointments?: No Do you have trouble paying your heating and electricity bill?: No Do you have trouble taking care of your child, family member or friend?: No Do you have trouble with day-to-day activities such as bathing, preparing meals, shopping, managing finances, etc.?: No Are you currently unemployed and looking for a job?: No Are you interested in more education?: No Please select the resources that you would like help with: None Currently or been in a relationship where the following occur: No concerns reported THRIVE Score: 0 JOSEPH-7 AMB Questionnaire JOSEPH-7 Date JOSEPH - 7 assessed: 11/11/24 Source: Developed by Drs. Bon Nelson, Zari Bojorquez, Timmy Duarte and colleagues, with an educational cary from [employer]. Physical exam (Primary Care) Vital Signs: Last Vital Signs Temp 97.8 F 12/28/24 07:48 Pulse 88 12/28/24 07:48 Resp 17 12/28/24 07:48 BP 90/52 L 12/28/24 07:48 Pulse Ox 99 12/28/24 07:48 Oxygen Delivery Method Room Air 12/28/24 07:48 BMI result Body Mass Index 26.6 Tobacco/Smoking Status: Tobacco use Status Tobacco use date assessed 12/28/24 12/28/24 07:58 Patient Tobacco Use Status Never used Tobacco 12/28/24 07:51 e-Cigarette/Vaping Use Never Used 12/28/24 07:51 Thrive Assessment: Date of Thrive Assessment Date Thrive assessed 11/11/24 12/28/24 07:51 Currently or been in a relationship where the following occur: No concerns reported Coding Level of Care Code Est Pt Level 4 (57432) Diagnoses Decreased pedal pulses R09.89 Localized swelling of both lower legs R22.43 Pneumonia J18.9 Hyponatremia E87.1 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 CAD (coronary artery disease) I25.10 Dizziness R42 Assessment & Plan Assessment & Plan (1) Decreased pedal pulses: Code(s): R09.89 - Other specified symptoms and signs involving the circulatory and respiratory systems Category: Medical (2) Localized swelling of both lower legs: Code(s): R22.43 - Localized swelling, mass and lump, lower limb, bilateral Category: Medical (3) Pneumonia: Code(s): J18.9 - Pneumonia, unspecified organism Category: Medical (4) Hyponatremia: Code(s): E87.1 - Hypo-osmolality and hyponatremia Category: Medical (5) Asthma-COPD overlap syndrome: Code(s): J44.89 - Other specified chronic obstructive pulmonary disease Category: Medical (6) CAD (coronary artery disease): Code(s): I25.10 - Atherosclerotic heart disease of [place] coronary artery without angina pectoris Category: Medical Plan: . (7) Dizziness: Code(s): R42 - Dizziness and giddiness Category: Medical Plan . Orders: Orders US arterial duplex LE BI Today R09.89 - Other specified symptoms and signs involving the circulatory and respiratory systems, R22.43 - Localized swelling, mass and lump, lower limb, bilateral US venous duplex LE BI Today R09.89 - Other specified symptoms and signs involving the circulatory and respiratory systems, R22.43 - Localized swelling, mass and lump, lower limb, bilateral Medications: New furosemide 20 mg PO DAILY 7 days 7 tabs 0RF Discontinued hydrochlorothiazide Discontinued Reason: Doctor's Order 12.5 mg PO QAM 30 tabs 0RF
[2024-12-28 08:50] VITALS: BP 100/66
== END 2024-12-28 08:50 | disposition home or self-care (01) ==
LOC: HO.HMCC 07:43
PROVIDERS: PCP Nurse Practitioner Family; Visit Provider Nurse Practitioner Family
DX: R09.89 Other specified symptoms and signs involving the circulatory and respiratory systems (principal); J44.89 Other specified chronic obstructive pulmonary disease; R22.43 Localized swelling, mass and lump, lower limb, bilateral; J18.9 Pneumonia, unspecified organism; E87.1 Hypo-osmolality and hyponatremia; I25.10 Atherosclerotic heart disease of native coronary artery without angina pectoris; R42 Dizziness and giddiness

== ENCOUNTER → 2024-12-28 07:42 | Outpatient (BNVA) | payer OTHER, SELFPAY | PROVIDERS: PCP Nurse Practitioner Family; Visit Provider Nurse Practitioner Family ==

== ENCOUNTER 2024-12-28 09:08 | Emergency (ER) | payer OTHER, SELFPAY ==
[2024-12-28] VITALS (12 sets, daily range): BP systolic 77–141; BP diastolic 53–80; PULSE 73–87; RESP 14–16; TEMP 36.2–36.5; O2SAT 96–100; BMI 26.5
--- NOTE | 2024-12-28 09:45 | ECG_ITS ---
Test Reason : dizziness Blood Pressure : */* mmHG Vent. Rate : 77 BPM Atrial Rate : 77 BPM P-R Int : 128 ms QRS Dur : 80 ms QT Int : 418 ms P-R-T Axes : 31 0 7 degrees QTcB Int : 473 ms Normal sinus rhythm Normal ECG No significant changes when compared with the previous EKG of 03 dec 2024 Referred By: Haider Gordillo Electronically Signed By: RAMÓN JUSTICE
--- NOTE | 2024-12-28 10:23 | ED.DIZZY ---
HPI - Dizziness General Chief Complaint: Dizziness Stated Complaint: Dehydration? Sent by Dr Patel Seen by Provider: 12/28/24 10:16 Source: patient Mode of arrival: ambulatory Limitations: no limitations History of Present Illness HPI Narrative: 64-year-old male past medical history significant forhistory of alcohol abuse, COPD asthma overlap syndrome, hypertension, ? coronary artery disease, thoracic aortic aneurysm and aortic stenosis, with a recent ICU admission for COPD exacerbation and hyponatremia has been here as well since. MD elicited complaint: dizziness and lightheadedness Related Data Previous Rx's ?Medication ?Instructions ?Recorded atenolol 100 mg tablet 100 mg PO DAILY #60 tabs 03/05/24 atorvastatin 40 mg tablet 40 mg PO BEDTIME #90 tabs 09/07/24 folic acid 1 mg tablet 1 mg PO DAILY #30 tabs 11/29/24 losartan 50 mg tablet 100 mg (2 x 50 mg) PO DAILY #30 11/29/24 tabs omeprazole 20 mg capsule,delayed 20 mg PO DAILY #30 caps 11/29/24 release polyethylene glycol 3350 17 gram 17 g PO DAILY #30 ea 11/29/24 oral powder packet sennosides 8.6 mg-docusate sodium 2 tab PO BID #120 tabs 11/29/24 50 mg tablet (Senna Plus) thiamine mononitrate (vit B1) 100 100 mg PO DAILY #30 tabs 11/29/24 mg tablet aspirin 81 mg tablet,delayed 81 mg PO DAILY #90 tabs 12/01/24 release montelukast 10 mg tablet 10 mg PO BEDTIME #90 tabs 12/02/24 codeine 10 mg-guaifenesin 100 mg/5 5 ml PO Q6H PRN cough #118 mL 12/06/24 mL oral liquid tizanidine 4 mg tablet 4 mg PO Q12H PRN muscle spasticity 12/07/24 10 days #20 tabs beclomethasone dipropionate 80 1 inh inhalation Q12H #10.6 grams 12/14/24 mcg/actuation HFA breath activated aerosol (Qvar RediHaler) epinephrine 0.3 mg/0.3 mL 0.3 mg (0.3 mL) IM Q10M PRN 12/14/24 injection, auto-injector (EpiPen anaphylaxis #2 ea 2-Brenden) fluticasone propionate 110 2 puff inhalation BID #12 grams 12/14/24 mcg/actuation HFA aerosol inhaler furosemide 20 mg tablet 20 mg PO DAILY 7 days #7 tabs 12/28/24 Allergies Allergy/AdvReac Type Severity Reaction Status Date / Time bee pollen [bee stings] Allergy Severe Anaphylaxis Verified 12/28/24 09:20 Penicillins Allergy hives Verified 12/28/24 09:20 cefuroxime Allergy Intermediate Swelling Uncoded 12/28/24 08:29 [facility] Past Medical History Medical History Aortic stenosis Alcohol dependence HTN (hypertension) Thoracic aortic aneurysm Surgical History Hx of left inguinal hernia repair Social History Social History (Updated 12/14/24 @ 09:32 by Reva Brown LPN) Household Members: Unknown / Unable to assess Housing: Unknown / Unable to assess Alcohol intake: former Patient Tobacco Use Status: Never used Tobacco Smoked in Last 30 Days: No e-Cigarette/Vaping Use: Never Used Second Hand Smoke Exposure: No Use of substances other than those prescribed or required for medical reasons: No Advance Directives: Yes Advance Directives on File: Yes Advance Directives Date on File: 11/30/24 service: No Current occupational status: employed 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 Physical Exam Vital Signs: Vital Signs: Last Vital Signs Temp 97.1 F 12/28/24 09:15 Pulse 87 12/28/24 10:21 Resp 15 12/28/24 10:09 BP 77/53 L 12/28/24 10:21 Pulse Ox 99 12/28/24 10:09 O2 Del Method Room Air 12/28/24 10:09 BMI result Body Mass Index 26.5 Discharge Plan Discharge Prescriptions: No Action atenolol 100 mg tablet 100 mg PO DAILY Qty: 60 5RF atorvastatin 40 mg tablet 40 mg PO BEDTIME Qty: 90 3RF aspirin 81 mg tablet,delayed release (DR/EC) 81 mg PO DAILY Qty: 90 3RF montelukast 10 mg tablet 10 mg PO BEDTIME Qty: 90 1RF codeine-guaifenesin 10-100 mg/5 mL liquid 5 ml PO Q6H PRN (Reason: cough) Qty: 118 0RF tizanidine 4 mg tablet 4 mg PO Q12H PRN (Reason: muscle spasticity) 10 Days Qty: 20 0RF Rx Instructions: do not take concurrently with cough syrup epinephrine [EpiPen 2-Brenden] 0.3 mg/0.3 mL auto-injector 0.3 mg IM Q10M PRN (Reason: anaphylaxis) Qty: 2 0RF Rx Instructions: for 3 doses Qvar RediHaler 80 mcg/actuation HFA aerosol breath activated 1 inh inhalation Q12H Qty: 10.6 3RF Rx Instructions: administer with spacer losartan 50 mg Tablet 100 mg PO DAILY Qty: 30 0RF folic acid 1 mg Tablet 1 mg PO DAILY Qty: 30 0RF thiamine mononitrate (vit B1) 100 mg Tablet 100 mg PO DAILY Qty: 30 0RF omeprazole 20 mg capsule,delayed release(DR/EC) 20 mg PO DAILY Qty: 30 0RF polyethylene glycol 3350 17 gram Powder In Packet 17 g PO DAILY Qty: 30 0RF sennosides-docusate sodium [Senna Plus] 8.6-50 mg Tablet 2 tab PO BID Qty: 120 0RF fluticasone propionate 110 mcg/actuation HFA aerosol inhaler 2 puff inhalation BID Qty: 12 3RF Rx Instructions: administer with spacer furosemide 20 mg tablet 20 mg PO DAILY 7 Days Qty: 7 0RF Print Language: Indonesian
--- NOTE | 2024-12-28 10:40 | ED_ITS ---
HPI - General Adult General Chief complaint: Dizziness Stated complaint: Dehydration? Sent by Time Seen by Provider: 12/28/24 10:16 Source: patient and RN notes reviewed Mode of arrival: ambulatory Limitations: no limitations History of Present Illness ED Provider: Katherine Irwin PA-C HPI narrative: This is a 64-year-old male, with a past medical history of EtOH abuse, COPD asthma overlap syndrome, hypertension, CAD, thoracic aortic aneurysm, and aortic stenosis, who presents emergency department from primary care office, Dr. Azevedo due to low blood pressure. Patient reports that this morning he was feeling well, and reported to his primary care office, he states that he typically splits up his blood pressure medication in the morning as well as at bedtime however states that he took all of his medications as he was afraid that he would not be able to take his afternoon dose because of his appointment. When he arrived to his appointment he felt lightheaded and dizzy, and had his blood pressure taken in his blood pressure was low, and was advised to report to the emergency room. Patient reports that he is feeling well. He denies any chest pain, shortness of breath, dizziness, lightheadedness, abdominal pain, nausea, vomiting or diarrhea. Of note, patient was admitted to the ICU on 11/22/2024 and was downgraded on 11/25/2024, admitted medically until 11/28. He was initially found unresponsive advised fiancee - thought to be from a unwitnessed seizure. He had influenza a, and his sodium of 109. Also diagnosed with a acute hypoxic respiratory failure due to influenza pneumonia with asthma exacerbation, metabolic encephalopathy. He was discharged on 11/28 and d/c to a rehab. He states that he has been recovering well. Reports occasional lower extremity swelling bilaterally, which worsens later on in the day. He is currently being seen by his primary care physician regarding this. MD complaint: Hypotension Onset (ago): day(s) Radiation: non-radiation Quality: aching Pain Consistency: constant Relieving factors: none Exacerbating factors: none Associated symptoms: denies other symptoms Treatments prior to arrival: none Related Data Previous Rx's ?Medication ?Instructions ?Recorded atenolol 100 mg tablet 100 mg PO DAILY #60 tabs 03/05/24 atorvastatin 40 mg tablet 40 mg PO BEDTIME #90 tabs 09/07/24 folic acid 1 mg tablet 1 mg PO DAILY #30 tabs 11/29/24 losartan 50 mg tablet 100 mg (2 x 50 mg) PO DAILY #30 11/29/24 tabs omeprazole 20 mg capsule,delayed 20 mg PO DAILY #30 caps 11/29/24 release polyethylene glycol 3350 17 gram 17 g PO DAILY #30 ea 11/29/24 oral powder packet sennosides 8.6 mg-docusate sodium 2 tab PO BID #120 tabs 11/29/24 50 mg tablet (Senna Plus) thiamine mononitrate (vit B1) 100 100 mg PO DAILY #30 tabs 11/29/24 mg tablet aspirin 81 mg tablet,delayed 81 mg PO DAILY #90 tabs 12/01/24 release montelukast 10 mg tablet 10 mg PO BEDTIME #90 tabs 12/02/24 codeine 10 mg-guaifenesin 100 mg/5 5 ml PO Q6H PRN cough #118 mL 12/06/24 mL oral liquid tizanidine 4 mg tablet 4 mg PO Q12H PRN muscle spasticity 12/07/24 10 days #20 tabs beclomethasone dipropionate 80 1 inh inhalation Q12H #10.6 grams 12/14/24 mcg/actuation HFA breath activated aerosol (Qvar RediHaler) epinephrine 0.3 mg/0.3 mL 0.3 mg (0.3 mL) IM Q10M PRN 12/14/24 injection, auto-injector (EpiPen anaphylaxis #2 ea 2-Brenden) fluticasone propionate 110 2 puff inhalation BID #12 grams 12/14/24 mcg/actuation HFA aerosol inhaler furosemide 20 mg tablet 20 mg PO DAILY 7 days #7 tabs 12/28/24 Allergies Allergy/AdvReac Type Severity Reaction Status Date / Time bee pollen [bee stings] Allergy Severe Anaphylaxis Verified 12/28/24 09:20 Penicillins Allergy hives Verified 12/28/24 09:20 cefuroxime Allergy Intermediate Swelling Uncoded 12/28/24 08:29 Review of Systems 2 Review of Systems: Yes all other systems are reviewed and are negative Constitutional: Constitutional: Reports as per [facility] Past Medical History Medical History Aortic stenosis Alcohol dependence HTN (hypertension) Thoracic aortic aneurysm Surgical History Hx of left inguinal hernia repair Social History Social History (Updated 12/14/24 @ 09:32 by Reva Brown LPN) Household Members: Unknown / Unable to assess Housing: Unknown / Unable to assess Alcohol intake: former Patient Tobacco Use Status: Never used Tobacco Smoked in Last 30 Days: No e-Cigarette/Vaping Use: Never Used Second Hand Smoke Exposure: No Use of substances other than those prescribed or required for medical reasons: No Advance Directives: Yes Advance Directives on File: Yes Advance Directives Date on File: 11/30/24 service: No Current occupational status: employed 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 Physical Exam ED Vital Signs: Vital Signs - 24 hr 12/28/24 09:15 12/28/24 10:09 12/28/24 10:20 Temperature 97.1 F Pulse Rate 81 78 73 Respiratory Rate 16 15 Blood Pressure 118/76 114/75 120/74 Pulse Oximetry 99 99 Oxygen Delivery Method Room Air Room Air 12/28/24 10:21 12/28/24 10:21 12/28/24 11:32 Temperature Pulse Rate 87 84 75 Respiratory Rate 16 Blood Pressure 77/53 L 78/55 L 119/59 L Pulse Oximetry 96 Oxygen Delivery Method Room Air 12/28/24 12:51 12/28/24 12:52 12/28/24 12:53 Temperature Pulse Rate 80 85 85 Respiratory Rate Blood Pressure 141/80 H 107/73 89/59 L Pulse Oximetry Oxygen Delivery Method 12/28/24 14:25 12/28/24 14:25 12/28/24 14:26 Temperature Pulse Rate 85 83 87 Respiratory Rate Blood Pressure 127/71 111/74 123/73 Pulse Oximetry Oxygen Delivery Method 12/28/24 14:59 12/28/24 15:21 Temperature 97.7 F 97.7 F Pulse Rate 85 85 Respiratory Rate 14 14 Blood Pressure 127/76 127/76 Pulse Oximetry 100 100 Oxygen Delivery Method Room Air Room Air BMI result Body Mass Index 26.5 Const General: cooperative, comfortable and no acute distress Orientation/consciousness: patient oriented x3 Limitations: no limitations HENMT Head: Yes normal to inspection, Yes normocephalic and Yes atraumatic Ears: hearing grossly normal bilaterally General nose exam: Normal external nose present Face and sinus: Yes normal facial exam Mouth: Normal oral and palatal mucosa present, oropharynx normal and moist mucous membranes Throat: Yes posterior oropharynx normal Eyes General: appearance normal, both eyes and all related structures Eyelids: Yes eyelids normal Conjunctivae: conjunctivae normal Sclerae: sclerae normal Pupils: Equal, round and reactive pupils present EOM: EOMs intact bilaterally Neck Neck: Yes normal visual inspection, Yes full ROM and Yes no lymphadenopathy Lymphatic: no lymphadenopathy noted Chest Chest palpation & inspection: normal inspection of the chest Resp Effort & Inspection: normal respiratory effort and able to speak in complete sentences Auscultation: clear to auscultation bilaterally, no crackles, no rales, no rhonchi and no wheezes Cardio Rate: regular rate Rhythm: regular rhythm Heart sounds: S1 normal heart sound present and S2 normal heart sound present GI Inspection: Yes normal to inspection Skin General skin exam: no rashes or lesions noted Trauma: no lacerations or abrasions Wounds: no wounds Neuro General: patient oriented x3 and moves all extremities Cranial nerves: Yes Equal, round and reactive pupils present Extrem Other: No pitting edema, no calf tenderness. General: Yes normal to inspection Right upper extremity: normal to inspection Left upper extremity: normal to inspection Right lower extremity: normal to inspection Left lower extremity: normal to inspection Course Reevaluation(s) Reevaluation #1: Patient remains to be orthostatic. Orthostatic vital signs are as follows: 141/80, 107/73, 89/59. Time: 13:07 Reevaluation #2: Patient feeling much better after 3 L of IV fluids. Patient remains to be asymptomatic. Orthostasis likely due to taking all blood pressure medications at once this morning. Advised to split this up as he has been doing so. Orthostatic vital signs have normalized. He denies any chest pain or shortness of breath. He will follow-up with his PCP. Patient stable for discharge. Given strict return precautions. He understands and agrees with plan Medications Administered Discontinued Medications Generic Name Dose Route Start Last Admin Trade Name Freq PRN Reason Stop Dose Admin Lactated Ringer's 1,000 mls @ 999 mls/hr 12/28/24 10:45 12/28/24 11:58 Lr IV 12/28/24 11:45 Infused .Q1H1M BRANDO Infusion Lactated Ringer's 1,000 mls @ 999 mls/hr 12/28/24 11:30 12/28/24 12:40 Lr IV 12/28/24 12:30 Infused .Q1H1M ONE Infusion Lactated Ringer's 500 mls @ 999 mls/hr 12/28/24 13:20 12/28/24 14:16 Lr IV 12/28/24 13:50 Infused .Q31M ONE Infusion Medical Decision Making Medical Decision Making [facility] Narrative: This is a 64-year-old male, who presents emergency department with concerns for low blood pressure at follow-up appointment. Patient was seen at his primary care office where he had a follow-up in regards to his recent hospitalization, as well as concerns for bilateral lower extremity swelling which occurs at the end of the day. He has no bilateral swelling noted on examination. No calf tenderness. He is feeling well and has no current symptoms. Upon review of past medical history, patient was recently admitted to the ICU and was downgraded to the medical service, hospitalization for acute hyponatremia, encephalopathy, and alcohol-related complications, he was treated for influenza a as well as bacterial pneumonia. He was found to have mild systolic dysfunction, and aortic stenosis. Upon my evaluation, patient is well- appearing, he has no current complaints, denies any chest pain or shortness of breath. Patient reports that he typically uses his medications in split dosages throughout the day however he states that he took all of his medications at once. On arrival, blood pressure 118/76. Orthostatic vital signs were performed, patient significantly orthostatic. He will be given IV fluids. Will also check CBC, and chemistry to rule out any electrolyte derangement. He is otherwise feeling well. He is alert and oriented x4. No peripheral edema, no tenderness palpation along the calves. He is not hypoxic or tachycardic. Plan: Labs, IV fluids, orthostatic vital signs. Differential Diagnosis Differential Diagnoses: The differential diagnosis associated with the presentation includes Orthostatic hypotension, electrolyte derangement, dehydration, ROSA MARIA Lab Data [facility] Lab Attestation statement: I reviewed the patient's lab results. Patient with no leukocytosis, normocytic anemia with an H&H of 12.5/35.9, chemistry revealing an elevated bilirubin at 1.6, similar to previous. No evidence of 12/28/24 10:53 12/28/24 10:53 Labs: Lab Results 12/28/24 12/28/24 Range/Units 10:53 13:16 WBC 8.9 (4.8-10.8) X10*3/uL RBC 3.98 L (4.60-5.80) X10*6/uL Hgb 12.5 L (14.0-18.0) g/dl Hct 35.9 L (42.0-52.0) % MCV 90.2 (80.0-98.0) fL MCH 31.4 (27.0-33.0) pg MCHC 34.8 (31.0-36.0) g/dl RDW 12.5 (11.0-16.0) % Plt Count 317 D (160-400) X10*3/uL MPV 8.5 L (9.4-12.4) fL Immature Gran % (Auto) 0.2 (0.0-0.4) % Neut % (Auto) 68.8 (45-73) % Lymph % (Auto) 16.3 L (20-40) % Kemper % (Auto) 12.5 H (2-11) % Eos % (Auto) 1.7 (0-4) % Baso % (Auto) 0.5 (0-2) % Lymph # (Auto) 1.5 (1.2-4.9) X10*3/uL Kemper # (Auto) 1.1 (0.1-1.2) X10*3/uL Eos # (Auto) 0.2 (0.0-0.4) X10*3/uL Baso # (Auto) 0.0 (0.0-0.2) X10*3/uL Abs Immat Gran (auto) 0.02 (0.00-0.03) X10*3/uL Absolute Neuts (auto) 6.1 (2.0-8.3) x10*3/uL Absolute Nucleated RBC 0.000 (0.0-0.012) X10*3/uL Nucleated RBC % (auto) 0.0 (0.0-0.2) /100WBC Sodium 133 L (135-145) mmol/L Potassium 3.6 (3.3-5.1) mmol/L Chloride 100 (96-108) mmol/L Carbon Dioxide 26 (22-29) mmol/L Anion Gap 11 L (12-20) BUN 15 (9-16) mg/dL Creatinine 1.06 (0.5-1.4) mg/dL Estim Creat Clear Calc 78.2 Estimated GFR > 60 Random Glucose 99 (60-115) mg/dL Calcium 9.3 D (8.4-10.2) mg/dL Magnesium 1.9 (1.6-2.6) mg/dL Total Bilirubin 1.6 H (0.0-1.0) mg/dL Direct Bilirubin 0.5 (0.0-0.5) mg/dL AST 31 (5-37) U/L ALT 28 (0-40) U/L Alkaline Phosphatase 78 (39-117) U/L Troponin I High Sens 3.3 < 2.7 (<3.5-35.0) ng/L Total Protein 7.6 (6.5-8.0) g/dL Albumin 3.9 (3.5-5.0) g/dL Discharge Plan Discharge Clinical Impression: Orthostatic hypotension Patient Disposition: Home, Self-Care Instructions: Hypotension (ED) Additional Instructions: You were seen in the emergency department due to low blood pressure. We had given you 3 L of IV fluids in your blood pressure has significantly improved. Please continue drinking plenty of electrolytes. Please follow-up with your primary care physician regarding this visit. If any new or worsening symptoms occur including but not limited to severe chest pain, shortness of breath, please seek emergent care. Prescriptions: No Action atenolol 100 mg tablet 100 mg PO DAILY Qty: 60 5RF atorvastatin 40 mg tablet 40 mg PO BEDTIME Qty: 90 3RF aspirin 81 mg tablet,delayed release (DR/EC) 81 mg PO DAILY Qty: 90 3RF montelukast 10 mg tablet 10 mg PO BEDTIME Qty: 90 1RF codeine-guaifenesin 10-100 mg/5 mL liquid 5 ml PO Q6H PRN (Reason: cough) Qty: 118 0RF tizanidine 4 mg tablet 4 mg PO Q12H PRN (Reason: muscle spasticity) 10 Days Qty: 20 0RF Rx Instructions: do not take concurrently with cough syrup epinephrine [EpiPen 2-Brenden] 0.3 mg/0.3 mL auto-injector 0.3 mg IM Q10M PRN (Reason: anaphylaxis) Qty: 2 0RF Rx Instructions: for 3 doses Qvar RediHaler 80 mcg/actuation HFA aerosol breath activated 1 inh inhalation Q12H Qty: 10.6 3RF Rx Instructions: administer with spacer losartan 50 mg Tablet 100 mg PO DAILY Qty: 30 0RF folic acid 1 mg Tablet 1 mg PO DAILY Qty: 30 0RF thiamine mononitrate (vit B1) 100 mg Tablet 100 mg PO DAILY Qty: 30 0RF omeprazole 20 mg capsule,delayed release(DR/EC) 20 mg PO DAILY Qty: 30 0RF polyethylene glycol 3350 17 gram Powder In Packet 17 g PO DAILY Qty: 30 0RF sennosides-docusate sodium [Senna Plus] 8.6-50 mg Tablet 2 tab PO BID Qty: 120 0RF fluticasone propionate 110 mcg/actuation HFA aerosol inhaler 2 puff inhalation BID Qty: 12 3RF Rx Instructions: administer with spacer furosemide 20 mg tablet 20 mg PO DAILY 7 Days Qty: 7 0RF Interventions: ED Discharge Assessment Last Done: 12/28/24 15:21 Discharge Date/Time: 12/28/24 15:29 Print Language: Japanese
[2024-12-28] MEDS: Lactated Ringers 1,000 ML 999 ML IV ×2 (10:57→11:35)
[2024-12-28 10:58] LABS: Basophils Percent Auto 0.5 % (0-2); Eosinophils Absolute Auto 0.2 X10*3/uL (0.0-0.4); Eosinophils Percent Auto 1.7 % (0-4); Hematocrit 35.9 % (42.0-52.0); Hemoglobin 12.5 g/dl (14.0-18.0); Imm Gran Abs Auto 0.02 X10*3/uL (0.00-0.03); Imm Gran Pct Auto 0.2 % (0.0-0.4); Lymphocytes Absolute Auto 1.5 X10*3/uL (1.2-4.9); Lymphocytes Percent Auto 16.3 % (20-40); MANUAL DIFF FLAG NO; Mean Corpuscular HGB Conc 34.8 g/dl (31.0-36.0); Mean Corpuscular Hemoglobin 31.4 pg (27.0-33.0); Mean Corpuscular Volume 90.2 fL (80.0-98.0); Mean Platelet Volume 8.5 fL (9.4-12.4); Monocytes Absolute Auto 1.1 X10*3/uL (0.1-1.2); Monocytes Percent Auto 12.5 % (2-11); Neutrophils Absolute Auto 6.1 x10*3/uL (2.0-8.3); Neutrophils Percent Auto 68.8 % (45-73); Platelet Count 317 X10*3/uL (160-400); Red Blood Count 3.98 X10*6/uL (4.60-5.80); Red Cell Distribution Width 12.5 % (11.0-16.0); White Blood Count 8.9 X10*3/uL (4.8-10.8)
[2024-12-28 11:20] LABS: Alanine Aminotransferase 28 U/L (0-40); Albumin Level 3.9 g/dL (3.5-5.0); Alkaline Phosphatase 78 U/L (39-117); Anion Gap 11 (12-20); Aspartate Amino Transferase 31 U/L (5-37); Bilirubin Direct 0.5 mg/dL (0.0-0.5); Bilirubin Total 1.6 mg/dL (0.0-1.0); Blood Urea Nitrogen 15 mg/dL (9-16); Calcium 9.3 mg/dL (8.4-10.2); Carbon Dioxide 26 mmol/L (22-29); Chloride 100 mmol/L (96-108); Creatinine Clr Calc Pharmacy 78.2; Estimated Glomerular Filt Rate > 60; Glucose Random 99 mg/dL (60-115); Magnesium 1.9 mg/dL (1.6-2.6); Potassium 3.6 mmol/L (3.3-5.1); Sodium 133 mmol/L (135-145); Total Protein 7.6 g/dL (6.5-8.0)
[2024-12-28 12:04] LABS: Troponin-I High Sensitivity 3.3 ng/L (<3.5-35.0)
[2024-12-28] MEDS: Lactated Ringers 500 ML 999 ML IV (13:36)
[2024-12-28 13:46] LABS: Troponin-I High Sensitivity < 2.7 ng/L (<3.5-35.0)
== END 2024-12-28 15:29 | disposition home or self-care (01) ==
PROVIDERS: Physician Assistant Medical; Emergency Provider Student in an Organized Health Care Education/Training Program; PCP Nurse Practitioner Family
DX: I95.1 Orthostatic hypotension (principal); R42 Dizziness and giddiness; I25.10 Atherosclerotic heart disease of native coronary artery without angina pectoris; J45.909 Unspecified asthma, uncomplicated; J44.9 Chronic obstructive pulmonary disease, unspecified; R60.0 Localized edema; Z79.899 Other long term (current) drug therapy
CPT/HCPCS: 36415; 80053; 82248; 83735; 84484; 85025; 93005; 96360; 96361; 99285; J7120

== ENCOUNTER → 2024-12-28 09:45 | Outpatient (BNV) | payer OTHER, SELFPAY | PROVIDERS: Emergency Provider Student in an Organized Health Care Education/Training Program; PCP Nurse Practitioner Family; Visit Provider Internal Medicine | DX: R42 Dizziness and giddiness (principal) | CPT/HCPCS: 93010 ==

== ENCOUNTER 2024-12-30 08:34 | Outpatient (AMB) | payer OTHER, SELFPAY ==
--- NOTE | 2024-12-30 08:57 | MHC.OFFVIS ---
Vital Signs 12/30/24 08:58 Height 6 ft Weight 198 lb 6.656 oz BMI 26.9 BP 114/70 Blood Pressure Location Lt brachial Position Sitting Pulse 108 H Intake Visit Reasons: pt has been sick wants cardiac persepective Intake Note: Follow-up [facility] [place] bp issue,leg swelling, feet pain Winder Hand Required: No Product Mgmt Dev Manager: Product Mgmt Dev Manager Present Accompanied by: Spouse Allergies bee pollen [bee stings] Allergy (Severe, Verified 12/28/24 09:20) Anaphylaxis Penicillins Allergy (Verified 12/28/24 09:20) hives cefuroxime Allergy (Intermediate, Uncoded 12/28/24 08:29) Swelling Medication List - Last Reconciled 12/30/24 by Joshua Lorenzo MD aspirin 81 mg PO DAILY atenolol 100 mg PO DAILY atorvastatin 40 mg PO BEDTIME beclomethasone dipropionate 80 mcg/actuation (Qvar RediHaler) 1 inh inhalation Q12H codeine-guaifenesin 10-100 mg/5 mL 5 mL PO Q6H PRN epinephrine (EpiPen 2-Brenden) 0.3 mg (0.3 mL) IM Q10M PRN folic acid 1 mg PO DAILY losartan 100 mg (2 x 50 mg) PO DAILY montelukast 10 mg PO BEDTIME omeprazole 20 mg PO DAILY polyethylene glycol 3350 17 grams PO DAILY sennosides-docusate sodium 8.6-50 mg (Senna Plus) 2 tabs PO BID thiamine mononitrate (vit B1) 100 mg PO DAILY tizanidine 4 mg PO Q12H PRN 10 days HPI Comments Details: Mannie comes for follow-up very frustrated with his overall health care. He has been dealing with a lot of issues with respiratory function and illnesses. But he was also was recently admitted with what appears to be seizure does salt her altered mental status and was found on the floor by his and was admitted for prolonged period of time with respiratory failure as well as significant hyponatremia. There was noted some GI bleeding. He was prior history of significant alcohol abuse disorder drinking about 25 beers a day. Since this hospitalization he has not drunk alcohol at all. He is now currently dealing with overall weakness and trying to recuperate from that. Recently had lightheadedness and low blood pressure was referred to the emergency room and he has had lot of changes in his medications made. He was very confused about it. He today did not take any of his blood pressure medication including losartan as well as atenolol in his blood pressure today is normal. He was severe pain in his both lower extremity. 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 Review of Systems Const Denies chills, Denies daytime sleepiness, Denies fatigue, Denies fever(s), Denies frequent falls, Denies poor appetite, Denies snoring, Denies stops breathing during sleep, Denies weakness, Denies weight gain and Denies weight loss Eyes Denies loss of vision ENT Denies dizziness and Denies hearing loss Card Denies chest pain, Denies claudication, Denies leg edema, Denies lightheadedness, Denies palpitations, Denies dyspnea, Denies dyspnea on exertion and Denies orthopnea Resp Denies cough, Denies excessive phlegm production, Denies dyspnea, Denies dyspnea on exertion, Denies snoring and Denies wheezing GI Denies abdominal pain, Denies hematochezia, Denies change in bowel habits, Denies nausea and Denies vomiting Denies dysuria and Denies urinary frequency Musc Denies arthralgias, Denies muscle weakness, Denies numbness and Denies other (frequent falls) Skin/Breast Denies nail changes and Denies rash Neuro Denies Abnormal speech present, Denies dizziness, Denies frequent falls, Denies loss of vision, Denies memory loss, Denies numbness and Denies weakness Psych Denies depression and Denies memory loss Endo Denies fatigue and Denies palpitations Kapil/Lymph Reports easy bruising and Reports other (anemia) Aller/Immun Denies wheezing Physical Exam Vital Signs: Last Vital Signs Pulse 108 H 12/30/24 08:58 BP 114/70 12/30/24 08:58 BMI result Body Mass Index 26.9 Const General: cooperative, comfortable, alert, awake and anxious Nutritional Appearance: malnourished and overweight Orientation/consciousness: patient oriented x3 Neck Neck: Yes trachea midline, Yes supple and Yes no JVD Resp Effort & Inspection: normal respiratory effort Auscultation: clear to auscultation bilaterally Cardio Jugular venous distension: no JVD Palpation: normal PMI Rate: regular rate Rhythm: regular rhythm Heart sounds: S1 normal heart sound present, S2 normal heart sound present, no click, no gallops, no murmurs and no rubs GI Auscultation: normal bowel sounds Neuro General: patient oriented x3 and no focal motor deficits Speech: No Abnormal speech present Extrem General: Yes no clubbing, cyanosis or edema Office Procedures EKG Details: EKG shows normal sinus rhythm with short TX with PACs [id number], Complete Assessment & Plan Assessment & Plan (1) Labile blood pressure: Code(s): R09.89 - Other specified symptoms and signs involving the circulatory and respiratory systems Category: Medical Plan: Labile blood pressure in this middle-aged man with recent lightheadedness after taking all his medications with low blood pressure. Most likely suggestive of autonomic dysfunction but could be also related to poor oral intake. I have strongly recommended him to increase his fluid intake up to 60 oz a day. Meanwhile given his significant labile blood pressure I would advised him to start atenolol 25 mg b.i.d.. Advised to maintain a log with blood pressure measurement every day and especially when he is lightheaded if he is lightheaded to measure blood pressure. Advised him to present this log in about a month's time. Low-salt diet was discussed. Stress mitigation strategies were discussed. Orthostatic precautions were discussed. Consider neurology referral as he was symptoms suggestive of peripheral neuropathy. Have taken the liberty to prescribe him timing and folic acid to control his neuropathy most likely related to alcohol use. However he will need further workup. He also had recent findings suggestive of GI bleed that should be worked up from GI perspective. (2) CAD (coronary artery disease): Code(s): I25.10 - Atherosclerotic heart disease of [place] coronary artery without angina pectoris Category: Medical Plan: CAD with coronary calcium on long CTA but not obstructive disease. Advise low-dose aspirin therapy as well as high-intensity statin therapy. Target goal LDL less than 70 mg/dL. Blood pressure is well optimized. (3) Aortic stenosis: Code(s): I35.0 - Nonrheumatic aortic (valve) stenosis Category: Medical Plan: Aortic stenosis which is mild. No interventions required. Continue aggressive vascular risk factor modifications above. (4) Thoracic aortic aneurysm: Code(s): I71.2 - Thoracic aortic aneurysm, without rupture Category: Medical Plan: Thoracic aortic aneurysm which is [id number]. Will continue monitor by echocardiogram in the near future. Continue to avoid sudden strenuous isometric exercise. No surgical interventions required. Will follow with him in 3 months time after echocardiogram. Orders: Orders CA echo transthoracic complete 3 Months I35.0 - Nonrheumatic aortic (valve) stenosis Medications: New atenolol 25 mg PO BID 60 tabs 1RF thiamine HCl (vitamin B1) 100 mg PO DAILY 30 tabs 2RF folic acid 1 mg PO DAILY 30 tabs 5RF Discontinued atenolol Discontinued Reason: Doctor's Order 100 mg PO DAILY 60 tabs 5RF Coding Level of Care Code Est Pt Level 4 (62954) Complex EM visit Add On G2211 Diagnoses Labile blood pressure R09.89 CAD (coronary artery disease) I25.10 Aortic stenosis I35.0 Thoracic aortic aneurysm I71.2 CPT Codes EKG - CPT: 75730-[id number], Complete ([id number])
[2024-12-30 08:58] VITALS: BP 114/70; PULSE 108; BMI 26.9
--- OUTSIDE RECORDS SUMMARY | 2024-12-30 09:13 | XMS_ITS ---
Author Organization [facility] Address [address] [place] [id number] Care Team Providers Care Tetryl Nitrator Operator Name Role Phone ADELA BORJAS Primary Care Provider Daniel Gottlieb Jr [phone] REASON FOR VISIT Patient presents today for a colon screening Encounters Encounter Location Date Provider [facility] [address] [place] [id number] 08/18/2023 Daniel Maria Jr Plan Of Treatment Next Appt Details Provider Name:Daniel quevedo Jr, 01/31/2025 09:00:00 AM, [address], [address], [place], [id number], Progress Notes * FITO ROSA BDOB:1960 (64 yo M)Acc No.[id number]:08/18/2023 Progress Notes Patient:?FITO ROSA Provider:?Daniel Maria MD :1960???Age:63 Y???Sex:Male Edin e:08/18/2023 Address:[address] [place] [address] Jax ladonnaadeline ID-[id number] Pcp:ADELA BORJAS Subjective: * Chief Complaints: * [...] Maria MD Date:?1 Generated for Christal tran/Keith/Charlotte on:?12/30/2024 09:13 AM EDT
--- OUTSIDE RECORDS SUMMARY | 2024-12-30 09:13 | XMS_ITS | Patient Health Record ---
Author Organization [facility] Address [address] [place] [address] Care Team Providers Care Lead Printer Name Role Phone ADELA BORJAS Primary [...] Problem Status W/U Status Risk Notes Problem [id number] Colon cancer screening (Z12.11) Active confirmed Problem [id number] Encounter for other preprocedural examination (Z01.818) Active confirmed Plan Of Treatment Future Test Test Name Order Date COLONOSCOPY 07/09/2023 Next Appt Details Provider Name:Daniel Dinah quevedo Jr, 01/31/2025 09:00:00 AM, [address] [facility], [address], [place], [address], Insurance Providers Payer Name Payer Address Payer Phone Subscriber Number Group Number Insured Name Patient Relationship to Insured Coverage Start Date Coverage End Date [facility] [address] [place] [phone] [id number] FITO ROSA Self - patient is the insured Medical (General) History Medical History History ICD Code Hypertension Fatty liver Thoracic aortic aneurysm, 4.4 cm 02/09 Left ventricular hypertrophy, ejection f raction 55-60% on echo 06/10 Surgical History Surgery Date(Month/Year) Left inguinal hernia repair 2012
--- OUTSIDE RECORDS SUMMARY | 2024-12-30 09:14 | XMS_ITS ---
Author Organization [facility] Address [address] [facility] [address] [place] [address] Care Team Providers Care Public Interviewer Name Role Phone ADELA BORJAS Primary Care Provider Daniel Gottlieb Jr REASON FOR VISIT screening Encounters Encounter Location Date Provider Diagnosis [facility] [place] [address] [place], [place] [id number] 09/02/2023 Daniel Maria Jr Plan Of Treatment Next Appt Details Provider Name:Daniel quevedo Jr, 01/31/2025 09:00:00 AM, [address] [facility], [address], [place], [address], Progress Notes * FITO ROSA BDOB:1960 (64 yo M)Acc No.[id number]:09/02/2023 COLON WITH MAC Patient:?FITO ROSA Provider:?Daniel Maria MD :1960???Age:63 Y???Sex:Male Edin e:09/02/2023 Address:[address] [place] [address] [id number] Pcp:ADELA BORJAS Subjective: * Chief Complaints: * ???1. Screening. * Medical History:? Objective: * Vitals:? Assessment: Plan: * Treatment: * * The named appointment provid er may or may not be the originator of this progress note, and it is not deemed complete until electronically signed by the appointment provider. Sign off status: Pending * Provider:?Daniel Maria MD Date:?11/02/2022 Generated for Christal tran/Keith/Johnitting on:?12/30/2024 09:13 AM PAIGET
--- OUTSIDE RECORDS SUMMARY | 2024-12-30 09:14 | XMS_ITS ---
Author Organization [facility] Address [address] [place] [address] Care Team Providers Care Marsh Buggy Operator Name Role Phone ADELA BORJAS Primary Care Provider Matt Maria Jr, Daniel Aguirre REASON FOR VISIT cancel colonoscopy Encounters Encounter Location Date Provider Diagnosis [facility] [address] [place] [address] 09/01/2023 Daniel Maria Jr Plan Of Treatment Next Appt Details Provider Name:Daniel quevedo Jr, 01/31/2025 09:00:00 AM, [address], [address], [place], [address], Progress Notes * FITO ROSA BDOB:1960 (63 yo M)Acc No.[id number]:09/01/2023 Patient:?FITO ROSA :1960???Age:63 Y???Sex:Male Address:[address] , [place] [address] * true * Date:? Generated for Printi chelsea/Keith/eTransmitting on:?12/30/2024 09:13 AM EDT
== END 2024-12-30 09:42 | disposition home or self-care (01) ==
LOC: HO.HCS 08:35
PROVIDERS: PCP Nurse Practitioner Family; Visit Provider Internal Medicine Cardiovascular Disease
DX: R09.89 Other specified symptoms and signs involving the circulatory and respiratory systems (principal); I25.10 Atherosclerotic heart disease of native coronary artery without angina pectoris; I35.0 Nonrheumatic aortic (valve) stenosis; I71.20 Thoracic aortic aneurysm, without rupture, unspecified
CPT/HCPCS: 93010; 99214

== ENCOUNTER → 2024-12-30 08:34 | Outpatient (BNVA) | payer OTHER, SELFPAY | PROVIDERS: PCP Nurse Practitioner Family; Visit Provider Internal Medicine Cardiovascular Disease | DX: R09.89 Other specified symptoms and signs involving the circulatory and respiratory systems (principal); I25.10 Atherosclerotic heart disease of native coronary artery without angina pectoris; I35.0 Nonrheumatic aortic (valve) stenosis; I71.20 Thoracic aortic aneurysm, without rupture, unspecified | CPT/HCPCS: 93005 ==

== ENCOUNTER 2024-12-31 07:08 | Outpatient (REF) | payer OTHER, SELFPAY ==
--- NOTE | ~2024-12-31 | US_ITS ---
EXAMINATION: COLOR-FLOW DUPLEX IMAGING OF THE BILATERAL LOWER EXTREMITY ARTERIAL SYSTEM WITH VELOCITY MEASUREMENTS. CLINICAL INFORMATION: Other specified symptoms and signs involving the the circulatory anatomy. FINDINGS: Atheromatous Plaque: No significant plaque. RIGHT FEMORAL RUNOFF VELOCITIES: The right common femoral artery measures 64 cm/s and triphasic. The right profunda femoral artery is 45 cm/s and is triphasic. The right proximal superficial femoral artery measures 103 cm/s and triphasic. The right mid superficial femoral artery is 106 cm/s and triphasic. The right distal right superficial femoral artery measures 85 cm/s and is triphasic. The right popliteal velocity measures 68 cm/s and is triphasic. The right posterior tibial artery velocity measures 99 cm/s and is triphasic. LEFT FEMORAL RUNOFF VELOCITIES: The left common femoral artery measures 92 cm/s and triphasic. The left profunda femoral artery is 67 cm/s and is triphasic. The left proximal superficial femoral artery measures 99 cm/s and triphasic. The left mid superficial femoral artery is 112 cm/s and triphasic. The left distal right superficial femoral artery measures 104 cm/s and is triphasic. The left popliteal velocity measures 52 cm/s and is triphasic. The left posterior tibial artery velocity measures 71 cm/s and is triphasic. Left arterial collateral seen arising from the proximal femoral artery, velocity measures 22.8 cm/s. US/US arterial duplex LE BI IMPRESSION: 1. Normal peripheral arterial testing with velocity measurements. No significant atherosclerotic disease. Electronically signed by: Michael Auguste MD 12/31/2024 03:15 PM EDT
--- NOTE | ~2024-12-31 | US_ITS ---
EXAMINATION: US TRIPLEX LOWER EXTREMITY, BILATERAL CLINICAL INFORMATION: Other specified symptoms and signs involving the the circulatory anatomy. COMPARISON: None available. TECHNIQUE: Color-flow triplex imaging with spectral analysis and compression Doppler were performed on the bilateral lower extremities. FINDINGS: Respiratory variation, normal compression and augmented flow are noted throughout the bilateral lower extremities. The visualized common femoral vein, superficial femoral vein, profunda femoral vein, popliteal vein and midcalf peroneal and posterior tibial venous segments show no evidence of deep venous thrombosis bilaterally. There is no Elam's cyst. US/US venous duplex LE BI IMPRESSION: No evidence of deep venous thrombosis involving the bilateral lower extremities. Electronically signed by: Michael Auguste MD 12/31/2024 03:08 PM EDT
--- OUTSIDE RECORDS SUMMARY | 2024-12-31 07:11 | XMS_ITS | Patient Health Record ---
Author Organization [facility] Address [address] [place] [address] Care Team Providers Care Welt Beater Name Role Phone ADELA BORJAS Primary Care Provider Daniel Gottlieb Jr [phone] Allergies No Known Allergies Reason For Referral [...] Problem Status W/U Status Risk Notes Problem [id number] Colon cancer screening (Z12.11) Active confirmed Problem [id number] Encounter for other preprocedural examination (Z01.818) Active confirmed Plan Of Treatment Future Test Test Name Order Date COLONOSCOPY 07/09/2023 Next Appt Details Provider Name:Daniel Dinah quevedo Jr, 01/31/2025 09:00:00 AM, [address] [facility], [address], [place], [address], Insurance Providers Payer Name Payer Address Payer Phone Subscriber Number Group Number Insured Name Patient Relationship to Insured Coverage Start Date Coverage End Date [facility] [address] [place] [phone] [id number] FITO ROSA Self - patient is the insured Medical (General) History Medical History History ICD Code Hypertension Fatty liver Thoracic aortic aneurysm, 4.4 cm 02/09 Left ventricular hypertrophy, ejection f raction 55-60% on echo 06/10 Surgical History Surgery Date(Month/Year) Left inguinal hernia repair 2012
--- OUTSIDE RECORDS SUMMARY | 2024-12-31 07:11 | XMS_ITS ---
Author Organization [facility] Address [address] [facility] [address] [place] [address] Care Team Providers Care Refining Still Operator Name Role Phone ADELA BORAJS Primary Care Provider Daniel Gottlieb Jr [phone] REASON FOR VISIT screening Encounters Encounter Location Date Provider Diagnosis [facility] [place] [address] [place], [place] [phone] 09/02/2023 Daniel Maria Jr Plan Of Treatment Next Appt Details Provider Name:Daniel quevedo Jr, 01/31/2025 09:00:00 AM, [address] [facility], [address], [place], [address], Progress Notes * FITO ROSA BDOB:1960 (64 yo M)Acc No.[id number]:09/02/2023 COLON WITH MAC Patient:?FITO ROSA Provider:?Daniel Maria MD :1960???Age:63 Y???Sex:Male Edin e:09/02/2023 Address:[address] [place] [address] [id number] Pcp:ADELA BORJAS Subjective: * Chief Complaints: * ???1. Screening. * Medical History:? Objective: * Vitals:? Assessment: Plan: * Treatment: * * The named appointment provid er may or may not be the originator of this progress note, and it is not deemed complete until electronically signed by the appointment provider. Sign off status: Pending * Provider:?Daniel Maria MD Date:?11/02/2022 Generated for Christal tran/Keith/Johnitting on:?12/31/2024 07:11 AM PAIGET
--- OUTSIDE RECORDS SUMMARY | 2024-12-31 07:11 | XMS_ITS ---
Author Organization [facility] Address [address] [place] [address] Care Team Providers Care Buggy Man Name Role Phone ADELA BORJAS Primary Care Provider Matt Maria Jr, Daniel Aguirre [phone] REASON FOR VISIT cancel colonoscopy Encounters Encounter Location Date Provider Diagnosis [facility] [address] [place] [address] 09/01/2023 Daniel Maria Jr Plan Of Treatment Next Appt Details Provider Name:Daniel quevedo Jr, 01/31/2025 09:00:00 AM, [address], [address], [place], [address], Progress Notes * FITO ROSA BDOB:1960 (63 yo M)Acc No.[id number]:09/01/2023 Patient:?FITO ROSA :1960???Age:63 Y???Sex:Male Address:[address] , [place] [address] * true * Date:? Generated for Printi chelsea/Keith/eTransmitting on:?12/31/2024 07:11 AM EDT
[2024-12-31 09:17] LABS: B Type Natriuretic Peptide 76 pg/mL (<100)
[2024-12-31 10:01] LABS: MANUAL DIFF FLAG NO
[2024-12-31 10:05] LABS: Basophils Percent Auto 0.5 % (0-2); Eosinophils Absolute Auto 0.2 X10*3/uL (0.0-0.4); Eosinophils Percent Auto 2.6 % (0-4); Hematocrit 33.8 % (42.0-52.0); Imm Gran Abs Auto 0.02 X10*3/uL (0.00-0.03); Imm Gran Pct Auto 0.4 % (0.0-0.4); Lymphocytes Absolute Auto 1.1 X10*3/uL (1.2-4.9); Lymphocytes Percent Auto 19.9 % (20-40); Mean Corpuscular HGB Conc 35.5 g/dl (31.0-36.0); Mean Corpuscular Hemoglobin 32.3 pg (27.0-33.0); Mean Corpuscular Volume 91.1 fL (80.0-98.0); Mean Platelet Volume 9.3 fL (9.4-12.4); Monocytes Absolute Auto 0.6 X10*3/uL (0.1-1.2); Monocytes Percent Auto 10.7 % (2-11); Neutrophils Absolute Auto 3.7 x10*3/uL (2.0-8.3); Neutrophils Percent Auto 65.9 % (45-73); Platelet Count 281 X10*3/uL (160-400); Red Blood Count 3.71 X10*6/uL (4.60-5.80); Red Cell Distribution Width 12.4 % (11.0-16.0); White Blood Count 5.7 X10*3/uL (4.8-10.8)
[2024-12-31 10:19] LABS: Alanine Aminotransferase 24 U/L (0-40); Albumin Level 3.6 g/dL (3.5-5.0); Alkaline Phosphatase 75 U/L (39-117); Anion Gap 12 (12-20); Aspartate Amino Transferase 28 U/L (5-37); Blood Urea Nitrogen 14 mg/dL (9-16); Calcium 9.1 mg/dL (8.4-10.2); Carbon Dioxide 27 mmol/L (22-29); Chloride 101 mmol/L (96-108); Estimated Glomerular Filt Rate > 60; Glucose Random 92 mg/dL (60-115); Potassium 3.5 mmol/L (3.3-5.1); Sodium 136 mmol/L (135-145)
== END 2024-12-31 07:09 | disposition home or self-care (01) ==
LOC: HO.US 07:08
PROVIDERS: PCP Nurse Practitioner Family; Visit Provider Nurse Practitioner Family
DX: F10.20 Alcohol dependence, uncomplicated (principal); G93.41 Metabolic encephalopathy; R09.89 Other specified symptoms and signs involving the circulatory and respiratory systems; R22.43 Localized swelling, mass and lump, lower limb, bilateral
CPT/HCPCS: 36415; 80053; 83880; 85025; 93925; 93970

== ENCOUNTER 2024-12-31 07:10 | Outpatient (REF) | payer OTHER, SELFPAY ==
--- OUTSIDE RECORDS SUMMARY | 2024-12-31 07:13 | XMS_ITS ---
Author Organization [facility] Address [address] [facility] [address] [place] [address] Care Team Providers Care Archivist Nonprofit Foundation Name Role Phone ADELA BORJAS Primary Care Provider Daniel Gottlieb Jr [phone] REASON FOR VISIT Patient presents today for a colon screening Encounters Encounter Location Date Provider Diagnosis [facility] [address] [facility] [address] [place] [address] 08/18/2023 Daniel Maria Jr Plan Of Treatment Next Appt Details Provider Name:Daniel quevedo Jr, 01/31/2025 09:00:00 AM, [address] [facility], [address], [place], [address], Progress Notes * FITO ROSA BDOB:1960 (64 yo M)Acc No.[id number]:08/18/2023 Progress Notes Patient:?FITO ROSA Provider:?Daniel Maria MD :1960???Age:63 Y???Sex:Male Edin e:08/18/2023 Address:[address] [place] [address] [id number] Pcp:ADELA BORJAS Subjective: * Chief Complaints: * [...] Maria MD Date:?1 Generated for Christal tran/Keith/Charlotte on:?12/31/2024 07:12 AM EDT
== END 2024-12-31 07:11 | disposition home or self-care (01) ==
LOC: HO.US 07:10
PROVIDERS: PCP Nurse Practitioner Family; Visit Provider Nurse Practitioner Family
DX: Z13.89 Encounter for screening for other disorder (principal)

== ENCOUNTER → 2024-12-31 13:45 | Outpatient (BNV) | payer OTHER, SELFPAY | PROVIDERS: PCP Nurse Practitioner Family; Visit Provider Radiology Diagnostic Radiology | DX: R09.89 Other specified symptoms and signs involving the circulatory and respiratory systems (principal) | CPT/HCPCS: 93925; 93970 ==

== ENCOUNTER 2025-01-04 08:28 | Outpatient (REF) | payer OTHER, SELFPAY ==
--- NOTE | 2025-01-04 08:30 | EMG_ITS ---
Bilateral tibial and peroneal motor studies were performed. Bilateral superficial peroneal, sural, and median and lateral plantar sensory studies were performed. Tibial H reflexes were obtained and paraspinal muscles were tested with a needle. 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 There was also evidence of distal sensory tibial neuropathy affecting feet. This type of neuropathy sometime can come from infectious/inflammatory processes. Clinical correlation is recommended. MD STACEY Mancuso/PAM / [id number]
--- OUTSIDE RECORDS SUMMARY | 2025-01-04 08:41 | XMS_ITS ---
Author Organization [facility] Address [address] [facility] [address] [place] [address] Care Team Providers Care Supervisor Contact Lens Name Role Phone ADELA BORJAS Primary Care Provider Daniel Gottlieb Jr REASON FOR VISIT Patient presents today for a colon screening Encounters Encounter Location Date Provider Diagnosis [facility] [address] [facility] [address] [place] [address] 08/18/2023 Daniel Maria Jr Plan Of Treatment Next Appt Details Provider Name:Daniel quevedo Jr, 01/31/2025 09:00:00 AM, [address] [facility], [address], [place], [address], Progress Notes * FITO ROSA BDOB:1960 (64 yo M)Acc No.[id number]:08/18/2023 Progress Notes Patient:?FITO ROSA Provider:?Daniel Maria MD :1960???Age:63 Y???Sex:Male Edin e:08/18/2023 Address:[address] [place] [address] [id number] Pcp:ADELA BORJAS Subjective: * Chief Complaints: * [...] Maria MD Date:?1 Generated for Christal tran/Keith/Charlotte on:?01/04/2025 08:41 AM EDT
--- OUTSIDE RECORDS SUMMARY | 2025-01-04 08:42 | XMS_ITS ---
Author Organization [facility] Address [address] [place] [address] Care Team Providers Care Pipe Chipper Name Role Phone ADELA BORJAS Primary Care Provider Matt Maria Jr, Daniel Aguirre REASON FOR VISIT cancel colonoscopy Encounters Encounter Location Date Provider Diagnosis [facility] [address] [place] [address] 09/01/2023 Daniel Maria Jr Plan Of Treatment Next Appt Details Provider Name:Daniel quevedo Jr, 01/31/2025 09:00:00 AM, [address], [address], [place], [address], Progress Notes * FITO ROSA BDOB:1960 (63 yo M)Acc No.[id number]:09/01/2023 Patient:?FITO ROSA :1960???Age:63 Y???Sex:Male Address:[address] , [place] [address] * true * Date:? Generated for Printi chelsea/Keith/eTransmitting on:?01/04/2025 08:41 AM EDT
--- OUTSIDE RECORDS SUMMARY | 2025-01-04 08:42 | XMS_ITS ---
Author Organization [facility] Address [address] [facility] [address] [place] [address] Care Team Providers Care Carousel Operator Name Role Phone ADELA BORJAS Primary Care Provider Daniel Gottlieb Jr REASON FOR VISIT screening Encounters Encounter Location Date Provider Diagnosis [facility] [place] [address] [place], [place] [phone] 09/02/2023 Daniel Maria Jr Plan Of Treatment Next Appt Details Provider Name:Daniel quevedo Jr, 01/31/2025 09:00:00 AM, [address] [facility], [address], [place], [address], Progress Notes * FITO ROSA BDOB:1960 (64 yo M)Acc No.[id number]:09/02/2023 COLON WITH MAC Patient:?FITO ROSA Provider:?Danile Maria MD :1960???Age:63 Y???Sex:Male Edin e:09/02/2023 Address:[address] [place] [address] [id number] Pcp:ADELA BORJAS Subjective: * Chief Complaints: * ???1. Screening. * Medical History:? Objective: * Vitals:? Assessment: Plan: * Treatment: * * The named appointment provid er may or may not be the originator of this progress note, and it is not deemed complete until electronically signed by the appointment provider. Sign off status: Pending * Provider:?Daniel Maria MD Date:?11/02/2022 Generated for Christal tran/Keith/Johnitting on:?01/04/2025 08:41 AM PAIEGT
--- OUTSIDE RECORDS SUMMARY | 2025-01-04 08:42 | XMS_ITS | Patient Health Record ---
Author Organization [facility] Address [address] [place] [address] Care Team Providers Care Assembler Crimper Name Role Phone ADELA BORJAS Primary Care Provider Daniel Gottlieb Jr [phone] Allergies No Known Allergies Reason For Referral [...] Problem Status W/U Status Risk Notes Problem [id number] Colon cancer screening (Z12.11) Active confirmed Problem [id number] Encounter for other preprocedural examination (Z01.818) Active confirmed Plan Of Treatment Future Test Test Name Order Date COLONOSCOPY 07/09/2023 Next Appt Details Provider Name:Daniel Dinah quevedo Jr, 01/31/2025 09:00:00 AM, [address] [facility], [address], [place], [address], Insurance Providers Payer Name Payer Address Payer Phone Subscriber Number Group Number Insured Name Patient Relationship to Insured Coverage Start Date Coverage End Date [facility] [address] [place] [phone] [id number] FITO ROSA Self - patient is the insured Medical (General) History Medical History History ICD Code Hypertension Fatty liver Thoracic aortic aneurysm, 4.4 cm 02/09 Left ventricular hypertrophy, ejection f raction 55-60% on echo 06/10 Surgical History Surgery Date(Month/Year) Left inguinal hernia repair 2012
== END 2025-01-04 08:29 | disposition home or self-care (01) ==
LOC: HO.NEURO 08:28
PROVIDERS: Visit Provider Nurse Practitioner Family
DX: G62.9 Polyneuropathy, unspecified (principal); F10.20 Alcohol dependence, uncomplicated; M79.672 Pain in left foot; M79.671 Pain in right foot
CPT/HCPCS: 95886; 95913

== ENCOUNTER 2025-01-04 13:30 | Outpatient (AMB) | payer OTHER, SELFPAY ==
[2025-01-04 13:36] VITALS: BP 150/100; PULSE 88; O2SAT 98; BMI 27.3
--- NOTE | 2025-01-04 13:36 | MHC.PC.OV ---
Vital Signs 01/04/25 13:36 Height 6 ft Weight 201 lb BMI 27.3 BP 150/100 H Blood Pressure Location Lt brachial Position Sitting Pulse 88 Pulse Source Pulse Oximeter Pulse Oximetry (%) 98 Oxygen Delivery Method Room Air Intake Visit Reasons: follow up - BP Allergies bee pollen [bee stings] Allergy (Severe, Verified 01/04/25 13:36) Anaphylaxis Penicillins Allergy (Verified 01/04/25 13:36) hives cefuroxime Allergy (Intermediate, Uncoded 12/28/24 08:29) Swelling Tobacco use date assessed: 12/28/24 Dental Screening Dental Screen Date: 11/11/24 HPI follow up - BP HPI Details Chief Complaint The patient presents with ongoing neuropathy. History of Present Illness The patient is a 64-year-old male presenting with peripheral neuropathy. The condition has been ongoing and is related to a history of significant alcohol use. Two months ago, he consumed up to 20 beers daily, but he has now maintained sobriety for approximately one to two months. Despite recent improvements in lifestyle, neuropathy remains a persistent and troubling symptom. He has initiated treatment with vitamin B1 (thiamine) and is considering adding a vitamin B complex while being cautious not to exceed 300 mg of thiamine daily. The patient has already undergone nerve conduction testing today, although results are pending. He has mild peripheral edema in the lower extremities, which is slightly resolving. In addition to neuropathy, the patient experiences increasing blood pressure, previously managed with losartan 100 mg, now considering resumption at a reduced dose of 25 mg. There is a faint systolic murmur, with the patient denying any chest pain or shortness of breath. Social History - The patient has a history of significant alcohol use, previously consuming up to 20 beers daily. - He has remained sober for approximately one to two months. - Denies current alcohol consumption and is working on sobriety maintenance. Health Maintenance - Monitoring blood pressure trends since increase noted. - Initiated vitamin B1 supplementation, limiting to 300 mg daily. - Consideration of vitamin B complex supplementation for neuropathy support. Review of Systems - Cardiovascular: Denies chest pain and shortness of breath. - Neurological: Reports ongoing neuropathy. - Peripheral Vascular: Denies worsening edema. Physical Exam General: Cooperative, healthy appearing, comfortable, no acute distress and well developed Orientation: Patient oriented x3 Limitations: No limitations Head: Normal to inspection Ears: Hearing grossly normal bilaterally Nose: Normal external nose present Face and sinus: Normal facial exam Eyes: Appearance normal, both eyes and all related structures Neck: Normal visual inspection and Yes full ROM Respiratory: Normal respiratory effort and able to speak in complete sentences. Clear to auscultation bilaterally Cardiovascular: Regular rate and rhythm. Normal S1 and S2. Faint systolic murmur noted GI: Normal to inspection. Soft to palpation and nontender Skin: No rashes or lesions noted Neuro: Patient oriented x3. Neuropathy noted bilat feet Extremities: Trace edema to bilateral extremities Results - Tests and Diagnostics: Nerve conduction testing conducted, awaiting results. Plan The patient is to sustain his current sobriety and continue with vitamin B1 supplementation, cautious not to exceed 300 mg daily. Consideration for vitamin B complex initiation is also advised. Nerve conduction study results will be forthcoming and will guide further management of neuropathy. For blood pressure control, I have opted to manage with adding losartan 25 mg, due to recent hypertension exacerbation, alongside monitoring. Continued follow-up through the patient portal for ongoing symptoms and management effectiveness is essential. gabapentin started at 100mg TID. Pt will contact me via portal with BPs and neuropathy symptoms Discussion Notes I discussed with the patient the importance of maintaining sobriety to mitigate neuropathic progression and optimizing his general health. I explained that vitamin B1 intake should not exceed 300 mg daily and explored the potential benefits of vitamin B complex supplementation. We deliberated possible nerve conduction study findings and how they may influence neuropathy management. About hypertension, I clarified the rationale for initiating a 25 mg dose of losartan, given the blood pressure trends, and ensured comprehension of the need for vigilant monitoring. I encouraged consistent communication through the portal to provide updates on symptomatology and medication outcomes. Patient Instructions - Continue sobriety efforts, avoid alcohol consumption. - Take vitamin B1 daily, ensuring intake does not exceed 300 mg. - Await and review results of nerve conduction testing. - Start losartan 25 mg daily as discussed. - Report any new symptoms or concerns via the patient portal. - Monitor blood pressure regularly. - Schedule follow-up appointments as necessary. 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 Questionnaire Thrive Questionnaire Date Thrive assessed: 11/11/24 I am a: Patient What is your living situation today?: I have a steady place to live Within the past 12 months, did the food you bought not last and you didn't have the money to get more?: Never true Within the past 12 months, did you worry whether your food would run out before you got money to buy more?: Never true Do you have trouble paying for medicines?: No Do you have trouble getting transportation to medical appointments?: No Do you have trouble paying your heating and electricity bill?: No Do you have trouble taking care of your child, family member or friend?: No Do you have trouble with day-to-day activities such as bathing, preparing meals, shopping, managing finances, etc.?: No Are you currently unemployed and looking for a job?: No Are you interested in more education?: No Please select the resources that you would like help with: None Currently or been in a relationship where the following occur: No concerns reported THRIVE Score: 0 JOSEPH-7 AMB Questionnaire JOSEPH-7 Date JOSEPH - 7 assessed: 11/11/24 Source: Developed by Drs. Bon Nleson, Zari Bojorquez, Timmy Duarte and colleagues, with an educational cary from [employer]. Physical exam (Primary Care) Vital Signs: Last Vital Signs Pulse 88 01/04/25 13:36 BP 150/100 H 01/04/25 13:36 Pulse Ox 98 01/04/25 13:36 Oxygen Delivery Method Room Air 01/04/25 13:36 BMI result Body Mass Index 27.3 Tobacco/Smoking Status: Tobacco use Status Tobacco use date assessed 12/28/24 01/04/25 13:39 Patient Tobacco Use Status Never used Tobacco 01/04/25 13:39 e-Cigarette/Vaping Use Never Used 01/04/25 13:39 Thrive Assessment: Date of Thrive Assessment Date Thrive assessed 11/11/24 01/04/25 13:39 Currently or been in a relationship where the following occur: No concerns reported Coding Level of Care Code Est Pt Level 3 (66666) Diagnoses Neuropathy G62.9 Alcohol dependence F10.20 HTN (hypertension) I10 Assessment & Plan Assessment & Plan (1) Neuropathy: Code(s): G62.9 - Polyneuropathy, unspecified Category: Medical (2) Alcohol dependence: Code(s): F10.20 - Alcohol dependence, uncomplicated Category: Medical (3) HTN (hypertension): Code(s): I10 - Essential (primary) hypertension Category: Medical Plan . Medications: New gabapentin 100 mg PO TID 30 days 90 caps 0RF losartan 25 mg PO DAILY 30 days 30 tabs 2RF
== END 2025-01-04 14:35 | disposition home or self-care (01) ==
LOC: HO.HMCC 13:32
PROVIDERS: PCP Nurse Practitioner Family; Visit Provider Nurse Practitioner Family
DX: G62.9 Polyneuropathy, unspecified (principal); F10.20 Alcohol dependence, uncomplicated; I10 Essential (primary) hypertension

== ENCOUNTER 2025-02-07 07:45 | Outpatient (REF) | payer OTHER, SELFPAY ==
--- NOTE | ~2025-02-07 | XR_ITS ---
EXAMINATION: XR LUMBOSACRAL SPINE CLINICAL INFORMATION: R94.130 - Abnormal response to nerve stimulation, unspecified COMPARISON: None available. TECHNIQUE: Three views of the lumbosacral spine. FINDINGS: There is normal lumbar lordosis with mild dextroscoliosis. There is loss of disc height virtually at every disc level with ventral spondylosis. No aggressive lytic or sclerotic process seen. There is no fracture or dislocation. The SI joints are symmetrical and normal. The soft tissues are normal. XR/XR lumbar spine 2-3V IMPRESSION: Dextroscoliosis without any visible acute fracture or dislocation. Degenerative disc changes and spondylosis throughout lumbar spine. Electronically signed by: Andreas Marinelli MD 02/08/2025 09:32 AM EDT
--- OUTSIDE RECORDS SUMMARY | 2025-02-07 08:33 | XMS_ITS ---
Author Organization [facility] Address [address] [place] [address] Care Team Providers Care Mixing Machine Operator Name Role Phone ADELA BORJAS Primary Care Provider Daniel Gottlieb Jr REASON FOR VISIT screening Encounters Encounter Location Date Provider Diagnosis [facility] Outpatient [address] [place] [id number] 09/02/2023 Daniel Maria Jr Plan Of Treatment Next Appt Details Provider Name:Daniel quevedo Jr, 04/12/2025 07:30:00 AM, [address] [place] [address], [phone], Progress Notes * FITO ROSA BDOB:1960 (64 yo M)Acc No.[id number]:09/02/2023 COLON WITH MAC Patient:?FITO ROSA Provider:?Daniel Maria MD :1960???Age:63 Y???Sex:Male Edin e:09/02/2023 Address:[address] [place] [address] [id number] Pcp:ADELA BORJAS Subjective: * Chief Complaints: * ???1. Screening. * Medical History:? Objective: * Vitals:? Assessment: Plan: * Treatment: * * The named appointment provid er may or may not be the originator of this progress note, and it is not deemed complete until electronically signed by the appointment provider. Sign off status: Pending * Provider:?Daniel Maria MD Date:?1 11/02/2022 Generated for Christal tran/Keith/Johnitting on:?02/07/2025 08:33 AM EDT
--- OUTSIDE RECORDS SUMMARY | 2025-02-07 08:33 | XMS_ITS ---
Author Organization [facility] Address [address] [place] [address] Care Team Providers Care Breading Machine Tender Name Role Phone ADELA BORJAS Primary Care Provider Daniel Gottlieb Jr Unavailable Allergies No Known Allergies REASON FOR VISIT Patient presents today for a colon screening Medications Medication SIG (Take, Route, Frequency, Duration) Notes Start Date End Date Status hydroCHLOROthiazide 12.5 MG TAKE 1 TABLE T BY MOUTH EVERY DAY IN THE MORNING Oral for 30 Days Active Atorvastatin Calcium 40 MG Oral for 90 Days Active Aspirin Low Dose 81 MG TAKE 1 TABLET BY MOUTH EVERY DAY Oral for 90 Days Active Atorvastatin Calcium 40 MG Oral for 90 Days Not-Taking tiZANidine HCl 4 MG Oral for 15 Days Active Losartan Potassium 25 MG TAKE 1 TABLET B Y MOUTH EVERY DAY Oral for 90 Days Active Gabapentin 100 MG TAKE 1 CAPSULE BY MOUTH THREE TIMES A DAY Oral for 30 Days Active Folic Acid 1 MG TAKE 1 TABLET BY MOUTH EVERY DAY Oral for 90 Days Active Thiamine HCl 100 MG TAKE 1 TABLET BY MOUTH EVERY DAY Oral for 90 Days Active Atenolol 50 MG TAKE 1 TABLET ORALLY DAILY Oral for 90 Active Losartan Potassium 100 MG TAKE 1 TABLET BY MOUTH DAILY Oral for 90 Active Social History Tobacco Use: Social History Observation [...] daily (4 points) Points 11 Interpretation Positive AUDIT-C (Standard) Question Answer Notes Did you have a drink containing alcohol in the p ast year? No Points 0 Interpretation Negative Problems Problem Type SNOMED Code ICD Code Onset Dates Problem Status W/U Status Risk Notes Problem 89880796 Coffee ground emesis (K92.0) Active confirmed Vital Signs Temperature 97.5 degrees Fahrenheit 02/01/20 25 Blood pressure systolic 001 mm Hg 02/01/20 25 Blood pressure diastolic 01 mm Hg 025 Height 72 in 01/31/2025 Weight 205 lbs 01/31/2025 BMI 27.8 kg/m2 01/31/2025 Encounters Encounter Location Date Provider Diagnosis [facility] [address] [place] [address] 01/31/2025 Daniel Maria Jr Coffee ground emesis K92.0 and Colon cancer screening Z12.11 Assessments Encounter Date Diagnosis (ICD Code) Assessment Notes Treatment Notes Treatment Clinical Notes Section Notes 01/31/2025 Coffee ground emesis (ICD-10 - K92.0) We discussed his medical history in detail today. It sounds like he had a self-limited episode of coffee-ground emesis. We offered upper endoscopy for further evaluation. He declines. He is due for colorectal cancer screening. This will be arranged. He is advised to stop hydrochlorothiazide the day before the procedure and aspirin 1 week before the procedure. 01/31/2025 Colon cancer screening (ICD-10 - Z12.11) Colonoscopy material was printed, Colonoscopy material was printed We discussed his medical history in detail today. It sounds like he had a self-limited episode of coffee-ground emesis. We offered upper endoscopy for further evaluation. He declines. He is due for colorectal cancer screening. This will be arranged. He is advised to stop hydrochlorothiazide the day before the procedure and aspirin 1 week before the procedure. Plan Of Treatment Treatment Notes Assessment Notes Colon cancer screening Colonoscopy mater ial was printed, Colonoscopy material was printed Future Test Test Name Order Date COLONOSCOPY 01/31/2025 Next Appt Details Follow Up: 1 Year, Reason: Provider Name:Daniel quevedo Jr, 04/12/2025 07:30:00 AM, [address] [place] [address], [phone], Progress Notes * FITO ROSA BDOB:1960 (64 yo M)Acc No.[id number]:01/31/2025 Progress Notes Patient:FITO VAZQUEZ Provider:?Daniel Maria MD :1960???Age:64 Y???Sex:Male Edin e:01/31/2025 Address:[address] [place], [place] [id number] Pcp:ADELA BORJAS Subjective: * Chief Complaints: * ???1. Patient presents today for a colon screening. * HPI: ???New symptom(s):? Fito is a pleasant 64-year-old man seen today for his preoperative colonoscopy visit. He has no complaints of rectal bleeding or change in his bowel habits. Weight and appetite have been stable. He did have an episode of possible upper GI blood loss based on his primary care provider's records. These are reviewed. He has no complaints of rectal bleeding or change in his bowel habits. He was hospitalized in the ICU with altered mental status and February. Pneumonia was diagnosed. There was a report of coffee-ground emesis. These records are reviewed. Currently, he has no complaints of upper GI symptoms. He has been on proton pump inhibitors in the past, but is not taking this currently. His main complaint today is neuropathy for which he is being evaluated by neurology. There is a history of alcohol abuse, and the patient states he has been abstinent since October. * ROS:?General/Constitutional:?Change in appetite?denies.?Fatigue?denies.?ENT:?Patient denies?difficulty swallowing.?Respiratory:?Patient denies?shortness of breath.?Cardiovascular:?Patient denies?chest pain.?Gastrointestinal:?Comments?See HPI for details.?Genitourinary:?Difficulty urinating?denies.?Incontinence?denies.?Musculoskeletal:?Patient denies?muscle aches.?Skin:?Patient denies?pruritis.?Neurologic:?Patient denies?low back pain.?Psychiatric:?Patient denies?mental or physical abuse.? * Medical History:?Hypertensio n, Fatty liver, Thoracic aortic aneurysm, 4.4 cm 02/09, Left ventricular hypertrophy, ejection fraction 55-60% on echo 06/10, Pneumonia. * Surgical History:?Left ingui nal hernia repair 2012. * Hospitalization/Major Diagno stic Procedure:?pneumonia 8 days in [facility] hospital . * Family History:?Father: dece ased.?Mother: .? No family history of liver cancer or colon cancer. * Social History:?Tobacco Use:?Tobacco Use/Smoking?Patient is a?nonsmoker.?Drugs/Alcohol:?Alcohol Screen?Did you have a drink containing alcohol in the past year??Yes,?How often did you have a drink containing alcohol in the past year??4 or more times a week (4 points),?How many drinks did you have on a typical day when you were drinking in the past year??7 to 9 drinks (3 points),?How often did you have 6 or more drinks on one occasion in the past year??Daily or almost daily (4 points),?Points?11,?Interpretation?Positive.?Miscellaneous:?Marital status: . 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 ???Drug/Alcohol:?AUDIT-C (Standard)?Did you have a drink containing alcohol in the past year??No,?Points?0,?Interpretation?Negative.? * Medications:?Taking Atenolol 50 MG Tablet TAKE 1 TABLET ORALLY DAILY Oral , Taking Losartan Potassium 100 MG Tablet TAKE 1 TABLET BY MOUTH DAILY Oral , Taking tiZANidine HCl 4 MG Tablet Oral , Taking Losartan Potassium 25 MG Tablet TAKE 1 TABLET BY MOUTH EVERY DAY Oral , Taking Gabapentin 100 MG Capsule TAKE 1 CAPSULE BY MOUTH THREE TIMES A DAY Oral , Taking Folic Acid 1 MG Tablet TAKE 1 TABLET BY MOUTH EVERY DAY Oral , Taking Thiamine HCl 100 MG Tablet TAKE 1 TABLET BY MOUTH EVERY DAY Oral , Taking hydroCHLOROthiazide 12.5 MG Tablet TAKE 1 TABLET BY MOUTH EVERY DAY IN THE MORNING Oral , Taking Atorvastatin Calcium 40 MG Tablet Oral , Taking Aspirin Low Dose 81 MG Tablet Delayed Release TAKE 1 TABLET BY MOUTH EVERY DAY Oral , Not-Taking/PRN Atorvastatin Calcium 40 MG Tablet Oral , Discontinued MiraLax (colon prep) 17 GM/SCOOP Powder mixed with Gatorade or Crystal Light Orally begin at 5:00 p.m. the day before the procedure , Medication List reviewed and reconciled with the patient * Allergies:?N.K.D.A. Objective: * Vitals:?Wt:205lbs, Ht: 72 in , BMI:27.8Index, BP:001/01mm Hg, Temp:97.5, Ht-cm: 182.88, Wt-k.99. * Examination: ???General Examination: ?GENERAL APPEARANCE:?in no acute distress.?HEAD:?normocephalic.?EYES:?sclera non-icteric.?ORAL CAVITY:?mucosa moist.?NECK/THYROID:?no lymphadenopathy.?SKIN:?anicteric.?HEART:?S1, S2 normal, no murmurs.?LUNGS:?clear to auscultation bilaterally.?CHEST:?normal shape and expansion.?ABDOMEN:?soft, nontender, nondistended, bowel sounds present, no organomegaly .?EXTREMITIES:?no clubbing, cyanosis, or edema.?PSYCH:?cognitive function intact.? Assessment: * Assessment: 1.?Coffee ground emesis - K9 2.0 (Primary)???2.?Colon cancer screening - Z12.11??? We discussed his medical his tory in detail today. It sounds like he had a self-limited episode of coffee-ground emesis. We offered upper endoscopy for further evaluation. He declines. He is due for colorectal cancer screening. This will be arranged. He is advised to stop hydrochlorothiazide the day before the procedure and aspirin 1 week before the procedure. Plan: * Treatment: 2.?Colon cancer screening?Procedure: COLONOSCOPY (Ordered for 01/31/2025)* sched for 04/12/25 at 7:30 am [email or web address] Notes: Colonoscopy material was printed, Colonoscopy material was printed?? * Preventive Medicine:? ??Counseling:?Care goal follow-up plan:?Above Normal BMI Follow-up?Dietary management education, guidance, and counseling,?BMI management provided?Yes.? * Follow Up:?1 Year * * Sign off status: Completed true * Provider:?Daniel Maria MD Date:?0 01/31/2025 Generated for Christal tran/Keith/eTransmitting on:?02/07/2025 08:32 AM EDT History and Physical Notes * HPI (History of Present Illness) Category Sub-Category Detail Notes Category Not es New symptom(s) Fito is a pleasant 64-year-old man seen today for his preoperative colonoscopy visit. He has no complaints of rectal bleeding or change in his bowel habits. Weight and appetite have been stable. He did have an episode of possible upper GI blood loss based on his primary care provider's records. These are reviewed. He has no complaints of rectal bleeding or change in his bowel habits. He was hospitalized in the ICU with altered mental status and February. Pneumonia was diagnosed. There was a report of coffee-ground emesis. These records are reviewed. Currently, he has no complaints of upper GI symptoms. He has been on proton pump inhibitors in the past, but is not taking this currently. His main complaint today is neuropathy for which he is being evaluated by neurology. There is a history of alcohol abuse, and the patient states he has been abstinent since October. Examination Category Sub-Category Detail Notes Category Not es General Examination GENERAL APPEARANCE: in no acute di stress HEAD: normocephalic EYES: sclera non-icteric NECK/THYROID: no lymphadenopathy HEART: S1, S2 normal, no mu rmurs CHEST: normal shape and exp ansion LUNGS: clear to auscultatio n bilaterally ABDOMEN: soft, nontender, non distended, bowel sounds present, no organomegaly SKIN: anicteric EXTREMITIES: no clubbing, cyanosi s, or edema PSYCH: cognitive function i ntact ORAL CAVITY: mucosa moist
--- OUTSIDE RECORDS SUMMARY | 2025-02-07 08:33 | XMS_ITS ---
Author Organization 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 Name Role Phone ADELA BORJAS Primary Care Provider Matt Maria Jr, Daniel Aguirre REASON FOR VISIT cancel colonoscopy Encounters Encounter Location Date Provider Diagnosis [facility] [address] [place] [address] 09/01/2023 Daniel Maria Jr Plan Of Treatment Next Appt Details Provider Name:Daniel quevedo Jr, 04/12/2025 07:30:00 AM, [address] [place] [address] , [place], [place], [phone], Progress Notes * FITO ROSA BDOB:1960 (63 yo M)Acc No.[id number]:09/01/2023 Patient:?FITO ROSA :1960???Age:63 Y???Sex:Male Address:[address] [place] [address] , [place], [address] * true * Date:? Generated for Printi chelsea/Keith/eTransmitting on:?02/07/2025 08:32 AM EDT
--- OUTSIDE RECORDS SUMMARY | 2025-02-07 08:33 | XMS_ITS | Patient Health Record ---
Author Organization [facility] Address [address] [place] [address] Care Team Providers Care Vice President [employer] Name Role Phone ADELA BORJAS Primary Care Provider Daniel Gottlieb Jr [phone] Allergies No Known Allergies Reason For Referral No Information Medications Medication SIG (Take, Route, Frequency, Duration) Notes Start Date End Date Status Atenolol 50 MG TAKE 1 TABLET ORALLY DAILY Oral for 90 Active Losartan Potassium 100 MG TAKE 1 TABLET BY MOUTH DAILY Oral for 90 Active tiZANidine HCl 4 MG Oral for 15 Days Active hydroCHLOROthiazide 12.5 MG TAKE 1 TABLE T BY MOUTH EVERY DAY IN THE MORNING Oral for 30 Days Active Atorvastatin Calcium 40 MG Oral for 90 Days Active Aspirin Low Dose 81 MG TAKE 1 TABLET BY MOUTH EVERY DAY Oral for 90 Days Active Atorvastatin Calcium 40 MG Oral for 90 Days Not-Taking Losartan Potassium 25 MG TAKE 1 TABLET [...] EVERY DAY Oral for 90 Days Active Immunizations Vaccine Route Administration Date Status Comme nts Influenza Unknown 08/05/2023 Administered Influenza Unknown 07/09/2023 Refused Social History Tobacco Use: Social History Observation Description Date Details (start date - stop date) Never Smoker NA - NA Tobacco Use/Smoking Question Answer Notes Patient is a nonsmoker AUDIT-C (Standard) Question Answer Notes Did you have a drink containing alcohol in the p ast year? No Points 0 Interpretation Negative Problems Problem Type SNOMED Code ICD Code Onset Dates Problem Status W/U Status Risk Notes Problem 858850252 Colon cancer screening (Z12.11) Active confirmed Problem 634328491 Encounter for other preprocedural examination (Z01.818) Active confirmed Problem 37927768 Coffee ground emesis (K92.0) Active confirmed Vital Signs Temperature 97.5 degrees Fahrenheit 01/31/2025 Blood pressure diastolic 01 mm Hg 01/31/2025 Height 72 in 01/31/2025 Blood pressure systolic 001 mm Hg 01/31/2025 Weight 205 lbs 01/31/2025 BMI 27.8 kg/m2 01/31/2025 Encounters Encounter Location Date Provider Diagnosis [facility] [address] [place] [address] 01/31/2025 Daniel Maria Jr Coffee ground emesis K92.0 and Colon cancer screening Z12.11 Assessments Encounter Date Diagnosis (ICD Code) Assessment Notes Treatment Notes Treatment Clinical Notes Section Notes 01/31/2025 Colon cancer screening (ICD-10 - Z12.11) [...] aspirin 1 week before the procedure. 01/31/2025 Coffee ground emesis (ICD-10 - K92.0) [...] week before the procedure. Plan Of Treatment Future Test Test Name Order Date COLONOSCOPY 07/09/2023 COLONOSCOPY 01/31/2025 Next Appt Details Provider Name:Daniel quevedo Jr, 04/12/2025 07:30:00 AM, [address] , [place], [place], [phone], Insurance Providers Payer Name Payer Address Payer Phone Subscriber Number Group Number Insured Name Patient Relationship to Insured Coverage Start Date Coverage End Date [facility] [address] [place] [phone] [id number] ROSA FITO Self - patient is the insured Medical (General) History Medical History History ICD Code Hypertension Fatty liver Thoracic aortic aneurysm, 4.4 cm 02/09 Left ventricular hypertrophy, ejection f raction 55-60% on echo 06/10 pneumonia Surgical History Surgery Date(Month/Year) Left inguinal hernia repair 2012 Hospitalization History Reason Date(Month/Year) pneumonia 8 days in [facility] hospital
== END 2025-02-07 07:46 | disposition home or self-care (01) ==
LOC: HO.HMGCX 07:45
PROVIDERS: PCP Nurse Practitioner Family; Visit Provider Nurse Practitioner Family
DX: R94.130 Abnormal response to nerve stimulation, unspecified (principal)
CPT/HCPCS: 72100

== ENCOUNTER 2025-02-07 07:45 | Outpatient (AMB) | payer OTHER, SELFPAY ==
[2025-02-07 07:58] VITALS: BP 126/78; PULSE 75; RESP 18; TEMP 36.9; O2SAT 96; BMI 27.7
--- NOTE | 2025-02-07 07:58 | A.OFFPC_ITS ---
Vital Signs 02/07/25 07:58 Height 6 ft Weight 204 lb BMI 27.7 BP 126/78 Blood Pressure Location Lt brachial Position Sitting Respiration 18 Pulse 75 Pulse Source Pulse Oximeter Temp 98.5 F Temp Source Oral Pulse Oximetry (%) 96 Oxygen Delivery Method Room Air Intake Visit Reasons: 6 weeks follow up Intake Note: Pt is here today for 6 weeks follow up visit. Allergies bee pollen [bee stings] Allergy (Severe, Verified 02/07/25 08:16) Anaphylaxis Penicillins Allergy (Verified 02/07/25 08:16) hives cefuroxime Allergy (Intermediate, Uncoded 02/07/25 08:16) Swelling Medication List - Last Reconciled 02/07/25 by Daniel Azevedo, EXTRUDER OPERATOR HORIZONTAL- aspirin 81 mg PO DAILY atenolol 25 mg PO BID atorvastatin 40 mg PO BEDTIME beclomethasone dipropionate 80 mcg/actuation (Qvar RediHaler) 1 inh inhalation Q12H epinephrine (EpiPen 2-Brenden) 0.3 mg (0.3 mL) IM Q10M PRN folic acid 1 mg PO DAILY gabapentin 100 mg PO TID 30 days losartan 25 mg PO DAILY 30 days montelukast 10 mg PO BEDTIME omeprazole 20 mg PO DAILY polyethylene glycol 3350 17 grams PO DAILY sennosides-docusate sodium 8.6-50 mg (Senna Plus) 2 tabs PO BID thiamine HCl (vitamin B1) 100 mg PO DAILY tizanidine 4 mg PO Q12H PRN 30 days vitamin B complex 1 tab PO DAILY Tobacco use date assessed: 02/07/25 Dental Screening Dental Screen Date: 11/11/24 HPI 6 weeks follow up HPI Details Chief Complaint The patient presents with neuropathy in the bilateral extremities. History of Present Illness The patient is a 64-year-old male presenting with peripheral neuropathy in the bilateral extremities. The neuropathy has been linked to a history of alcohol abuse, see previous documentation. Recent slight improvement has been noted. The patient?s current management includes vitamin B complex, thiamine, and gabapentin for symptom control, with gabapentin reported as beneficial. Further investigation into possible underlying structural issues with the lumbar spine, but there are no associated symptoms of lower back pain or cauda equina syndrome at this time. Physical examination revealed a weaker pulse in the right dorsalis pedis compared to the left, though overall circulation appeared adequate. The patient will seek further neurological evaluation, including EMG and nerve conduction studies. Pt has a consult with neuro in a couple of months. HTN: remains stable Social History - History of alcohol abuse. - No additional social determinants of h ealth discussed. Health Maintenance - Encouraged to attain stable blood pres sure and follow through with lab tests. - Suggested fasting before labs. Review of Systems - Neurological: Reports neuropathy in bi lateral lower extremities. Denies back pain or cauda equina symptoms. - Cardiovascular: Denies symptoms resemb ling claudication. - Respiratory: Denies respiratory sympto ms; lungs were cleared on examination. -denies any sig lower back pain -denies any cp, sob, dizziness, fevers, chills, blurred vision Physical Exam General: Cooperative, healthy appearing, comfortable, no acute distress and well developed Orientation: Patient oriented x3 Limitations: No limitations Head: Normal to inspection Ears: Hearing grossly normal bilaterally Nose: Normal external nose present Face and sinus: Normal facial exam Eyes: Appearance normal, both eyes and all related structures Neck: Normal visual inspection and Yes full ROM Respiratory: Lungs were cleared by lap. Normal respiratory effort and able to s peak in complete sentences. Clear to auscultation bilaterally Cardiovascular: Regular rate and rhythm. Normal S1 and S2. Systolic murmur present GI: Normal to inspection. Soft to palpation and nontender Skin: No rashes or lesions noted Neuro: Patient oriented x3, + sensation with use of monofilament to Bilat feet Extremities: Neuropathy to bilateral extremities. Dorsalis pedis present bilaterally, right felt a little weaker than left. Good CMs altogether to bilateral lower extremities. Normal to inspection, neg straight leg raises Results Plan For peripheral neuropathy, I will maintain the current regimen of gabapentin alongside vitamin B complex and thiamine supplements. I am scheduling a lumbar spine x-ray and aiming for a neurology consultation for nerve conduction and EMG studies. Monitoring blood pressure is a priority, and fasting labs are recommended to ensure overall health. Ongoing evaluation and monitoring will occur in coordination with neurology. Discussion Notes During the visit, I discussed the likelihood of peripheral neuropathy being associated with the patient's past alcohol abuse, while also exploring the possibility of lumbar spine involvement. The management plan, including gabapentin and vitamin supplementation, was reviewed, with attention given to its potential benefits and any adverse effects. I emphasized the importance of upcoming diagnostics, including a lumbar x-ray and neurology follow up. Future neurological consultations were agreed upon, and the patient was informed of follow-up procedures and possible future management strategies. Patient Instructions - Continue taking gabapentin, vitamin B complex, and thiamine as prescribed. - Schedule an x-ray of the lumbar spine. - Attend appointments for nerve conducti on studies and EMG testing. - Monitor blood pressure regularly. - Get lab tests done while fasting. - Follow up with neurology as scheduled. 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 Questionnaire Thrive Questionnaire Date Thrive assessed: 11/11/24 I am a: Patient What is your living situation today?: I have a steady place to live Within the past 12 months, did the food you bought not last and you didn't have the money to get more?: Never true Within the past 12 months, did you worry whether your food would run out before you got money to buy more?: Never true Do you have trouble paying for medicines?: No Do you have trouble getting transportation to medical appointments?: No Do you have trouble paying your heating and electricity bill?: No Do you have trouble taking care of your child, family member or friend?: No Do you have trouble with day-to-day activities such as bathing, preparing meals, shopping, managing finances, etc.?: No Are you currently unemployed and looking for a job?: No Are you interested in more education?: No Please select the resources that you would like help with: None Currently or been in a relationship where the following occur: No concerns reported THRIVE Score: 0 JOSEPH-7 AMB Questionnaire JOSEPH-7 Date JOSEPH - 7 assessed: 11/11/24 Source: Developed by Drs. Bon Nelson, Zari Bojorquez, Timmy Duarte and colleagues, with an educational cary from [employer]. Physical exam (Primary Care) Vital Signs: Last Vital Signs Temp 98.5 F 02/07/25 07:58 Pulse 75 02/07/25 07:58 Resp 18 02/07/25 07:58 BP 126/78 02/07/25 07:58 Pulse Ox 96 02/07/25 07:58 Oxygen Delivery Method Room Air 02/07/25 07:58 BMI result Body Mass Index 27.7 Tobacco/Smoking Status: Tobacco use Status Tobacco use date assessed 02/07/25 02/07/25 08:05 Patient Tobacco Use Status Never used Tobacco 02/07/25 07:58 Tobacco use type 02/07/25 08:05 e-Cigarette/Vaping Use Never Used 02/07/25 07:58 Thrive Assessment: Date of Thrive Assessment Date Thrive assessed 11/11/24 02/07/25 07:58 Currently or been in a relationship where the following occur: No concerns reported Coding Level of Care Code Est Pt Level 4 (24062) Diagnoses Abnormal nerve conduction studies R94.130 HTN (hypertension) I10 Neuropathy G62.9 Assessment & Plan Assessment & Plan (1) Abnormal nerve conduction studies: Code(s): R94.130 - Abnormal response to nerve stimulation, unspecified Category: Medical (2) HTN (hypertension): Code(s): I10 - Essential (primary) hypertension Category: Medical (3) Neuropathy: Code(s): G62.9 - Polyneuropathy, unspecified Category: Medical Plan . Orders: Orders XR lumbar spine 2-3V Today R94.130 - Abnormal response to nerve stimulation, unspecified Complete Blood Count Auto Diff Today G62.9 - Polyneuropathy, unspecified, I10 - Essential (primary) hypertension, R94.130 - Abnormal response to nerve stimulation, unspecified Comprehensive [place]. Panel Fast Today G62.9 - Polyneuropathy, unspecified, I10 - Essential (primary) hypertension, R94.130 - Abnormal response to nerve stimulation, unspecified TSH reflex Free T4 Today G62.9 - Polyneuropathy, unspecified, I10 - Essential (primary) hypertension, R94.130 - Abnormal response to nerve stimulation, unspecified UA CC w/rflx Micro + Cult Today G62.9 - Polyneuropathy, unspecified, I10 - Essential (primary) hypertension, R94.130 - Abnormal response to nerve stimulation, unspecified Lipid Panel Today G62.9 - Polyneuropathy, unspecified, I10 - Essential (karina jadiel) hypertension, R94.130 - Abnormal response to nerve stimulation, unspecified Tick-borne Disease Molecular Today G62.9 - Polyneuropathy, unspecified Lyme IgG/IgM w/reflex to WB Today G62.9 - Polyneuropathy, unspecified HIV Ab/Ag Today G62.9 - Polyneuropathy, unspecified Syphilis Screen Today G62.9 - Polyneuropathy, unspecified Vitamin B12 Today G62.9 - Polyneuropathy, unspecified Vitamin B6 Today G62.9 - Polyneuropathy, unspecified
== END 2025-02-07 09:46 | disposition home or self-care (01) ==
LOC: HO.HMCC 07:46
PROVIDERS: PCP Nurse Practitioner Family; Visit Provider Nurse Practitioner Family
DX: R94.130 Abnormal response to nerve stimulation, unspecified (principal); I10 Essential (primary) hypertension; G62.9 Polyneuropathy, unspecified

== ENCOUNTER → 2025-02-07 08:38 | Outpatient (BNV) | payer OTHER, SELFPAY | PROVIDERS: PCP Nurse Practitioner Family; Visit Provider Radiology Diagnostic Radiology | DX: R94.130 Abnormal response to nerve stimulation, unspecified (principal) | CPT/HCPCS: 72100 ==

== ENCOUNTER 2025-03-22 08:11 | Outpatient (AMB) | payer OTHER, SELFPAY ==
--- NOTE | 2025-03-22 08:13 | MHC.OFFVIS ---
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 Required: No Allergies bee pollen [bee stings] Allergy (Severe, Verified 02/07/25 08:16) Anaphylaxis Penicillins Allergy (Verified 02/07/25 08:16) hives cefuroxime Allergy (Intermediate, Uncoded 02/07/25 08:16) Swelling Medication List - Last Reconciled 03/22/25 by Joshua Lorenzo MD aspirin 81 mg PO DAILY atenolol 25 mg PO BID atorvastatin 40 mg PO BEDTIME beclomethasone dipropionate 80 mcg/actuation (Qvar RediHaler) 1 inh inhalation Q12H epinephrine (EpiPen 2-Brenden) 0.3 mg (0.3 mL) IM Q10M PRN folic acid 1 mg PO DAILY gabapentin 100 mg PO ONCE losartan 25 mg PO DAILY 30 days montelukast 10 mg PO BEDTIME omeprazole 20 mg PO DAILY polyethylene glycol 3350 17 grams PO DAILY sennosides-docusate sodium 8.6-50 mg (Senna Plus) 2 tabs PO BID thiamine HCl (vitamin B1) 100 mg PO DAILY tizanidine 4 mg PO DAILY PRN 30 days vitamin B complex 1 tab PO DAILY HPI Comments Details: Mannie comes for follow-up. He continues to bothered by his lower back issue but more importantly weakness in his hip muscles and has seen Neurology in [place] and has been advised to urgently see spine surgeon. Patient is not sure about the results. He has no cardiac symptoms at current point time. He was not able to undergo echocardiogram due to the conflict in his schedule. He denies any lightheadedness, syncope. Denies any exertional chest pain or shortness of breath. No orthopnea, PND, leg edema. 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 Review of Systems Const Denies chills, Denies fatigue, Denies fever(s), Denies frequent falls, Denies weakness, Denies weight gain and Denies weight loss ENT Denies dizziness Card Denies chest pain, Denies leg edema, Denies lightheadedness, Denies palpitations, Denies dyspnea, Denies dyspnea on exertion, Denies orthopnea and Denies other (loss of consciousness) Resp Denies cough, Denies dyspnea and Denies dyspnea on exertion GI Denies hematochezia and Denies change in stool character Musc Denies abnormal gait, Denies muscle weakness, Denies numbness, Denies radiating pain into limb and Denies tingling Neuro Denies Abnormal speech present, Denies abnormal gait, Denies dizziness, Denies frequent falls, Denies numbness, Denies tingling and Denies weakness Endo Denies fatigue and Denies palpitations Physical Exam Vital Signs: Last Vital Signs Pulse 80 03/22/25 08:18 BP 120/70 03/22/25 08:18 BMI result Body Mass Index 27.5 Const General: cooperative, comfortable, alert, awake and anxious Nutritional Appearance: malnourished and overweight Orientation/consciousness: patient oriented x3 Neck Neck: Yes trachea midline, Yes supple and Yes no JVD Resp Effort & Inspection: normal respiratory effort Auscultation: clear to auscultation bilaterally Cardio Jugular venous distension: no JVD Palpation: normal PMI Rate: regular rate Rhythm: regular rhythm Heart sounds: S1 normal heart sound present, S2 normal heart sound present, no click, no gallops, no murmurs and no rubs GI Auscultation: normal bowel sounds Neuro General: patient oriented x3 and no focal motor deficits Speech: No Abnormal speech present Extrem General: Yes no clubbing, cyanosis or edema Assessment & Plan Assessment & Plan (1) Ascending aorta dilatation: Code(s): I77.810 - Thoracic aortic ectasia Category: Medical Plan: Thoracic aortic enlargement [id number]. No symptoms related to it. Needs follow-up echocardiogram which will be done in the near future. Will follow-up verbally with his results. Continue aggressive medical therapy. Continue aggressive blood pressure control which is currently well optimized advised to avoid sudden strenuous isometric exercise. (2) CAD (coronary artery disease): Code(s): I25.10 - Atherosclerotic heart disease of [place] coronary artery without angina pectoris Category: Medical Plan: CAD nonobstructive with presence of coronary calcium but normal myocardial perfusion imaging last February. At this point time he has no concerning symptoms. Continue low-dose aspirin therapy. Continue aggressive blood pressure control which is well optimized. Continue high-intensity statin therapy. Target goal LDL less than 70 mg/dL. Discussed with him, if he needs to undergo spine surgery under general anesthesia, would be low to intermediate risk for perioperative cardiovascular morbidity mortality. Continue atenolol, statins as well as losartan in the perioperative. Aspirin can be withheld for 5-7 days prior to surgery. (3) Aortic stenosis: Code(s): I35.0 - Nonrheumatic aortic (valve) stenosis Category: Medical Plan: Aortic stenosis which clinically appears to be mild. Continue above management. Continue aggressive vascular risk factor modification. (4) Labile blood pressure: Code(s): R09.89 - Other specified symptoms and signs involving the circulatory and respiratory systems Category: Medical Plan: Labile blood pressure which is currently well optimized. He is currently not having any orthostatic symptoms. Encouraged to maintain adequate hydration. Will follow up in the clinic in 13 months, sooner p.r.n.. Thank you for allowing me to partake in his care Medications: Changed From gabapentin 200 mg (2 x 100 mg) PO BID 30 days 120 caps 2RF To gabapentin 100 mg PO ONCE Coding Level of Care Code Est Pt Level 4 (86185) Complex EM visit Add On G2211 Diagnoses Ascending aorta dilatation I77.810 CAD (coronary artery disease) I25.10 Aortic stenosis I35.0 Labile blood pressure R09.89
[2025-03-22 08:18] VITALS: BP 120/70; PULSE 80; BMI 27.5
== END 2025-03-22 08:50 | disposition home or self-care (01) ==
LOC: HO.HCS 08:12
PROVIDERS: PCP Nurse Practitioner Family; Visit Provider Internal Medicine Cardiovascular Disease
DX: I77.810 Thoracic aortic ectasia (principal); I25.10 Atherosclerotic heart disease of native coronary artery without angina pectoris; I35.0 Nonrheumatic aortic (valve) stenosis; R09.89 Other specified symptoms and signs involving the circulatory and respiratory systems
CPT/HCPCS: 99214

== ENCOUNTER 2025-03-23 06:45 | Outpatient (REF) | payer OTHER, SELFPAY ==
[2025-03-23 10:04] LABS: Appearance Urine Clear; Color Urine Yellow; Glucose Urine UA Negative (Negative); Leukocyte Esterase Urine Negative (Negative); Nitrite Urine Negative (Negative); PH 7.5 (5.0-9.0); Urine Blood Negative (Negative); Urine Ketones Negative (Negative); Urine Protein Negative (Neg-Trace)
[2025-03-23 10:06] LABS: MANUAL DIFF FLAG NO
[2025-03-23 10:23] LABS: Basophils Percent Auto 0.5 % (0-2); Eosinophils Absolute Auto 0.2 X10*3/uL (0.0-0.4); Eosinophils Percent Auto 2.9 % (0-4); Hematocrit 41.7 % (42.0-52.0); Hemoglobin 14.5 g/dl (14.0-18.0); Imm Gran Abs Auto 0.02 X10*3/uL (0.00-0.03); Imm Gran Pct Auto 0.3 % (0.0-0.4); Lymphocytes Absolute Auto 1.1 X10*3/uL (1.2-4.9); Mean Corpuscular HGB Conc 34.8 g/dl (31.0-36.0); Mean Corpuscular Hemoglobin 30.4 pg (27.0-33.0); Mean Corpuscular Volume 87.4 fL (80.0-98.0); Mean Platelet Volume 8.8 fL (9.4-12.4); Monocytes Absolute Auto 0.8 X10*3/uL (0.1-1.2); Monocytes Percent Auto 13.7 % (2-11); Neutrophils Percent Auto 64.6 % (45-73); Platelet Count 231 X10*3/uL (160-400); Red Blood Count 4.77 X10*6/uL (4.60-5.80); Red Cell Distribution Width 12.8 % (11.0-16.0); White Blood Count 6.1 X10*3/uL (4.8-10.8)
[2025-03-23 11:25] LABS: Vitamin B12 296 pg/mL (200-900)
[2025-03-23 14:37] LABS: Alanine Aminotransferase 25 U/L (0-40); Alkaline Phosphatase 80 U/L (39-117); Anion Gap 10 (12-20); Aspartate Amino Transferase 31 U/L (5-37); Blood Urea Nitrogen 8 mg/dL (9-16); Calcium 9.4 mg/dL (8.4-10.2); Carbon Dioxide 28 mmol/L (22-29); Chloride 103 mmol/L (96-108); Cholesterol 184 mg/dL (<200); Estimated Glomerular Filt Rate > 60; Glucose Fasting 95 mg/dL (60-99); HDL Cholesterol 53 mg/dL (>40); LDL Cholesterol Calculated 120 mg/dL (<100); Potassium 4.6 mmol/L (3.3-5.1); Sodium 136 mmol/L (135-145); TSH reflex Free T4 1.96 uIU/mL (0.32-4.0); Total Protein 7.1 g/dL (6.5-8.0); Triglycerides 59 mg/dL (<150)
[2025-03-24 04:10] LABS: Syphilis Screen Nonreactive (Nonreactive)
[2025-03-24 04:59] LABS: HIV AB/AG Nonreactive (Nonreactive); HIV Num 1 0.05 S/CO (0.00-0.99)
[2025-03-24 17:29] LABS: Lyme Abs Screen <0.90 index
[2025-03-24 21:58] LABS: A. Phagocytphilium DNA,RT-PCR NOT DETECTED (NOT DETECTED); Babesia Microti DNA, RT-PCR NOT DETECTED (NOT DETECTED); Borrelia Miyamotoi,DNA RT-PCR NOT DETECTED (NOT DETECTED); E.Chaffeensis DNA RT-PCR NOT DETECTED (NOT DETECTED); Lyme(Borrelia ssp)DNA RT-PCR NOT DETECTED (NOT DETECTED)
[2025-03-28 06:18] LABS: Vitamin B6 7.1 ng/mL (2.1-21.7)
== END 2025-03-23 06:46 | disposition home or self-care (01) ==
LOC: HO.HMGCLDS 06:45
PROVIDERS: PCP Nurse Practitioner Family; Visit Provider Nurse Practitioner Family
DX: I10 Essential (primary) hypertension (principal); G62.9 Polyneuropathy, unspecified; R94.130 Abnormal response to nerve stimulation, unspecified
CPT/HCPCS: 36415; 80053; 80061; 81003; 82607; 84207; 84443; 85025; 86617; 86618; 86780; 87389; 87468; 87469; 87478; 87484; 87798

== ENCOUNTER 2025-03-24 08:04 | Outpatient (AMB) | payer OTHER, SELFPAY ==
--- OUTSIDE RECORDS SUMMARY | 2025-03-24 08:10 | XMS_ITS ---
Author Organization [facility] Address [address] [place] [address] Care Team Providers Care Deputy Director Of Nursing Name Role Phone ADELA BORJAS Primary Care [...] Problem Status W/U Status Risk Notes Problem 73000316 Coffee ground emesis (K92.0) Active confirmed Vital Signs Temperature 97.5 degrees Fahrenheit 02/01/20 25 Blood pressure systolic 001 mm Hg 02/01/20 25 Blood pressure diastolic 01 mm Hg 025 Height 72 in 01/31/2025 Weight 205 lbs 01/31/2025 BMI 27.8 kg/m2 01/31/2025 Encounters Encounter Location Date Provider Diagnosis [facility] [address] [place] [address] 01/31/2025 Daniel Maria Jr Coffee ground emesis [...] Provider Name:Daniel quevedo Jr, 04/12/2025 07:30:00 AM, [address] [place] [address], [id number], Progress Notes * FITO ROSA BDOB:1960 (64 yo M)Acc No.[id number]:01/31/2025 Progress Notes Patient:FITO VAZQUEZ Provider:?Daniel Maria MD :1960???Age:64 Y???Sex:Male Edin e:01/31/2025 Address:[address] [place] [id number] Pcp:ADELA BORJAS Subjective: * Chief Complaints: * [...] Hospitalization/Major Diagno stic Procedure:?pneumonia 8 days in [facility] hospital . * Family History:?Father: dece ased.?Mother: [...] MD Date:?0 01/31/2025 Generated for Christal tran/Keith/eTransmitting on:?03/24/2025 08:10 AM EDT History and Physical Notes * [...]
--- NOTE | 2025-03-24 08:30 | A.OFFPC_ITS ---
Vital Signs 03/24/25 08:31 Height 6 ft Weight 208 lb 8 oz BMI 28.3 BP 142/102 H Blood Pressure Location Lt brachial Position Sitting Pulse 84 Pulse Source Pulse Oximeter Temp 98.0 F Temp Source Oral Pulse Oximetry (%) 95 Oxygen Delivery Method Room Air Intake Visit Reasons: ANNUAL PE Roving Hauler Required: No Accompanied by: Self / Same As Patient Allergies bee pollen [bee stings] Allergy (Severe, Verified 03/24/25 08:31) Anaphylaxis Penicillins Allergy (Verified 03/24/25 08:31) hives cefuroxime Allergy (Intermediate, Uncoded 02/07/25 08:16) Swelling Tobacco use date assessed: 03/24/25 Dental Screening Dental Screen Date: 03/24/25 Did you have a dental visit in the last 12 months?: No Did you have a dental problem in the last 6 months where you did not have access to dental care?: No Was dental information given to patient?: Patient has dentist HPI ANNUAL PE HPI Details History of Present Illness The patient is a 64-year-old male presenting for a physical exam and follow-up on his laboratory results. He has a documented history of hypertension with personal records indicating recent blood pressures in the normal range, although an elevated reading was observed today. His cardiovascular history includes a systolic heart murmur for which no acute symptoms were reported. Currently, he's experiencing peripheral neuropathy, primarily as numbness in the lower extremities, weakness to BLE, with ongoing management by specialists (neuro and neuro-surg). His visit was marked by job-related stress, impacting his mood, although without additional systemic complaints. Despite the stress, he reports no cardiovascular or respiratory complaints such as chest pain or shortness of breath. His gastroenterological health is monitored, with a future colonoscopy planned independently. He denies any gastrointestinal or urinary system abnormalities. NOTE: computers down during visit Health Maintenance - Future colonoscopy planned. - Monitoring of blood pressure due to el evated levels noted. - Follow-up with neurologist and neurosu nirav for peripheral neuropathy. -psa is utd -sees cardiology Social History - Experiencing job-related stress causin g frustration. Review of Systems - Cardiovascular: Denies chest pain, inc reased shortness of breath. - Gastrointestinal: Denies blood in stoo l, constipation, diarrhea. - Genitourinary: Denies urinary issues. - Neurological: Reports numbness in lowe r extremities. - General: Reports job-related stress. Physical Exam General: Cooperative, healthy appearing, comfortable, no acute distress and well developed Orientation: Patient oriented x3 Limitations: No limitations Head: Normal to inspection Ears: Hearing grossly normal bilaterally Nose: Normal external nose present Face and sinus: Normal facial exam Eyes: Appearance normal, both eyes and all related structures Neck: Normal visual inspection and Yes full ROM Respiratory: Normal respiratory effort and able to speak in complete sentences. Clear to auscultation bilaterally Cardiovascular: Regular rate and rhythm. Normal S1 and S2. Systolic murmur present GI: Normal to inspection. Soft to palpation and nontender Skin: No rashes or lesions noted Neuro: Patient oriented x3. Neuropathy in lower extremities Extremities: Normal to inspection. No edema. Numbness in lower extremities Results - Labs reviewed, results unspecified but indicated as fair by conversation. Plan Hypertension will be closely monitored, and any necessary adjustments to treatment will be made over subsequent visits. The patient's heart murmur will continue to be observed, with no immediate intervention required. He will also continue to see specialists for neuropathy management through ongoing appointments. A heightened focus on stress-related symptoms might be necessary if they exacerbate, and ensuring follow-through with scheduled colonoscopic procedures is part of his ongoing maintenance. Discussion Notes During today's visit, I addressed the patient's current health status, emphasizing the importance of controlling his blood pressure and monitoring his cardiovascular health, including the heart murmur. We discussed the implications of stress and supportive measures that may alleviate his current frustration. The patient's neuropathy and involvement with a neurologist and neurosurgeon were acknowledged, with encouragement to maintain this engagement for com prehensive management. Reminders about the pending colonoscopy were reiterated, outlining the necessity for regular screenings given his gastroenterological oversight. Patient Instructions - Monitor your blood pressure regularly and report any consistently high readings. - Continue with the specialist care for neuropathy. - Be mindful of stress levels and consid er relaxation techniques. - Remember to schedule and attend the up coming colonoscopy. - Seek medical attention if new or worse lala symptoms arise. 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 Questionnaire Thrive Questionnaire Date Thrive assessed: 11/11/24 I am a: Patient What is your living situation today?: I have a steady place to live Within the past 12 months, did the food you bought not last and you didn't have the money to get more?: Never true Within the past 12 months, did you worry whether your food would run out before you got money to buy more?: Never true Do you have trouble paying for medicines?: No Do you have trouble getting transportation to medical appointments?: No Do you have trouble paying your heating and electricity bill?: No Do you have trouble taking care of your child, family member or friend?: No Do you have trouble with day-to-day activities such as bathing, preparing meals, shopping, managing finances, etc.?: No Are you currently unemployed and looking for a job?: No Are you interested in more education?: No Please select the resources that you would like help with: None Currently or been in a relationship where the following occur: No concerns reported THRIVE Score: 0 JOSEPH-7 AMB Questionnaire JOSEPH-7 Date JOSEPH - 7 assessed: 11/11/24 Source: Developed by Drs. Bon Nelson, Zari Bojorquez, Timmy Duarte and colleagues, with an educational cary from [employer]. Physical exam (Primary Care) Vital Signs: Last Vital Signs Temp 98.0 F 03/24/25 08:31 Pulse 84 03/24/25 08:31 BP 142/102 H 03/24/25 08:31 Pulse Ox 95 03/24/25 08:31 Oxygen Delivery Method Room Air 03/24/25 08:31 BMI result Body Mass Index 28.3 Tobacco/Smoking Status: Tobacco use Status Tobacco use date assessed 03/24/25 03/24/25 08:47 Patient Tobacco Use Status Never used Tobacco 03/24/25 08:32 Tobacco use type 02/08/25 08:26 e-Cigarette/Vaping Use Never Used 03/24/25 08:32 Thrive Assessment: Date of Thrive Assessment Date Thrive assessed 11/11/24 03/24/25 08:32 Currently or been in a relationship where the following occur: No concerns reported Coding Level of Care Code Est Pt Prev Care 40-64y(18978) Diagnoses HTN (hypertension) I10 Neuropathy G62.9 Labile blood pressure R09.89 Aortic stenosis I35.0 Encounter for routine adult physical exam with abnormal findings Z00. Assessment & Plan Assessment & Plan (1) HTN (hypertension): Code(s): I10 - Essential (primary) hypertension Category: Medical (2) Neuropathy: Code(s): G62.9 - Polyneuropathy, unspecified Category: Medical (3) Labile blood pressure: Code(s): R09.89 - Other specified symptoms and signs involving the circulatory and respiratory systems Category: Medical (4) Aortic stenosis: Code(s): I35.0 - Nonrheumatic aortic (valve) stenosis Category: Medical Plan: . (5) Encounter for routine adult physical exam with abnormal findings: Code(s): Z00.01 - Encounter for general adult medical examination with abnormal findings Category: Medical Plan .
[2025-03-24 08:31] VITALS: BP 142/102; PULSE 84; TEMP 36.7; O2SAT 95; BMI 28.3
== END 2025-03-24 09:43 | disposition home or self-care (01) ==
LOC: HO.HMCC 08:05
PROVIDERS: PCP Nurse Practitioner Family; Visit Provider Nurse Practitioner Family
DX: I10 Essential (primary) hypertension (principal); G62.9 Polyneuropathy, unspecified; R09.89 Other specified symptoms and signs involving the circulatory and respiratory systems; I35.0 Nonrheumatic aortic (valve) stenosis; Z00.01 Encounter for general adult medical examination with abnormal findings

== ENCOUNTER → 2025-03-24 08:04 | Outpatient (BNVA) | payer OTHER, SELFPAY | PROVIDERS: PCP Nurse Practitioner Family; Visit Provider Nurse Practitioner Family | DX: Z13.89 Encounter for screening for other disorder (principal) ==

== ENCOUNTER → 2025-03-30 07:41 | Outpatient (REF) | payer OTHER, SELFPAY ==
--- NOTE | 2025-03-30 07:43 | CA_ITS ---
Transthoracic Echocardiogram Patient (Last, First, Middle): Mannie Pleitez B Gender: Male Date of : 1960 Age: 64 Procedure Date: 03/30/2025 Procedure Type: Transthoracic Echocardiogram Location: OP Height: 182.88 cm Weight: 94.35 kg BSA: 2.17 m2 Heart Rate: 74 bpm BP: 126 / 78 mmHg Handle Lathe Operator: CECILIA Referring MD: Joshua Lorenzo MD Career Resource Technician: Joshua Lorenzo MD Symptoms: I35.0 - Nonrheumatic aortic (valve) stenosis Study Quality: Adequate ECG Rhythm: Sinus Conclusions: - 1. Normal LV ejection fraction of 65-70% with moderate LVH with impaired relaxation filling pattern 2. Mild aortic stenosis with at least moderate mitral annular calcification 3. Mildly dilated ascending aorta at 4.3 cm which is not significantly change compared to prior study 4. Normal RV systolic pressure 5. No gross pericardial effusion Findings Left Ventricle Normal left ventricular size and systolic function. There is moderately increased left ventricular wall thickness. The visually estimated ejection fraction is between 65-70%. Spectral Doppler is indicative of an impaired relaxation filling pattern. E/E prime ratio is between 8 and 15 consistent with indeterminate filling pressures. Right Ventricle Normal right ventricular cavity size and systolic function. Atria The left atrium is normal in size. There is lipomatous hypertrophy of the interatrial septum. There is no evidence of interatrial shunt. The right atrium is normal in size. Aortic Valve There is moderate calcification of the aortic valve. There is mild aortic valve stenosis. There is no aortic valve regurgitation. Mitral Valve There is mild anterior and moderate posterior mitral leaflet thickening. There is moderate mitral annular calcification. There is trace mitral valve regurgitation. There is no mitral valve stenosis. Pulmonic Valve The pulmonic valve is likely normal. Tricuspid Valve Normal tricuspid valve structure. There is trace tricuspid valve regurgitation. The right ventricular systolic pressure is normal. The right ventricular systolic pressure is 20 mmHg. Normal right atrial pressure. There is no evidence of pulmonary hypertension. Great Vessels The pulmonary artery was not well visualized. There is mild dilatation of the ascending aorta measuring 4.30 cm. Venous The inferior vena cava is normal in size and collapses greater than 50% with inspiration. Pericardium/Pleural There is no evidence of pericardial effusion. Prior Study Comparison Changes noted compared to prior study dated: 03/03/2024. moderate LVH noted Measurements 2D Linear Measurements IVSd: 1.41 0.6-0.9/0.6-1.0 cm LVIDd: 3.63 3.9-5.3/4.2-5.9 cm LVIDd Index: 1.67 2.4-3.2/2.2-3.1 cm/m2 LVIDs: 2.56 2.0-3.6 cm LVPWd: 1.67 0.7-1.1 cm LA Diam: 3.40 2.7-3.8/3.0-4.0 cm LAIDs Index: 1.57 1.5-2.3 cm/m2 LV Mass: 264.45 67-162/88-224 g LV Mass Index: 121.87 43-95/49-115 g/m2 LVOT Diam: 2.40 3.0+(-)1.3 cm 2D Systolic Function EF 4C: 68.30 >55% EF 2C: 59.10 >55% EF BiP: 66.00 >55% Mitral Valve MV Pk E: 0.63 MV PK A: 0.74 MV Decel Time: 213.00 E/A: 0.80 E'Lateral: 6.74 E'Medial: 5.00 E/E' Med: 12.50 E/E' Lat: 9.30 PHT: 62.00 MVA PHT: 3.55 Decel [place]: 2.94 Aortic Valve AoV Pk Deondre: 2.16 AoV Mn Deondre: 1.49 AoV VTI: 0.45 AoV Pk Grad: 19.00 Aov Mn Grad: 10.00 VERONICA Cont.VTI: 1.73 LVOT LVOT Pk Deondre: 0.81 LVOT Mn Deondre: 0.57 LVOT VTI: 0.17 LVOT Pk Grad: 3.00 LVOT Mn Grad: 2.00 LVOT Diam: 2.40 LVOT Area: 4.52 Diastolic Function MV Pk E: 0.63 MV Pk A: 0.74 E/A: 0.80 E'Medial: 5.00 E/E' Med: 12.50 E' Laterial: 6.74 E/E' Lat: 9.30 Right Ventricle TAPSE (mm): 23.50 TVS' Deondre: 12.70 Tricuspid Valve TR Pk Deondre: 2.05 TR Pk Grad: 17.00 RA Press: 3.00 RVSP: 20.00 Great Vessels Aorta Sinus of Valsalva: 3.93 2.0-3.5 cm Ao Asc: 4.30 2.1-3.4 cm Pulmonary Veins Pulm Vein S/D 1.50 Pulmonary Valve PV Pk Deondre: 0.80 Peak PV Grad: 3.00 IA Pk Deondre: 1.86 Updated in Other Vendor System with Status of Final Joshua Lorenzo MD electronically signed on 03/31/2025 11:15:25 AM with status of Final
--- OUTSIDE RECORDS SUMMARY | 2025-03-30 07:44 | XMS_ITS ---
Author Organization [facility] Address [address] [place] [address] Care Team Providers Care Public Health Outreach Worker Name Role Phone ADELA BORJAS Primary Care [...] Problem Status W/U Status Risk Notes Problem [id number] Coffee ground emesis (K92.0) Active confirmed Vital Signs Temperature 97.5 degrees Fahrenheit 02/01/20 25 Blood pressure systolic 001 mm Hg 02/01/20 25 Blood pressure diastolic 01 mm Hg 025 Height 72 in 01/31/2025 Weight 205 lbs 01/31/2025 BMI 27.8 kg/m2 01/31/2025 Encounters Encounter Location Date Provider Diagnosis [facility] [address] [place] [address] 01/31/2025 Daniel Maria Jr Coffee ground emesis [...] Provider Name:Daniel quevedo Jr, 04/12/2025 07:30:00 AM, [address] [place] [address], [phone], Progress Notes * FITO ROSA BDOB:1960 (64 yo M)Acc No.[id number]:01/31/2025 Progress Notes Patient:FITO VAZQUEZ Provider:?Daniel Maria MD :1960???Age:64 Y???Sex:Male Edin e:01/31/2025 Address:[address] [place], [place] [id number] Pcp:ADELA BORJAS Subjective: * Chief Complaints: * [...] Hospitalization/Major Diagno stic Procedure:?pneumonia 8 days in [facility] hospital . * Family History:?Father: dece ased.?Mother: [...] MD Date:?0 01/31/2025 Generated for Christal tran/Keith/eTransmitting on:?03/30/2025 07:43 AM EDT History and Physical Notes * [...]
== END ==
LOC: HO.CARD 07:41
PROVIDERS: PCP Nurse Practitioner Family; Visit Provider Internal Medicine Cardiovascular Disease
DX: I35.0 Nonrheumatic aortic (valve) stenosis (principal)
CPT/HCPCS: 93306

== ENCOUNTER → 2025-03-30 07:43 | Outpatient (BNV) | payer OTHER, SELFPAY | PROVIDERS: PCP Nurse Practitioner Family; Visit Provider Internal Medicine Cardiovascular Disease | DX: I34.0 Nonrheumatic mitral (valve) insufficiency (principal); I51.7 Cardiomegaly | CPT/HCPCS: 93306 ==

== ENCOUNTER 2025-04-01 08:44 | Outpatient (AMB) | payer OTHER, SELFPAY ==
--- NOTE | 2025-04-01 08:50 | HO.SPINEOV ---
Intake Visit Reasons: neck compression Intake Note: Mr. Pleitez is here today c/o neck compression. Employee Relations Director Required: No Allergies bee pollen [bee stings] Allergy (Severe, Verified 04/01/25 08:54) Anaphylaxis Penicillins Allergy (Verified 04/01/25 08:54) hives cefuroxime Allergy (Intermediate, Uncoded 02/07/25 08:16) Swelling Assessment & Plan Assessment & Plan (1) Lower extremity weakness: Code(s): R29.898 - Other symptoms and signs involving the musculoskeletal system Category: Medical Plan Dear Dr Alamo, Thank you for referring Mr Pleitez to our office today. This is a 64-year-old gentleman, history of alcohol abuse, works in [employer], very active, sustained a syncopal event back in November, was found down at home vomited, aspirated, was intubated, had a stay here at [facility] where he was treated for not only aspiration pneumonia but hyponatremia. It is suspected that he was not drinking as much as normal right before the fall, possibly had a seizure. It is not clear exactly what happened. In the interim since he fell, he noticed that he has developed weakness of his proximal muscles of his legs. Specifically when he is trying to get up from a kneeling position or if he is trying to get up in the middle of the night and go to the bathroom he will have to hold on to things until he can steady himself. He reports once he gets going he seems to be okay. He will work throughout the day doing [employer] but when he comes home at night and sits down, and tries to get up again the weakness returns. Denies any upper extremity symptoms. He does report tingling and numbness of his toes at times. He is a difficult historian, but does report some back pain but I do not think that is really the reason he is here today. He ultimately was at your office, underwent a series of evaluations and an MRI of the spinal axis was done showing stenosis in the cervical as well as a lumbar spine. He also had an EMG done. I do not have the official results but it looks like according to your note it showed some kind of polyneuropathy. PMH: As above, alcohol abuse, he reports he has not been drinking since November. It looks like from the labs done here at [facility] that is LFTs have come back down to normal. His platelet count is back down to normal as well as coagulation profile. He is a history of hypertension, hyponatremia, which also corrected when he quit drinking. Thoracic aortic aneurysm, followed by Dr. Lorenzo here at the hospital. Herniorrhaphy done about 15 years ago. Other than this he is not reporting any history of coronary disease, major pulmonary problems, bleeding disorders, blood clots, cancer, major abdominal surgeries, diabetes or other endocrine issues. Social hx: Tells me he quit drinking in November. Does not smoke marijuana or use any recreational drugs or smoke cigarettes Medications: Losartan, atenolol, folic acid, thiamine, gabapentin and occasionally takes a leave Allergies: Penicillin Physical exam: Awake alert oriented able to stand up out of a chair on his own, walk down the hallway albeit slowly. Tandem gait testing reveals that he has significant instability. Romberg test negative. Examination of the upper extremities reveals full strength and normal reflexes. Examination of the lower extremities reveals 3/5 weakness of the hip flexors bilaterally, but distally in the quadriceps tibialis and plantar flexion muscle groups are all normal. He does not demonstrate any hyperreflexia of the lower extremities but he does have questionable upgoing toe on the left, downgoing on the right. Does not report significant sensory loss. Imaging review: He has a cervical MRI showing multilevel degenerative disc disease, what looks like moderate stenosis at C2-3. The radiologist questions possible cord signal change but I could not appreciate this on the STIR sequences. Thoracic MRI does not show any meaningful level of stenosis. Lumbar MRI shows stenosis from L2-L5 which I would rate as moderate to severe. He has a congenitally narrow spinal canal. He also has scoliotic curvature of his spine in the upper lumbar areas. Impression: 64-year-old recovering alcoholic, presents with a proximal lower extremity weakness after a fall, specifically hip flexors. He does report some sensory features with tingling of his toes. He does not report any claudicating leg pains. He does not have any significant lower back pain to report although he has some at times. No upper extremity symptoms to report. He apparently had an EMG that I do not have the results of but it shows according to your note some kind of polyneuropathy, possibly demyelinating. His MRIs show that he does have some stenosis in the cervical spine but does not have the classic features for chronic myelopathy either on his history or on his exam. What he reports is that when he fell there was a clear change in his functional status after that day. The radiologist reports that there may be some subtle cord signal change at C2-3, I was not able to appreciate this but was see if Dr. Silveira has any thoughts on it. His story is a little unusual for spinal cord injury of the cervical spine as well. His thoracic spine does not show any evidence of meaningful stenosis. The lumbar spine does show moderate to severe if not severe stenosis at multiple levels of the spinal canal. It is unusual that he would develop symptoms of stenosis after a fall. Everything I am seeing in the lumbar spine looks chronic, and I do not see a large herniated disc that would explain acute symptoms. He does not have pain radiating down his legs either which is typical of stenosis. In fact, he is very clear that once he gets going and starts walking the weakness seems to get better. I am going to look all this over with Dr. Silveira and see if he has any thoughts. The patient tells me that you were thinking about repeating the EMG which seems like a good idea. Once I have a chance to review everything I will get back to the patient with a final plan. Thank you for allowing us to care for your patient. The total time spent with this visit with this patient was 65 minutes reviewing history, physical exam, cervical, thoracic and lumbar imaging review, and implementation of treatment plan or further diagnostic testing Kvng Silveira MD,PhD [facility] Coding Level of Care Code New Pt Level 5 (17628) Diagnoses Lower extremity weakness R29.898
--- OUTSIDE RECORDS SUMMARY | 2025-04-01 08:59 | XMS_ITS ---
Author Organization [facility] Address [address] [place] [address] Care Team Providers Care Turn Down Worker Name Role Phone ADELA BORJAS Primary [...] Problem Status W/U Status Risk Notes Problem [id number] Coffee ground emesis (K92.0) Active confirmed Vital Signs Temperature 97.5 degrees Fahrenheit 02/01/20 25 Blood pressure systolic 001 mm Hg 02/01/20 25 Blood pressure diastolic 01 mm Hg 025 Height 72 in 01/31/2025 Weight 205 lbs 01/31/2025 BMI 27.8 kg/m2 01/31/2025 Encounters Encounter Location Date Provider Diagnosis [facility] [address] [place] [address] 01/31/2025 Daniel Maria Jr Coffee ground emesis [...] Name:Daniel quevedo Jr, 04/12/2025 07:30:00 AM, [address] [place] [address], [phone], Progress Notes * FITO ROSA BDOB:1960 (64 yo M)Acc No.[id number]:01/31/2025 Progress Notes Patient:FITO VAZQUEZ Provider:?Daniel Maria MD :1960???Age:64 Y???Sex:Male Edin e:01/31/2025 Address:[address] [place], [place] [id number] Pcp:ADELA BORJAS Subjective: * Chief Complaints: * [...] Hospitalization/Major Diagno stic Procedure:?pneumonia 8 days in [facility] hospital . * [...] MD Date:?0 01/31/2025 Generated for Christal tran/Keith/eTransmitting on:?04/01/2025 08:58 AM EDT History and Physical Notes * [...]
== END 2025-04-01 10:55 | disposition home or self-care (01) ==
LOC: HO.HNS 08:45
PROVIDERS: PCP Nurse Practitioner Family; Referring Provider Psychiatry & Neurology Neurology; Visit Provider Physician Assistant
DX: R29.898 Other symptoms and signs involving the musculoskeletal system (principal)
CPT/HCPCS: 99205

== ENCOUNTER 2025-04-12 06:08 | Day surgery (SDC) | payer OTHER, SELFPAY ==
--- OUTSIDE RECORDS SUMMARY | 2025-02-22 09:17 | XMS_ITS | Patient Health Record ---
Author Organization [facility] Address [address] [address] Care Team Providers Care Bander And Cellophaner Machine Name Role Phone Daniel Azevedo Primary Care Provider Darin Wing Unavailable [phone] Allergies Allergen (clinical drug ingredient) Drug/Non Drug Allergy documented on EMR Reaction Allergy Type Onset Date Status Bee Sting Unknown Allergy Active Penicillin Unknown Drug Allergy Active Reason For Referral No Information Medications Medication SIG (Take, Route, Frequency, Duration) Notes Start Date End Date Status EPINEPHrine 0.3 MG/0.3ML INJECT 0.3 MG ( 0.3 ML) INTRAMUSCULARLY EVERY 10 MINUTES NEEDED FOR ANAPHYLAXIS FOR 3 DOSES Injection for 1 Days Active Azithromycin 250 MG Oral for 5 Days Not-Taking Qvar RediHaler 80 MCG/ACT Inhalation for 60 Days Active Atorvastatin Calcium 20 MG TAKE 1 TABLET BY MOUTH EVERY DAY Oral for 90 Days Not-Taking Folic Acid 1 MG Oral for 90 Days Active Losartan Potassium-HCTZ 100-12.5 MG TAKE 1 TABLET BY MOUTH EVERY DAY Oral for 90 Days Not-Taking Atorvastatin Calcium 40 MG TAKE 1 TABLET BY MOUTH EVERY DAY AT BEDTIME Oral for 90 Days Active Losartan Potassium-HCTZ 100-12.5 MG Oral for 90 Days Active Gabapentin 100 MG 1 capsule Oral Once a day for 30 days Active hydroCHLOROthiazide 12.5 MG Oral for 30 Days Not-Taking tiZANidine HCl 4 MG TAKE 1 TABLET EVERY 12 HOURS NEEDED FOR MUSCLE SPASTICITY DO NOT TAKE WITH COUGH SYRUP Oral for 15 Days Active Losartan Potassium 25 MG Oral for 90 Days Not-Taking Atenolol 25 MG Oral for 90 Days Active Aspirin Low Dose 81 MG TAKE 1 TABLET BY MOUTH EVERY DAY Oral for 90 Days Active Montelukast Sodium 10 MG Oral for 90 Days Active Social History Tobacco Use: Social History Observation Description Date Details (start date - stop date) Never Smoker NA - NA Tobacco Control (Standard) Question Answer Notes Tobacco use: Nonsmoker Additional Findings: Tobacco non-user Current no nsmoker Problems Problem Type SNOMED Code ICD Code Onset Dates Problem Status W/U Status Risk Notes Problem Abnormal reflex (05468871) Abnormal reflex (R29.2) Active confirmed Problem Neuropathy (584616504) Neuropathy (G62.9) Active confirmed Problem Bilateral leg weakness (R29.898) Active confirmed Vital Signs Heart Rate 80 /min 02/16/2025 Oximetry 97 % 02/16/2025 Blood pressure diastolic 78 mm Hg 02/16/2025 Height 72 in 02/16/2025 Blood pressure systolic 110 mm Hg 02/16/2025 Weight 209 lbs 02/16/2025 BMI 28.34 kg/m2 02/16/2025 Procedures Procedure Date Ordered Date Performed Result Body Sit e physical therapy 02/16/2025 N/A Encounters Encounter Location Date Provider Diagnosis [address] [address] 02/16/2025 Darinrenetta Rogeljesusita Bilateral leg weakness R29.898 and Abnormal reflex R29.2 Assessments Encounter Date Diagnosis (ICD Code) Assessment Notes Treatment Notes Treatment Clinical Notes Section Notes 02/16/2025 Abnormal reflex (ICD-10 - R29.2) 02/16/2025 Bilateral leg weakness (ICD-10 - R29.898) Mr. Pleitez has developed bilateral leg weakness and trouble walking. His exam is notable for bilateral hip flexor weakness and also an upgoing toe on the left. His examination does not suggest that he has acquired a distal symmetric polyneuropathy or a patchy demyelinating polyneuropathy either affecting the motor nerves or sensory nerves or both. I did review his EMG and it is somewhat of an unusual combination of abnormalities but I am not sure that it correlates with his examination and history well. He needs imaging of his brain and spine to evaluate for structural cause of his exam findings. Damage to any part of the spinal cord could account for bilateral lower extremity weakness and upgoing toes. I do think that he should do physical therapy for balance training. I do not think that he will get worse. I did explain that gabapentin is not used for numbness but it can be helpful for nerve pain. We could always repeat his EMG in the future. Plan Of Treatment Pending Test Test Name Order Date physical therapy 02/16/2025 MR-Brain (C-) CPT 36145 02/16/2025 MR-Cervical Spine (C-) CPT 91847 025 MR-Lumbar Spine (C-) CPT 21926 MR-Thoracic Spine (C-) CPT 62318 025 Insurance Providers Payer Name Payer Address Payer Phone Subscriber Number Group Number Insured Name Patient Relationship to Insured Coverage Start Date Coverage End Date [facility] [address] [place] [id number] Mannie Pleitez Self - patient is the insured Medical (General) History Medical History History ICD Code Neuropathy G62.9 hypertension Dona Type I Surgical History Surgery Date(Month/Year) hernia repair
--- OUTSIDE RECORDS SUMMARY | 2025-02-22 09:17 | XMS_ITS ---
Author Organization [facility] Address [address] [place] [address] Care Team Providers Care Master Steam Yacht Name Role Phone ADELA BORJAS Primary Care Provider Daniel Gottlieb Jr Unavailable [phone] Allergies No Known Allergies REASON FOR VISIT [...] Problem Status W/U Status Risk Notes Problem 65824843 Coffee ground emesis (K92.0) Active confirmed Vital Signs Temperature 97.5 degrees Fahrenheit 02/01/20 25 Blood pressure systolic 001 mm Hg 02/01/20 25 Blood pressure diastolic 01 mm Hg 025 Height 72 in 01/31/2025 Weight 205 lbs 01/31/2025 BMI 27.8 kg/m2 01/31/2025 Encounters Encounter Location Date Provider Diagnosis [facility] [address] [place] [address] 01/31/2025 Daniel Maria Jr Coffee ground emesis [...] Provider Name:Daniel quevedo Jr, 04/12/2025 07:30:00 AM, [address] [place] [address], [phone], Progress Notes * FITO ROSA BDOB:1960 (64 yo M)Acc No.[id number]:01/31/2025 Progress Notes Patient:FITO VAZQUEZ Provider:?Daniel Maria MD :1960???Age:64 Y???Sex:Male Edin e:01/31/2025 Address:[address] [place], [place] [id number] Pcp:ADELA BORJAS Subjective: * Chief Complaints: * [...] Hospitalization/Major Diagno stic Procedure:?pneumonia [address] [facility] hospital . * Family History:?Father: dece ased.?Mother: [...] MD Date:?0 01/31/2025 Generated for Christal tran/Keith/eTransmitting on:?02/22/2025 09:17 AM EDT History and Physical Notes * [...]
--- OUTSIDE RECORDS SUMMARY | 2025-02-22 09:18 | XMS_ITS ---
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 Medications Medication SIG (Take, Route, Frequency, Duration) Notes Start Date End Date Status Azithromycin 250 MG Oral for 5 Days Not-Taking Atorvastatin Calcium 20 MG TAKE 1 TABLET BY MOUTH EVERY DAY Oral for 90 Days Not-Taking Gabapentin 100 MG 1 capsule Oral Once a day for 30 days Active tiZANidine HCl 4 MG TAKE 1 TABLET EVERY 12 HOURS NEEDED FOR MUSCLE SPASTICITY DO NOT TAKE WITH COUGH SYRUP Oral for 15 Days Active Atenolol 25 MG Oral for 90 Days Active Losartan Potassium-HCTZ 100-12.5 MG TAKE 1 TABLET BY MOUTH EVERY DAY Oral for 90 Days Not-Taking hydroCHLOROthiazide 12.5 MG Oral for 30 Days Not-Taking Losartan Potassium 25 MG Oral for 90 Days Not-Taking Aspirin Low Dose 81 MG TAKE 1 TABLET BY MOUTH EVERY DAY Oral for 90 Days Active Montelukast Sodium 10 MG Oral for 90 Days Active EPINEPHrine 0.3 MG/0.3ML INJECT 0.3 MG ( 0.3 ML) INTRAMUSCULARLY EVERY 10 MINUTES NEEDED FOR ANAPHYLAXIS FOR 3 DOSES Injection for 1 Days Active Atorvastatin Calcium 40 MG TAKE 1 TABLET BY MOUTH EVERY DAY AT BEDTIME Oral for 90 Days Active Losartan Potassium-HCTZ 100-12.5 MG Oral for 90 Days Active Qvar RediHaler 80 MCG/ACT Inhalation for 60 Days Active Folic Acid 1 MG Oral for 90 Days Active Social History Tobacco Use: Social History Observation Description Date Details (start date - stop date) Never Smoker NA - NA Tobacco Control (Standard) Question Answer Notes Tobacco use: Nonsmoker Additional Findings: Tobacco non-user Current no nsmoker Problems Problem Type SNOMED Code ICD Code Onset Dates Problem Status W/U Status Risk Notes Problem Neuropathy (404500259) Neuropathy (G62.9) Active confirmed Problem Bilateral leg weakness (R29.898) Active confirmed Problem Abnormal reflex (45434481) Abnormal reflex (R29.2) Active confirmed Vital Signs Blood pressure systolic 110 mm Hg 02/17/20 25 Blood pressure diastolic 78 mm Hg 025 Heart Rate 80 /min 02/16/2025 Height 72 in 02/16/2025 Weight 209 lbs 02/16/2025 BMI 28.34 kg/m2 02/16/2025 Oximetry 97 % 02/16/2025 Procedures Procedure Date Ordered Date Performed Result Body Sit e physical therapy 02/16/2025 N/A Encounters Encounter Location Date Provider Diagnosis [facility] [address] [address] 02/16/2025 Darin Alamo Bilateral leg weakness R29.898 and Abnormal reflex R29.2 Assessments Encounter Date Diagnosis (ICD Code) Assessment Notes Treatment Notes Treatment Clinical Notes Section Notes 02/16/2025 Bilateral leg weakness (ICD-10 - R29.898) Mr. Rosa has developed bilateral leg weakness and trouble [...] always repeat his EMG in the future. 02/16/2025 Abnormal reflex (ICD-10 - R29.2) Plan Of Treatment Pending Test Test Name Order Date physical therapy 02/16/2025 MR-Brain (C-) CPT 05062 02/16/2025 MR-Cervical Spine (C-) CPT 14380 025 MR-Lumbar Spine (C-) CPT 65772 MR-Thoracic Spine (C-) CPT 27682 025 Next Appt Details Follow Up: to be determined, Reason: Progress Notes * Homer ROSAinDOB:1960 ( 64 yo M)Acc No.[id number]:02/16/2025 Progress Notes Patient:?Mannie ROSA Provider:?Darin Alamo M.D :1960???Age:64 Y???Sex:Male Edin e:02/16/2025 Address:[address] [place], [place] [id number] Pcp:Daniel Azevedo Subjective: * Chief Complaints: * ???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 64 year mixed handed man here with Jenae.? He reports he had 9 weeks of pneumonia and influenza during the winter - he was told he had lung scarring.? He says November 21, he was not doing well.? He felt very unwell.? He ended up in the ICU.? He had fallen and was found on the ground at home in the kitchen by Jenae.? He was intubated.? His right side was bruised from what happened.? He was in the hospital for a while - was in the hospital for a week, went to rehab for a day then left.? He started having tingling in his right leg at some point after the fall.? He was given gabapentin with some benefit.???He does not like the gabapentin.? He had an EMG in December which has been reviewed. He says when he is working and moving, he is ok.? ?He has trouble getting up from a seated position.? He continues to be unsteady on his feet since this happened.? He also had an Xray of his lumbar spine which showed some degenerative changes.? He has not fallen but he is unsteady on his feet.? He has trouble going down the stairs.? He needs to hold onto something to get up and to walk.? He never had anything like this in the past.? Both legs are numb and tingling.? No bowel or bladder control issues.? Legs get tired towards the end of the day.? He did briefly go to physical therapy after the hospitalization.? No issues with the arms or hands.? His symptoms are uncomfortable, not really painful.? He has trouble getting in and out of a car and a chair.?? Prior to being sick, he had been drinking a lot of beer and eating poorly - it is thought he might have had a seizure from detoxing.? He has stopped drinking.?? 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 All other review of systems are negative except as noted above in the HPI or are otherwise noncontributory to this current presentation. * Medical History:? * Surgical History:?hernia rep air * Hospitalization/Major Diagno stic Procedure:?No Hospitalization History. * Family History:?Father: dece ased, dementiaabdominal aortic aneurysm, diagnosed with Hypertension.?Mother: , COPD.? * Social History:?Tobacco Use:?Tobacco Control (Standard)?Tobacco use:?Nonsmoker ?Additional Findings: Tobacco non-user?Current nonsmoker ???Drugs/Alcohol:?Caffeine?Intake:?2-3 cups per day ?Do you smoke marijuana?: Denies. ?Do you drink alcohol?: No. * Medications:?TakingAtenolol 25 MG Tablet Oral tiZANidine HCl 4 MG Tablet TAKE 1 TABLET EVERY 12 HOURS NEEDED FOR MUSCLE SPASTICITY DO NOT TAKE WITH COUGH SYRUP Oral Gabapentin 100 MG Capsule 1 capsule Oral Once a day Folic Acid 1 MG Tablet Oral Qvar RediHaler 80 MCG/ACT Aerosol Breath Activated Inhalation EPINEPHrine 0.3 MG/0.3ML Solution Auto-injector INJECT 0.3 MG (0.3 ML) INTRAMUSCULARLY EVERY 10 MINUTES NEEDED FOR ANAPHYLAXIS FOR 3 DOSES Injection Losartan Potassium-HCTZ 100-12.5 MG Tablet Oral Atorvastatin Calcium 40 MG Tablet TAKE 1 TABLET BY MOUTH EVERY DAY AT BEDTIME Oral Montelukast Sodium 10 MG Tablet Oral Aspirin Low Dose 81 MG Tablet Delayed Release TAKE 1 TABLET BY MOUTH EVERY DAY Oral Taking Atenolol 25 MG Tablet Oral Taking tiZANidine HCl 4 MG Tablet TAKE 1 TABLET EVERY 12 HOURS NEEDED FOR MUSCLE SPASTICITY DO NOT TAKE WITH COUGH SYRUP Oral Taking Gabapentin 100 MG Capsule 1 capsule Oral Once a day Taking Folic Acid 1 MG Tablet Oral Taking Qvar RediHaler 80 MCG/ACT Aerosol Breath Activated Inhalation Taking EPINEPHrine 0.3 MG/0.3ML Solution Auto-injector INJECT 0.3 MG (0.3 ML) INTRAMUSCULARLY EVERY 10 MINUTES NEEDED FOR ANAPHYLAXIS FOR 3 DOSES Injection Taking Losartan Potassium-HCTZ 100-12.5 MG Tablet Oral Taking Atorvastatin Calcium 40 MG Tablet TAKE 1 TABLET BY MOUTH EVERY DAY AT BEDTIME Oral Taking Montelukast Sodium 10 MG Tablet Oral Taking Aspirin Low Dose 81 MG Tablet Delayed Release TAKE 1 TABLET BY MOUTH EVERY DAY Oral Not-Taking/PRNLosartan Potassium 25 MG Tablet Oral hydroCHLOROthiazide 12.5 MG Tablet Oral Losartan Potassium-HCTZ 100-12.5 MG Tablet TAKE 1 TABLET BY MOUTH EVERY DAY Oral Atorvastatin Calcium 20 MG Tablet TAKE 1 TABLET BY MOUTH EVERY DAY Oral Azithromycin 250 MG Tablet Oral Not-Taking/PRN Losartan Potassium 25 MG Tablet Oral Not-Taking/PRN hydroCHLOROthiazide 12.5 MG Tablet Oral Not-Taking/PRN Losartan Potassium-HCTZ 100-12.5 MG Tablet TAKE 1 TABLET BY MOUTH EVERY DAY Oral Not-Taking/PRN Atorvastatin Calcium 20 MG Tablet TAKE 1 TABLET BY MOUTH EVERY DAY Oral Not-Taking/PRN Azithromycin 250 MG Tablet Oral DiscontinuedCefuroxime Axetil 500 MG Tablet Oral Doxycycline Hyclate 100 MG Tablet Oral Medication List reviewed and reconciled with the patientDiscontinued Cefuroxime Axetil 500 MG Tablet Oral Discontinued Doxycycline Hyclate 100 MG Tablet Oral Medication List reviewed and reconciled with the patient * Allergies:?PenicillinBee Sti ng Objective: * Vitals:?HR:80/min, BP:110/78 mm Hg, Wt:209lbs, BMI:28.34Index, Ht: 72 in, Oxygen sat %:97%, Ht-cm: 182.88 cm, Wt-k.8 kg. * Examination: ???Neurologic: ???CV: S1 S2, RRR, peripheral pulses are palpable, carotids without bruits Funduscopic exam is normal, optic disks are sharp bilaterally without papilledema, vessels are normal Mental status: alert and oriented to person place time and situation, no aphasia or dysarthria, attention, concentration, fund of knowledge are within normal limits CN: pupils are equal and reactive to light, visual hallman are full to confrontation, extraocular movements are intact, facial sensation is symmetric, face activates symmetrically, hearing is intact, palate elevates in the midline, tongue protrudes in the midline, shoulder shrug and head turn are 5/5 Motor: 5/5 strength in muscles of the upper extremities proximally and distally, he has 4-/5 bilateral hip flexors, otherwise 5/5 strength in the lower extremities proximally and distally, normal tone, no abnormal movements, normal muscle bulk, rapid alternating movements are normal bilaterally Reflexes: 2+ in the bilateral biceps, triceps, brachioradialis, patella and ankles with upgoing toes on the left, downgoing on the right, absent Ricketts's and finger flexors bilaterally Gait: cautious gait, able to heel and toe walk, tandem is difficult, Romberg is negative, ambulates independently Cerebellar: no dysmetria on finger nose finger or heel knee rodríguez testing bilaterally Sensation: intact to light touch, pinprick, temperature, and joint position sense bilaterally and symmetrically, minimally decreased vibration in the feet bilaterally. Assessment: * Assessment: 1.?Abnormal reflex - R29.2?? ?2.?Bilateral leg weakness - R29.898 (Primary)??? Plan: * Treatment: * ?Imaging: MR-Cervical Spine (C-) CPT 03160* evaluate for structural caus e of bilateral leg weakness and left upgoing toe * ?Imaging: MR-Lumbar Spine (C-) CPT 94953* evaluate for structural caus e of bilateral leg weakness and left upgoing toe * ?Imaging: MR-Thoracic Spine (C-) CPT 14349* evaluate for structural caus e of bilateral leg weakness and left upgoing toe * ?Procedure: physical therapy* evaluate and treat, lower ex tremity weakness, balance training and strengthening legs and core Clinical Notes: Mr. Rosa has developed bilateral leg weakness and trouble walking. His exam is notable for bilateral hip flexor weakness and also an upgoing toe on the left. His examination does notsuggest that he has acquired a distal symmetric [...] and spine to evaluate for structural cause ofhis exam findings. Damage to any part of [...] could always repeat his EMG in the future.??2.?Abnormal reflex?Imaging: MR-Brain (C-) CPT 66699* evaluate for structural caus e of bilateral leg weakness and left upgoing toe * ?Imaging: MR-Cervical Spine (C-) CPT 04237* evaluate for structural caus e of bilateral leg weakness and left upgoing toe * ?Imaging: MR-Lumbar Spine (C-) CPT 70412* evaluate for structural caus e of bilateral leg weakness and left upgoing toe * ?Imaging: MR-Thoracic Spine (C-) CPT 52128* evaluate for structural caus e of bilateral leg weakness and left upgoing toe * * Procedure Codes:? * Follow Up:?to be determined * * Sign off status: Completed true * Provider:?Darin Alamo M.D Date:? Generated for Christal tran/Keith/Johnitting on:?02/22/2025 09:18 AM EDT History and Physical Notes * Examination Category Sub-Category Detail Notes Category Not es Neurologic CV: S1 S2, RRR, peripheral pulses are palpable, carotids without bruits Funduscopic exam is normal, optic disks are sharp bilaterally without papilledema, vessels are normal Mental status: alert and oriented to person place time and situation, no aphasia or dysarthria, attention, concentration, fund of knowledge are within normal limits CN: pupils are equal and reactive to light, visual hallman are full to confrontation, extraocular movements are intact, facial sensation is symmetric, face activates symmetrically, hearing is intact, palate elevates in the midline, tongue protrudes in the midline, shoulder shrug and head turn are 5/5 Motor: 5/5 strength in muscles of the upper extremities proximally and distally, he has 4-/5 bilateral hip flexors, otherwise 5/5 strength in the lower extremities proximally and distally, normal tone, no abnormal movements, normal muscle bulk, rapid alternating movements are normal bilaterally Reflexes: 2+ in the bilateral biceps, triceps, brachioradialis, patella and ankles with upgoing toes on the left, downgoing on the right, absent Ricketts's and finger flexors bilaterally Gait: cautious gait, able to heel and toe walk, tandem is difficult, Romberg is negative, ambulates independently Cerebellar: no dysmetria on finger nose finger or heel knee rodríguez testing bilaterally Sensation: intact to light touch, pinprick, temperature, and joint position sense bilaterally and symmetrically, minimally decreased vibration in the feet bilaterally
--- OUTSIDE RECORDS SUMMARY | 2025-02-22 09:18 | XMS_ITS | Patient Health Record ---
Author Organization [facility] Address [address] [place] [address] Care Team Providers Care Radio Mechanic Apprentice Name Role Phone ADELA BORJAS Primary Care [...] Problem Status W/U Status Risk Notes Problem [id number] Colon cancer screening (Z12.11) Active confirmed Problem 962485542 Encounter for other preprocedural examination (Z01.818) Active confirmed Problem 35356275 Coffee ground emesis (K92.0) Active confirmed Vital Signs Temperature 97.5 degrees Fahrenheit 01/31/2025 Blood pressure diastolic 01 mm Hg 01/31/2025 Height 72 in 01/31/2025 Blood pressure systolic 001 mm Hg 01/31/2025 Weight 205 lbs 01/31/2025 BMI 27.8 kg/m2 01/31/2025 Encounters Encounter Location Date Provider Diagnosis [facility] [address] [place] [address] 01/31/2025 Daniel Maria Jr Coffee ground emesis [...] Name:Daniel quevedo Jr, 04/12/2025 07:30:00 AM, [address] [facility] , [place], [place], [phone], Insurance Providers Payer Name Payer Address Payer Phone Subscriber Number Group Number Insured Name Patient Relationship to Insured Coverage Start Date Coverage End Date [facility] [address] [place] [address] [phone] [id number] ROSA FITO Self - patient is the insured Medical (General) History Medical History History ICD Code Hypertension Fatty liver Thoracic aortic aneurysm, 4.4 cm 02/09 Left ventricular hypertrophy, ejection f raction 55-60% on echo 06/10 pneumonia Surgical History Surgery Date(Month/Year) Left inguinal hernia repair 2012 Hospitalization History Reason Date(Month/Year) pneumonia 8 days in [facility] hospital
--- OUTSIDE RECORDS SUMMARY | 2025-02-22 09:18 | XMS_ITS ---
Author Organization [facility] Address [address] [place] [address] Care Team Providers Care Artificial Glass Eye Maker Name Role Phone ADELA BORJAS Primary Care Provider Daniel Gottlieb Jr REASON FOR VISIT screening Encounters Encounter Location Date Provider Diagnosis [facility] [address] [place] [phone] 09/02/2023 Daniel Maria Jr Plan Of Treatment Next Appt Details Provider Name:Daniel quevedo Jr, 04/12/2025 07:30:00 AM, [address] [place] [address], [phone], Progress Notes * FITO ROSA BDOB:1960 (64 yo M)Acc No.[id number]:09/02/2023 COLON WITH MAC Patient:?FITO ROSA Provider:?Daniel Maria MD :1960???Age:63 Y???Sex:Male Edin e:09/02/2023 Address:[address] [place] [address] [place] Pcp:ADELA BORJAS Subjective: * Chief Complaints: * [...] MD Date:?1 11/02/2022 Generated for Christal tran/Keith/Johnitting on:?02/22/2025 09:18 AM EDT
--- OUTSIDE RECORDS SUMMARY | 2025-02-22 09:18 | XMS_ITS ---
Author Organization [facility] Address [address] [place] [address] Care Team Providers Care Stock Tracer Name Role Phone ADELA BORJAS Primary Care Provider Matt Maria Jr, Daniel Aguirre REASON FOR VISIT cancel colonoscopy Encounters Encounter Location Date Provider Diagnosis [facility] [address] [place] [phone] 09/01/2023 Daniel Maria Jr Plan Of Treatment Next Appt Details Provider Name:Daniel quevedo Jr, 04/12/2025 07:30:00 AM, [address] [place] [address] , [place], [place], [phone], Progress Notes * FIOT ROSA BDOB:1960 (63 yo M)Acc No.[id number]:09/01/2023 Patient:?FITO ROSA :1960???Age:63 Y???Sex:Male Address:[address] [facility] , [place], [address] * true * Date:? Generated for Printi chelsea/Keith/eTransmitting on:?02/22/2025 09:18 AM EDT
[2025-04-08 13:24] VITALS: BMI 27.8
--- NOTE | 2025-04-11 10:11 | HO.ANESPROP2 ---
Documented by User: Marika Rowland NP 04/11/25 10:13 HPI - Anesthesia Eval Consult details Narrative: 64yo M for Colonoscopy [place] [facility] [place] (VERONICA Cont 1.7 by echo 03/2025), CAD nonobstructive with presence of coronary calcium but normal myocardial perfusion imaging last February. Stable at 03/2025 office visit [facility] Active Problems Active Problems: All Active Problems Lower extremity weakness (Acute) Encounter for routine adult physical exam with abnormal findings (Acute) Abnormal nerve conduction studies (Acute) Neuropathy (Acute) Labile blood pressure (Acute) Dizziness (Acute) Decreased pedal pulses (Acute) Localized swelling of both lower legs (Acute) Right hip pain (Acute) Pneumonia (Acute) Hypokalemia (Acute) COPD with hypoxia (Acute) Acute metabolic encephalopathy (Acute) Mild intermittent asthma with (acute) exacerbation (Acute) Influenza A (Acute) Alcohol withdrawal (Acute) Alcohol use disorder, severe, dependence (Acute) Hyponatremia (Acute) Influenza (Acute) Aspiration into airway (Acute) Transaminitis (Acute) GI bleed (Acute) Seizure (Acute) Acute hypoxic respiratory failure (Acute) Aspiration pneumonia (Acute) Acute hyponatremia (Acute) Altered mental status (Acute) Asthma-COPD overlap syndrome (Acute) Ear pain (Acute) Dyspnea on exertion (Acute) Cough (Acute) CAD (coronary artery disease) (Acute) Atypical pneumonia (Acute) Ascending aorta dilatation (Acute) Abnormal CBC (Acute) Sprain of right shoulder (Acute) Fatty liver (Acute) Screening PSA (prostate specific antigen) (Acute) Acute cough (Acute) Chest congestion (Acute) Acute bronchitis (Acute) Bronchitis (Acute) Kidney cyst, acquired (Acute) Elevated liver enzymes (Acute) ETOH abuse (Acute) Physical exam (Acute) Screening PSA (prostate specific antigen) (Acute) Tick bite (Acute) HTN (hypertension) (Acute) Screen for colon cancer (Acute) Dermatitis (Acute) HTN (hypertension) (Acute) Alcohol dependence (Acute) Aortic stenosis (Acute) Thoracic aortic aneurysm (Acute) Past Medical History Medical History COPD (chronic obstructive pulmonary disease) DDD (degenerative disc disease), lumbar Aortic stenosis Alcohol dependence HTN (hypertension) Thoracic aortic aneurysm Surgical History Surgical History Hx of left inguinal hernia repair Social History Social History Household Members: Unknown / Unable to assess Housing: Unknown / Unable to assess Are you a primary healthcare project manager to a significant other at home: No Do you presently have visiting nurse or other home services: No Alcohol intake: former Patient Tobacco Use Status: Never used Tobacco e-Cigarette/Vaping Use: Never Used Second Hand Smoke Exposure: No Advance Directives Date on File: 11/30/24 service: No Current occupational status: employed 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 Meds Allergies Allergy/AdvReac Type Severity Reaction Status Date / Time bee pollen (bee stings) Allergy Severe Anaphylaxis Verified 04/12/25 06:19 cefuroxime Allergy Intermediate Swelling Verified 04/12/25 06:19 Penicillins Allergy Mild hives Verified 04/12/25 06:19 Home Medications ?Medication ?Instructions ?Recorded ?Confirmed ?Last Taken ?Type vitamin B complex 1 tab PO DAILY 02/07/25 04/08/25 Unknown History gabapentin 100 mg capsule 100 mg PO ONCE 03/22/25 04/08/25 Unknown History Exam Height,Weight and Vital Signs: Height 6 ft Weight 92.986 kg Narrative Narrative: ECHO 03/2025 Conclusions: - 1. Normal LV ejection fraction of 65-70% with moderate LVH with impaired relaxation filling pattern 2. Mild aortic stenosis with at least moderate mitral annular calcification 3. Mildly dilated ascending aorta at 4.3 cm which is not significantly change compared to prior study 4. Normal RV systolic pressure 5. No gross pericardial effusion VERONICA 1.7 Assessment and Plan Assessment Anesthesia Assessment: Chart Reviewed Documented by User: Inessa Mclaughlin MD 04/12/25 07:46 [facility] Past Medical History Medical History COPD (chronic obstructive pulmonary disease) DDD (degenerative disc disease), lumbar Aortic stenosis Alcohol dependence HTN (hypertension) Thoracic aortic aneurysm Surgical History Surgical History Hx of left inguinal hernia repair History of Problems with Anesthesia: No Social History Social History Household Members: Unknown / Unable to assess Housing: Unknown / Unable to assess Are you a primary healthcare project manager to a significant other at home: No Do you presently have visiting nurse or other home services: No Alcohol intake: former Patient Tobacco Use Status: Never used Tobacco e-Cigarette/Vaping Use: Never Used Second Hand Smoke Exposure: No Advance Directives Date on File: 11/30/24 service: No Current occupational status: employed 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 Meds Allergies Allergy/AdvReac Type Severity Reaction Status Date / Time bee pollen (bee stings) Allergy Severe Anaphylaxis Verified 04/12/25 06:19 cefuroxime Allergy Intermediate Swelling Verified 04/12/25 06:19 Penicillins Allergy Mild hives Verified 04/12/25 06:19 Home Medications ?Medication ?Instructions ?Recorded ?Confirmed ?Last Taken ?Type vitamin B complex 1 tab PO DAILY 02/07/25 04/08/25 Unknown History gabapentin 100 mg capsule 100 mg PO ONCE 03/22/25 04/08/25 Unknown History Exam Airway Mallampati Class: III TM Dist: >3cm Neck ROM: Full Loose/Missing/Broken Teeth: No Heart: RRR Lungs: DISTANT BUT CTA Assessment and Plan Assessment Anesthesia Assessment: Anesthesia Plan Discussed Final Anesthetic Review History of Problems with Anesthesia: No NPO: Yes ASA Class: III Final Preanesthetic Review: Meds/Allgs Chart Reviewed, Consent Obtained/Reviewed and Anes Risks/Benef Reviewed Patient Risk: Intermediate Procedure Risk: Low Anesthetic Plan Anesthetic Plan: MAC: Disposition: Standard PACU
[2025-04-12 06:18] VITALS: BMI 26.5
[2025-04-12 06:30] VITALS: BP 192/107; PULSE 113; RESP 18; TEMP 36.7; O2SAT 94
[2025-04-12] MEDS: Lactated Ringers 1,000 ML 100 ML IVCONT (06:37)
[2025-04-12] MEDS: Albuterol Sulfate (0.083%) 2.5 MG/3 ML VIAL.NEB INHALE (06:38)
[2025-04-12 06:49] VITALS: BP 177/94; O2SAT 95
--- NOTE | 2025-04-12 07:31 | MHC.SHP ---
Pre-Procedural Eval Section A - 24 Hr Update-Section A only Date of Service: 04/12/25 Section B - Complete if H&P > 30 days Chief Complaint: Encounter for screening for malignant neoplasm of Details of Present Illness: see H&P no changes Relevant Family History (Specify if Yes): No Relevant Social History: Alcohol Use (yes) Present Medications: see Short Stay Collaborative assessment Medical History: No relevant PMH History of Previous Operations: No relevant previous surgery Allergies: Allergies Allergy/AdvReac Type Severity Reaction Status Date / Time bee pollen (bee stings) Allergy Severe Anaphylaxis Verified 04/12/25 06:19 cefuroxime Allergy Intermediate Swelling Verified 04/12/25 06:19 Penicillins Allergy Mild hives Verified 04/12/25 06:19 Review of Systems Sugical H&P ROS: Negative: Constitution, Cardiovascular, Respiratory, Neurological, Psychiatric, Hem-Onc, Allergic/Immunologic, Gastrointestinal, Genitourinary, Musculoskeletal, Integumentary, Endocrine and Eyes/Ears/Nose/Throat Exam Surgical H&P Exam: Normal: HEENT, Normal: Heart, Normal: Lungs, Normal: Extremities, Normal: Abdomen, Normal: Skin and Normal: Neurological Plan Diagnosis/Plan: Unchanged I have reviewed the history and physical and performed a pertinent physical examination on my patient. No changes have occurred unless specified. Time Spent With Patient Time: Total time managing care of this patient today ____ minutes.
[2025-04-12 07:55] VITALS: BP 126/73; PULSE 99; RESP 18; TEMP 37.7; O2SAT 98
[2025-04-12 08:10] VITALS: BP 141/83; PULSE 105; RESP 18; TEMP 37.1; O2SAT 95
--- NOTE | 2025-04-12 09:03 | PM.OP ---
Brief Operative Note Date of Service: 04/12/25 Pre-op diagnosis: screening Post-op diagnosis: same Procedure: colonoscopy Surgeon: Daniel Maria MD Was an Brine Tank Operator used for this Procedure?: No Estimated blood loss (mL): 0 Pathology: none sent Condition: stable Disposition: PACU
--- NOTE | 2025-04-12 09:59 | OP_ITS ---
DATE OF SERVICE: 04/12/2025 SURGEON: Daniel Maria MD INDICATIONS: Colon cancer screening. PREOPERATIVE DIAGNOSIS: POSTOPERATIVE DIAGNOSIS: PROCEDURE PERFORMED: Colonoscopy to the terminal ileum. ESTIMATED BLOOD LOSS: COMPLICATIONS: ANESTHESIA: Monitored anesthesia care. ASSISTANTS: SPECIMENS: DESCRIPTION OF PROCEDURE: A history and physical was performed. The risks and benefits of the procedure were explained to the patient. Informed consent was obtained. The patient was placed in the left lateral decubitus position. A digital rectal exam was performed and was found to be normal. The Olympus pediatric video colonoscope was introduced into the rectum and advanced to the cecum. The cecum was identified by transillumination, palpation, and identification of ileocecal valve. Examination was performed. The scope was removed. He tolerated the procedure well was returned to the recovery area in stable condition. FINDINGS: The terminal ileum was briefly examined and appeared normal. The visualized colonic mucosa was normal. The quality of the prep was fair with some retained liquid stool coating the mucosa in the right colon. This was washed and suctioned as best possible. No polyps were identified. Retroflexed examination showed small internal hemorrhoids and some hypertrophic anal papillae. IMPRESSION: Normal colonoscopy. RECOMMENDATION: 1. Follow up as needed. 2. Repeat colonoscopy is recommended in 10 years for average-risk individuals. MD RUMA Brand/PAM / [id number]
== END 2025-04-12 08:27 | disposition home or self-care (01) ==
PROVIDERS: PCP Nurse Practitioner Family; Visit Provider Internal Medicine Gastroenterology
PROC: 0DJD8ZZ Inspection of Lower Intestinal Tract, Via Natural or Artificial Opening Endoscopic (ICD-10-PCS; CPT 45378; principal; 2025-04-12 07:30)
DX: Z12.11 Encounter for screening for malignant neoplasm of colon (principal); K64.8 Other hemorrhoids; K62.89 Other specified diseases of anus and rectum; I10 Essential (primary) hypertension; J44.9 Chronic obstructive pulmonary disease, unspecified; Z79.899 Other long term (current) drug therapy
CPT/HCPCS: 45378; J1920; J2003; J2250; J2704

== ENCOUNTER 2025-04-18 09:31 | Outpatient (AMB) | payer OTHER, SELFPAY ==
--- OUTSIDE RECORDS SUMMARY | 2025-04-12 03:30 | XMS_ITS ---
Author Organization [facility] Address [address] [place] [address] Care Team Providers Care Artist Consultant Name Role Phone ADELA BORJAS Primary Care Provider Daniel Gtotlieb Jr [phone] REASON FOR VISIT screening Encounters Encounter Location Date Provider Diagnosis [facility] [place] Out[facility] [address] [place] [id number] 04/12/2025 Daniel Maria Jr Plan Of Treatment No Information Progress Notes * FITO ROSA BDOB:1960 (64 yo M)Acc No.[id number]:04/12/2025 COLON WITH MAC Patient: Belle MOREFITO Provider: Brie Maria MD :1960 A ge:64 Y S ex:Male Date:04/12/2025 Address:[address] [place], [place] [id number] Pcp:ADELA BORJAS Subjective: * Chief Complaints: * 1 . Screening. * Medical History: Objective: * Vitals: Assessment: Plan: * Treatment: * * The named appointment provid er may or may not be the originator of this progress note, and it is not deemed complete until electronically signed by the appointment provider. Sign off status: Pending * Provider: Brie Maria MD Date: 04/12/2025 Generated for Christal tran/Keith/eTransmitting on: 04/18/2025 09:51 AM EDT
[2025-04-18 10:01] VITALS: BP 137/76; PULSE 84; TEMP 36.8; O2SAT 95; BMI 28.4
--- NOTE | 2025-04-18 10:01 | AM.OFFWIN_ITS ---
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 - The patient reports ear pain in the le ft ear, which started a couple of days ago. - The patient has a pressure in the left but he also has a pressure on the right. - He has no drainage or discharge. - There are no associated cold symptoms, headache, congestion, rhinorrhea, or fever. - The patient has a history of pneumonia and was treated. - During a recent colonoscopy, residual lung sounds were noted, and albuterol - He denies fever, chills, FAJARDO, dizziness , sore throat, cough, or ear pain. Physical Exam General: Cooperative, healthy appearing, comfortable, no acute distress and well developed Head: Normal to inspection Ears: External ears normal bilaterally. No tragus or mastoid tenderness noted. Cerumen noted in the canal. TM's not visualized. Face and sinus: Normal facial exam. No TTP of the sinuses. Neck: Normal visual inspection. Full ROM. No lymphadenopathy noted. Respiratory: Normal respiratory effort and able to speak in complete sentences. Clear to auscultation bilaterally. No w/r/r noted. History of pneumonia and treatment with albuterol. Cardiac: RRR, no m/r/g noted. Normal S1 and S2 noted. Patient was informed and verbally consented to the use of an ambient scribe for clinic note documentation during this visit. [facility] Medical History COPD (chronic obstructive pulmonary disease) DDD (degenerative disc disease), lumbar Aortic stenosis Alcohol dependence HTN (hypertension) Thoracic aortic aneurysm Surgical History Hx of left inguinal hernia repair Social History Household Members: Unknown / Unable to assess Housing: Unknown / Unable to assess Are you a primary intensive care unit nurse to a significant other at home: No Do you presently have visiting nurse or other home services: No Alcohol intake: former Patient Tobacco Use Status: Never used Tobacco e-Cigarette/Vaping Use: Never Used Second Hand Smoke Exposure: No Advance Directives Date on File: 11/30/24 service: No Current occupational status: employed 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 Review of Systems Const All systems reviewed & are unremarkable except as noted in HPI and below Physical Exam Vital Signs: Last Vital Signs Temp 98.2 F 04/18/25 10:01 Pulse 84 04/18/25 10:01 BP 137/76 04/18/25 10:01 Pulse Ox 95 04/18/25 10:01 Oxygen Delivery Method Room Air 04/18/25 10:01 BMI result Body Mass Index 28.4 Assessment & Plan Assessment & Plan (1) Impacted cerumen of both ears: Code(s): H61.23 - Impacted cerumen, bilateral Plan Most likely cerumen impaction Plan - Plan to flush the ears to remove impacted cerumen and alleviate symptoms. - Debrox drops to the ears - Follow up if pain continues Orders: Orders AMB Cerumen Removal Today H61.23 - Impacted cerumen, bilateral Medications: New carbamide peroxide 6.5% (Debrox) 5 drps otic (ears) DAILY 15 mL 0RF 4 days Coding Level of Care Code Est Pt Level 3 (56761) Diagnoses Impacted cerumen of both ears H61.23
== END 2025-04-18 10:56 | disposition home or self-care (01) ==
PROVIDERS: PCP Nurse Practitioner Family; Visit Provider Physician Assistant Medical
DX: H61.23 Impacted cerumen, bilateral (principal)

== ENCOUNTER → 2025-04-18 09:31 | Outpatient (BNVA) | payer OTHER, SELFPAY | PROVIDERS: PCP Nurse Practitioner Family; Visit Provider Physician Assistant Medical | DX: Z13.89 Encounter for screening for other disorder (principal) ==

== ENCOUNTER 2025-04-27 07:19 | Outpatient (AMB) | payer OTHER, SELFPAY ==
--- OUTSIDE RECORDS SUMMARY | 2025-04-12 03:30 | XMS_ITS ---
Author Organization [facility] Address [address] [place] [address] Care Team Providers Care It Infrastructure Specialist Name Role Phone ADELA BORJAS Primary Care Provider Daniel Gottlieb Jr [phone] REASON FOR VISIT screening Encounters Encounter Location Date Provider Diagnosis [facility] [place] [address] [place], [place] [phone] 04/12/2025 Daniel Maria Jr Colon cancer screening Z12.11 Assessments Encounter Date Diagnosis (ICD Code) Assessment Notes Treatment Notes Treatment Clinical Notes Section Notes 04/12/2025 Colon cancer screening (ICD-10 - Z12.11) Plan Of Treatment No Information Progress Notes * FITO ROSA BDOB:1960 (64 yo M)Acc No.[id number]:04/12/2025 COLON WITH MAC Patient: FITO WITT Provider: Brie Maria MD :1960 A ge:64 Y S ex:Male Date:04/12/2025 Address:[address] [place], [place] [id number] Pcp:ADELA BORJAS Subjective: * Chief Complaints: * 1 . Screening. * Medical History: Objective: * Vitals: Assessment: * Assessment: 1. C olon cancer screening - Z12.11 (Primary) Plan: * Treatment: * Procedure Codes: 4 5378 DIAGNOSTIC COLONOSCOPY, 0529F INTRVL 3+YRS PTS CLNSCP DOCD, 0528F RCMND FLW-UP 10 YRS DOCD * * The named appointment provid er may or may not be the originator of this progress note, and it is not deemed complete until electronically signed by the appointment provider. Sign off status: Pending * Provider: Brie Maria MD Date: 0 04/12/2025 Generated for Christal tran/Keith/Charlotte on: 0 04/27/2025 07:21 AM EDT
--- OUTSIDE RECORDS SUMMARY | 2025-04-27 07:22 | XMS_ITS | Patient Health Record ---
Author Organization [facility] Address [address] [address] Care Team Providers Care Action Finisher Name Role Phone Daniel Azevedo Primary Care Provider Darin Wing Unavailable [phone] Allergies Allergen (clinical drug ingredient) Drug/Non Drug Allergy documented on EMR Reaction Allergy Type Onset Date Status Bee Sting Unknown Allergy Active Penicillin Unknown Drug Allergy Active Results Component Value Reference Range Notes MR-Thoracic Spine (C-) CPT 7 2146 Reviewed date:03/01/2025 04:27:04 PM Interpretation: Performing Lab: Notes/Report: MR-Lumbar Spine (C-) CPT 721 48 Reviewed date:03/01/2025 04:26:21 PM Interpretation: Performing Lab: Notes/Report: MR-Cervical Spine (C-) CPT 7 2141 Reviewed date:03/01/2025 04:27:54 PM Interpretation: Performing Lab: Notes/Report: MR-Brain (C-) CPT 71071 Reviewed date:03/01/2025 04:24:45 PM Interpretation: Performing Lab: Notes/Report: Reason For Referral Reason MRIs done at [facility], multilevel cervical stenosis, gait ataxia, evaluate and treat, thank you Diagnosis 1 Cervical stenosis of spine (M48.02) Referral Organization [facility] Referring Provider First Name Darin Referring Provider Last Name Jasmeet Referring Provider Speciality Neurology Referred Provider Tylor Silveira Referral Priority Routine Medications Medication SIG (Take, Route, Frequency, Duration) Notes Start Date End Date Status EPINEPHrine 0.3 MG/0.3ML INJECT 0.3 MG ( 0.3 ML) INTRAMUSCULARLY EVERY 10 MINUTES NEEDED FOR ANAPHYLAXIS FOR 3 DOSES Injection; Duration: 1 Days Active Azithromycin 250 MG Oral; Duration: 5 Days Not-Taking Qvar RediHaler 80 MCG/ACT Inhalation; Du ration: 60 Days Active Atorvastatin Calcium 20 MG TAKE 1 TABLET BY MOUTH EVERY DAY Oral; Duration: 90 Days Not-Taking Folic Acid 1 MG Oral; Duration: 90 Days Active Losartan Potassium-HCTZ 100-12.5 MG TAKE 1 TABLET BY MOUTH EVERY DAY Oral; Duration: 90 Days Not-Taking Atorvastatin Calcium 40 MG TAKE 1 TABLET BY MOUTH EVERY DAY AT BEDTIME Oral; Duration: 90 Days Active Losartan Potassium-HCTZ 100-12.5 MG Oral; Duration: 90 Days Active Gabapentin 100 MG 1 capsule Oral Once a day; Duration: 30 days Active hydroCHLOROthiazide 12.5 MG Oral; Duration: 30 Days Not-Taking tiZANidine HCl 4 MG TAKE 1 TABLET EVERY 12 HOURS NEEDED FOR MUSCLE SPASTICITY DO NOT TAKE WITH COUGH SYRUP Oral; Duration: 15 Days Active Losartan Potassium 25 MG Oral; Duration: 90 Days Not-Taking Atenolol 25 MG Oral; Duration: 90 Days Active Aspirin Low Dose 81 MG TAKE 1 TABLET BY MOUTH EVERY DAY Oral; Duration: 90 Days Active Montelukast Sodium 10 MG Oral; Duration: 90 Days Active Social History Tobacco Use: Social History Observation Description Date Details (start date - stop date) Never Smoker NA - NA Tobacco Control (Standard) Question Answer Notes Tobacco use: Nonsmoker Additional Findings: Tobacco non-user Current no nsmoker Problems Problem Type SNOMED Code ICD Code Onset Dates Problem Status W/U Status Risk Notes Problem Abnormal reflex (34625436) Abnormal reflex (R29.2) Active confirmed Problem Neuropathy (928174700) Neuropathy (G62.9) Active confirmed Problem Spinal stenosis in cervical region (81580682) Cervical stenosis of spine (M48.02) Active confirmed Problem Disorder of musculoskeletal system (459458) Bilateral leg weakness (R29.898) Active confirmed Vital Signs Heart Rate 80 /min 02/16/2025 Oximetry 97 % 02/16/2025 Blood pressure diastolic 78 mm Hg 02/16/2025 Height 72 in 02/16/2025 Blood pressure systolic 110 mm Hg 02/16/2025 Weight 209 lbs 02/16/2025 BMI 28.34 kg/m2 02/16/2025 Procedures Procedure Date Ordered Date Performed Result Body Sit e physical therapy 02/16/2025 02/28/2025 N/A Encounters Encounter Location Date Provider Diagnosis [address] [address] 02/16/2025 Darin Alamo Bilateral leg weakness R29.898 and Abnormal reflex R29.[address] [address] 03/07/2025 Darin Alamo Cervical stenosis of spine M48.[address] [address] 03/18/2025 Darin Alamo [address] [address] 03/25/2025 Darin Alamo [address] [address] 04/01/2025 Darin Alamo Assessments Encounter Date Diagnosis (ICD Code) Assessment [...] always repeat his EMG in the future. 03/07/2025 Cervical stenosis of spine (ICD-10 - M48.02) Plan Of Treatment Next Appt Details Provider Name:Darin Dwyer , 04/29/2025 09:00:00 AM, [address] [place] [address], [place], [address], Insurance Providers Payer Name Payer Address Payer Phone Subscriber Number Group Number Insured Name Patient Relationship to Insured Coverage Start Date Coverage End Date [facility] [address] [place] [address] [id number] Mannie Pleitez Self - patient is the insured Medical (General) History Medical History History ICD Code Neuropathy G62.9 hypertension Dona Type I Surgical History Surgery Date(Month/Year) hernia repair
--- NOTE | 2025-04-27 07:34 | A.OFFPC_ITS ---
Vital Signs 04/27/25 07:37 Height 6 ft Weight 212 lb BMI 28.7 BP 144/82 H Blood Pressure Location Rt brachial Position Sitting Respiration 16 Pulse 78 Temp 98.1 F Temp Source Oral Pulse Oximetry (%) 98 Oxygen Delivery Method Room Air Intake Visit Reasons: complex follow up; glenda pérez Intake Note: Pt is here today for his f/u Allergies bee pollen (bee stings) Allergy (Severe, Verified 04/27/25 07:34) Anaphylaxis cefuroxime Allergy (Intermediate, Verified 04/27/25 07:34) Swelling Penicillins Allergy (Mild, Verified 04/27/25 07:34) hives Tobacco use date assessed: 04/27/25 Dental Screening Dental Screen Date: 04/27/25 Did you have a dental visit in the last 12 months?: No Did you have a dental problem in the last 6 months where you did not have access to dental care?: No Was dental information given to patient?: Patient has dentist HPI complex follow up; glenda pérez HPI Details Chief Complaint The patient presents with discomfort in the ears. History of Present Illness The patient is a 64-year-old male presenting with discomfort in the ears due to cerumen impaction. Initially seen on 04/18/2025, the patient experienced bilateral ear discomfort attributed to excessive cerumen. Attempts to flush the ears were minimally successful, and the patient used Deprox at home, which provided some relief. Currently, the right ear is clear, but the left ear still has residual wax causing discomfort. Additionally, a dermatological examination revealed a scabby, flesh-colored, dry, papillary, raised lesion on the left posterior auricular region. A similar lesion, though more macular and larger, was noted on the right upper forehead. The patient is very fair-skinned, which may contribute to these dermatological findings. Social History Health Maintenance Review of Systems denies Physical Exam General: Cooperative, healthy appearing, comfortable, no acute distress and well developed Orientation: Patient oriented x3 Limitations: No limitations Head: Normal to inspection Ears: Right side clear, left side with residual wax. Excessive cerumen bilaterally noted previously. Nose: Normal external nose present Face and sinus: Normal facial exam Eyes: Appearance normal, both eyes and all related structures Neck: Normal visual inspection and Yes full ROM Respiratory: Normal respiratory effort and able to speak in complete sentences. Clear to auscultation bilaterally Cardiovascular: Regular rate and rhythm. Normal S1 and S2, systolic murmur GI: Normal to inspection. Soft to palpation and nontender Skin: Scabby, flesh-colored, dry, papillary, raised lesion noted on left po sterior auricular region. Similar appearance to right upper forehead, though more macular and bigger. Very fair-skinned. Neuro: Patient oriented x3 Extremities: Normal to inspection Results cerumen cleared after ear lavage Plan The patient will be referred to dermatology for further evaluation of the lesions noted on the left posterior auricular region and right upper forehead. Continued management of cerumen impaction includes the use of Deprox at home, with follow-up if symptoms persist. Discussion Notes I discussed with the patient the need for a dermatology referral to evaluate the lesions on his skin, considering his fair skin type. We also reviewed the management of his cerumen impaction, emphasizing the use of Deprox and the importance of follow-up if discomfort continues. Patient Instructions - Continue using Deprox at home for ear wax management. - Follow up with dermatology as schedule d for skin lesion evaluation. - Return for further evaluation if ear d iscomfort persists. [facility] Medical History COPD (chronic obstructive pulmonary disease) DDD (degenerative disc disease), lumbar Aortic stenosis Alcohol dependence HTN (hypertension) Thoracic aortic aneurysm Surgical History Hx of left inguinal hernia repair Social History Household Members: Unknown / Unable to assess Housing: Unknown / Unable to assess Are you a primary emergency care attendant to a significant other at home: No Do you presently have visiting nurse or other home services: No Alcohol intake: former Patient Tobacco Use Status: Never used Tobacco e-Cigarette/Vaping Use: Never Used Second Hand Smoke Exposure: No Advance Directives Date on File: 11/30/24 service: No Current occupational status: employed 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 Questionnaire Thrive Questionnaire Date Thrive assessed: 11/11/24 I am a: Patient What is your living situation today?: I have a steady place to live Within the past 12 months, did the food you bought not last and you didn't have the money to get more?: Never true Within the past 12 months, did you worry whether your food would run out before you got money to buy more?: Never true Do you have trouble paying for medicines?: No Do you have trouble getting transportation to medical appointments?: No Do you have trouble paying your heating and electricity bill?: No Do you have trouble taking care of your child, family member or friend?: No Do you have trouble with day-to-day activities such as bathing, preparing meals, shopping, managing finances, etc.?: No Are you currently unemployed and looking for a job?: No Are you interested in more education?: No Please select the resources that you would like help with: None Currently or been in a relationship where the following occur: No concerns reported THRIVE Score: 0 JOSEPH-7 AMB Questionnaire JOSEPH-7 Date JOSEPH - 7 assessed: 11/11/24 Source: Developed by Drs. Bon Nelson, Zari Bojorquez, Timmy Duarte and colleagues, with an educational cary from [employer]. Physical exam (Primary Care) Vital Signs: Last Vital Signs Temp 98.1 F 04/27/25 07:37 Pulse 78 04/27/25 07:37 Resp 16 04/27/25 07:37 BP 144/82 H 04/27/25 07:37 Pulse Ox 98 04/27/25 07:37 Oxygen Delivery Method Room Air 04/27/25 07:37 BMI result Body Mass Index 28.7 Tobacco/Smoking Status: Tobacco use Status Tobacco use date assessed 04/27/25 04/27/25 07:35 Patient Tobacco Use Status Never used Tobacco 04/27/25 07:35 Tobacco use type 04/21/25 10:12 e-Cigarette/Vaping Use Never Used 04/27/25 07:35 Thrive Assessment: Date of Thrive Assessment Date Thrive assessed 11/11/24 04/27/25 07:35 Currently or been in a relationship where the following occur: No concerns reported Office Procedures Cerumen Removal From which ear canal was the cerumen removed: left Removal: irrigation Notes: patient tolerated procedure well and no complications [id number] Irrigation/Lavage Coding Level of Care Code Est Pt Level 3 (36274) Diagnoses Skin lesion L98.9 Cerumen debris on tympanic membrane of left ear H61.22 CPT Codes Office Procedure - CPT: 05235-Vun Irrigation/Lavage ([id number]) Assessment & Plan Assessment & Plan (1) Skin lesion: Code(s): L98.9 - Disorder of the skin and subcutaneous tissue, unspecified Category: Medical (2) Cerumen debris on tympanic membrane of left ear: Code(s): H61.22 - Impacted cerumen, left ear Category: Medical Plan . Orders: Referrals Dermatology Referral L98.9 - Disorder of the skin and subcutaneous tissue, unspecified
[2025-04-27 07:37] VITALS: BP 144/82; PULSE 78; RESP 16; TEMP 36.7; O2SAT 98; BMI 28.7
== END 2025-04-27 08:31 | disposition home or self-care (01) ==
LOC: HO.HMCC 07:20
PROVIDERS: PCP Nurse Practitioner Family; Visit Provider Nurse Practitioner Family
DX: L98.9 Disorder of the skin and subcutaneous tissue, unspecified (principal); H61.22 Impacted cerumen, left ear

== ENCOUNTER → 2025-04-27 07:19 | Outpatient (BNVA) | payer OTHER, SELFPAY | PROVIDERS: PCP Nurse Practitioner Family; Visit Provider Nurse Practitioner Family | DX: H61.22 Impacted cerumen, left ear (principal); L98.9 Disorder of the skin and subcutaneous tissue, unspecified | CPT/HCPCS: 69209 ==